=== PATIENT | female | born 1950 | race Caucasian/White ===

== ENCOUNTER → 2017-09-25 11:31 | Outpatient (CLI) | payer MEDICARE, OTHER, SELFPAY ==
[2017-09-25 12:49] LABS: Absolute Neutrophil Count 2.4 X10^3/uL (2.0-7.7); Basophil# 0.03 X10^3/uL; Basophil% 0.7 % (0-1); Eosinophil# 0.13 X10^3/uL; Eosinophils% 2.9 % (0-5); Hematocrit 37.6 % (37-47); Hemoglobin 12.2 g/dl (12.0-15.0); Lymphocyte % 35.4 % (19-41); Mean Corp Hgb Conc 32.4 g/gl (32-36); Mean Corpuscular Hgb 28.7 pg (27.0-32.0); Mean Corpuscular Volume 88.5 fL (81-99); Mean Platelet Vol. 9.6 fl (6.2-12.0); Monocyte# 0.39 X10^3/uL; Monocyte% 8.6 % (0-10); Neutrophil # 2.36 X10^3/uL (2.7-7.7); Neutrophil % 52.2 % (47-70); Platelet Count 244 K/mm3 (150-450); RBC Distribution Width CV 13.5 % (11.6-14.6); RBC Distribution Width SD 43.1 fl (35.1-43.9); Red Blood Count 4.25 M/mm3 (4.2-5.4); White Blood Count 4.5 K/mm3 (4.4-11.0)
[2017-09-25 13:00] LABS: POSITIVE COUNT NO; POSITIVE DIFFERENTIAL NO; POSITIVE MORPHOLOGY NO
[2017-09-25 13:04] LABS: AST(SGOT) 19 U/L (15-37); Alanine Aminotransfer ALT/SGPT 22 U/L (13-56); Albumin, Serum 3.4 g/dL (3.2-5.0); Alkaline Phosphatase 112 U/L (45-117); Anion Gap 8 (5-15); BUN 13 mg/dL (7-18); BUN/Creat Ratio 17.6 RATIO (10-20); Calcium,Total 8.2 mg/dL (8.5-10.1); Chloride 108 mmol/L (98-107); Creatinine, Serum 0.74 mg/dL (0.55-1.02); EST Glomerular Filtration Rate 83 mL/min (>60); Est Glom Filt Rate - Afr Amer 101 mL/min (>60); Globulin 3.5 g/dL (2.2-4.2); Glucose 158 mg/dL (74-106); Potassium 4.2 mmol/L (3.5-5.1); Protein, Total 6.9 g/dL (6.4-8.2); Sodium Level 141 mmol/L (136-145)
[2017-09-25 13:09] LABS: Vitamin D,25 Hydroxy 32.4 ng/mL (29.95-100.01)
== END ==
PROVIDERS: Family Provider Family Medicine Geriatric Medicine; PCP Family Medicine Geriatric Medicine; Visit Provider Family Medicine Geriatric Medicine
DX: E11.9 Type 2 diabetes mellitus without complications (principal); E55.9 Vitamin D deficiency, unspecified; E78.4 Other hyperlipidemia
CPT/HCPCS: 36415; 80053; 82306; 84443; 85025

== ENCOUNTER → 2017-12-27 14:43 | Outpatient (CLI) | payer MEDICARE, OTHER, SELFPAY ==
--- NOTE | 2017-12-27 14:43 | DT_ITS ---
This patient was seen during an EMR downtime December 23, 2017 - December 30, 2017. This patient may have a combination of paper and electronic documentation or all paper documentation. All documentation is viewable within the e-chart portion of [facility] for each patient visit.
== END ==
PROVIDERS: Family Provider Family Medicine Geriatric Medicine; PCP Family Medicine Geriatric Medicine; Visit Provider Family Medicine Geriatric Medicine
DX: N39.0 Urinary tract infection, site not specified (principal)
CPT/HCPCS: 87086; 87088; 87186

== ENCOUNTER → 2017-12-30 10:13 | Outpatient (CLI) | payer MEDICARE, OTHER, SELFPAY ==
--- NOTE | 2017-12-30 10:13 | DT_ITS ---
This patient was seen during an EMR downtime December 23, 2017 - December 30, 2017. This patient may have a combination of paper and electronic documentation or all paper documentation. All documentation is viewable within the e-chart portion of [facility] for each patient visit.
[2017-12-30 12:41] LABS: Absolute Lymphocyte Count 1.53 X10^3/ul (0.83-4.51); Absolute Neutrophil Count 2.2 X10^3/uL (2.0-7.7); Basophil# 0.04 X10^3/uL; Basophil% 0.9 % (0-1); Eosinophils% 2.3 % (0-5); Hematocrit 37.4 % (37-47); Hemoglobin 11.9 g/dl (12.0-15.0); Lymphocyte # 1.53 X10^3/ul (4.0); Lymphocyte % 34.8 % (19-41); Mean Corp Hgb Conc 31.8 g/gl (32-36); Mean Corpuscular Hgb 29.3 pg (27.0-32.0); Mean Corpuscular Volume 92.1 fL (81-99); Mean Platelet Vol. 9.5 fl (6.2-12.0); Monocyte% 11.4 % (0-10); Neutrophil # 2.21 X10^3/uL (2.7-7.7); Neutrophil % 50.1 % (47-70); Platelet Count 264 K/mm3 (150-450); RBC Distribution Width CV 14.7 % (11.6-14.6); RBC Distribution Width SD 48.2 fl (35.1-43.9); Red Blood Count 4.06 M/mm3 (4.2-5.4); White Blood Count 4.4 K/mm3 (4.4-11.0)
[2017-12-30 12:44] LABS: POSITIVE COUNT NO; POSITIVE DIFFERENTIAL NO; POSITIVE MORPHOLOGY NO
[2017-12-30 13:05] LABS: ALB/GLOB Ratio 1.1 RATIO (0.9-2.4); AST(SGOT) 22 U/L (15-37); Alanine Aminotransfer ALT/SGPT 26 U/L (13-56); Albumin, Serum 3.5 g/dL (3.2-5.0); Alkaline Phosphatase 106 U/L (45-117); Anion Gap 9 (5-15); BUN 16 mg/dL (7-18); BUN/Creat Ratio 19.6 RATIO (10-20); Calcium,Total 8.6 mg/dL (8.5-10.1); Chloride 107 mmol/L (98-107); Creatinine, Serum 0.82 mg/dL (0.55-1.02); EST Glomerular Filtration Rate 74 mL/min (>60); Est Glom Filt Rate - Afr Amer 90 mL/min (>60); Globulin 3.3 g/dL (2.2-4.2); Glucose 217 mg/dL (74-106); Potassium 4.2 mmol/L (3.5-5.1); Protein, Total 6.8 g/dL (6.4-8.2); Sodium Level 140 mmol/L (136-145); Thyroid Stim Hormone (TSH) 2.25 uIU/mL (0.358-3.74)
[2017-12-30 13:13] LABS: Vitamin D,25 Hydroxy 37.6 ng/mL (29.95-100.01)
== END ==
PROVIDERS: Family Provider Family Medicine Geriatric Medicine; PCP Family Medicine Geriatric Medicine; Visit Provider Family Medicine Geriatric Medicine
DX: E11.9 Type 2 diabetes mellitus without complications (principal); E55.9 Vitamin D deficiency, unspecified; I10 Essential (primary) hypertension
CPT/HCPCS: 36415; 80053; 82306; 84443; 85025

== ENCOUNTER → 2018-03-31 11:03 | Outpatient (CLI) | payer MEDICARE, OTHER, SELFPAY ==
[2018-03-31 12:15] LABS: Absolute Lymphocyte Count 2.08 X10^3/ul (0.83-4.51); Absolute Neutrophil Count 2.6 X10^3/uL (2.0-7.7); Basophil# 0.06 X10^3/uL; Basophil% 1.1 % (0-1); Eosinophil# 0.14 X10^3/uL; Eosinophils% 2.6 % (0-5); Hematocrit 38.7 % (37-47); Hemoglobin 12.5 g/dl (12.0-15.0); Lymphocyte # 2.08 X10^3/ul (4.0); Lymphocyte % 38.9 % (19-41); Mean Corp Hgb Conc 32.3 g/gl (32-36); Mean Corpuscular Hgb 29.4 pg (27.0-32.0); Mean Corpuscular Volume 91.1 fL (81-99); Mean Platelet Vol. 9.7 fl (6.2-12.0); Monocyte# 0.45 X10^3/uL; Monocyte% 8.4 % (0-10); Neutrophil # 2.61 X10^3/uL (2.7-7.7); Neutrophil % 48.8 % (47-70); Platelet Count 241 K/mm3 (150-450); RBC Distribution Width CV 13.3 % (11.6-14.6); RBC Distribution Width SD 43.4 fl (35.1-43.9); Red Blood Count 4.25 M/mm3 (4.2-5.4); White Blood Count 5.4 K/mm3 (4.4-11.0)
[2018-03-31 12:21] LABS: POSITIVE COUNT NO; POSITIVE DIFFERENTIAL NO; POSITIVE MORPHOLOGY NO
[2018-03-31 12:36] LABS: Vitamin D,25 Hydroxy 24.9 ng/mL (29.95-100.01)
[2018-03-31 12:46] LABS: AST(SGOT) 26 U/L (15-37); Alanine Aminotransfer ALT/SGPT 36 U/L (13-56); Albumin, Serum 3.6 g/dL (3.2-5.0); Alkaline Phosphatase 105 U/L (45-117); Anion Gap 12 (5-15); BUN 16 mg/dL (7-18); BUN/Creat Ratio 20.9 RATIO (10-20); Calcium,Total 9.1 mg/dL (8.5-10.1); Chloride 107 mmol/L (98-107); Creatinine, Serum 0.76 mg/dL (0.55-1.02); EST Glomerular Filtration Rate 80 mL/min (>60); Est Glom Filt Rate - Afr Amer 97 mL/min (>60); Globulin 3.5 g/dL (2.2-4.2); Glucose 159 mg/dL (74-106); Potassium 4.6 mmol/L (3.5-5.1); Protein, Total 7.1 g/dL (6.4-8.2); Sodium Level 143 mmol/L (136-145); Thyroid Stim Hormone (TSH) 1.63 uIU/mL (0.358-3.74)
== END ==
PROVIDERS: Family Provider Family Medicine Geriatric Medicine; PCP Family Medicine Geriatric Medicine; Visit Provider Family Medicine Geriatric Medicine
DX: E11.9 Type 2 diabetes mellitus without complications (principal); E55.9 Vitamin D deficiency, unspecified; I10 Essential (primary) hypertension
CPT/HCPCS: 36415; 80053; 82306; 84443; 85025

== ENCOUNTER → 2018-07-31 06:45 | Outpatient (CLI) | payer MEDICARE, OTHER, SELFPAY ==
[2018-07-23 13:45] VITALS: BMI 38.0
--- NOTE | 2018-07-31 06:47 | CDU_ITS ---
Reason For Study: Carotid stenosis Rt. Velocities/BP Lt. Velocities/BP Prox CCA 79.2/11.7 cm/sec. Prox CCA 104.0/20.4 cm/sec. Mid CCA 84.4/20.5 cm/sec. Mid CCA 113.0/25.1 cm/sec. Dist CCA 76.2/19.9 cm/sec. Dist CCA 107.0/19.6 cm/sec. Prox ICA 89.6/29.1 cm/sec. Prox ICA 115.0/26.4 cm/sec. Mid ICA 118.0/34.6 cm/sec. Mid ICA 133.0/36.9 cm/sec. Dist ICA 108.0/30.6 cm/sec. Dist ICA 87.2/27.5 cm/sec. Rt. ICA/CCA = 1.4. Lt. ICA/CCA = 1.2. Prox ECA 145.0/15.7 cm/sec. Prox ECA 161.0/23.6 cm/sec. Rt. Vert. 66.3/21.7 cm/sec. Right Extracranial There is intimal thickening but no significant atherosclerotic plaque noted in the right common carotid artery. There is heterogeneous, irregular atherosclerotic plaque noted in the right internal carotid artery. There is heterogeneous, irregular atherosclerotic plaque noted in the right external carotid artery. Antegrade flow is noted in the right vertebral artery. Left Extracranial There is intimal thickening but no significant atherosclerotic plaque noted in the left common carotid artery. There is heterogeneous, irregular atherosclerotic plaque noted in the left internal carotid artery. There is homogeneous, smooth atherosclerotic plaque noted in the left external carotid artery. Retrograde flow LT VERT artery. Procedure Carotid Duplex 39825. Exam performed in department. Interpretation Summary Mild (<50%) stenosis right extracranial internal carotid. Moderate (50-69%) stenosis left extracranial internal carotid. Flow within the right verterbral artery is antegrade. Flow within the left verterbral artery is retrograde, consistent with a subclavian steal phenomenon. Ordering Physician: Greg Quinonez Referring Physician: Jim Calabrese Chi Performed By: Anabelle Vance RVT
--- NOTE | 2018-07-31 13:02 | STRESSREP ---
Stress Test Report Date: 07/31/2018 Procedure: Exercise tolerance test/imaging study Indications: Chest pain Consent: Per the patient Procedure: The patient exercised on a Jet protocol for 5 minutes 30 seconds completing Stage I and 2 minutes 30 seconds of Stage II achieving a peak heart rate of 141 bpm (92 % predicted maximal heart rate) with a peak blood pressure 200/82 mmHg and a peak MET capacity of 7 METs. The baseline ECG demonstrated normal sinus rhythm. The peak exercise ECG demonstrated no obvious ECG changes. There were no cardiac dysrhythmias pretest, during exercise, or recovery. The functional capacity was considered average. There was no complaint of chest discomfort during exercise or recovery. The examination was discontinued secondary to dyspnea and leg discomfort. Impression: 1. Technically adequate (percent predicted maximal heart rate greater than 85%) exercise tolerance test 2. Peak exercise ECG with no obvious ECG changes 3. There were no cardiac dysrhythmias pretest, during exercise, or recovery 4. Nuclear images pending Myocardial perfusion imaging study: Technique: The patient was injected with 14.1 mCi of technetium 99m Cardiolite and subsequently rest SPECT Cardiolite nuclear imaging was obtained in the horizontal long, vertical long, and short axis views. The patient exercised on a Ejt protocol for 5 minutes 30 seconds completing Stage I and 2 minutes 30 seconds of Stage II achieving a peak heart rate of 141 bpm (92 % predicted maximal heart rate) with a peak blood pressure 200/82 mmHg and a peak MET capacity of 7 METs. The patient was injected with 44.4 mCi of technetium 99m Cardiolite and subsequently stress SPECT Cardiolite nuclear imaging was obtained in the horizontal long, vertical long, and short axis views. A gated Cardiolite study at peak stress was obtained. Interpretation: Rest and stress SPECT Cardiolite nuclear imaging status post realignment, normalization, and attenuation correction, demonstrates the appearance of relative uniform tracer uptake and myocardial perfusion appearing within normal limits. There is end systolic thickening and brightening. The gated Cardiolite study demonstrates myocardial thickening and inward wall motion. The reported LVEF is 77 %. Impression: 1. Rest and stress SPECT Cardiolite nuclear imaging demonstrate relative uniform tracer uptake and myocardial perfusion appearing within normal limits. 2. The gated Cardiolite study reports an LVEF of 77 %. This note was generated with [employer] software. It may contain incorrect words, spelling, and punctuation that were not noted in checking the note before signing.
== END ==
PROVIDERS: Family Provider Family Medicine Geriatric Medicine; PCP Family Medicine Geriatric Medicine; Referring Provider Internal Medicine Cardiovascular Disease; Visit Provider Internal Medicine Cardiovascular Disease
DX: I25.10 Atherosclerotic heart disease of native coronary artery without angina pectoris (principal); R55 Syncope and collapse
CPT/HCPCS: 78452; 93017; 93880; A9500; A4216

== ENCOUNTER → 2018-08-18 15:25 | Outpatient (CLI) | payer MEDICARE, OTHER, SELFPAY ==
[2018-07-23 13:45] VITALS: BMI 38.0
[2018-08-18 16:40] LABS: Absolute Lymphocyte Count 1.97 X10^3/ul (0.83-4.51); Absolute Neutrophil Count 4.8 X10^3/uL (2.0-7.7); Basophil# 0.03 X10^3/uL; Basophil% 0.4 % (0-1); Eosinophil# 0.16 X10^3/uL; Eosinophils% 2.1 % (0-5); Hematocrit 39.6 % (37-47); Hemoglobin 12.8 g/dl (12.0-15.0); Lymphocyte # 1.97 X10^3/ul (4.0); Lymphocyte % 25.9 % (19-41); Mean Corp Hgb Conc 32.3 g/gl (32-36); Mean Corpuscular Hgb 29.2 pg (27.0-32.0); Mean Corpuscular Volume 90.2 fL (81-99); Monocyte# 0.68 X10^3/uL; Monocyte% 8.9 % (0-10); Neutrophil # 4.75 X10^3/uL (2.7-7.7); Neutrophil % 62.4 % (47-70); Platelet Count 260 K/mm3 (150-450); RBC Distribution Width CV 13.8 % (11.6-14.6); RBC Distribution Width SD 45.2 fl (35.1-43.9); Red Blood Count 4.39 M/mm3 (4.2-5.4); White Blood Count 7.6 K/mm3 (4.4-11.0)
[2018-08-18 16:50] LABS: POSITIVE COUNT NO; POSITIVE DIFFERENTIAL NO; POSITIVE MORPHOLOGY NO
[2018-08-18 17:04] LABS: Vitamin D,25 Hydroxy 61.5 ng/mL (29.95-100.01)
[2018-08-18 17:11] LABS: ALB/GLOB Ratio 0.9 RATIO (0.9-2.4); AST(SGOT) 18 U/L (15-37); Alanine Aminotransfer ALT/SGPT 27 U/L (13-56); Albumin, Serum 3.6 g/dL (3.2-5.0); Alkaline Phosphatase 116 U/L (45-117); Anion Gap 12 (5-15); BUN 15 mg/dL (7-18); BUN/Creat Ratio 18.2 RATIO (10-20); Calcium,Total 8.7 mg/dL (8.5-10.1); Chloride 108 mmol/L (98-107); Creatinine, Serum 0.82 mg/dL (0.55-1.02); EST Glomerular Filtration Rate 73 mL/min (>60); Est Glom Filt Rate - Afr Amer 89 mL/min (>60); Globulin 3.8 g/dL (2.2-4.2); Glucose 211 mg/dL (74-106); Protein, Total 7.4 g/dL (6.4-8.2); Sodium Level 141 mmol/L (136-145); Thyroid Stim Hormone (TSH) 2.46 uIU/mL (0.358-3.74); Uric Acid 4.2 mg/dL (2.6-6.0)
== END ==
PROVIDERS: Family Provider Family Medicine Geriatric Medicine; PCP Family Medicine Geriatric Medicine; Visit Provider Family Medicine Geriatric Medicine
DX: E11.9 Type 2 diabetes mellitus without complications (principal); E55.9 Vitamin D deficiency, unspecified; I10 Essential (primary) hypertension; M10.9 Gout, unspecified
CPT/HCPCS: 36415; 80053; 82306; 84443; 84550; 85025

== ENCOUNTER → 2018-11-04 06:54 | Outpatient (CLI) | payer MEDICARE, OTHER, SELFPAY ==
[2018-07-23 13:45] VITALS: BMI 38.0
[2018-11-21 11:19] LABS: Fats, Neutral NORMAL; Fats, Total NORMAL
== END ==
PROVIDERS: Family Provider Family Medicine Geriatric Medicine; PCP Family Medicine Geriatric Medicine
DX: K76.0 Fatty (change of) liver, not elsewhere classified (principal)
CPT/HCPCS: 82705; 83993; 87506

== ENCOUNTER → 2018-11-07 | Outpatient (CLI) | payer MEDICARE, OTHER, SELFPAY ==
[2018-07-23 13:45] VITALS: BMI 38.0
--- OUTSIDE RECORDS SUMMARY | 2018-11-07 11:07 | XMS RPT_ITS | CCD ---
:1950 External Reference #:[id number] Author Organization [facility] Care Team Providers Name Role Phone Unavailable Unavailable Unavailable Allergies Reported Allergen Reaction(s) Severity Date of Onset Location NKDA Translations: [ Mild 03-19-2016 - - [facility]] 03-27-2017 - Group ([id number]) NEGATED: Highlighted propensity to adverse 03-27-2017 - - [facility] row has been ruled reactions 03-27-2017 - Group ([id number]) out!Observed No Known Drug Allergies at Medications Medication Name Sig Date Prescriber Location acetaminophen ACETAMINOPHEN 500 MG TABS 03-27-2017 [facility] (Tylenol) Take as directed (45305) ACETAMINOPHEN [id number] Greg Quinonez MD ACETAMINOPHEN 500 MG TABS (Tylenol) Take as 03-27-2017 [facility] (63224) directed ACETAMINOPHEN [id number] Greg Quinonez MD ACETAMINOPHEN 500 MG TABS (Tylenol) Take as 03-27-2017 [facility] (24773) directed ACETAMINOPHEN [id number] Greg Quinonez MD ACETAMINOPHEN 500 MG TABS (Tylenol) Take as 03-27-2017 [facility] (38663) directed ACETAMINOPHEN [id number] Greg Quinonez MD ACETAMINOPHEN 500 MG TABS (Tylenol) Take as 03-27-2017 [facility] (61786) directed ACETAMINOPHEN [id number] Greg Quinonez MD ACETAMINOPHEN 500 MG TABS (Tylenol) Take as 03-27-2017 [facility] (67763) directed ACETAMINOPHEN [id number] Greg Quinonez MD ACETAMINOPHEN 500 MG TABS (Tylenol) Take as 03-27-2017 [facility] (67115) directed ACETAMINOPHEN [id number] Greg Quinonez MD acetaminophen / PERCOCET 5-325 MG TABS 1-2 03-19-2016 - [facility] oxyCODONE tablets every 4 hrs as needed 11-07-2016 Group ([id number]) OXYCODONE-ACETAMINOPHEN [id number] Jean Pierre Bonds ORTHOPEDIC RN-C PERCOCET 5-325 MG TABS 1-2 tablets 03-19-2015 - 11-07-2016 [facility] every 4 hrs as needed (68164) OXYCODONE-ACETAMINOPHEN [id number] Jean Pierre Bonds ORTHOPEDIC RN-C aspirin ASPIRIN EC 81 MG TBEC One tablet by 07-10-2010 [facility] (97518) mouth daily ASPIRIN [id number] Kaylee Larsen PA-C ASPIRIN 325 MG TABS One tablet by mouth 07-10-2011 [facility] (20351) twice daily ASPIRIN [id number] Paola Thompson RN ASPIRIN 81 MG TABS ASPIRIN 07-10-2011 [facility] (57322) [id number] Betty E Frase ASPIRIN 325 MG TABS One tablet by mouth 07-10-2011 [facility] (23316) twice daily ASPIRIN [id number] Paola Thompson RN ASPIRIN EC 81 MG TBEC One tablet by mouth 07-10-2011 [facility] (26750) daily ASPIRIN [id number] Kaylee Larsen PA-C ASPIRIN EC 81 MG TBEC One tablet by mouth 07-10-2011 [facility] (07606) daily ASPIRIN [id number] Kaylee Larsen PA-C ASPIRIN 81 MG TABS ASPIRIN 07-10-2011 [facility] (22008) [id number] Betty E Frase ASPIRIN 325 MG TABS One tablet by mouth 07-10-2011 [facility] (32474) twice daily ASPIRIN 57195760263 Paola Thompson RN ASPIRIN 325 MG TABS One tablet by mouth 07-10-2011 [facility] (09869) twice daily ASPIRIN [id number] Paola Thompson RN ASPIRIN EC 81 MG TBEC One tablet by mouth 07-10-2011 [facility] (61712) daily ASPIRIN [id number] Kaylee Larsen PA-C ASPIRIN 81 MG TABS ASPIRIN 07-10-2011 [facility] (47407) [id number] Betty E Frase ASPIRIN 325 MG TABS One tablet by mouth 07-10-2011 [facility] (73398) twice daily ASPIRIN 50643591154 Paola Thompson RN ASPIRIN 81 MG TABS ASPIRIN 07-10-2011 [facility] (56268) [id number] Betty E Frase ASPIRIN EC 81 MG TBEC One tablet by mouth 07-10-2011 [facility] (45186) daily ASPIRIN [id number] Kaylee Larsen PA-C ASPIRIN 81 MG TABS ASPIRIN 07-10-2011 [facility] (28702) [id number] Betty E Frase ASPIRIN EC 81 MG TBEC One tablet by mouth 07-10-2011 [facility] (82393) daily ASPIRIN [phone] Kaylee Larsen PA-C ASPIRIN 325 MG TABS One tablet by mouth 07-10-2011 [facility] (32270) twice daily ASPIRIN [id number] Paola Thompson RN ASPIRIN 81 MG TABS ASPIRIN 07-10-2011 [facility] (72119) [id number] Betty E Frase ASPIRIN EC 81 MG TBEC One tablet by mouth 07-10-2011 [facility] (81122) daily ASPIRIN [id number] Kaylee Larsen PA-C ASPIRIN 325 MG TABS One tablet by mouth 07-10-2011 [facility] (96281) twice daily ASPIRIN [id number] Paola Thompson RN ASPIRIN 81 MG TABS ASPIRIN 07-10-2011 [facility] (21145) [id number] Betty E Frase ASPIRIN EC 81 MG TBEC One tablet by mouth 07-10-2011 [facility] (01977) daily ASPIRIN 12441620156 Kaylee Larsen PA-C ASPIRIN 81 MG TABS ASPIRIN 07-10-2011 [facility] (56694) [id number] Betty E Frase ASPIRIN 325 MG TABS One tablet by mouth 07-10-2011 [facility] (16819) twice daily ASPIRIN [id number] Paola Thompson RN ASPIRIN EC 81 MG TBEC One tablet by mouth 07-10-2011 [facility] (96513) daily ASPIRIN [id number] Kaylee Larsen PA-C ASPIRIN 81 MG TABS ASPIRIN 07-10-2011 [facility] (61809) [id number] Betty E Frase ASPIRIN 81 MG TABS ASPIRIN 07-10-2011 [facility] (26608) [id number] Betty E Frase ASPIRIN 325 MG TABS One tablet by mouth 07-10-2011 [facility] (55012) twice daily ASPIRIN [id number] Paola Thompson RN ASPIRIN EC 81 MG TBEC One tablet by mouth 07-10-2011 [facility] (66139) daily ASPIRIN [id number] Kaylee Larsen PA-C ASPIRIN EC 81 MG TBEC One tablet by mouth 07-10-2011 [facility] (64840) daily ASPIRIN [id number] Kaylee Larsen PA-C ASPIRIN 81 MG TABS ASPIRIN 07-10-2011 [facility] (42947) [id number] Betty E Frase ASPIRIN 325 MG TABS One tablet by mouth 07-10-2011 [facility] (94042) twice daily ASPIRIN [phone] Paola Thompson RN ASPIRIN 325 MG TABS One tablet by mouth 07-10-2011 [facility] (96263) twice daily ASPIRIN [id number] Paola Thompson RN ASPIRIN 81 MG TABS ASPIRIN 07-10-2011 [facility] (54851) [id number] Betty E Frase ASPIRIN 325 MG TABS One tablet by mouth 07-10-2011 [facility] (48366) twice daily ASPIRIN [id number] Paola Thompson RN ASPIRIN EC 81 MG TBEC One tablet by mouth 07-10-2011 [facility] (24252) daily ASPIRIN 08120267442 Kaylee Larsen PA-C ASPIRIN 325 MG TABS One tablet by mouth 07-10-2011 [facility] (11674) twice daily ASPIRIN 53507116108 Paola Thompson RN ASPIRIN 81 MG TABS ASPIRIN 07-10-2011 [facility] (63266) [id number] Betty E Frase ASPIRIN EC 81 MG TBEC One tablet by mouth 07-10-2011 [facility] (99496) daily ASPIRIN [id number] Kaylee Larsen PA-C atorvastatin ATORVASTATIN CALCIUM 40 MG TABS 03-19-2016 [facility] (94670) One tablet by mouth daily ATORVASTATIN CALCIUM [id number] Paola Thompson RN ATORVASTATIN CALCIUM 80 MG TABS One tablet 03-19-2016 [facility] (30800) by mouth daily ATORVASTATIN CALCIUM [id number] Greg Quinonez MD ATORVASTATIN CALCIUM 80 MG TABS One tablet 03-19-2016 [facility] (52235) by mouth daily ATORVASTATIN CALCIUM [id number] Greg Quinonez MD ATORVASTATIN CALCIUM 40 MG TABS One tablet 03-19-2016 [facility] (60813) by mouth daily ATORVASTATIN CALCIUM [id number] Paola Thompson RN ATORVASTATIN CALCIUM 40 MG TABS One tablet 03-19-2016 [facility] (12368) by mouth daily ATORVASTATIN CALCIUM 70293979771 Paola Thompson RN ATORVASTATIN CALCIUM 80 MG TABS One tablet 03-19-2016 [facility] (76273) by mouth daily ATORVASTATIN CALCIUM [id number] Greg Quinonez MD ATORVASTATIN CALCIUM 80 MG TABS One tablet 03-19-2016 [facility] (89360) by mouth daily ATORVASTATIN CALCIUM [id number] Greg Quinonez MD ATORVASTATIN CALCIUM 80 MG TABS One tablet 03-19-2016 [facility] (18913) by mouth daily ATORVASTATIN CALCIUM [id number] Greg Quinonez MD ATORVASTATIN CALCIUM 40 MG TABS One tablet 03-19-2016 [facility] (03643) by mouth daily ATORVASTATIN CALCIUM [id number] Paola Thompson RN ATORVASTATIN CALCIUM 40 MG TABS One tablet 03-19-2016 [facility] (13819) by mouth daily ATORVASTATIN CALCIUM 33864369510 Paola Thompson RN ATORVASTATIN CALCIUM 80 MG TABS One tablet 03-19-2016 [facility] (86886) by mouth daily ATORVASTATIN CALCIUM 37270114478 Greg Quinonez MD ATORVASTATIN CALCIUM 40 MG TABS One tablet 03-19-2016 [facility] (31703) by mouth daily ATORVASTATIN CALCIUM 15088179247 Paola Thompson RN ATORVASTATIN CALCIUM 80 MG TABS One tablet 03-19-2016 [facility] (03168) by mouth daily ATORVASTATIN CALCIUM 78058880234 Greg Quinonez MD ATORVASTATIN CALCIUM 40 MG TABS One tablet 03-19-2016 [facility] (20146) by mouth daily ATORVASTATIN CALCIUM 24515505054 Paola Thompson RN ATORVASTATIN CALCIUM 80 MG TABS One tablet 03-19-2016 [facility] (64325) by mouth daily ATORVASTATIN CALCIUM [id number] Greg Quinonez MD ATORVASTATIN CALCIUM 40 MG TABS One tablet 03-19-2016 [facility] (75334) by mouth daily ATORVASTATIN CALCIUM 16064970763 Paola Thompson RN ATORVASTATIN CALCIUM 80 MG TABS One tablet 03-19-2016 [facility] (52402) by mouth daily ATORVASTATIN CALCIUM 82143765205 Greg Quinonez MD ATORVASTATIN CALCIUM 40 MG TABS One tablet 03-19-2016 [facility] (19225) by mouth daily ATORVASTATIN CALCIUM 27518146536 Paola Thompson RN ATORVASTATIN CALCIUM 80 MG TABS One tablet 03-19-2016 [facility] (24429) by mouth daily ATORVASTATIN CALCIUM 17186206964 Greg Quinonez MD ATORVASTATIN CALCIUM 40 MG TABS One tablet 03-19-2016 [facility] (84890) by mouth daily ATORVASTATIN CALCIUM 56330288807 Paola Thompson RN ATORVASTATIN CALCIUM 80 MG TABS One tablet 03-19-2016 [facility] (29671) by mouth daily ATORVASTATIN CALCIUM 65972696142 Greg Quinonez MD ATORVASTATIN CALCIUM 40 MG TABS One tablet 03-19-2016 [facility] (72684) by mouth daily ATORVASTATIN CALCIUM 61875325814 Paola Thompson RN ATORVASTATIN CALCIUM 80 MG TABS One tablet 03-19-2016 [facility] (97358) by mouth daily ATORVASTATIN CALCIUM 92244438015 Greg Quinonez MD ATORVASTATIN CALCIUM 40 MG TABS One tablet 03-19-2016 [facility] (04455) by mouth daily ATORVASTATIN CALCIUM 05115260008 Paola Thompson RN ATORVASTATIN CALCIUM 80 MG TABS One tablet 03-19-2016 [facility] (31808) by mouth daily ATORVASTATIN CALCIUM [id number] Greg Quinonez MD ATORVASTATIN CALCIUM 40 MG TABS One tablet 03-19-2016 [facility] (88651) by mouth daily ATORVASTATIN CALCIUM [id number] Paola Thompson RN cholecalciferol [facility] VITAMIN D3 1000 UNIT CAPS 07-10-2011 [facility] CHOLECALCIFEROL (53824) [id number] Betty Cassidy [facility] VITAMIN D3 1000 UNIT CAPS 07-10-2011 [facility] CHOLECALCIFEROL (37684) [id number] Betty E Frase CVS VITAMIN D3 1000 UNIT CAPS 07-10-2011 [facility] CHOLECALCIFEROL (55797) [id number] Betty E Frase CVS VITAMIN D3 1000 UNIT CAPS 07-10-2011 [facility] CHOLECALCIFEROL (31775) [id number] Betty E Frase CVS VITAMIN D3 1000 UNIT CAPS One 07-10-2011 - --2016 [facility] tablet by mouth daily (63381) CHOLECALCIFEROL Greg Quinonez MD CVS VITAMIN D3 1000 UNIT CAPS One 07-10-2011 [facility] tablet by mouth daily (09947) CHOLECALCIFEROL Paola Thompson RN CVS VITAMIN D3 1000 UNIT CAPS One 07-10-2011 [facility] tablet by mouth daily (94891) CHOLECALCIFEROL Paola Thompson RN CVS VITAMIN D3 1000 UNIT CAPS 07-10-2011 [facility] CHOLECALCIFEROL (42775) [id number] Betty E Frase CVS VITAMIN D3 1000 UNIT CAPS One 07-10-2011 [facility] tablet by mouth daily (97556) CHOLECALCIFEROL Paola Thompson RN CVS VITAMIN D3 1000 UNIT CAPS 07-10-2011 [facility] CHOLECALCIFEROL (94615) [id number] Betty E Frase CVS VITAMIN D3 1000 UNIT CAPS One 07-10-2011 [facility] tablet by mouth daily (66423) CHOLECALCIFEROL Paola Thompson RN CVS VITAMIN D3 1000 UNIT CAPS One 07-10-2011 [facility] tablet by mouth daily (52016) CHOLECALCIFEROL Paola Thompson RN CVS VITAMIN D3 1000 UNIT CAPS One 07-10-2011 [facility] tablet by mouth daily (37591) CHOLECALCIFEROL Paola Thompson RN CV[facility] VITAMIN D3 1000 UNIT CAPS One 07-10-2011 [facility] tablet by mouth daily (04441) CHOLECALCIFEROL Paola Thompson RN CVS VITAMIN D3 1000 UNIT CAPS 07-10-2011 [facility] CHOLECALCIFEROL (58062) [id number] Betty E Robertase CVS VITAMIN D3 1000 UNIT CAPS 07-10-2011 [facility] CHOLECALCIFEROL (87917) [id number] Betty E Frase docusate COLACE 100 MG CAPS 07-10-2011 [facility] (77508) DOCUSATE SODIUM 14072012931 Betty E Frase COLACE 100 MG CAPS DOCUSATE 07-10-2011 [facility] (08318) SODIUM 51771238896 Betty E Frase COLACE 100 MG CAPS One capsule by mouth 07-10-2011 [facility] (50496) daily DOCUSATE SODIUM 60614336272 Paola Thompson RN COLACE 100 MG CAPS DOCUSATE 07-10-2011 [facility] (07716) SODIUM 38750864253 Betty E Frase COLACE 100 MG CAPS DOCUSATE 07-10-2011 [facility] (41207) SODIUM 90297190022 Betty E Frase COLACE 100 MG CAPS One capsule by mouth 07-10-2011 [facility] (20322) daily DOCUSATE SODIUM 26446425596 Paola Thompson RN COLACE 100 MG CAPS DOCUSATE 07-10-2011 [facility] (32924) SODIUM 72420058052 Betty E Frase COLACE 100 MG CAPS One capsule by mouth 07-10-2011 [facility] (41286) daily DOCUSATE SODIUM 41535083851 Paola Thompson RN COLACE 100 MG CAPS One capsule by mouth 07-10-2011 [facility] (33134) daily DOCUSATE SODIUM 88210265548 Paola Thompson RN COLACE 100 MG CAPS DOCUSATE 07-10-2011 [facility] (64014) SODIUM 71900349519 Betty E Frase COLACE 100 MG CAPS One capsule by mouth 07-10-2011 [facility] (21764) daily DOCUSATE SODIUM 12143319867 Paola Thompson RN COLACE 100 MG CAPS DOCUSATE 07-10-2011 [facility] (17478) SODIUM 67989337109 Betty E Frase COLACE 100 MG CAPS One capsule by mouth 07-10-2011 [facility] (96582) daily DOCUSATE SODIUM 69061791749 Paola Thompson RN COLACE 100 MG CAPS One capsule by mouth 07-10-2011 [facility] (67692) daily DOCUSATE SODIUM 18789231550 Paola Thompson RN COLACE 100 MG CAPS One capsule by mouth 07-10-2011 [facility] (45516) daily DOCUSATE SODIUM 87663823284 Paola Thompson RN COLACE 100 MG CAPS DOCUSATE 07-10-2011 [facility] (52433) SODIUM 30195282242 Betty E Frase COLACE 100 MG CAPS One capsule by mouth 07-10-2011 [facility] (81854) daily DOCUSATE SODIUM 77693705227 Paola Thompson RN COLACE 100 MG CAPS DOCUSATE 07-10-2011 [facility] (04673) SODIUM 29380141188 Betty E Frase COLACE 100 MG CAPS DOCUSATE 07-10-2011 [facility] (11156) SODIUM 72955579107 Betty E Frase COLACE 100 MG CAPS One capsule by mouth 07-10-2011 [facility] (24555) daily DOCUSATE SODIUM 51226697381 Paola Thompson RN COLACE 100 MG CAPS DOCUSATE 07-10-2011 [facility] (63485) SODIUM 31629703566 Betty E Frase COLACE 100 MG CAPS DOCUSATE 07-10-2011 [facility] (09116) SODIUM 90515144333 Betty E Frase COLACE 100 MG CAPS One capsule by mouth 07-10-2011 [facility] (45259) daily DOCUSATE SODIUM 17283189675 Paola Thompson RN COLACE 100 MG CAPS One capsule by mouth 07-10-2011 [facility] (46521) daily DOCUSATE SODIUM 25504203496 Paola Thompson RN COLACE 100 MG CAPS One capsule by mouth 07-10-2011 [facility] (21316) daily DOCUSATE SODIUM 13098648597 Paola Thompson RN COLACE 100 MG CAPS DOCUSATE 07-10-2011 [facility] (87771) SODIUM [id number] Betty Vanessa Granados esomeprazole ESOMEPRAZOLE MAGNESIUM 40 MG 09-27-2016 [facility] (84565) CPDR One tablet by mouth daily ESOMEPRAZOLE MAGNESIUM 12546625840 Kaylee Cervantes RN ESOMEPRAZOLE MAGNESIUM 40 MG 09-27-2016 [facility] (56814) CPDR One tablet by mouth daily ESOMEPRAZOLE MAGNESIUM 16051693865 Kaylee Cervantes RN ESOMEPRAZOLE MAGNESIUM 40 MG 09-27-2016 [facility] (57020) CPDR One tablet by mouth daily ESOMEPRAZOLE MAGNESIUM 53685012449 Kaylee Cervantes RN ESOMEPRAZOLE MAGNESIUM 40 MG 09-27-2016 [facility] (80894) CPDR One tablet by mouth daily ESOMEPRAZOLE MAGNESIUM 59910626039 Kaylee Cervantes RN ESOMEPRAZOLE MAGNESIUM 40 MG 09-27-2016 [facility] (44874) CPDR One tablet by mouth daily ESOMEPRAZOLE MAGNESIUM 36323044387 Kaylee Cervantes RN ESOMEPRAZOLE MAGNESIUM 40 MG 09-27-2016 [facility] (70110) CPDR One tablet by mouth daily ESOMEPRAZOLE MAGNESIUM 65463936848 Kaylee Cervantes RN ESOMEPRAZOLE MAGNESIUM 40 MG 09-27-2016 [facility] (04553) CPDR One tablet by mouth daily ESOMEPRAZOLE MAGNESIUM 59917150999 Kaylee Cervantes RN ESOMEPRAZOLE MAGNESIUM 40 MG 09-27-2016 [facility] (88441) CPDR One tablet by mouth daily ESOMEPRAZOLE MAGNESIUM 61403872068 Kaylee Cervantes RN ESOMEPRAZOLE MAGNESIUM 40 MG 09-27-2016 [facility] (13509) CPDR One tablet by mouth daily ESOMEPRAZOLE MAGNESIUM 27519689876 Kaylee Cervantes RN ESOMEPRAZOLE MAGNESIUM 40 MG 09-27-2016 [facility] (30856) CPDR One tablet by mouth daily ESOMEPRAZOLE MAGNESIUM 94657527498 Kaylee Cervantes RN ESOMEPRAZOLE MAGNESIUM 40 MG 09-27-2016 [facility] (58301) CPDR One tablet by mouth daily ESOMEPRAZOLE MAGNESIUM 00408737446 Kaylee Cervantes RN ESOMEPRAZOLE MAGNESIUM 40 MG 09-27-2016 [facility] (58032) CPDR One tablet by mouth daily ESOMEPRAZOLE MAGNESIUM 97459382092 Kaylee Cervantes RN ESOMEPRAZOLE MAGNESIUM 40 MG 09-27-2016 [facility] (10830) CPDR One tablet by mouth daily ESOMEPRAZOLE MAGNESIUM 30541254807 Kaylee Cervantes RN NEXIUM 40 MG PACK 07-10-2011 [facility] (18377) ESOMEPRAZOLE MAGNESIUM [id number] Betty E Frase NEXIUM 40 MG PACK 07-10-2010 - 03-19-2016 [facility] (80016) ESOMEPRAZOLE MAGNESIUM 30768086142 Paola Thompson RN NEXIUM 40 MG PACK 07-10-2011 [facility] (01870) ESOMEPRAZOLE MAGNESIUM 52618734815 Betty E Frase NEXIUM 40 MG PACK 07-10-2010 - 03-19-2015 [facility] (97526) ESOMEPRAZOLE MAGNESIUM 05488340950 Paola Thompson RN NEXIUM 40 MG PACK 07-10-2011 [facility] (48796) ESOMEPRAZOLE MAGNESIUM [id number] Betty E Frase furosemide LASIX 40 MG TABS 07-10-2011 [facility] (33442) FUROSEMIDE [id number] Betty E Frase LASIX 40 MG TABS 07-10-2010 - 03-19-2016 [facility] (46525) FUROSEMIDE [id number] Paola Thompson RN LASIX 40 MG TABS 07-10-2011 [facility] (70663) FUROSEMIDE [id number] Betty E Frase LASIX 40 MG TABS 07-10-2011 [facility] (73222) FUROSEMIDE 29324548540 Betty E Frase LASIX 40 MG TABS 07-10-2011 [facility] (82924) FUROSEMIDE 89544280034 Ebtty E Frase LASIX 40 MG TABS 07-10-2011 [facility] (24194) FUROSEMIDE 85435875487 Betty E Frase LASIX 40 MG TABS 07-10-2011 [facility] (05357) FUROSEMIDE [id number] Betty E Frase hyoscyamine LEVSIN/SL 0.125 MG SUBL 07-10-2011 [facility] (37279) HYOSCYAMINE SULFATE 84160820917 Betty E Frase LEVSIN/SL 0.125 MG SUBL 07-10-2010 - 03-19-2016 [facility] (71138) HYOSCYAMINE SULFATE 11043503050 Paola Thompson RN LEVSIN/SL 0.125 MG SUBL 07-10-2011 [facility] (95177) HYOSCYAMINE SULFATE 38860607957 Betty E Frase LEVSIN/SL 0.125 MG SUBL 07-10-2011 [facility] (90952) HYOSCYAMINE SULFATE 80354855417 Betty E Frase LEVSIN/SL 0.125 MG SUBL 07-10-2011 [facility] (04472) HYOSCYAMINE SULFATE [id number] Betty E Frase LEVSIN/SL 0.125 MG SUBL 07-10-2011 [facility] (52790) HYOSCYAMINE SULFATE 78185394610 Betty Vanessa Cassidy ibuprofen IBUPROFEN 800 MG TABS 1 tablet by 09-27-2016 [facility] (23464) mouth Q6H as needed IBUPROFEN [id number] Kaylee Cervantes RN IBUPROFEN 800 MG TABS 1 tablet by mouth Q6H 09-27-2016 [facility] (26654) as needed IBUPROFEN [id number] Kaylee Cervantes RN IBUPROFEN 800 MG TABS 1 tablet by mouth Q6H 09-27-2016 [facility] (20083) as needed IBUPROFEN [id number] Kaylee Campomitt RN IBUPROFEN 800 MG TABS 1 tablet by mouth Q6H 09-27-2016 [facility] (11890) as needed IBUPROFEN [id number] Kaylee Cervantes RN IBUPROFEN 800 MG TABS 1 tablet by mouth Q6H 09-27-2016 [facility] (51689) as needed IBUPROFEN [id number] Kaylee Cervantes RN IBUPROFEN 800 MG TABS 1 tablet by mouth Q6H 09-27-2016 [facility] (66961) as needed IBUPROFEN [id number] Kaylee Cervantes RN IBUPROFEN 800 MG TABS 1 tablet by mouth Q6H 09-27-2016 [facility] (57527) as needed IBUPROFEN [id number] Kaylee Cervantes RN IBUPROFEN 800 MG TABS 1 tablet by mouth Q6H 09-27-2016 [facility] (17686) as needed IBUPROFEN [id number] Kaylee eCrvantes RN IBUPROFEN 800 MG TABS 1 tablet by mouth Q6H 09-27-2016 [facility] (88795) as needed IBUPROFEN [id number] Kaylee Cervantes RN IBUPROFEN 800 MG TABS 1 tablet by mouth Q6H 09-27-2016 [facility] (36778) as needed IBUPROFEN [id number] Kaylee Cervantes RN IBUPROFEN 800 MG TABS 1 tablet by mouth Q6H 09-27-2016 [facility] (83641) as needed IBUPROFEN [id number] Kaylee Cervantes RN IBUPROFEN 800 MG TABS 1 tablet by mouth Q6H 09-27-2016 [facility] (19698) as needed IBUPROFEN [id number] Kaylee Cervantes RN IBUPROFEN 800 MG TABS 1 tablet by mouth Q6H 09-27-2016 [facility] (97098) as needed IBUPROFEN [id number] Kaylee Cervantes RN losartan LOSARTAN POTASSIUM 100 MG TABS One 03-19-2016 [facility] (84246) tablet by mouth daily LOSARTAN POTASSIUM 24351442251 Paola Thompson RN LOSARTAN POTASSIUM 100 MG TABS One tablet by 03-19-2016 [facility] (91157) mouth daily LOSARTAN POTASSIUM 94412865445 Paola Thompson RN LOSARTAN POTASSIUM 100 MG TABS One tablet by 03-19-2016 [facility] (19267) mouth daily LOSARTAN POTASSIUM 22967855425 Paola Thompson RN LOSARTAN POTASSIUM 100 MG TABS One tablet by 03-19-2016 [facility] (98719) mouth daily LOSARTAN POTASSIUM 86258522973 Paola Thompson RN LOSARTAN POTASSIUM 100 MG TABS One tablet by 03-19-2016 [facility] (28927) mouth daily LOSARTAN POTASSIUM 73071293561 Paola Thompson RN LOSARTAN POTASSIUM 100 MG TABS One tablet by 03-19-2016 [facility] (63466) mouth daily LOSARTAN POTASSIUM 05534507884 Paola Thompson RN LOSARTAN POTASSIUM 100 MG TABS One tablet by 03-19-2016 [facility] (84966) mouth daily LOSARTAN POTASSIUM 88935457484 Paola Thompson RN LOSARTAN POTASSIUM 100 MG TABS One tablet by 03-19-2016 [facility] (30157) mouth daily LOSARTAN POTASSIUM 02658866561 Paola Thompson RN LOSARTAN POTASSIUM 100 MG TABS One tablet by 03-19-2016 [facility] (67773) mouth daily LOSARTAN POTASSIUM 07196178555 Paola Thompson RN LOSARTAN POTASSIUM 100 MG TABS One tablet by 03-19-2016 [facility] (28360) mouth daily LOSARTAN POTASSIUM 94833931792 Paola Thompson RN LOSARTAN POTASSIUM 100 MG TABS One tablet by 03-19-2016 [facility] (70544) mouth daily LOSARTAN POTASSIUM 41545655509 Paola Thompson RN LOSARTAN POTASSIUM 100 MG TABS One tablet by 03-19-2016 [facility] (49007) mouth daily LOSARTAN POTASSIUM 49645386991 Paola Thompson RN LOSARTAN POTASSIUM 100 MG TABS One tablet by 03-19-2016 [facility] (54084) mouth daily LOSARTAN POTASSIUM 10669895786 Paola Thompson RN mesalamine APRISO [id number] 1500 mg twice 03-19-2016 [facility] (61759) daily MESALAMINE [id number] Paola Thompson RN APRISO [id number] 1500 mg twice daily 03-19-2016 [facility] (04680) MESALAMINE [id number] Paola Thompson RN APRISO [id number] 1500 mg twice daily 03-19-2016 [facility] (96781) MESALAMINE [id number] Paola Thompson RN APRISO [id number] 1500 mg twice daily 03-19-2016 [facility] (69079) MESALAMINE [id number] Paola Thompson RN APRISO [id number] 1500 mg twice daily 03-19-2016 [facility] (66842) MESALAMINE [id number] Paola Thompson RN APRISO [id number] 1500 mg twice daily 03-19-2016 [facility] ([id number]) MESALAMINE [id number] Paola Thompson RN APRISO [id number] 1500 mg twice daily 03-19-2016 [facility] (64544) MESALAMINE [id number] Paola Thompson RN APRISO [id number] 1500 mg twice daily 03-19-2016 [facility] (97248) MESALAMINE [id number] Paola Thompson RN APRISO [id number] 1500 mg twice daily 03-19-2016 [facility] (65937) MESALAMINE [id number] Paola Thompson RN APRISO [id number] 1500 mg twice daily 03-19-2016 [facility] (93499) MESALAMINE [id number] Paola Thompson RN APRISO [id number] 1500 mg twice daily 03-19-2016 [facility] (33229) MESALAMINE [id number] Paola Thompson RN APRISO [id number] 1500 mg twice daily 03-19-2016 [facility] (66906) MESALAMINE [id number] Paola Thompson RN APRISO [id number] 1500 mg twice daily 03-19-2016 [facility] (98802) MESALAMINE [id number] Paola Thompson RN metFORMIN METFORMIN HCL 500 MG TABS One 03-19-2016 [facility] (67866) tablet by mouth twice daily METFORMIN HCL [id number] Paola Thompson RN METFORMIN HCL 500 MG TABS One tablet by 03-19-2016 [facility] (97295) mouth twice daily METFORMIN HCL [id number] Paola Thompson RN METFORMIN HCL 500 MG TABS One tablet by 03-19-2016 [facility] (36472) mouth twice daily METFORMIN HCL [id number] Paola Thompson RN METFORMIN HCL 500 MG TABS One tablet by 03-19-2016 [facility] (10911) mouth twice daily METFORMIN HCL 96959565381 Paola Thompson RN METFORMIN HCL 500 MG TABS One tablet by 03-19-2016 [facility] (92827) mouth twice daily METFORMIN HCL [id number] Paola Thompson RN METFORMIN HCL 500 MG TABS One tablet by 03-19-2016 [facility] (51290) mouth twice daily METFORMIN HCL 73337459639 Paola Thompson RN METFORMIN HCL 500 MG TABS One tablet by 03-19-2016 [facility] (12131) mouth twice daily METFORMIN HCL 98339858651 Paola Thompson RN METFORMIN HCL 500 MG TABS One tablet by 03-19-2016 [facility] (06044) mouth twice daily METFORMIN HCL 63410397481 Paola Thompson RN METFORMIN HCL 500 MG TABS One tablet by 03-19-2016 [facility] (48557) mouth twice daily METFORMIN HCL [id number] Paola Thompson RN METFORMIN HCL 500 MG TABS One tablet by 03-19-2016 [facility] (87744) mouth twice daily METFORMIN HCL 23946916019 Paola Thompson RN METFORMIN HCL 500 MG TABS One tablet by 03-19-2016 [facility] (28000) mouth twice daily METFORMIN HCL [id number] Paola Thompson RN METFORMIN HCL 500 MG TABS One tablet by 03-19-2016 [facility] (70215) mouth twice daily METFORMIN HCL 02468247236 Paola Thompson RN METFORMIN HCL 500 MG TABS One tablet by 03-19-2016 [facility] (74413) mouth twice daily METFORMIN HCL 81615486241 Paola Thompson RN pantoprazole PANTOPRAZOLE SODIUM 40 03-19-2016 - [facility] MG TBEC One tablet by 09-27-2016 (59421) mouth twice daily PANTOPRAZOLE SODIUM 60143056660 Kaylee Cervantes RN PROBIOTIC PRODUCT PROBIOTIC DAILY CAPS One 03-19-2016 [facility] capsule by mouth daily (58635) PROBIOTIC PRODUCT 29523963741 Paola Thompson RN PROBIOTIC DAILY CAPS One capsule by mouth 03-19-2016 [facility] (09372) daily PROBIOTIC PRODUCT 23905459272 Paola Thompson RN PROBIOTIC DAILY CAPS One capsule by mouth 03-19-2016 [facility] (42227) daily PROBIOTIC PRODUCT 51338834029 Paola Thompson RN PROBIOTIC DAILY CAPS One capsule by mouth 03-19-2016 [facility] (82895) daily PROBIOTIC PRODUCT 77944428348 Paola Thompson RN PROBIOTIC DAILY CAPS One capsule by mouth 03-19-2016 [facility] (98006) daily PROBIOTIC PRODUCT 67460232119 Paola Thompson RN PROBIOTIC DAILY CAPS One capsule by mouth 03-19-2016 [facility] (81912) daily PROBIOTIC PRODUCT 73186888979 Paola Thompson RN PROBIOTIC DAILY CAPS One capsule by mouth 03-19-2016 [facility] (87702) daily PROBIOTIC PRODUCT 77068843719 Paola Thompson RN PROBIOTIC DAILY CAPS One capsule by mouth 03-19-2016 [facility] (95160) daily PROBIOTIC PRODUCT 43385594528 Paola Thompson RN PROBIOTIC DAILY CAPS One capsule by mouth 03-19-2016 [facility] (07762) daily PROBIOTIC PRODUCT 43290400157 Paola Thompson RN PROBIOTIC PRODUCT PROBIOTIC DAILY CAPS One 03-19-2016 [facility] capsule by mouth daily (43474) PROBIOTIC PRODUCT 49051897459 Paola Thompson RN PROBIOTIC DAILY CAPS One capsule by mouth 03-19-2016 [facility] (84078) daily PROBIOTIC PRODUCT 21362803991 Paola Thompson RN PROBIOTIC DAILY CAPS One capsule by mouth 03-19-2016 [facility] (10979) daily PROBIOTIC PRODUCT 00221593028 Paola Thompson RN PROBIOTIC DAILY CAPS One capsule by mouth 03-19-2016 [facility] (30031) daily PROBIOTIC PRODUCT 61841748239 Paola Thomspon RN promethazine PROMETHAZINE HCL 12.5 MG TABS 03-22-2016 [facility] (41336) One tablet by mouth Q6H as needed PROMETHAZINE HCL [id number] Gerg Quinonez MD PROMETHAZINE HCL 12.5 MG TABS 03-22-2016 [facility] (90316) One tablet by mouth Q6H as needed PROMETHAZINE HCL 92306427273 Greg Quinonez MD PROMETHAZINE HCL 12.5 MG TABS 03-22-2016 [facility] (31711) One tablet by mouth Q6H as needed PROMETHAZINE HCL 61722387943 Greg Quinonez MD PROMETHAZINE HCL 12.5 MG TABS 03-22-2016 [facility] (32488) One tablet by mouth Q6H as needed PROMETHAZINE HCL 08346302542 Greg Quinonze MD PHENERGAN 25 MG/ML SOLN 07-10-2010 - 03-19-2016 [facility] (47875) PROMETHAZINE HCL 16517612937 Paola Thompson RN PHENERGAN 25 MG/ML SOLN 07-10-2010 - 03-19-2016 [facility] (60990) PROMETHAZINE HCL 47243790629 Paola Thompson RN PHENERGAN 25 MG/ML SOLN 07-10-2010 [facility] (71798) PROMETHAZINE HCL [id number] Betty Cassidy PHENERGAN 25 MG/ML SOLN 07-10-2011 [facility] (33334) PROMETHAZINE HCL [id number] Betty Mendez Frase PHENERGAN 25 MG/ML SOLN 07-10-2011 [facility] (86152) PROMETHAZINE HCL 16106773801 Betty E Frase rosuvastatin CRESTOR 10 MG TABS One tablet by 03-19-2016 [facility] (09699) mouth at bedtime. ROSUVASTATIN CALCIUM [id number] Greg Quinonez MD CRESTOR 40 MG TABS 07-10-2010 - 03-19-2016 [facility] (44698) ROSUVASTATIN CALCIUM 77845689875 Paola Thompson RN CRESTOR 40 MG TABS 07-10-2011 [facility] (85491) ROSUVASTATIN CALCIUM 39774939593 Betty E Frase CRESTOR 40 MG TABS 07-10-2011 [facility] (88810) ROSUVASTATIN CALCIUM 85575750806 Betty E Frase temazepam TEMAZEPAM 15 MG CAPS 07-10-2011 [facility] (82531) TEMAZEPAM 04143170912 Betty E Frase TEMAZEPAM 15 MG CAPS 07-10-2010 - 03-19-2016 [facility] (27914) TEMAZEPAM 84739245244 Paola Thompson RN TEMAZEPAM 15 MG CAPS 07-10-2011 [facility] (52961) TEMAZEPAM [id number] Betty E Frase TEMAZEPAM 15 MG CAPS 07-10-2011 [facility] (62705) TEMAZEPAM [id number] Betty E Frase TEMAZEPAM 15 MG CAPS 07-10-2011 [facility] (65519) TEMAZEPAM 39468083320 Betty E Frase TEMAZEPAM 15 MG CAPS 07-10-2011 [facility] (24394) TEMAZEPAM 96173093209 Betty E Frase TEMAZEPAM 15 MG CAPS 07-10-2011 [facility] (37071) TEMAZEPAM 84014521723 Betty E Frase thyroxine SYNTHROID TABS 07-10-2011 [facility] (87383) LEVOTHYROXINE SODIUM TABS 79426347574 Betty E Frase LEVOTHYROXINE SODIUM 50 MCG TABS One tablet 07-10-2011 [facility] (52864) by mouth daily LEVOTHYROXINE SODIUM 25082329762 Paola Thompson RN LEVOTHYROXINE SODIUM 50 MCG TABS One tablet 07-10-2011 [facility] (77940) by mouth daily LEVOTHYROXINE SODIUM 42207189475 Paola Thompson RN SYNTHROID TABS LEVOTHYROXINE 07-10-2011 [facility] (33899) SODIUM TABS 89749598946 Betty E Frase SYNTHROID TABS LEVOTHYROXINE 07-10-2011 [facility] (35140) SODIUM TABS 76429743091 Betty E Frase LEVOTHYROXINE SODIUM 50 MCG TABS One tablet 07-10-2011 [facility] (31734) by mouth daily LEVOTHYROXINE SODIUM 55631754995 Paola Thompson RN LEVOTHYROXINE SODIUM 50 MCG TABS One tablet 07-10-2011 [facility] (35968) by mouth daily LEVOTHYROXINE SODIUM 00461281914 Paola Thompson RN LEVOTHYROXINE SODIUM 50 MCG TABS One tablet 07-10-2011 [facility] (13953) by mouth daily LEVOTHYROXINE SODIUM 88139287676 Paola Thompson RN SYNTHROID TABS LEVOTHYROXINE 07-10-2011 [facility] (58439) SODIUM TABS [id number] Betty E Frase SYNTHROID TABS LEVOTHYROXINE 07-10-2011 [facility] (12496) SODIUM TABS 02740946741 Betty E Frase LEVOTHYROXINE SODIUM 50 MCG TABS One tablet 07-10-2011 [facility] (70788) by mouth daily LEVOTHYROXINE SODIUM 01463324031 Paola Thompson RN SYNTHROID TABS LEVOTHYROXINE 07-10-2011 [facility] (68381) SODIUM TABS 12874562095 Betty E Frase LEVOTHYROXINE SODIUM 50 MCG TABS One tablet 07-10-2011 [facility] (79664) by mouth daily LEVOTHYROXINE SODIUM 91565102016 Paola Thompson RN SYNTHROID TABS LEVOTHYROXINE 07-10-2011 [facility] (82757) SODIUM TABS [id number] Betty E Frase LEVOTHYROXINE SODIUM 50 MCG TABS One tablet 07-10-2011 [facility] (30946) by mouth daily LEVOTHYROXINE SODIUM 45882067652 Paola Thompson RN SYNTHROID TABS LEVOTHYROXINE 07-10-2011 [facility] (96994) SODIUM TABS 49762926919 Betty E Frase LEVOTHYROXINE SODIUM 50 MCG TABS One tablet 07-10-2011 [facility] (64131) by mouth daily LEVOTHYROXINE SODIUM 27680285563 Paola Thompson RN SYNTHROID TABS LEVOTHYROXINE 07-10-2011 [facility] (90630) SODIUM TABS 30991753878 Betty E Frase LEVOTHYROXINE SODIUM 50 MCG TABS One tablet 07-10-2011 [facility] (82607) by mouth daily LEVOTHYROXINE SODIUM 07059261793 Paola Thompson RN SYNTHROID TABS LEVOTHYROXINE 07-10-2011 [facility] (88591) SODIUM TABS 40673336491 Betty E Frase LEVOTHYROXINE SODIUM 50 MCG TABS One tablet 07-10-2011 [facility] (33350) by mouth daily LEVOTHYROXINE SODIUM 39476782281 Paola Thompson RN SYNTHROID TABS LEVOTHYROXINE 07-10-2011 [facility] (60173) SODIUM TABS 97824557439 Betty E Frase LEVOTHYROXINE SODIUM 50 MCG TABS One tablet 07-10-2011 [facility] (39159) by mouth daily LEVOTHYROXINE SODIUM 13316875606 Paola Thompson RN SYNTHROID TABS LEVOTHYROXINE 07-10-2011 [facility] (11938) SODIUM TABS [id number] Betty Vanessa Cassidy LEVOTHYROXINE SODIUM 50 MCG TABS One tablet 07-10-2011 [facility] (87109) by mouth daily LEVOTHYROXINE SODIUM 92647705458 Paola Thompson RN SYNTHROID TABS LEVOTHYROXINE 07-10-2011 [facility] (30263) SODIUM TABS [id number] Betty Granadosse trimethobenzamide TIGAN 300 MG CAPS 07-10-2011 [facility] TRIMETHOBENZAMIDE HCL (68431) 63249477085 Betty E Frase TIGAN 300 MG CAPS 07-10-2010 - 03-19-2016 [facility] TRIMETHOBENZAMIDE HCL (35177) 86519300841 Paola Thompson RN TIGAN 300 MG CAPS 07-10-2011 [facility] TRIMETHOBENZAMIDE HCL [id number] (16703) Betty Mendez Frase TIGAN 300 MG CAPS 07-10-2011 [facility] TRIMETHOBENZAMIDE HCL 07138433524 (57972) Betty E Frase TIGAN 300 MG CAPS 07-10-2011 [facility] TRIMETHOBENZAMIDE HCL [id number] (33791) Betty Vanessa Frase TIGAN 300 MG CAPS 07-10-2011 [facility] TRIMETHOBENZAMIDE HCL [id number] (57670) Betty aCssidy vitamin D VITAMIN D 1000 UNIT TABS One tablet 03-22-2016 [facility] (36739) by mouth daily CHOLECALCIFEROL [id number] Greg Quinonez MD VITAMIN D 1000 UNIT TABS One tablet by mouth 03-22-2016 [facility] (74978) daily CHOLECALCIFEROL 11759794932 Greg Quinonez MD VITAMIN D 1000 UNIT TABS One tablet by mouth 03-22-2016 [facility] (62614) daily CHOLECALCIFEROL 47186700227 Greg Quinonez MD VITAMIN D 1000 UNIT TABS One tablet by mouth 03-22-2016 [facility] (57903) daily CHOLECALCIFEROL 57104219853 Greg Quinonez MD VITAMIN D 1000 UNIT TABS One tablet by mouth 03-22-2016 [facility] (78188) daily CHOLECALCIFEROL 27340201129 Greg Quinonez MD VITAMIN D 1000 UNIT TABS One tablet by mouth 03-22-2016 [facility] (79145) daily CHOLECALCIFEROL [id number] Greg Quinonez MD VITAMIN D 1000 UNIT TABS One tablet by mouth 03-22-2016 [facility] (92342) daily CHOLECALCIFEROL 05138476414 Greg Quinonez MD VITAMIN D 1000 UNIT TABS One tablet by mouth 03-22-2016 [facility] (54731) daily CHOLECALCIFEROL 71618536028 Greg Quinonez MD VITAMIN D 1000 UNIT TABS One tablet by mouth 03-22-2016 [facility] (09125) daily CHOLECALCIFEROL 25238892334 Greg Quinonez MD VITAMIN D 1000 UNIT TABS One tablet by mouth 03-22-2016 [facility] (34791) daily CHOLECALCIFEROL 32813479833 Greg Quinonez MD VITAMIN D 1000 UNIT TABS One tablet by mouth 03-22-2016 [facility] (75274) daily CHOLECALCIFEROL 75016856097 Greg Quinonez MD VITAMIN D 1000 UNIT TABS One tablet by mouth 03-22-2016 [facility] (35262) daily CHOLECALCIFEROL 75415265579 Greg Quinonez MD VITAMIN D 1000 UNIT TABS One tablet by mouth 03-22-2016 [facility] (78842) daily CHOLECALCIFEROL 18855262229 Greg Quinonez MD Problems Active Problems Category Problem Name Status Date Location Cardiac dysrhythmias Ventricular premature Active 03-19-2016 - [facility] (86488) 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-19-2016 - [facility] (25791) Coronary atherosclerosis Atherosclerotic heart Active 03-19-2016 - [facility] other heart disease disease of [place] [facility] (96507) coronary artery without angina pectoris Disorders of lipid Hyperlipidemia Active 03-19-2016 - [facility] (94332) Essential hypertension Hypertensive disorder Active 05-02-2016 - [facility] (24371) Other circulatory Presence of other Active 03-30-2016 - [facility] (33657) grafts Other nervous system Ulnar neuropathy Active [facility] (10144) Other nutritional; Body mass index (BMI) Active 05-02-2016 - [facility]; and metabolic 39.0-39.9, adult Group (68279) disorders Unclassified Z96.641,Z96.642 Active 11-13-2017 - [facility] (62342) Unclassified Unknown / UNK(Unknown) Active 09-12-2017 - [facility] (61362) Unclassified Edema of lower extremity Active 05-02-2016 - [facility] (80567) Unclassified Long-term drug therapy Active 03-19-2016 - [facility] (17535) Past or Other Problems Category Problem Name Status Date Location Other aftercare Other alf Completed 03-19-2016 - [facility] (35992) therapy Other connective tissue Pain in calf Completed 11-07-2016 - [facility] (61554) Syncope Syncope and collapse Completed 03-19-2016 - [facility] (60145) Unclassified Cardiology Follow Up 09-12-2017 - [facility] (63038) Results Result Name Value Range Unit Interpretation Flag Date Location hbsag on 2017-11-14 HBSAG NONREACTIVE NONREACTIVE Normal 11-14-2017 [facility] (40594) Comment: Result Comment: RESULTS WERE OBTAINED WITH THE [employer]. VALUES OBTAINED WITH DIFFERENT MANUFACTURERS' ASSAY METHODS MAY NOT BE USED INTERCHANGEABLY. Performed By: #### L540.70206, L540.40635, L540.29833, L540.43788 #### [facility] [address] [place], [place] [address] [place] [address] replaced document: midmark ecg observations on null EKG QRS axis 5 deg Invalid 03-22-2016 - [facility] Interpretation Code 03-22-2016 [facility] (23316) electrocardiogram Sinus Invalid 03-22-2016 - [facility] interpretation Rhythm Interpretation Code 03-22-2016 [facility] WITHIN (05743) NORMAL LIMITS GE use only - for 405 ms Invalid 03-22-2016 - [facility] [employer] import when Interpretation Code 03-22-2016 [facility] terms are not (17228) otherwise specified Interpretation Sinus Invalid 03-22-2016 - [facility] Rhythm Interpretation Code 03-22-2016 [facility] (20758) NORMAL LIMITS P [place] 30 deg Invalid 03-22-2016 - [facility] Interpretation Code 03-22-2016 [facility] (25528) P wave axis, 30 deg Invalid 03-22-2016 - [facility] electro[facility]ogram Interpretation Code 03-22-2016 [facility] (05499) AL Interval 122 ms Invalid 03-22-2016 - [facility] Interpretation Code 03-22-2016 [facility] (80414) AL interval, 122 ms Invalid 03-22-2016 - [facility] electrocardiogram Interpretation Code 03-22-2016 [facility] (64346) Pulse (Heart Rate) 79 BPM /min Invalid 03-22-2016 - [facility] Interpretation Code 03-22-2016 [facility] (93508) QRS axis, 5 deg Invalid 03-22-2016 - [facility] electrocardiogram Interpretation Code 03-22-2016 [facility] (91879) QRS Duration 92 ms Invalid 03-22-2016 - [facility] Interpretation Code 03-22-2016 [facility] (79764) QRS duration, 92 ms Invalid 03-22-2016 - [facility] Interpretation Code 03-22-2016 [facility] (42230) QT Interval new path ms Invalid 03-22-2016 - [facility] Interpretation Code 03-22-2016 [facility] (68385) QT interval, new path ms Invalid 03-22-2016 - [facility] electro[facility]ogram Interpretation Code 03-22-2016 [facility] (95048) QTc [place] 405 ms Invalid 03-22-2016 - [facility] Interpretation Code 03-22-2016 [facility] (45584) T [place] -1 deg Invalid 03-22-2016 - [facility] Interpretation Code 03-22-2016 [facility] (32855) T wave axis, -1 deg Invalid 03-22-2016 - [facility] electrocardiogram Interpretation Code 03-22-2016 [facility] (80427) hep b ab quant on 2017-11-14 HEP B AB QUANT LESS THAN 3.10 0.00-9.99 Normal 11-14-2017 [facility] (54499) Comment: Result Comment: STATUS OF IMMUNITY Protective Immunity: greater than or equal to 10 mIU/mL (Traceable to WHO International Reference Preparation) No Protective Immuniity: less than 10 mIU/mL Note: The magnitude of the measured result above the cutoff is not indicative of the total amount of antibody present. Performed By: #### L540.55575, L540.99174, L540.24624, L540.32014 #### [facility] [place] [address] renal on 2018-09-23 Albumin mass conc 3.8 3.2-5.0 GM/DL Normal 09-23-2018 [facility] (54925) Comment: Order Comment: [place]: M Performed By: #### L540.39924, L540.94565, L540.50281, L540.03072 #### [facility] [place] [address] Anion gap molar conc 11 5-16 MMOL/L Normal 09-23-2018 [facility] (12227) Comment: Order Comment: [place]: M Performed By: #### L540.69926, L540.53998, L540.26947, L540.08395 #### [facility] [place] [address] Calcium mass conc 8.9 8.5-10.1 MG/DL Normal 09-23-2018 [facility] (48114) Comment: Order Comment: [place]: M Performed By: #### L540.76965, L540.33103, L540.82789, L540.73877 #### [facility] [place] [address] Chloride molar conc 108 98-107 MMOL/L High 09-23-2018 [facility] (25562) Comment: Order Comment: [place]: M Performed By: #### L540.83532, L540.32070, L540.91380, L540.22656 #### [facility] [address] [place] [address] CO2 molar conc 24 21-32 MMOL/L Normal 09-23-2018 [facility] (49100) Comment: Order Comment: [place]: M Performed By: #### L540.65115, L540.82593, L540.15531, L540.58150 #### [facility] [address] [place] [address] Creatinine mass conc 0.752 0.510-0.950 MG/DL Normal 09-23-2018 [facility] (15706) Comment: Order Comment: [place]: M Result Comment: Patients receiving either N-Acetylcysteine (NAC) or Metamizole prior to venipuncture, may have falsely depressed results. Performed By: #### L540.28056, L540.34861, L540.20398, L540.39163 #### [facility] [address] [place] [address] Glucose mass conc 142 70-100 MG/DL High 09-23-2018 [facility] (44320) Comment: Order Comment: [place]: M Result Comment: 70-100- Normal Fasting; 100-125 Impaired Fasting; greater than 126 on more than one result- Diabetes. ADA guidelines. Results may be falsely elevated after the administration of Sulfapyridine. Results may be falsely depressed after the administration of Sulfasalazine. Performed By: #### L540.82547, L540.09128, L540.82391, L540.18989 #### [facility] [address] [place] [address] Phosphate mass conc 3.8 2.5-4.9 MG/DL Normal 09-23-2018 [facility] (41454) Comment: Order Comment: [place]: M Performed By: #### L540.94447, L540.50764, L540.38224, L540.90186 #### [facility] [address] [place] [address] Potassium molar conc 4.5 3.5-5.1 MMOL/L Normal 09-23-2018 [facility] (25561) Comment: Order Comment: [place]: M Performed By: #### L540.46229, L540.29634, L540.95116, L540.10094 #### [facility] [place] [address] Sodium molar conc 142 136-145 MMOL/L Normal 09-23-2018 [facility] (20016) Comment: Order Comment: [place]: M Performed By: #### L540.52383, L540.45202, L540.44061, L540.40566 #### [facility] [address] [place] [address] Urea nitrogen mass conc 20 7-26 MG/DL Normal 09-23-2018 [facility] (26886) Comment: Order Comment: [place]: M Performed By: #### L540.74920, L540.36206, L540.34784, L540.67441 #### [facility] [place] [address] Urea nitrogen/Creatinine mass 27 15-24 mg/mg High 09-23-2018 [facility] (87879) Comment: Order Comment: [place]: M Performed By: #### L540.14143, L540.37761, L540.16300, L540.64755 #### [facility] [place] [address] clinical lists update: preload on null Alanine 36 U/L Invalid 06-28-2016 - [facility] aminotransferase (ALT) Interpretation Code 06-28-2016 [facility] (23581) Albumin 3.5 g/dL Invalid 06-28-2016 - [facility] Interpretation Code 06-28-2016 [facility] (26935) Alkaline phosphatase 113 U/L Invalid 06-28-2016 (ALP) Interpretation Code 06-28-2016 [facility] (08775) Anion gap 10 mmol/L Invalid 06-28-2016 Interpretation Code 06-28-2016 [facility] (85708) Aspartate 24 U/L Invalid 06-28-2016 aminotransferase (AST) Interpretation Code 06-28-2016 [facility] (71540) Bilirubin (total) 0.30 mg/dL Invalid 06-28-2016 Interpretation Code 06-28-2016 [facility] (28612) BUN/Creatinine Ratio 28.1 mg/mg High 06-28-2016 - [facility] 06-28-2016 [facility] (45327) Calcium 8.9 mg/dL Invalid 06-28-2016 Interpretation Code 06-28-2016 [facility] (19715) Chloride 107 mmol/L Invalid 06-28-2016 Interpretation Code 06-28-2016 [facility] (07453) CO2 24.0 mmol/L Invalid 06-28-2016 Interpretation Code 06-28-2016 [facility] (00292) Creatinine 0.78 mg/dL Invalid 06-28-2016 Interpretation Code 06-28-2016 [facility] (21249) Erythrocyte 14.4 % Invalid 06-28-2016 distribution width Interpretation Code 06-28-2016 [facility] Auto Ratio (RBC) (80763) Erythrocytes (RBC) 4.57 10*6/uL Invalid 06-28-2016 Interpretation Code 06-28-2016 [facility] (63805) Globulin 3.1 g/dL Invalid 06-28-2016 Interpretation Code 06-28-2016 [facility] (49269) Glucose 179 mg/dL High 06-28-2016 - [facility] 06-28-2016 [facility] (53677) Glucose mass conc 179 mg/dL High 06-28-2016 - [facility] 06-28-2016 [facility] (23013) Hematocrit (HCT) 42.0 % Invalid 06-28-2016[facility] Interpretation Code 06-28-2016 [facility] (25732) Hemoglobin mass conc 13.2 g/dL Invalid 06-28-2016 - (Bld) Interpretation Code 06-28-2016 [facility] (53990) MCH 28.9 pg Invalid 06-28-2016 - Interpretation Code 06-28-2016 [facility] (95767) MCHC mass conc (RBC) 31.4 g/dL Low 06-28-2016 - [facility] 06-28-2016 [facility] (60434) MCV 91.9 fL Invalid 06-28-2016 Interpretation Code 06-28-2016 [facility] ([id number]) Platelets 48.2 10*3/mm3 High 06-28-2016 - [place] 06-28-2016 [facility] (03561) Potassium molar conc 4.3 mmol/L Invalid 06-28-2016 Interpretation Code 06-28-2016 [facility] (72556) Protein 6.6 g/dL Invalid 06-28-2016 Interpretation Code 06-28-2016 [facility] (32165) Sodium 141 mmol/L Invalid 06-28-2016 Interpretation Code 06-28-2016 [facility] (57183) Thyroid stimulating 1.06 u[iU]/mL Invalid 06-28-2016 hormone (TSH) Interpretation Code 06-28-2016 [facility] (70045) Urea nitrogen 22 mg/dL High 06-28-2016 - [place] 06-28-2016 [facility] (47568) WBC (Leukocytes) 7.2 10*9/L Invalid 06-28-2016 Interpretation Code 06-28-2016 [facility] ([id number]) Cholesterol 191 mg/dL Invalid 06-28-2016 Interpretation Code 06-28-2016 [facility] (00682) HDL Cholesterol 44 mg/dL Invalid 06-28-2016 Interpretation Code 06-28-2016 [facility] (02125) LDL Cholesterol 102 mg/dL Invalid 06-28-2016 Interpretation Code 06-28-2016 [facility] (22866) Triglyceride 223 mg/dL Invalid 06-28-2016 - Interpretation Code 06-28-2016 [facility] (59768) Left ventricular 65 % Invalid 03-19-2016 - Ejection fraction Interpretation Code 03-19-2016 [facility] (64903) Magnesium 1.7 mg/dL Low 03-14-2016 - [place] 03-14-2016 [facility] (81771) office visit: november on null Documentation of Done Invalid Interpretation 11-07-2016 - [place] [facility] current medications Code 11-07-2016 [facility] (84625) (procedure) Fall risk assessment No Invalid Interpretation 11-07-2016 - [place] [facility] Code 11-07-2016 [facility] (05888) office visit on null Dietary management yes Invalid 03-27-2017 - [place] [facility] education, guidance, Interpretation Code 03-27-2017 Group (50986) and counseling (procedure) Documentation of Done Invalid 03-27-2017 - [place] [facility] current medications Interpretation Code 03-27-2017 Group (45207) (procedure) Fall risk assessment No Invalid 03-27-2017 - [place] [facility] Interpretation Code 03-27-2017 Group ([id number]) Tobacco smoking Former Invalid 03-27-2017 - [place] [facility] status AKIS smoker Interpretation Code 03-27-2017 Group (79152) Tobacco use [facility] Former Invalid 03-27-2017 - [place] [facility] smoker Interpretation Code 03-27-2017 Group (51320) Dietary management yes Invalid 03-22-2016 - [place] [facility] education, guidance, Interpretation Code 03-22-2016 Group (45455) and counseling (procedure) Tobacco use [facility] Former Invalid 03-22-2016 - [place] [facility] smoker Interpretation Code 03-22-2016 Group ([id number]) crp on 2017-11-13 CRP mass conc LESS THAN 0.29 0.00-0.32 mg/L Normal 11-13-2017 [facility] ([id number]) Comment: Performed By: #### L550.70357 #### [facility] [address] [place] [address] glucose meter on 2018-09-23 Glucose mass conc 116 85-125 MG/DL Normal 09-23-2018 [facility] ([id number]) progress on 2017-09-12 PROGRESS HNO ID: [id number]: Nabila Normal 09-12-2017 Dominic Garza CoursonService: (none)[facility] Type: PhysicianType: Progress ([id number]) NotesFiled: 09/12/2017 5:05 PMNote Text:SubjectiveHPI Riddhi Koroma is a 67 year young woman with A history of recurrentsyncope. She had a tilt test with a vasovagal response to NTG and an ILRimplanted and followed by Dr. Taj with episodes consistent with a vagalresponse showing sinus slowing and sinus pauses. She has had two syncopalepisodes since I saw her last the most recent was while having a bowelmovement (she is being managed for constipation and painful BMs) her ILRshowed an episode of sinus slowing and sinus pause.ROSObjectivePhysical ExamConstitutional: She is oriented to person, place, and time andwell-developed, well-nourished, and in no distress. No distress.HENT:Head: Normocephalic and atraumatic.Nose: Nose normal.Eyes: Conjunctivae and EOM are normal. Pupils are equal, round, andreactive to light. No scleral icterus.Neck: Normal range of motion. Neck supple. No JVD present. No trachealdeviation present. No thyromegaly present.Cardiovascular: Normal rate, regular rhythm, S1 normal, S2 normal, normalheart sounds and intact distal pulses. Exam reveals no gallop and nofriction rub.No murmur heard.Pulses: Radial pulses are 2+ on the right sidePulmonary/Chest: Effort normal and breath sounds normal. No respiratorydistress. She has no wheezes. She has no rales.Abdominal: Soft. Bowel sounds are normal. She exhibits no distension.There is no tenderness. There is no rebound and no guarding.Musculoskeletal: Normal range of motion. She exhibits no edema ortenderness.Neurological: She is alert and oriented to person, place, and time. Nocranial nerve deficit. Gait normal. Coordination normal.Skin: Skin is warm and dry. No rash noted. She is not diaphoretic. Noerythema. No pallor.Psychiatric: Mood, memory, affect and judgment normal. 1. Vasovagal syncope - ICD9: 780.2, ICD10: R55 (primary diagnosis)2. Sinus bradycardia - ICD9: 427.89, ICD10: R00.13. Sinus pause - ICD9: 426.6, ICD10: I45.5I discussed with Riddhi and her that the pattern of her syncope isvery suggestive of vasovagal syncope (the occurrence with BM suggestssituational reflex syncope) and in most cases we do not pursue a pacemakeras the pacemaker does not mitigate the vasodepressor response and may notprevent recurrent syncope. There is a small group that will respond andoften these patients show spontaneous pauses on their ILR. I discussedwith Riddhi and her , given the recurrent nature of her episodes andthe documented sinus pauses, if she would like to pursue a pacemaker, Ithink that it is reasonable and there is a possibility that it may helpprevent or reduce the frequency of her episodes. I cautioned that Icannot predict how effective the pacemaker will be and that it is possiblethat she will continue to have the episodes with little change as thepacemaker may not prevent the drop in BP. I explained the implantprocedure, potential risks, benefits, limitations, terminal clerk implicationsand follow up of the pacemaker. I answered their questions. I discussedthat I have used Biotronik pacemakers with closed loop stimulation inpatients with neurally mediated syncope, but I have not experienced thebenefits that have been described in the literature and I have had to turnthe CLS off in a couple patients as they felt inappropriate pacing, so itis no longer my primary choice. I typically with use a MDT pacemaker withrate drop but do not turn on the rate drop unless back up pacing isineffective as the results of rate drop have been fairly modest and I havehad patients not like the rapid pacing with rate drop. Riddhi indicatesthat she is not sure she would want to proceed with a pacemaker and herand her are going to consider and discuss.I did not make a specific follow up, but asked Riddhi to call me if shewants to proceed with a pacemaker or if she has questions or just wouldlike reassessed. The care for situational syncope is largely supportive. wsr/mod on 2017-11-19 WSR/MOD 9 0-30 MM/HR Normal 11-19-2017 [facility] ([id number]) Comment: Performed By: #### L200.17028, L200.44318 #### [facility] [place] [address] nm gastric emptying on 2018-04-09 NM GASTRIC NM GASTRIC EMPTYING Normal 04-09-2018 [facility] EMPTYING Ordering Physician: Dao Roman MD Medical 04/09/2018 7:43 AM [place] NUCLEAR MEDICINE SOLID PHASE GASTRIC EMPTYING SCAN [place] Clinical Statement: Nausea and vomiting ([id number]) TECHNIQUE: The patient was given 2 mCi of technetium 99m labeled sulfur colloid in a solid meal. Images were obtained every 60 minutes for a total three hours. Computer-generated curves and images were reviewed. There were no prior studies available for comparison. FINDINGS: A review of the images reveal normal progressive gastric emptying. There is activity throughout the bowel. At 60 minutes the stomach is 40% empty and at two hours the stomach is 70% empty. At three hours the stomach is 99% empty. IMPRESSION: Normal gastric emptying scan. ---- Electronic Signature on File ---- Signed By: Stephany Mccartney MD FACR [email or web address] Dictated: 04/09/2018 12:57 PM Signed: 04/09/2018 12:58 PM Reported By: STEPHANY MCCARTNEY M.D. Signed By: STEPHANY MCCARTNEY M.D. gfr est on 2018-09-23 IF AMER Greater than 60 Normal 09-23-2018 [facility] ([id number]) Comment: Order Comment: [place]: M Performed By: #### L540.58898, L540.56387, L540.02405, L540.31036 #### [facility] [address] [place], [place] [id number] IF non-AFR AMER Greater than 60 Normal 09-23-2018 [facility] ([id number]) Comment: Order Comment: [place]: M Performed By: #### L540.04895, L540.32121, L540.41058, L540.08985 #### [facility] [address] [place] [address] cbc on 2018-09-23 Erythrocyte distribution 14.0 11-14.5 % Normal 09-23-2018 [facility] width Ratio (RBC) [place] (40261) Comment: Order Comment: [place]: M Performed By: #### L540.91653, L540.29217, L540.39851, L540.34752 #### [facility] [place] [address] Hematocrit Volume Fraction 40.3 35.0-47.0 % Normal 09-23-2018 [facility] ([id number]) Comment: Order Comment: [place]: M Performed By: #### L540.91850, L540.37889, L540.17649, L540.13637 #### [facility] [address] [place] [address] Hemoglobin mass conc 13.2 11.5-15.5 G/DL Normal 09-23-2018 [facility] (50706) Comment: Order Comment: [place]: M Performed By: #### L540.85374, L540.16933, L540.22618, L540.20780 #### [facility] [address] [place] [address] MCHC mass conc (RBC) 32.8 32.0-36.0 GM/DL Normal 09-23-2018 [facility] ([id number]) Comment: Order Comment: [place]: M Performed By: #### L540.11892, L540.13663, L540.16326, L540.74718 #### [facility] [place] [address] MCV Entitic volume (RBC) 90.2 80.0-99.0 fl Normal 09-23-2018 [facility] ([id number]) Comment: Order Comment: [place]: M Performed By: #### L540.46118, L540.79256, L540.79421, L540.51622 #### [facility] [place] [address] Nucleated RBC/100 WBC 0.0 Less than 1 % Normal 09-23-2018 [facility] ([id number]) Comment: Order Comment: [place]: M Performed By: #### L540.32848, L540.18090, L540.50689, L540.53029 #### [facility] [place] [address] Platelet mean volume 9.5 9.4-12.4 fL Normal 09-23-2018 [facility] Entitic volume (Bld) [place] (30184) Comment: Order Comment: [place]: M Performed By: #### L540.69955, L540.50508, L540.22549, L540.33421 #### [facility] [place] [address] Platelets #/vol (Bld) 252 150-450 K/CU MM Normal 09-23-2018 [facility] (01034) Comment: Order Comment: [place]: M Performed By: #### L540.16141, L540.17419, L540.98549, L540.29879 #### [facility] [place] [address] RBC #/vol (Bld) 4.47 3.90-5.30 M/CU MM Normal 09-23-2018 [facility] (48959) Comment: Order Comment: [place]: M Performed By: #### L540.92108, L540.32890, L540.45309, L540.90853 #### [facility] [address] [place] [address] WBC #/vol (Bld) 6.1 4.5-11.0 K/CUMM Normal 09-23-2018 [facility] (98181) Comment: Order Comment: [place]: M Performed By: #### L540.41676, L540.91880, L540.85803, L540.22188 #### [facility] [place] [address] hbv superquant on 2017-11-22 HBV SUP INFO () Normal 11-22-2017 [facility] (84120) Comment: Result Comment: The reportable range for this assay is 10 IU/mL to 1 billion IU/mL. Performed By: #### L540.59927, L540.91259, L540.51350, L540.31113 #### [facility] [address] [place] [address] HBV SUPERQUANT HBV DNA not detected () Normal 11-22-2017 [facility] ([id number]) Comment: Performed By: #### L540.47291, L540.89408, L540.66956, L540.55387 #### [facility] [address] [place] [address] hbv ultraqual on 2017-11-22 HBV PCR AMP () Normal 11-22-2017 [facility] (28457) Comment: Result Comment: Performed Performed At: [facility] [address] [id number] Dirk Silva MD [id number] Performed At: [place] [facility] [address] [id number] Lg Doe MD [id number] Performed At: [facility] [address] [place], [place] [id number] Lg Doe MD [id number] Performed By: #### L540.86081, L540.16114 #### [facility] [facility] [address] [place] [address] NGI HBV ULTRAQL () Normal 11-22-2017 [facility] (23522) Comment: Result Comment: Negative: HBV DNA Not Detected Qualitative Only. PCR assay performed using [employer] inTouch's validated, proprietary methodology. Performed By: #### L540.66590, L540.57082 #### [facility] [address] [place] [address] cbc w/diff on 2017-11-18 BASO ABS 0.10 0-0.2 K/CU MM Normal 11-18-2017 [facility] (69901) Comment: Performed By: #### L200.80732, L200.49159 #### [facility] [address] [place] [address] Basophils/100 WBC (Bld) 1.2 0-2 % Normal 11-18-2017 [facility] (18724) Comment: Performed By: #### L200.31742, L200.16107 #### [facility] [address] [place] [address] EOS ABS 0.10 0-0.5 K/CU MM Normal 11-18-2017 [facility] (61699) Comment: Performed By: #### L200.71082, L200.98949 #### [facility] [address] [place] [address] Eosinophils/100 WBC (d) 2.2 0-5 % Normal 11-18-2017 [facility] (45092) Comment: Performed By: #### L200.92631, L200.61047 #### [facility] [address] [place] [address] Erythrocyte distribution 14.5 11-14.5 % Normal 11-18-2017 [facility] width Ratio (RBC) [place] (66751) Comment: Performed By: #### L200.78045, L200.55038 #### [facility] [address] [place] [address] Hematocrit Volume Fraction 39.4 35.0-47.0 % Normal 11-18-2017 [facility] [place] (99607) Comment: Performed By: #### L200.04291, L200.93824 #### [facility] [address] [place] [address] Hemoglobin mass conc 12.7 11.5-15.5 G/DL Normal 11-18-2017 [facility] [place] (74502) Comment: Performed By: #### L200.62454, L200.73730 #### [facility] [address] [place] [address] IMMATR GRAN ABS 0.00 Less than 2 K/CU MM Normal 11-18-2017 [facility] (48621) Comment: Performed By: #### L200.63075, L200.40719 #### [facility] [address] [place] [address] IMMATURE GRAN % 0.3 Less than 2 % Normal 11-18-2017 [facility] (58162) Comment: Performed By: #### L200.86938, L200.77547 #### [facility] [address] [place] [address] Lymphocytes #/vol (Bld) 2.20 0.9-4.4 K/CU MM Normal 11-18-2017 [facility] (16240) Comment: Performed By: #### L200.06192, L200.68443 #### [facility] [address] [place] [address] Lymphocytes/100 WBC (Bld) 37.2 20-40 % Normal 11-18-2017 [facility] (64366) Comment: Performed By: #### L200.66632, L200.36010 #### [facility] [address] [place] [address] MCHC mass conc (RBC) 32.2 32.0-36.0 GM/DL Normal 11-18-2017 [facility] (70915) Comment: Performed By: #### L200.95609, L200.63361 #### [facility] [address] [place] [address] MCV Entitic volume (RBC) 88.7 80.0-99.0 fl Normal 11-18-2017 [facility] (63511) Comment: Performed By: #### L200.10513, L200.07400 #### [facility] [address] [place] [address] MONO ABS 0.60 0.1-1.1 K/CU MM Normal 11-18-2017 [facility] (59538) Comment: Performed By: #### L200.79449, L200.67345 #### [facility] [address] [place] [address] Monocytes/100 WBC (Bld) 10.7 2-10 % High 11-18-2017 [facility] (20128) Comment: Performed By: #### L200.14628, L200.63623 #### [facility] [address] [place] [address] NEUTROPHIL ABS 2.80 2.0-8.3 K/CU MM Normal 11-18-2017 [facility] (44850) Comment: Performed By: #### L200.15285, L200.05572 #### [facility] [address] [place] [address] Neutrophils/100 WBC (Bld) 48.4 45-75 % Normal 11-18-2017 [facility] (76528) Comment: Performed By: #### L200.12312, L200.03322 #### [facility] [address] [place] [address] Nucleated RBC/100 WBC 0.0 Less than 1 % Normal 11-18-2017 [facility] Ratio (Bld) [place] (09143) Comment: Performed By: #### L200.47536, L200.91850 #### [facility] [address] [place] [address] Platelet mean volume 9.7 9.4-12.4 fL Normal 11-18-2017 [facility] Entitic volume (Bld) [place] ([id number]) Comment: Performed By: #### L200.96111, L200.97365 #### [facility] [address] [place] [address] Platelets #/vol (Bld) 224 150-450 K/CU MM Normal 11-18-2017 [facility] (86460) Comment: Performed By: #### L200.28859, L200.45740 #### [facility] [address] [place] [address] RBC #/vol (Bld) 4.44 3.90-5.30 M/CU MM Normal 11-18-2017 [facility] (61847) Comment: Performed By: #### L200.65960, L200.40982 #### [facility] [address] [place] [address] WBC #/vol (Bld) 5.8 4.5-11.0 K/CU MM Normal 11-18-2017 [facility] (57311) Comment: Performed By: #### L200.00868, L200.58975 #### [facility] [address] [place] [address] total hav abs on 2017-11-15 TOTAL HAV ABS Negative Negative Normal 11-15-2017 [facility] (73687) Comment: Result Comment: Performed At: [facility] [address] [id number] Hugo Baeza PhD [id number] Performed By: #### L540.96965, L540.28354 #### [facility] [address] [address] hep be ag on 2017-11-15 HEP BE AG Negative Negative Normal 11-15-2017 [facility] (39742) Comment: Performed By: #### L540.20726, L540.23481 #### [facility] [address] [place] [address] hepatitis c ab on 2017-11-14 HCV AB NONREACTIVE NONREACTIVE Normal 11-14-2017 [facility] (45442) Comment: Result Comment: SCREENING TEST NEGATIVE NONREACTIVE HCV ANTIBODY SCREEN IS CONSISTENT WITH NO HCV INFECTION, UNLESS RECENT INFECTION IS SUSPECTED OR OTHER EVIDENCE EXISTS TO INDICATE HCV INFECTION Performed By: #### L540.29852, L540.01046, L540.14427, L540.27305 #### [facility] [address] [place] [address] hbcab on 2017-11-14 HBCAB NONREACTIVE NONREACTIVE Normal 11-14-2017 [facility] (27593) Comment: Result Comment: RESULTS WERE OBTAINED WITH THE [employer] XP ANTI-HCB ASSAY. VALUES OBTAINED WITH DIFFERENT MANUFACTURERS' ASSAY METHODS MAY NOT BE USED INTERCHANGEABLY. Performed By: #### L540.72213, L540.54036, L540.57566, L540.98360 #### [facility] [address] [place] [address] cnov on 2017-09-12 CNOV Office Visit Normal 09-12-2017 [facility] RIDDHI KOROMA [facility] ([id number]) 1950 FDate Time Provider Department09/12/17 3:30 PM NABILA MICHELLE [facility] During your visit today, we recorded the following information about you: Pulse Respiration Blood pressure Center Weight 65/minute 18/minute 144/82 91.8 kg Height 1.575 Margy Thayer LPN 09/12/2017 3:14 PM ([id number]) Signed is here to discuss possible pacemaker placement. Patient c/o SOBwith activity.Nabila Michelle DO 09/12/2017 5:05 PM SignedSubjectiveHPI Riddhi Koroma is a 67 year young woman with A history of recurrentsyncope. She had a tilt test with a vasovagal response to NTG and an ILRimplanted and followed by Dr. Vang with episodes consistent with a vagalresponse showing sinus slowing and sinus pauses. She has had two syncopalepisodes since I saw her last the most recent was while having a bowel movement(she is being managed for constipation and painful BMs) her ILR showed anepisode of sinus slowing and sinus pause.ROSObjectivePhysical ExamConstitutional: She is oriented to person, place, and time and well-developed,well-nourished, and in no distress. No distress.HENT:Head: Normocephalic and atraumatic.Nose: Nose normal.Eyes: Conjunctivae and EOM are normal. Pupils are equal, round, and reactive tolight. No scleral icterus.Neck: Normal range of motion. Neck supple. No JVD present. No trachealdeviation present. No thyromegaly present.Cardiovascular: Normal rate, regular rhythm, S1 normal, S2 normal, normal heartsounds and intact distal pulses. Exam reveals no gallop and no friction rub.No murmur heard.Pulses: Radial pulses are 2+ on the right sidePulmonary/Chest: Effort normal and breath sounds normal. No respiratorydistress. She has no wheezes. She has no rales.Abdominal: Soft. Bowel sounds are normal. She exhibits no distension. There isno tenderness. There is no rebound and no guarding.Musculoskeletal: Normal range of motion. She exhibits no edema or tenderness.Neurological: She is alert and oriented to person, place, and time. No cranialnerve deficit. Gait normal. Coordination normal.Skin: Skin is warm and dry. No rash noted. She is not diaphoretic. No erythema.No pallor.Psychiatric: Mood, memory, affect and judgment normal. 1. Vasovagal syncope - ICD9: 780.2, ICD10: R55 (primary diagnosis)2. Sinus bradycardia - ICD9: 427.89, ICD10: R00.13. Sinus pause - ICD9: 426.6, ICD10: I45.5I discussed with Riddhi and her that the pattern of her syncope is verysuggestive of vasovagal syncope (the occurrence with BM suggests situationalreflex syncope) and in most cases we do not pursue a pacemaker as the pacemakerdoes not mitigate the vasodepressor response and may not prevent recurrentsyncope. There is a small group that will respond and often these patientsshow spontaneous pauses on their ILR. I discussed with Riddhi and her ,given the recurrent nature of her episodes and the documented sinus pauses, ifemi would like to pursue a pacemaker, I think that it is reasonable and thereis a possibility that it may help prevent or reduce the frequency of herepisodes. I cautioned that I cannot predict how effective the pacemaker willbe and that it is possible that she will continue to have the episodes withlittle change as the pacemaker may not prevent the drop in BP. I explained theimplant procedure, potential risks, benefits, limitations, long termimplications and follow up of the pacemaker. I answered their questions. Idiscussed that I have used Biotronik pacemakers with closed loop stimulation inpatients with neurally mediated syncope, but I have not experienced thebenefits that have been described in the literature and I have had to turn theCLS off in a couple patients as they felt inappropriate pacing, so it is nolonger my primary choice. I typically with use a MDT pacemaker with rate dropbut do not turn on the rate drop unless back up pacing is ineffective as theresults of rate drop have been fairly modest and I have had patients not likethe rapid pacing with rate drop. Riddhi indicates that she is not sure shewould want to proceed with a pacemaker and her and her are going toconsider and discuss.I did not make a specific follow up, but asked Riddhi to call me if she wants toproceed with a pacemaker or if she has questions or just would like reassessed. The care for situational syncope is largely supportive.Referring Provider: NABILA MICHELLE [[id number]]Allergies As of Date: 09/12/2017(No Known Allergies)Date Reviewed: 09/12/2017Reviewed by: Andreia Thayer - Fully AssessedReason for Visit: Cardiology Follow Up [1732]Primary Visit Diagnosis:Vasovagal syncope [R55] Other Visit Diagnoses:Sinus bradycardia [R00.1] Sinus pause [I45.5]Prescriptions as of 09/12/2017 Sig: PAROXETINE 10 MG TABLET FUROSEMIDE 20 MG TABLET Take 20 mg by mouth as needed. ROSUVASTATIN 10 MG TABLET APRISO 0.375 GRAM CAPSULE,EXT* Take 375 mg by mouth twice da* IBUPROFEN 800 MG TABLET Take 800 mg by mouth every 6 * PROMETHAZINE 12.5 MG TABLET Take 12.5 mg by mouth every 6* PROBIOTIC ORAL Take 1 capsule by mouth once * METFORMIN 500 MG TABLET Take 500 mg by mouth twice da* LOSARTAN 100 MG TABLET Take 100 mg by mouth once carolina* DOCUSATE SODIUM 100 MG CAPSULE Take 100 mg by mouth once carolina* ESOMEPRAZOLE MAGNESIUM 40 MG * Take 1 capsule by mouth once * LEVOTHYROXINE 50 MCG TABLET Take 1 tablet by mouth once d* ASPIRIN 81 MG TABLET,DELAYED * Take 1 tablet by mouth once d* CHOLECALCIFEROL (VITAMIN D3) * Take 1 capsule by mouth once * DICYCLOMINE 10 MG CAPSULE OXYCODONE 5 MG TABLET PREDNISONE 10 MG TABLET TAMSULOSIN 0.4 MG CAPSULE BACLOFEN 10 MG TABLET OXYCODONE-ACETAMINOPHEN 5 MG-* Take 1 tablet by mouth every * ATORVASTATIN 80 MG TABLET Take 80 mg by mouth once jarrod*Medication notes this encounter DICYCLOMINE 10 MG CAPSULE >> Andreia Thayer LPN 09/12/2017 3:12 PM >> ANDREIA THAYER [facility] Sep 12, 2017 3:12 PM Patient states no longer taking OXYCODONE 5 MG TABLET >> Andreia Thayer LPN 09/12/2017 3:12 PM >> ANDREIA THAYER [facility] Sep 12, 2017 3:12 PM Patient states no longer taking PREDNISONE 10 MG TABLET >> Andreia Thayer LPN 09/12/2017 3:13 PM >> ANDREIA THAYER [facility] Sep 12, 2017 3:13 PM Patient states no longer taking TAMSULOSIN 0.4 MG CAPSULE >> Andreia Thayer LPN 09/12/2017 3:13 PM >> ANDREIA THAYER [facility] Sep 12, 2017 3:13 PM Patient states no longer takingProblem List As Of Date 09/12/2017 Noted Resolved Subclavian arterial stenosis [I77.1] INVALID FOR* PVC's (premature ventricular contractions) [I49*Visit Notes:>> Andreia Thayer [facility] Sep 12, 2017 3:13 PM Status: SignedMsLori is here to discuss possible pacemaker placement. Patient c/oSOB with activity.Level of Service: EST PATIENT VISIT LEVEL 3 [[id number]]Disposition: Return if symptoms worsen or fail to improve, for follow up .Follow-up and Disposition History RecordedLetter TextEncounter Number: [id number] Status:Closed by JUDMARTHA PIÑAERY on 09/12/17 progress on 2017-04-08 PROGRESS HNO ID: [id number]: Nabila Normal 04-08-2017 Dominic Garza JudonService: (none)[facility] Type: PhysicianType: Progress ([id number]) NotesFiled: 04/08/2017 5:32 PMNote Text:HPI Riddhi Koroma is a 66 year young woman that had a 5 second pauseduring induction of anesthesia for hip surgery. Dr. Vang had placed anILR then she had recurrent pauses without associated symptoms, I saw herin September, and the appearance of the pause suggested a vagal response aswas preceded by sinal slowing. Due to the lack of associated symptoms andpresence of terminal clerk monitoring, I advised to hold off on a pacemaker andcontinue to follow. I was contacted that she had additional pause and shecame in today to evaluate. She had a pause on 03/18 about 630 pm lasting 5seconds then a second one the same night at 728 pm. She does not recallany symptoms and believes that she was watching TV at the time, she didstate that very possible she may have dozed off at that time. She deniesany syncope or near syncope, but described she sometimes has a vertigolike sensation when she gets up from laying down. Describes the roommoving, this is suggestive of positional vertigo and did not seem likelyrelated. Of note she has had syncope in the past, attributed to VVS, thelast about 3 and 1/2 years ago, and seemed associated with GI triggers.She has a history of a heart cath in 2004 with mild CAD and stress test [id number] with no infarct or ischemia. She has had a stent for subclaviansteal syndrome and has carotid disease.ROSPhysical ExamConstitutional: She is oriented to person, place, and time andwell-developed, well-nourished, and in no distress. No distress.HENT:Head: Normocephalic and atraumatic.Nose: Nose normal.Eyes: Conjunctivae and EOM are normal. Pupils are equal, round, andreactive to light. No scleral icterus.Neck: Normal range of motion. Neck supple. No JVD present. No trachealdeviation present. No thyromegaly present.Cardiovascular: Normal rate, regular rhythm, S1 normal, S2 normal, normalheart sounds and intact distal pulses. Exam reveals no gallop and nofriction rub.No murmur heard.Pulses: Radial pulses are 2+ on the right sidePulmonary/Chest: Effort normal and breath sounds normal. No respiratorydistress. She has no wheezes. She has no rales.Abdominal: Soft. Bowel sounds are normal. She exhibits no distension.There is no tenderness. There is no rebound and no guarding.Musculoskeletal: Normal range of motion. She exhibits no edema ortenderness.Neurological: She is alert and oriented to person, place, and time. Nocranial nerve deficit. Gait normal. Coordination normal.Skin: Skin is warm and dry. No rash noted. She is not diaphoretic. Noerythema. No pallor.Psychiatric: Mood, memory, affect and judgment normal.1. Sinus pause - ICD9: 426.6, ICD10: I45.5 (primary diagnosis)2. Vasovagal syncope - ICD9: 780.2, ICD10: R553. Subclavian arterial stenosis (HCC) - ICD9: 447.1, ICD10: I77.1I discussed with Riddhi and her that I cannot say that the recentpause is vagally mediated as there did not appear to be sinal slowing. Ican not exclude sinus node dysfunction as a cause, but she does not appearto have significant other findings of SND. The absence of associatedsymptoms argues against proceeding straight to a pacemaker, but Idiscussed that it would not be unreasonable to proceed with a pacemaker asshe has had recurrent episodes and the recent episode lasted 5 seconds.Asymptomatic pauses up to 3 seconds would usually not indicate a need forpacing. We discussed wether she could have dosed off and if this could berelated to sleep apnea, which is a potentially reversible cause. Sheindicated that she is not interested in wearing a cpap mask, but Idiscussed the risks of JAGDEEP and also that a pacemaker would not correct thecardiac damage caused by otherwise untreated sleep apnea. I encouragedher to undergo a sleep study and if she has severe sleep apnea considertreatment. She is agreeable, and will contact Dr. Calabrese to see if he canarrange for her to have the study in [place]. I also stressed that sinuspauses associated with JAGDEEP only occur during times of sleep relatedhypoxia, and if she were to have a significant pause while she is awake,this could not be ascribed to sleep apnea. I discussed our primarydecision is wether to do a pacemaker now or not and we are both agreeablethat we will hold off, check a sleep study and continue to monitor. Ifemi does develop syncope she should call 911 and be taken to the ED, ifher ILR confirms a tay event then I would absolutely advise to proceedwith a pacemaker. If she has less severe symptoms such as dizziness ornear syncope she is to call me, if these correllate with sinus pauses thenI advise a pacemaker. If her sleep study does not show significant sleepapnea as a cause and she continues to have pauses, especially if > 3seconds, then I would advise a pacemaker even in the absence of a clearsymptom correllation. I did address her an her husbands questions. Istressed absolutely no driving if she develops any symptoms even milddizziness and discussed risks potentially associated. She is to call withany symptoms. I called Dr. Quinonez after our visit and discussed thistreatment plan. cnov on 2017-04-08 CNOV Office Visit Normal 04-08-2017 Dominic (MARC) RIDDHI KOROMA ([id number]) 1950 FDate Time Provider Department04/08/17 3:00 PM [facility]LE [facility] During your visit today, we recorded the following information about you: Pulse Respiration Blood pressure Center Weight 73/minute 16/minute 138/72 95.7 kg Height 1.575 Mario Jarquin CMA 04/08/2017 3:07 PM SignedMrs. ([id number]) [place] stated that some times when she gets up to quick she becomeslightheaded. She has to stand there a moment till the feeling passes thenshe's okay.Zita Jarquin MARCIEJefferlandon Michelle, DO 04/08/2017 5:32 PM SignedHPAnne Riddhi Koroma is a 66 year young woman that had a 5 second pause duringinduction of anesthesia for hip surgery. Dr. Vang had placed an ILR then shehad recurrent pauses without associated symptoms, I saw her in September, and theappearance of the pause suggested a vagal response as was preceded by sinalslowing. Due to the lack of associated symptoms and presence of long termmonitoring, I advised to hold off on a pacemaker and continue to follow. I wascontacted that she had additional pause and she came in today to evaluate. Shehad a pause on 03/18 about 630 pm lasting 5 seconds then a second one the samenight at 728 pm. She does not recall any symptoms and believes that she waswatching TV at the time, she did state that very possible she may have dozedoff at that time. She denies any syncope or near syncope, but described shesometimes has a vertigo like sensation when she gets up from laying down.Describes the room moving, this is suggestive of positional vertigo and did notseem likely related. Of note she has had syncope in the past, attributed toVVS, the last about 3 and 1/2 years ago, and seemed associated with GItriggers. She has a history of a heart cath in 2005 with mild CAD and stresstest in 2014 with no infarct or ischemia. She has had a stent for subclaviansteal syndrome and has carotid disease.ROSPhysical ExamConstitutional: She is oriented to person, place, and time and well-developed,well-nourished, and in no distress. No distress.HENT:Head: Normocephalic and atraumatic.Nose: Nose normal.Eyes: Conjunctivae and EOM are normal. Pupils are equal, round, and reactive tolight. No scleral icterus.Neck: Normal range of motion. Neck supple. No JVD present. No trachealdeviation present. No thyromegaly present.Cardiovascular: Normal rate, regular rhythm, S1 normal, S2 normal, normal heartsounds and intact distal pulses. Exam reveals no gallop and no friction rub.No murmur heard.Pulses: Radial pulses are 2+ on the right sidePulmonary/Chest: Effort normal and breath sounds normal. No respiratorydistress. She has no wheezes. She has no rales.Abdominal: Soft. Bowel sounds are normal. She exhibits no distension. There isno tenderness. There is no rebound and no guarding.Musculoskeletal: Normal range of motion. She exhibits no edema or tenderness.Neurological: She is alert and oriented to person, place, and time. No cranialnerve deficit. Gait normal. Coordination normal.Skin: Skin is warm and dry. No rash noted. She is not diaphoretic. No erythema.No pallor.Psychiatric: Mood, memory, affect and judgment normal.1. Sinus pause - ICD9: 426.6, ICD10: I45.5 (primary diagnosis)2. Vasovagal syncope - ICD9: 780.2, ICD10: R553. Subclavian arterial stenosis (HCC) - ICD9: 447.1, ICD10: I77.1I discussed with Riddhi and her that I cannot say that the recent pauseis vagally mediated as there did not appear to be sinal slowing. I can notexclude sinus node dysfunction as a cause, but she does not appear to havesignificant other findings of SND. The absence of associated symptoms arguesagainst proceeding straight to a pacemaker, but I discussed that it would notbe unreasonable to proceed with a pacemaker as she has had recurrent episodesand the recent episode lasted 5 seconds. Asymptomatic pauses up to 3 secondswould usually not indicate a need for pacing. We discussed wether she couldhave dosed off and if this could be related to sleep apnea, which is apotentially reversible cause. She indicated that she is not interested inwearing a cpap mask, but I discussed the risks of JAGDEEP and also that a pacemakerwould not correct the cardiac damage caused by otherwise untreated sleep apnea. I encouraged her to undergo a sleep study and if she has severe sleep apneaconsider treatment. She is agreeable, and will contact Dr. Calabrese to see if isabella arrange for her to have the study in [place]. I also stressed that sinuspauses associated with JAGDEEP only occur during times of sleep related hypoxia,and if she were to have a significant pause while she is awake, this could notbe ascribed to sleep apnea. I discussed our primary decision is wether to do apacemaker now or not and we are both agreeable that we will hold off, check asleep study and continue to monitor. If she does develop syncope she shouldcall 911 and be taken to the ED, if her ILR confirms a tay event then I wouldabsolutely advise to proceed with a pacemaker. If she has less severe symptomssuch as dizziness or near syncope she is to call me, if these correllate withsinus pauses then I advise a pacemaker. If her sleep study does not showsignificant sleep apnea as a cause and she continues to have pauses, especiallyif ANDgt; 3 seconds, then I would advise a pacemaker even in the absence of aclear symptom correllation. I did address her an her husbands questions. Istressed absolutely no driving if she develops any symptoms even mild dizzinessand discussed risks potentially associated. She is to call with any symptoms.I called Dr. Quinonez after our visit and discussed this treatment plan.Referring Provider: NABILA MICHELLE [[id number]]Allergies As of Date: 04/08/2017(No Known Allergies)Date Reviewed: 04/08/2017Reviewed by: Zita ([facility]) Britton - Fully AssessedReason for Visit: Cardiology Follow Up [1732] Cmt: Patient here to discuss pause on device.Primary Visit Diagnosis:Sinus pause [I45.5] Other Visit Diagnoses:Vasovagal syncope [R55] Subclavian arterial stenosis (HCC) [I77.1]Prescriptions as of 04/08/2017 Sig: FUROSEMIDE 20 MG TABLET Take 20 mg by mouth as needed. ROSUVASTATIN 10 MG TABLET APRISO 0.375 GRAM CAPSULE,EXT* Take 375 mg by mouth twice da* IBUPROFEN 800 MG TABLET Take 800 mg by mouth every 6 * PROMETHAZINE 12.5 MG TABLET Take 12.5 mg by mouth every 6* PROBIOTIC ORAL Take 1 capsule by mouth once * METFORMIN 500 MG TABLET Take 500 mg by mouth twice da* LOSARTAN 100 MG TABLET Take 100 mg by mouth once carolina* DOCUSATE SODIUM 100 MG CAPSULE Take 100 mg by mouth once carolina* ESOMEPRAZOLE MAGNESIUM 40 MG * Take 1 capsule by mouth once * LEVOTHYROXINE 50 MCG TABLET Take 1 tablet by mouth once d* ASPIRIN 81 MG TABLET,DELAYED * Take 1 tablet by mouth once d* CHOLECALCIFEROL (VITAMIN D3) * Take 1 capsule by mouth once * BACLOFEN 10 MG TABLET OXYCODONE-ACETAMINOPHEN 5 MG-* Take 1 tablet by mouth every * ATORVASTATIN 80 MG TABLET Take 80 mg by mouth once jarrod*Medication notes this encounter BACLOFEN 10 MG TABLET >> Zita Jarquin CMA 04/08/2017 3:04 PM >> ZITA JARQUIN CMA [facility] Apr 08, 2017 3:04 PM Not taking. OXYCODONE- ACETAMINOPHEN 5 MG-325 MG TABLET >> Zita Jarquin CMA 04/08/2017 3:05 PM >> ZITA JARQUIN CMA [facility] Apr 08, 2017 3:05 PM Not taking. ATORVASTATIN 80 MG TABLET >> Zita Jarquin CMA 04/08/2017 3:04 PM >> ZITA JARQUIN CMA [facility] Apr 08, 2017 3:04 PM No longer taking.Problem List As Of Date 04/08/2017 Noted Resolved Subclavian arterial stenosis [I77.1] INVALID FOR* PVC's (premature ventricular contractions) [I49*Visit Notes:>> Zita Jarquin [facility] Apr 08, 2017 3:06 PM Status: SignedMrsSil Koroma stated that some times when she gets up to quick she becomeslightheaded. She has to stand there a moment till the feeling passes thenshe's okay.Zita Jarquin CMALevel of Service: EST PATIENT VISIT LEVEL 4 [[id number]]Disposition: Return if symptoms worsen or fail to improve, for as needed.Follow-up and Disposition History RecordedLetter TextEncounter Number: [id number] Status:Closed by NABILA MICHELLE MD on 04/08/17 Vital Signs Vital Sign Description Value / Unit Date Location The following section is limited to 5 entries per type and includes entries from the following time range: 20161107 - 20170327. BMI (Body Mass Index) 38.22 kg/m2 03-27-2017 - 03-27-2017 [facility] ([id number]) BMI (Body Mass Index) 39.5 kg/m2 11-07-2016 - 11-07-2016 [facility] ([id number]) BSA (Body Surface Area) 1.94 m2 05-02-2016 - 05-02-2016 [facility] ([id number]) Height 157.48 cm 03-27-2017 - 03-27-2017 [facility] ([id number]) Height 157.48 cm 11-07-2016 - 11-07-2016 [facility] ([id number]) Pulse (Heart Rate) 64 /min 03-27-2017 - 03-27-2017 [facility] ([id number]) Pulse (Heart Rate) 66 /min 11-07-2016 - 11-07-2016 [facility] ([id number]) Respiratory Rate 16 /min 03-27-2017 - 03-27-2017 [facility] ([id number]) Respiratory Rate 20 /min 11-07-2016 - 11-07-2016 [facility] ([id number]) Weight 94.8 kg 03-27-2017 - 03-27-2017 [facility] ([id number]) Weight 97.98 kg 11-07-2016 - 11-07-2016 [facility] ([id number]) Encounters Date Type Reason Provider Location 09-12-2017 - Ambulatory [facility] 09-12-2017 [facility] ([id number]) [facility] 04-08-2017 - Ambulatory [facility] 04-08-2017 [facility] ([id number]) 09-23-2018 Evaluation and Je Cardoso Facility:[facility] management of [facility] inpatient 04-09-2018 Patient encounter Dao Roman Facility:[facility] procedure [facility] 11-18-2017 Patient encounter Chuy Freed Facility:[facility] 11-13-2017 Patient encounter Dao Vera Facility:[facility] Procedures Procedure Name Date Provider Location Interrogation evaluation 06-19-2017 - [facility] in person ilr system 06-20-2017 ([id number]) Interrogation evaluation 06-11-2017 - [facility]r system 06-18-2017 ([id number]) Follow Up Appt 6 months 03-27-2017 - [facility] 03-27-2017 ([id number]) MMM 03-27-2017 - Greg Quinonez MD [facility] 03-27-2017 ([id number]) Follow Up Appt 6 months 03-27-2017 - Greg Quinonez MD [facility] 03-27-2017 ([id number]) MMM 03-27-2017 - Greg Quinonez MD [facility] 03-27-2017 ([id number]) Interrogation evaluation 03-19-2017 - Greg Quinonez MD [facility] in person ilr system 03-19-2017 ([id number]) Ilr device interrogate 03-19-2017 - Greg Quinonez MD [facility] 03-19-2017 ([id number]) Interrogation evaluation 12-20-2016 - Kaylee Larsen [facility] in person ilr system 12-30-2016 PA-C ([id number]) Ilr device interrogate 12-20-2016 - Kaylee Larsen [facility] 12-30-2016 PA-C ([id number]) [facility] 11-07-2016 - Jean Pierre A Bonds ORTHOPEDIC RN-C [facility] 11-12-2016 ([id number]) PF 11-07-2016 - Jean Pierre A Bonds ORTHOPEDIC RN-C [facility] 11-12-2016 ([id number]) Follow Up Appt 3 months 10-17-2016 - Kaylee Larsen [facility] 10-29-2016 PA-C ([id number]) Interrogation evaluation 10-17-2016 - Kaylee Larsen [facility] in person ilr system 10-17-2016 PA[facility]C ([id number]) [facility] 10[facility]17[facility]2016 - Kaylee Larsen [facility] 10-29-2016 PA-C ([id number]) Follow Up Appt 3 months 10-17-2016 - Kaylee Larsen [facility] 10-29-2016 PA-C ([id number]) Ilr device interrogate 10-17-2016 - Kaylee Larsen [facility] 10-17-2016 PA-C ([id number]) [facility] 10-17-2016 - Kaylee Larsen [facility] 10-29-2016 PA-C ([id number]) Follow Up Appt 3 months 09-26-2016 - Kaylee Larsen [facility] 10-29-2016 PA-C ([id number]) Interrogation evaluation 09-26-2016 - Kaylee Larsen [facility] in person ilr system 09-26-2016 PA-C ([id number]) [facility] 09-26-2016 - Kaylee Larsen [facility] 10-29-2016 PA-C ([id number]) Follow Up Appt 3 months 09-26-2016 - Kaylee Larsen [facility] 10-29-2016 PA-C ([id number]) Ilr device interrogate 09-26-2016 - Kaylee Larsen [facility] 09-26-2016 PA-C ([id number]) [facility] 09-26-2016 - Kaylee Larsen [facility] 10-29-2016 PA-C ([id number]) Follow Up Appt 3 months 08-20-2016 - Greg Quinonez MD [facility] 10-29-2016 ([id number]) Interrogation evaluation 08-20-2016 - Greg Quinonez MD [facility] in person ilr system 08-20-2016 ([id number]) [facility] 08-20-2016 - Greg Quinonez MD [facility] 10-29-2016 ([id number]) Follow Up Appt 3 months 08-20-2016 - Greg Quinonez MD [facility] 10-29-2016 ([id number]) Ilr device interrogate 08-20-2016 - Greg Quinonez MD [facility] 08-20-2016 ([id number]) [facility] 08-20-2016 - Greg Quinonez MD [facility] 10-29-2016 ([id number]) Follow Up Appt 3 months 06-26-2016 - Kaylee Larsen [facility] 10-29-2016 PA-C ([id number]) Interrogation evaluation 06-26-2016 - Kaylee Larsen [facility] in person ilr system 06-26-2016 PA-C ([id number]) [facility] 06-26-2016 - Kaylee Larsen [facility] 10-29-2016 PA-C ([id number]) Follow Up Appt 3 months 06-26-2016 - Kaylee Larsen [facility] 10-29-2016 PA-C ([id number]) Ilr device interrogate 06-26-2016 - Kaylee Larsen [facility] 06-26-2016 PA-C ([id number]) [facility] 06-26-2016 - Kaylee Larsen [facility] 10-29-2016 PA-C ([id number]) Follow Up Appt 1 year 05-02-2016 - Kaylee Larsen [facility] 05-02-2016 PA-C ([id number]) Follow Up Appt 6 months 05-02-2016 - Kaylee Larsen [facility] 05-02-2016 PA-C ([id number]) [facility] 05-02-2016 - Kaylee Larsen [facility] 05-02-2016 PA-C ([id number]) PF 05-02-2016 - Kaylee Larsen [facility] 05-02-2016 PA-C ([id number]) Follow Up Appt 1 year 05-02-2016 - Kaylee Larsen [facility] 05-02-2016 PA-C ([id number]) Follow Up Appt 6 months 05-02-2016 - Kaylee Larsen [facility] 05-02-2016 PA-C ([id number]) [facility] 05-02-2016 - Kaylee Larsen [facility] 05-02-2016 PA-C ([id number]) [facility] 05-02-2016 - Kaylee Larsen [facility] 05-02-2016 PA-C ([id number]) Ecg routine ecg w/least 12 03-22-2016 - Greg Quinonez MD [facility] lds w/i&r 03-22-2016 ([id number]) Follow Up Appt 6 weeks 03-22-2016 - Greg Quinonez MD [facility] 03-22-2016 ([id number]) Implantable Loop Recorder 03-22-2016 - Greg Quinonez MD [facility] 03-30-2016 ([id number]) MMM 03-22-2016 - Greg Quinonez MD [facility] 03-22-2016 ([id number]) Electrocardiogram, 03-22-2016 - Greg Quinonez MD [facility] complete 03-22-2016 ([id number]) Follow Up Appt 6 weeks 03-22-2016 - Greg Quinonez MD [facility] 03-22-2016 ([id number]) Implantable Loop Recorder 03-22-2016 - Greg Quinonez MD [facility] 03-30-2016 ([id number]) MMM 03-22-2016 - Greg Quinonez MD [facility] 03-22-2016 ([id number]) Plan of Treatment Plan Description Date Location Appointment Appointment 09-26-2017 - [facility] 09-26-2017 ([id number]) Appointment Appointment 09-24-2017 - [facility] 09-24-2017 ([id number]) Follow Up Appt 3 months Follow Up Appt 3 months 06-19-2017 - [facility] 06-20-2017 ([id number]) Pacer Clinic Pacer Clinic 06-19-2017 - [facility] 06-20-2017 ([id number]) Appointment Appointment 06-19-2017 - [facility] 06-19-2017 ([id number]) Follow Up Appt 3 months Follow Up Appt 3 months 06-11-2017 - [facility] 06-18-2017 ([id number]) Pacer Clinic Pacer Clinic 06-11-2017 - [facility] 06-18-2017 ([id number]) Complete sleep workup Complete sleep workup 05-23-2017 - [facility] (PSG,CPAP as indicated) (PSG,CPAP as indicated) 05-23-2017 ([id number]) & Follow up & Follow up Appointment Appointment 04-29-2017 - [facility] 04-29-2017 ([id number]) Appointment Appointment 03-28-2017 - [facility] 03-28-2017 ([id number]) Appointment Appointment 03-27-2017 - [facility] 03-27-2017 ([id number]) Follow Up Appt 6 months Follow Up Appt 6 months 03-27-2017 - [facility] 03-27-2017 ([id number]) MMM MMM 03-27-2017 - [facility] 03-27-2017 ([id number]) Follow Up Appt 6 months Follow Up Appt 6 months 03-27-2017 - [facility] 03-27-2017 ([id number]) MMM MMM 03-27-2017 - [facility] 03-27-2017 ([id number]) Cardiac Referral Yeny Cardiac Referral [place] 03-26-2017 - [facility] Courson, DO, [address], DO, [address] 03-26-2017 ([id number]) [address], [place], [address] [place], [address] Cardiac Referral Yeny Cardiac Referral [place] 03-26-2017 - [facility] Courson, DO, [address], DO, [address] 03-26-2017 ([id number]) [address], [place], [address] [place], [address] Follow Up Appt 3 months Follow Up Appt 3 months 03-19-2017 - [facility] 03-19-2017 ([id number]) Pacer Clinic Pacer Clinic 03-19-2017 - [facility] 03-19-2017 ([id number]) Appointment Appointment 03-19-2017 - [facility] 03-19-2017 ([id number]) Follow Up Appt 3 months Follow Up Appt 3 months 03-19-2017 - [facility] 03-19-2017 ([id number]) Pacer Clinic Pacer Clinic 03-19-2017 - [facility] 03-19-2017 ([id number]) Follow Up Appt 3 months Follow Up Appt 3 months 12-20-2016 - [facility] 12-30-2016 ([id number]) Pacer Clinic Pacer Clinic 12-20-2016 - [facility] 12-30-2016 ([id number]) Follow Up Appt 3 months Follow Up Appt 3 months 12-20-2016 - [facility] 12-30-2016 ([id number]) Pacer Clinic Pacer Clinic 12-20-2016 - [facility] 12-30-2016 ([id number]) Follow Up Appt Other Follow Up Appt Other 11-07-2016 - [facility] 11-07-2016 ([id number]) PFM PFM 11-07-2016 - [facility] 11-12-2016 ([id number]) Venous doppler Venous doppler 11-07-2016 - [facility] 11-07-2016 ([id number]) Follow Up Appt Other Follow Up Appt Other 11-07-2016 - [facility] 11-07-2016 ([id number]) PFM PFM 11-07-2016 - [facility] 11-12-2016 ([id number]) Venous doppler Venous doppler 11-07-2016 - [facility] 11-07-2016 ([id number]) Follow Up Appt 3 months Follow Up Appt 3 months 10-17-2016 - [facility] 10-29-2016 ([id number]) Pacer Clinic Pacer Clinic 10-17-2016 - [facility] 10-29-2016 ([id number]) Follow Up Appt 3 months Follow Up Appt 3 months 10-17-2016 - [facility] 10-29-2016 ([id number]) Pacer Clinic Pacer Clinic 10-17-2016 - [facility] 10-29-2016 ([id number]) Follow Up Appt 3 months Follow Up Appt 3 months 09-26-2016 - [facility] 10-29-2016 ([id number]) Pacer Clinic Pacer Clinic 09-26-2016 - [facility] 10-29-2016 ([id number]) Follow Up Appt 3 months Follow Up Appt 3 months 09-26-2016 - [facility] 10-29-2016 ([id number]) Pacer Clinic Pacer Clinic 09-26-2016 - [facility] 10-29-2016 ([id number]) Cardiac Referral [place] Cardiac Referral [place] 08-21-2016 - [facility], [address] [facility], [address] 08-21-2016 ([id number]) [address], [place], [address], [place], [address] [place], [address] Cardiac Referral [place] Cardiac Referral [place] 08-21-2016 - [facility], [address], [address] 08-21-2016 ([id number]) [address], [place], [address], [place], [address] [place], [address] Follow Up Appt 3 months Follow Up Appt 3 months 08-20-2016 - [facility] 10-29-2016 ([id number]) Pacer Clinic Pacer Clinic 08-20-2016 - [facility] 10-29-2016 ([id number]) Follow Up Appt 3 months Follow Up Appt 3 months 08-20-2016 - [facility] 10-29-2016 ([id number]) Pacer Clinic Pacer Clinic 08-20-2016 - [facility] 10-29-2016 ([id number]) Follow Up Appt 3 months Follow Up Appt 3 months 06-26-2016 - [facility] 10-29-2016 ([id number]) Pacer Clinic Pacer Clinic 06-26-2016 - [facility] 10-29-2016 ([id number]) Follow Up Appt 3 months Follow Up Appt 3 months 06-26-2016 - [facility] 10-29-2016 ([id number]) Pacer Clinic Pacer Clinic 06-26-2016 - [facility] 10-29-2016 ([id number]) Follow Up Appt 1 year Follow Up Appt 1 year 05-02-2016 - [facility] 05-02-2016 ([id number]) Follow Up Appt 6 months Follow Up Appt 6 months 05-02-2016 - [facility] 05-02-2016 ([id number]) MMM MMM 05-02-2016 - [facility] 05-02-2016 ([id number]) PFM PFM 05-02-2016 - [facility] 05-02-2016 ([id number]) Follow Up Appt 1 year Follow Up Appt 1 year 05-02-2016 - [facility] 05-02-2016 ([id number]) Follow Up Appt 6 months Follow Up Appt 6 months 05-02-2016 - [facility] 05-02-2016 ([id number]) MMM MMM 05-02-2016 - [facility] 05-02-2016 ([id number]) PFM PFM 05-02-2016 - [facility] 05-02-2016 ([id number]) EKG (In office) EKG (In office) 03-22-2016 - [facility] 03-22-2016 ([id number]) Follow Up Appt 6 weeks Follow Up Appt 6 weeks 03-22-2016 - [facility] 03-22-2016 ([id number]) Implantable Loop Implantable Loop 03-22-2016 - [facility] Recorder Recorder 03-22-2016 ([id number]) MMM MMM 03-22-2016 - [facility] 03-22-2016 ([id number]) EKG (In office) EKG (In office) 03-22-2016 - [facility] 03-22-2016 ([id number]) Follow Up Appt 6 weeks Follow Up Appt 6 weeks 03-22-2016 - [facility] 03-22-2016 ([id number]) Implantable Loop Implantable Loop 03-22-2016 - [facility] Recorder Recorder 03-22-2016 ([id number]) MMM MMM 03-22-2016 - [facility] 03-22-2016 ([id number]) The following information is from the original human readable content Type Date Detail Appointment 09:00 AM [address], [address], [place], [address], Appointment 10:30 AM Kaylee Larsen PA-C, [address], [address], [place], [address], Referral Cardiac Referral Yeny Michelle DO, [address], [place], [address] Referral Cardiac Referral [place] Canseco, [address], [place], [address] Referral excluded from report: Pending order Pacer Clinic Pending order Follow Up Appt 3 months Pending order Complete sleep workup (PSG,CPAP as indicated) & Follow up Pending order MMM Pending order Follow Up Appt 6 months Pending order Pacer Clinic Pending order Follow Up Appt 3 months Pending order Pacer Clinic Pending order Follow Up Appt 3 months Pending order PFM Pending order Follow Up Appt Other Pending order Venous doppler Pending order Pacer Clinic Pending order Follow Up Appt 3 months Pending order Pacer Clinic Pending order Follow Up Appt 3 months Pending order Pacer Clinic Pending order Follow Up Appt 3 months Pending order Pacer Clinic Pending order Follow Up Appt 3 months Pending order MMM Pending order Follow Up Appt 6 months Pending order PFM Pending order Follow Up Appt 1 year Pending order MMM Pending order Follow Up Appt 6 weeks Pending order EKG (In office) Pending order Implantable Loop Recorder Type Date Detail Appointment 09:00 AM [address], [address], [place], [address], Appointment 10:30 AM Kaylee Larsen PA-C, [address], [address], [place], [address], Referral Cardiac Referral Yeny Michelle DO, [address], [place], [address] Referral Cardiac Referral [place] Canseco, [address], [place], [address] Referral excluded from report: Pending order MMM Pending order Follow Up Appt 6 months Pending order Pacer Clinic Pending order Follow Up Appt 3 months Pending order Pacer Clinic Pending order Follow Up Appt 3 months Pending order PFM Pending order Follow Up Appt Other Pending order Venous doppler Pending order Pacer Clinic Pending order Follow Up Appt 3 months Pending order Pacer Clinic Pending order Follow Up Appt 3 months Pending order Pacer Clinic Pending order Follow Up Appt 3 months Pending order Pacer Clinic Pending order Follow Up Appt 3 months Pending order MMM Pending order Follow Up Appt 6 months Pending order PFM Pending order Follow Up Appt 1 year Pending order MMM Pending order Follow Up Appt 6 weeks Pending order EKG (In office) Pending order Implantable Loop Recorder Type Date Detail Appointment 10:30 AM [address], [address], [place], [address], Appointment 11:15 AM Greg Quinonez MD, [address], [address], [place], [address], Referral Cardiac Referral [place] Canseco, [address], [place], [address] Pending order Pacer Clinic Pending order Follow Up Appt 3 months Pending order PFM Pending order Follow Up Appt Other Pending order Venous doppler Pending order Pacer Clinic Pending order Follow Up Appt 3 months Pending order Pacer Clinic Pending order Follow Up Appt 3 months Pending order Pacer Clinic Pending order Follow Up Appt 3 months Pending order Pacer Clinic Pending order Follow Up Appt 3 months Pending order MMM Pending order Follow Up Appt 6 months Pending order PFM Pending order Follow Up Appt 1 year Pending order MMM Pending order Follow Up Appt 6 weeks Pending order EKG (In office) Pending order Implantable Loop Recorder Type Date Detail Appointment 08:[address], [address], [place], [address], Appointment 10:30 AM Kaylee Larsen PA-C, [address], [address], [place], [address], Referral Cardiac Referral Yeny Michelle DO, [address], [place], [address] Referral Cardiac Referral [place] Canseco, [address], [place], [address] Referral excluded from report: Pending order Pacer Clinic Pending order Follow Up Appt 3 months Pending order Pacer Clinic Pending order Follow Up Appt 3 months Pending order Complete sleep workup (PSG,CPAP as indicated) & Follow up Pending order MMM Pending order Follow Up Appt 6 months Pending order Pacer Clinic Pending order Follow Up Appt 3 months Pending order Pacer Clinic Pending order Follow Up Appt 3 months Pending order PFM Pending order Follow Up Appt Other Pending order Venous doppler Pending order Pacer Clinic Pending order Follow Up Appt 3 months Pending order Pacer Clinic Pending order Follow Up Appt 3 months Pending order Pacer Clinic Pending order Follow Up Appt 3 months Pending order Pacer Clinic Pending order Follow Up Appt 3 months Pending order MMM Pending order Follow Up Appt 6 months Pending order PFM Pending order Follow Up Appt 1 year Pending order MMM Pending order Follow Up Appt 6 weeks Pending order EKG (In office) Pending order Implantable Loop Recorder Type Date Detail Appointment 10:30 AM [address], [address], [place], [address], Appointment 02:15 PM Greg Quinonez MD, [address], [address], [place], [address], Appointment 09:00 AM [address], [address], [place], [address], Referral Cardiac Referral [place] Canseco, [address], [place], [address] Pending order Pacer Clinic Pending order Follow Up Appt 3 months Pending order Pacer Clinic Pending order Follow Up Appt 3 months Pending order PFM Pending order Follow Up Appt Other Pending order Venous doppler Pending order Pacer Clinic Pending order Follow Up Appt 3 months Pending order Pacer Clinic Pending order Follow Up Appt 3 months Pending order Pacer Clinic Pending order Follow Up Appt 3 months Pending order Pacer Clinic Pending order Follow Up Appt 3 months Pending order MMM Pending order Follow Up Appt 6 months Pending order PFM Pending order Follow Up Appt 1 year Pending order MMM Pending order Follow Up Appt 6 weeks Pending order EKG (In office) Pending order Implantable Loop Recorder Type Date Detail Appointment 10:30 AM [address], [address], [place], [address], Appointment 11:15 AM Greg Quinonez MD, [address], [address], [place], [address], Referral Cardiac Referral [place] Canseco, [address], [place], [address] Pending order Pacer Clinic Pending order Follow Up Appt 3 months Pending order Pacer Clinic Pending order Follow Up Appt 3 months Pending order PFM Pending order Follow Up Appt Other Pending order Venous doppler Pending order Pacer Clinic Pending order Follow Up Appt 3 months Pending order Pacer Clinic Pending order Follow Up Appt 3 months Pending order Pacer Clinic Pending order Follow Up Appt 3 months Pending order Pacer Clinic Pending order Follow Up Appt 3 months Pending order MMM Pending order Follow Up Appt 6 months Pending order PFM Pending order Follow Up Appt 1 year Pending order MMM Pending order Follow Up Appt 6 weeks Pending order EKG (In office) Pending order Implantable Loop Recorder Type Date Detail Appointment 02:15 PM Greg Quinonez MD, [address], [address], [place], [address], Appointment 09:00 AM [address], [address], [place], [address], Referral Cardiac Referral [place] Canseco, [address], [place], [address] Pending order Pacer Clinic Pending order Follow Up Appt 3 months Pending order Pacer Clinic Pending order Follow Up Appt 3 months Pending order PFM Pending order Follow Up Appt Other Pending order Venous doppler Pending order Pacer Clinic Pending order Follow Up Appt 3 months Pending order Pacer Clinic Pending order Follow Up Appt 3 months Pending order Pacer Clinic Pending order Follow Up Appt 3 months Pending order Pacer Clinic Pending order Follow Up Appt 3 months Pending order MMM Pending order Follow Up Appt 6 months Pending order PFM Pending order Follow Up Appt 1 year Pending order MMM Pending order Follow Up Appt 6 weeks Pending order EKG (In office) Pending order Implantable Loop Recorder Payers Payer Name Policy Number [facility] [id number] [facility] (69751) MEDICARE [id number] [facility] (36063) MEDICARE A AND B [id number] [facility] (15007) [id number] [facility] (67688) [id number] [facility] (92370) [id number] [facility] (87209) [id number] [facility] (62213) [id number] [facility] (69910) The following information is from the original human readable content ENCOUNTER GUARANTOR PAYER SUBSCRIBER SOURCE 09/12/2017 RIDDHI [place] Primary [facility]IDDHI [place] [facility] A [facility] [employer] [facility] BPolicy Number: [id number] Repository [facility] [id number] [place], [place] Date: [address]Fhs: () 09/12/2017 Secondary Insurance:[facility]I [place] [facility] Number: [id number] Repository [id number] Date: ENCOUNTER GUARANTOR PAYER SUBSCRIBER SOURCE 09/23/2018 RIDDHI [place] Primary RIDDHI [facility] [id number] N Insurance:MEDICAREPolic [facility] [place] y Number: Repository [place], [place] [id number]: (330) Date:2015-07-22[phone] () [id number] CODE [id number], [place] [address]YL: 09/23/2018 Secondary RIDDHI [facility] Insurance:[facility] Repository [facility] Number: [id number] Date:3517-08-16[address] [address]AR: 04/09/2018 RIDDHI [place] Primary RIDDHI [facility] [id number] N Insurance:MEDICAREPolic [facility] [place] y Number: Repository susanne ESTRADA [id number]: (330) Date:2015-07-22[address] () [id number] CODE [id number], [place] [address]DG: 04/09/2018 Secondary RIDDHI K [facility] Insurance:[facility] Number: Repository [id number] Date:5113-50-40[address], [place] [address]RK: 11/18/2017 RIDDHI K Primary RIDDHI K [facility] [id number] N Insurance:MEDICAREPolic [facility] [place] y Number: Repository susanne ESTRADA [id number]: (330) Date:2015-07-22[address] () 858641ZRRC CODE [id number], [place] [address]VQ: 11/18/2017 Secondary RIDDHI K [facility] Insurance:[facility] Number: Repository [id number] Date:9612-10-25[address]OT[place], [place] [address]RY: 11/13/2017 RIDDHI K Primary RIDDHI K [facility] [id number] N Insurance:MEDICAREPolic [facility] [place] y Number: Repository susanne ESTRADA [id number]: (330) Date:2015-07-22[phone] (HP) [id number] CODE [id number], [place] [address]TJ: 11/13/2017 Secondary RIDDHI K [facility] Number: Repository [id number] Date:6034-16-81[address] [address]XSJWOMFMY, [place] [address]NY: Summary Purpose DATE CREATED AUTHOR AUTHOR'S ORGANIZATION 01/10/2018 [facility] DATE CREATED AUTHOR AUTHOR'S ORGANIZATION 01/10/2018 [facility] DATE CREATED AUTHOR AUTHOR'S ORGANIZATION 10/20/2018 [facility] Family History No Family History Records Found Advance Directives No Advanced Directives Records Found Additional Source Comments FOR RECORDS PERTAINING TO PATIENTS WHO ARE OR HAVE BEEN ENROLLED IN A CHEMICAL DEPENDENCY/SUBSTANCE ABUSE PROGRAM, SOME INFORMATION MAY BE OMITTED. This clinical summary was aggregated from multiple sources. Caution should be exercised in using it in the provision of clinical care. This summary normalizes information from multiple sources, and as a consequence, information in this document may materially changethe coding, format and clinical context of patient data. In addition, data may be omittedin some cases. CLINICAL DECISIONS SHOULD BE BASED ON THE PRIMARY CLINICAL RECORDS. [facility] provides no warranty or guarantee of the accuracy or completeness of information in this document. UNRECOGNIZED CONTENT PROVIDED BELOW FOR UNRECOGNIZED SECTION INFORMATION SOURCE DATE CREATED AUTHOR AUTHOR'S ORGANIZATION 10/20/2018 [facility] DATE CREATED AUTHOR AUTHOR'S ORGANIZATION 01/10/2018 [facility] CREATED AUTHOR AUTHOR'S ORGANIZATION 01/10/2018 [facility]
[2018-11-07 12:01] LABS: AST(SGOT) 24 U/L (15-37); Alanine Aminotransfer ALT/SGPT 20 U/L (13-56); Albumin, Serum 3.6 g/dL (3.2-5.0); Alkaline Phosphatase 100 U/L (45-117); Bilirubin, Direct 0.05 mg/dL (0.00-0.30); Globulin 3.6 g/dL (2.2-4.2); Lipase 101 U/L (73-393); Protein, Total 7.2 g/dL (6.4-8.2); T4 Total, Thyroxin 9.3 ug/dL (4.8-13.9); Thyroid Stim Hormone (TSH) 1.95 uIU/mL (0.358-3.74)
[2018-11-10 11:19] LABS: Immunoglobulin A 202 mg/dL (87-352); t-Transglutaminase IgA <2 U/mL (0-3)
== END | disposition home or self-care (01) ==
PROVIDERS: Family Provider Family Medicine Geriatric Medicine; PCP Family Medicine Geriatric Medicine
DX: K76.0 Fatty (change of) liver, not elsewhere classified (principal)
CPT/HCPCS: 36415; 80076; 82784; 83516; 83690; 84436; 84443

== ENCOUNTER → 2018-11-17 | Outpatient (CLI) | payer MEDICARE, OTHER, SELFPAY ==
[2018-07-23 13:45] VITALS: BMI 38.0
--- NOTE | 2018-11-17 08:27 | RAD_ITS ---
STUDY: X-RAY - ESOPHAGUS (BARIUM SWALLOW) WITH FLUOROSCOPY REASON FOR EXAM: Female, 68 years old. Dysphagia for solids. TECHNIQUE: 20 view(s) of the esophagus were obtained following swallowing of barium. FLUOROSCOPY TIME (if supplied): (0:27) minutes/seconds COMPARISON: None. FINDINGS: There is no demonstrated esophageal foreign body. There is no demonstrated stricture or mucosal abnormality. Normal gastroesophageal junction, without a demonstrated hiatal hernia. The patient ingested a 12 mm tablet of barium without any difficulty. A vascular stent is seen in the region of the left subclavian artery/vein. Normal visualized pulmonary parenchyma. Normal visualized osseous structures of the thorax. RAD/Esophagus Only IMPRESSION: No acute abnormality is seen. Electronically Signed: Rodrick Diaz, at 10:01 EDT , Service support ,
== END | disposition home or self-care (01) ==
LOC: RAD 08:25
PROVIDERS: Family Provider Family Medicine Geriatric Medicine; PCP Family Medicine Geriatric Medicine
DX: R13.10 Dysphagia, unspecified (principal)
CPT/HCPCS: 74220

== ENCOUNTER 2018-11-18 12:31 | Inpatient (IN) | payer MEDICARE, OTHER, SELFPAY ==
[2018-07-23 13:45] VITALS: BMI 38.0
[2018-11-18 12:32] VITALS: BP 162/94; PULSE 74; RESP 18; TEMP 36.6; O2SAT 98; BMI 39.6
--- NOTE | 2018-11-18 13:16 | CT_ITS ---
STUDY: CT ABDOMEN AND PELVIS WITHOUT CONTRAST REASON FOR EXAM: Female, 68 years old. Right flank pain. Hematuria and UTI. History of Crohn's disease. RADIATION DOSAGE (If Supplied By Facility): CTDIvol = ( 38.94 ) mGy, DLP = ( 1863.07 ) mGycm TECHNIQUE: Transaxial images were obtained from the dome of the diaphragm to the symphysis pubis without oral contrast, and without intravenous contrast. Sagittal and coronal images were reconstructed. Individualized dose optimization techniques were used for this CT. COMPARISON: Comparison is made with prior study dated December 08, 2012. FINDINGS: Mild degree of increased linear markings at the lung bases suggestive of scarring. Coronary artery calcification. Normal liver. Normal gallbladder and extrahepatic biliary system. Normal spleen. Normal pancreas. Normal bilateral adrenal glands. Normal right kidney. Normal left kidney. There is a small hiatal hernia. Normal small intestine. Dense barium is seen within the colon causing beam hardening artifacts. Sigmoid diverticulosis. There are surgical clips in the region of the appendix consistent with a prior appendectomy. There is diffuse atherosclerotic calcification of the abdominal aorta and major visceral branches with narrowing of the origin of the superior mesenteric artery., without a demonstrated aneurysm. Normal inferior vena cava. There is borderline retroperitoneal lymphadenopathy with enlarged nodes no greater than 10mm in the short axis diameter. Normal urinary bladder. There is absence of the uterus consistent with a prior hysterectomy. Normal abdominal wall. Disc space narrowing and degeneration at the L5-S1 level. Bilateral hip replacements causing beam hardening artifact and decreased evaluation of the pelvic structures. CT/Abdomen/Pelvis without Cont IMPRESSION: Scattered sigmoid diverticula. No acute abnormality is seen. Electronically Signed: Rodrick Diaz, at 14:39 EDT , Service support ,
[2018-11-18] MEDS: 0.9% Normal Saline 1,000 ML 1000 ML IV (13:43)
[2018-11-18] MEDS: Morphine 4 MG/ML Syringe IV (13:43)
[2018-11-18] MEDS: Ondansetron 4 MG/2 ML Vial IV (13:43)
[2018-11-18 13:50] LABS: Absolute Neutrophil Count 6.2 X10^3/uL (2.0-7.7); Basophil# 0.03 X10^3/uL; Basophil% 0.3 % (0-1); Eosinophils% 1.1 % (0-5); Hematocrit 40.3 % (37-47); Hemoglobin 13.1 g/dl (12.0-15.0); Mean Corp Hgb Conc 32.5 g/gl (32-36); Mean Corpuscular Hgb 29.4 pg (27.0-32.0); Mean Corpuscular Volume 90.4 fL (81-99); Mean Platelet Vol. 9.4 fl (6.2-12.0); Monocyte# 0.84 X10^3/uL; Monocyte% 9.4 % (0-10); Neutrophil % 69.1 % (47-70); Platelet Count 216 K/mm3 (150-450); RBC Distribution Width CV 14.4 % (11.6-14.6); RBC Distribution Width SD 47.6 fl (35.1-43.9); Red Blood Count 4.46 M/mm3 (4.2-5.4)
[2018-11-18 13:53] LABS: POSITIVE COUNT NO; POSITIVE DIFFERENTIAL NO; POSITIVE MORPHOLOGY NO
[2018-11-18 14:02] LABS: Mucous, Urine 0 SEEN /hpf (<or=2+); Red Blood Cells-Urine 0 SEEN /hpf (0-5); Squamous Epithelial Cells - UA 0 SEEN /hpf (5-10)
[2018-11-18 14:05] LABS: Anion Gap 3 (5-15); BUN 21 mg/dL (7-18); BUN/Creat Ratio 23.3 RATIO (10-20); Calcium,Total 9.4 mg/dL (8.5-10.1); Chloride 109 mmol/L (98-107); EST Glomerular Filtration Rate 66 mL/min (>60); Est Glom Filt Rate - Afr Amer 80 mL/min (>60); Estimated Creatinine Clearance 45.14 ml/min; Glucose 97 mg/dL (74-106); Potassium 4.4 mmol/L (3.5-5.1); Sodium Level 139 mmol/L (136-145)
[2018-11-18 14:06] LABS: Color, Urine Yellow (Yellow); Glucose, Dipstick Normal (Normal); Ketone-Dipstick Negative (Negative); Leukocyte Esterase-Dipstick 500 /ul (Negative); Nitrite-Dipstick Negative (Negative); Occult Blood-Urine 250 /ul (Negative); Protein-Dipstick 30 mg/dl (Negative); Urine Bilirubin Dipstick Negative (Negative); Urine Clarity Sl. Cloudy (Clear); Urine Urobilinogen Normal (Normal)
[2018-11-18 14:12] LABS: Bacteria 1+ /hpf (None Seen); White Blood Cells 50-100 SEEN /hpf (0-5)
[2018-11-18] MEDS: HYDROmorphone 1 MG/ML Syringe IV (15:09)
[2018-11-18] MEDS: Ceftriaxone 1 GM/50 ML BAG IV ×2 (15:10→16:10)
--- NOTE | 2018-11-18 15:15 | ED.VIS.GEN ---
History of Present Illness Chief Complaint: Complaint Informant: Patient Onset: Yesterday Narrative: Patient presents with dysuria suprapubic discomfort since yesterday. Today noting right mid abdominal pain rating to the groin. Nausea without vomiting. No fevers. No history of kidney stones. Last UTI 2 years ago. However reports pain is 7 out of 10. Reports history of Crohn's disease that was treated for 5 years however was taken off medicines a year ago. Reports partner of her GI told her she did not have Crohn's and stopped the medicines a year ago. 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 No medications taken for symptoms. Prior similar symptoms: No Past Medical History - Allergies and Home Meds Allergies/Adverse Reactions: Allergies No Known Allergies Allergy (Verified 11/18/18 12:34) Primary Care Physician: Jim Calabrese Chi, MD [Primary Care Provider] - Surgical History: total hip arthroplasty, - - Left subclavian steal-percutaneous intervention. Smoking Status: Former smoker - Family History Paternal Family History: Family History (Last Reviewed 07/23/18 @ 13:49 by Kaylee Cervantes) Father CAD (coronary artery disease) Myocardial infarction Mother Hypertension Grandfather Heart disease Myocardial infarction Family History: Reports: Heart Disease - CAD; [place] Sibling Family History: Family History (Last Reviewed 07/23/18 @ 13:49 by Kaylee Cervantes) Father CAD (coronary artery disease) Myocardial infarction Mother Hypertension Grandfather Heart disease Myocardial infarction Family History: Reports: Heart Disease - CAD; CABG Review of Systems General: Denies: Chills, Fever, Sweats Eyes: Denies: Visual changes - bilaterally, Diplopia ENT: Denies: Rhinorrhea, Sore throat Cardiovascular: Denies: Chest pain, Palpitations Respiratory: Denies: Dyspnea, Cough, Dyspnea on exertion Gastrointestinal: Reports: Abdominal pain, Nausea Genitourinary: Reports: Dysuria, Hematuria Musculoskeletal: Denies: Back pain, Extremity Pain Skin: Denies: Rash, Wounds Neurological: Denies: Headache, Weakness, Numbness Physical Exam Vital Signs/Narrative: Vital Signs Temp Pulse Resp BP Pulse Ox 11/18/18 12:32 98 F 74 18 162/94 H 98 Inital Vital Signs reviewed: Yes General: Well nourished, Well developed, - - uncomfortable Head: Normocephalic, Atraumatic Eyes: Perrl, EOMI ENT: Moist mucous membranes, No rhinorrhea Neck: Supple, Nontender Cardiovascular: Regular rate, Regular rhythm, No murmurs Respiratory: No distress, CTA bilaterally, Chest nontender Abdomen: Soft, Nontender, Nondistended, Normal bowel sounds Back: Nontender, Normal Inspection Extremities: Nontender, No edema Skin: Normal color, No rash Neurological: Alert, Oriented x3, Cranial nerves II-XII grossly intact, Normal Strength, Normal Sensation Psychological: Normal affect, Normal Mood Diagnostic/Tx/Re-eval Abnormal Lab Results 11/18/18 11/18/18 11/18/18 13:45 13:45 13:55 WBC 9.0 RBC 4.46 Hgb 13.1 Hct 40.3 MCV 90.4 MCH 29.4 MCHC 32.5 RDW 14.4 RDW Differential 47.6 H Plt Count 216 MPV 9.4 Immature Gran % (Auto) 0.100 Neut % (Auto) 69.1 Lymph % (Auto) 20.0 [place] % (Auto) 9.4 Eos % (Auto) 1.1 Baso % (Auto) 0.3 Absolute Neuts (auto) 6.2 Absolute Lymphs (auto) 1.80 Total Counted Not Reportable Sodium 139 Potassium 4.4 Chloride 109 H Carbon Dioxide 27.0 Anion Gap 3 L BUN 21 H Creatinine 0.90 Estim Creat Clear Calc 45.14 Est GFR (MDRD) Af Amer 80 Est GFR (MDRD) Non-Af 66 BUN/Creatinine Ratio 23.3 H Glucose 97 Calcium 9.4 Urine Color Yellow Urine Clarity Sl. Cloudy Urine pH 6.0 Ur Specific [place] 1.010 Urine Protein 30 H Urine Glucose (UA) Normal Urine Ketones Negative Urine Occult Blood 250 H Urine Nitrite Negative Urine Bilirubin Negative Urine Urobilinogen Normal Ur Leukocyte Esterase 500 H Urine RBC 0 SEEN Urine WBC 50-100 SEEN Ur Squamous Epith Cells 0 SEEN Urine Bacteria 1+ Urine Mucus [address] scan abdomen and pelvis: 3 mm mid ureteral stone with mild hydro-. Discussion with radiology. - Medical Decision Making Patient worked up for renal colic symptoms with UTI. Work-up with urine did no leukocytes and white blood cell counts of 5200. Urine culture sent. She started on Rocephin. She did have a white count of 9 creatinine normal. Initially treated with morphine and Zofran. Pain has persisted. NSAIDs avoided due to her unclear history and her Crohn's disease treated for [address] scan is discussed in radiology notes 3 mm mid ureter stone with mild hydro-. She required additional Dilaudid for pain control. With her UTI findings with obstructive uropathy, I do feel she will benefit for inpatient management. Spoke with hospitalist, Dr. Restrepo for admission. He requested an additional gram of Rocephin for total 2 g for treatment. ED Disposition - Plan for ED Patient: Disposition: Acute Care Hospital [facility] Diagnosis: right urolithiasis, UTI (urinary tract infection) Referrals: Jim Calabrese Chi, MD [Primary Care Provider] -
--- NOTE | 2018-11-18 15:18 | NURSING ---
DR BARBARA SETHI
[2018-11-18 15:20] VITALS: BMI 39.7
--- NOTE | 2018-11-18 15:37 | NURSING ---
318 ACUTE CYSTITIS, RT URETERAL STONE ASHELFAH
--- NOTE | 2018-11-18 15:40 | PCM.HP.STD ---
<Jenny Noland - Last Filed: 11/18/18 16:05> Problem List (1) UTI (urinary tract infection) Status: Acute (2) Nonrheumatic tricuspid valve regurgitation Status: Chronic (3) Controlled type 2 diabetes mellitus Status: Chronic (4) Essential hypertension Status: Chronic (5) Atherosclerotic heart disease of [place] coronary artery without angina pectoris Status: Chronic Qualifiers: [place] vs. 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 Status: Chronic (7) Syncope and collapse Status: Resolved (8) Status post placement of implantable loop recorder Status: Chronic Comment: Implant 03/27/16 (9) Pulmonary hypertension Status: Chronic (10) Carotid stenosis, non-symptomatic Status: Chronic Qualifiers: Laterality: bilateral Qualified Code(s): I65.23 - Occlusion and stenosis of bilateral carotid arteries (11) HLD (hyperlipidemia) Status: Chronic Qualifiers: Hyperlipidemia type: unspecified Qualified Code(s): E78.5 - Hyperlipidemia, unspecified (12) Hypothyroidism Status: Chronic Qualifiers: Hypothyroidism type: unspecified Qualified Code(s): E03.9 - Hypothyroidism, unspecified (13) Cardiac conduction disorder Status: Chronic (14) PVC (premature ventricular contraction) Status: Chronic (15) Mckeon esophagus Status: Chronic Qualifiers: Mckeon's esophagus type: with dysplasia of unspecified degree Qualified Code(s): K22.719 - Mckeon's esophagus with dysplasia, unspecified; K22.71 - Mckeon's esophagus with dysplasia (16) Subclavian steal syndrome Status: Chronic (17) Bilateral carotid bruits Status: Chronic History of Present Illness Date of Admission: 11/18/18 Chief Complaint: Right flank pain, dysuria. The patient is a 68 year old F who presents emergency room due to dysuria, right groin pain and right flank pain. She denies fever, chills. Also complains of urinary frequency. She complains of nausea although she reports this is ongoing prior to her urinary symptoms. Denies emesis. She reports a history of UTIs although she reports they have not been frequent. She has a remote history of right hydronephrosis which she reports was secondary to adhesions following hysterectomy. Her prior urine cultures were positive for Pseudomonas and E. coli. She reports she underwent barium swallow yesterday due to ongoing dysphagia and nausea. She has a past medical history of hypertension, hyperlipidemia, type 2 diabetes mellitus, CAD, hypothyroidism, Mckeon's esophagus, Crohn's disease, subclavian steal syndrome, obesity. Past Medical History Past Medical History (Chronic Problems): Chronic Problems (Last Reviewed 07/23/18 @ 13:49 by Kaylee Cervantes) Nonrheumatic tricuspid valve regurgitation (Chronic) Controlled type 2 diabetes mellitus (Chronic) Essential hypertension (Chronic) Atherosclerotic heart disease of [place] coronary artery without angina pectoris (Chronic) assisted use of drug (Chronic) Status post placement of implantable loop recorder (Chronic) Implant 03/27/16 Pulmonary hypertension (Chronic) Carotid stenosis, non-symptomatic (Chronic) HLD (hyperlipidemia) (Chronic) Hypothyroidism (Chronic) Cardiac conduction disorder (Chronic) PVC (premature ventricular contraction) (Chronic) Mckeon esophagus (Chronic) Subclavian steal syndrome (Chronic) Bilateral carotid bruits (Chronic) Medical History: Medical History (Last Reviewed 07/23/18 @ 13:49 by Kaylee Cervantes) Nonrheumatic tricuspid valve regurgitation (Chronic) I36.1 Controlled type 2 diabetes mellitus (Chronic) E11.9 Essential hypertension (Chronic) I10 Atherosclerotic heart disease of [place] coronary artery without angina pectoris (Chronic) I25.10 Pulmonary hypertension (Chronic) I27.20 Carotid stenosis, non-symptomatic (Chronic) I65.29 HLD (hyperlipidemia) (Chronic) E78.5 Hypothyroidism (Chronic) E03.9 Cardiac conduction disorder (Chronic) I45.9 PVC (premature ventricular contraction) (Chronic) I49.3 Mckeon esophagus (Chronic) K22.70 Subclavian steal syndrome (Chronic) G45.8 Bilateral carotid bruits (Chronic) R09.89 IBS (irritable bowel syndrome) K58.9 Raynauds syndrome I73.00 Syncope and collapse R55 Hypertension (Inactive) I10 Allergies No Known Allergies Allergy (Verified 11/18/18 12:34) Home Medications: Ambulatory Orders Medication Instructions Recorded Cholecalciferol (VIT D3) [Vitamin 1,000 unit PO BID 03/08/16 D3] Levothyroxine [Synthroid] 50 mcg PO DAILY 03/08/16 Losartan Potassium [Cozaar] 100 mg PO DAILY 03/08/16 Metformin HCl [Glucophage] 500 mg PO BIDCM 03/08/16 Promethazine HCl 12.5 mg PO Q4H PRN PRN 03/08/16 Esomeprazole Mag Trihydrate 40 mg PO QHS 05/22/17 [Nexium] Rosuvastatin Calcium [Crestor] 10 mg PO QHS 05/22/17 Acetaminophen [Tylenol] 1,500 mg PO PRN PRN 06/12/17 L.acidoph,Paracasei, B.lactis 1 ea PO DAILY 06/12/17 [Probiotic] docusate sodium 100 mg capsule 100 mg PO QHS 09/25/17 aspirin 81 mg tablet,delayed 81 mg PO DAILY 07/23/18 release furosemide 20 mg tablet 20 mg PO DAILY PRN PRN 07/23/18 melatonin 10 mg tablet 10 mg PO HS PRN 07/23/18 Clopidogrel Bisulfate [Clopidogrel] 75 mg PO DAILY 11/18/18 Pioglitazone HCl 30 mg PO DAILY 11/18/18 Surgical History: Surgical History (Last Reviewed 07/23/18 @ 13:49 by Kaylee Cervantes) Status post placement of implantable loop recorder (Chronic) Z95.818 Implant 03/27/16 S/P peripheral artery angioplasty with stent placement Onset Date: ~08/15/98 Z95.820 L. Subclavian Artery 08/15/98 History of right hip replacement Z96.641 History of total left hip arthroplasty Z96.642 Surgical History: total hip arthroplasty - Bilateral., - - Left subclavian steal-percutaneous intervention, tonsillectomy, hysterectomy. Psychiatric History: No pertinent psych hx COFFIN MAKER History: No pertinent COFFIN MAKER history Lives: Spouse/ Significant Other Smoking Status: Former smoker Tobacco Use: Non-smoker Alcohol: None Drugs: None - *Family History Paternal Family History: Family History (Last Reviewed 11/18/18 @ 15:54 by EDIL Blackwell) Father CAD (coronary artery disease) Myocardial infarction Mother Hypertension Grandfather Heart disease Myocardial infarction History Items: Heart Disease - CAD; [place] Sibling Family History: Family History (Last Reviewed 11/18/18 @ 15:54 by EDIL Blackwell) Father CAD (coronary artery disease) Myocardial infarction Mother Hypertension Grandfather Heart disease Myocardial infarction History Items: Heart Disease - CAD; CABG Review of Systems Constitutional: Denies: Chills, Fever, Weight Change HEENT: Denies: Head Aches, Sinus Congestion, Sinus Drainage Cardiovascular: Denies: Chest Pain, Edema, Palpitations, Syncope Respiratory: Denies: Cough, Shortness of breath at rest, Sputum production Gastrointestinal: Reports: Abdominal Pain - Right lower abdomen, Nausea. Denies: Vomiting Genitourinary: Reports: Dysuria, Frequency, Urgency, - - Right flank pain. Denies: Hematuria Musculoskeletal: Denies: Joint Pain, Joint Tenderness Skin: Denies: Rash, Wounds Neurological: Denies: Numbness, Tingling, Focal weakness Psychiatric: Denies: Anxiety, Depression, Homicidal Ideations, Suicidal Ideations Hematologic/ Lymphatic: Denies: Easy Bruising, Easy Bleeding VTE Information - Inpt Only VTE Present on Admission: No VTE Mechan Device Prophylaxis: None VTE Pharm Prophylaxis ordered?: Yes Patient Problems: Active and Suspected Problems (Last Reviewed 07/23/18 @ 13:49 by Kaylee Cervantes) UTI (urinary tract infection) (Acute) - Physical Exam General: Alert, Oriented x3, Cooperative HEENT: Atraumatic, PERRLA, EOMI, Normocephalic Neck: Supple, No JVD, Negative Carotid Bruits Lungs: Clear to auscultation, Normal air movement Cardiovascular: Regular rate, Regular Rhythm, Normal S1, Normal S2, No murmurs Abdomen: Bowel Sounds Present, Soft, Non-Distended, - - Right suprapubic tenderness Extremities: No clubbing, No cyanosis, No edema, Capillary Refill Less than 3 Seconds Skin: No rashes, No breakdown Musculoskeletal: No Tenderness to Palpation of Joints or Extremities Neurological: Cranial nerves II-XII grossly intact, Neuro grossly intact Psych/Mental Status: Normal Affect, Appropriate Vital Signs Temp Pulse Resp BP Pulse Ox 98 F 74 18 162/94 H 98 11/18/18 12:32 11/18/18 12:32 11/18/18 12:32 11/18/18 12:32 11/18/18 12:32 Oxygen Delivery Method Room Air Weight: 210 lb Body Mass Index (BMI) 39.6 Finger Stick Blood Glucose 173 Laboratory Tests Past 24 Hrs 11/18/18 11/18/18 11/18/18 13:45 13:45 13:55 WBC 9.0 RBC 4.46 Hgb 13.1 Hct 40.3 MCV 90.4 MCH 29.4 MCHC 32.5 RDW 14.4 RDW Differential 47.6 H Plt Count 216 MPV 9.4 Immature Gran % (Auto) 0.100 Neut % (Auto) 69.1 Lymph % (Auto) 20.0 [place] % (Auto) 9.4 Eos % (Auto) 1.1 Baso % (Auto) 0.3 Absolute Neuts (auto) 6.2 Absolute Lymphs (auto) 1.80 Total Counted Not Reportable Sodium 139 Potassium 4.4 Chloride 109 H Carbon Dioxide 27.0 Anion Gap 3 L BUN 21 H Creatinine 0.90 Estim Creat Clear Calc 45.14 Est GFR (MDRD) Af Amer 80 Est GFR (MDRD) Non-Af 66 BUN/Creatinine Ratio 23.3 H Glucose 97 Calcium 9.4 Urine Color Yellow Urine Clarity Sl. Cloudy Urine pH 6.0 Ur Specific [place] 1.010 Urine Protein 30 H Urine Glucose (UA) Normal Urine Ketones Negative Urine Occult Blood 250 H Urine Nitrite Negative Urine Bilirubin Negative Urine Urobilinogen Normal Ur Leukocyte Esterase 500 H Urine RBC 0 SEEN Urine WBC 50-100 SEEN Ur Squamous Epith Cells 0 SEEN Urine Bacteria 1+ Urine Mucus 0 SEEN Assessment/Plan All Active Problems (Last Reviewed 07/23/18 @ 13:49 by Kaylee Cervantes) UTI (urinary tract infection) (Acute) 1. Acute UTI, without sepsis-UA positive. Urine culture pending. Prior cultures positive for Pseudomonas and presumptive E. coli. IV Zosyn. IV fluids. 2. Right urolithiasis with mild right hydronephrosis- Per CT abdomen. Urology consult. PRN pain regimen. 3. Hypertension-stable, continue losartan regimen. 4. Hyperlipidemia-continue statin. 5. Type 2 diabetes mellitus-hold oral regimen. Accu-Chek before meals at bedtime with sliding scale insulin. 6. CAD-no prior cardiac stent. Follows with Dr. Vang. Continue aspirin, statin, plavix. 7. Hypothyroidism-continue Synthroid regimen. 8. Mckeon's esophagus/ongoing dysphagia/nausea-continue PPI. Barium x-ray as outpatient yesterday with no acute abnormality. Speech therapy consult. 9. Crohn's disease-patient has been off of steroids/suppressants for approximately 1 year. 10. Subclavian steal syndrome- s/p stent. Continue aspirin, statin, Plavix. 11. Obesity-encourage diet lifestyle modifications. 12. History of C. difficile-monitor given IV antibiotics as noted above. DVT prophylaxis- Lovenox sc This patient was seen by EDIL Blackwell under the supervision of Dr. Restrepo. <Brendan Restrepo E - Last Filed: 11/18/18 16:20> Problem List (1) UTI (urinary tract infection) Status: Acute (2) Controlled type 2 diabetes mellitus Status: Chronic (3) Essential hypertension Status: Chronic (4) Atherosclerotic heart disease of [place] coronary artery without angina pectoris Status: Chronic Qualifiers: [place] vs. transplanted heart: [place] heart Qualified Code(s): I25.10 - Atherosclerotic heart disease of [place] coronary artery without angina pectoris (5) Pulmonary hypertension Status: Chronic (6) HLD (hyperlipidemia) Status: Chronic Qualifiers: Hyperlipidemia type: unspecified Qualified Code(s): E78.5 - Hyperlipidemia, unspecified (7) Hypothyroidism Status: Chronic Qualifiers: Hypothyroidism type: unspecified Qualified Code(s): E03.9 - Hypothyroidism, unspecified History of Present Illness The patient is a 68 year old F [] Past Medical History Medical History: Medical History (Last Reviewed 07/23/18 @ 13:49 by Kaylee Cervantes) Nonrheumatic tricuspid valve regurgitation (Chronic) I36.1 Controlled type 2 diabetes mellitus (Chronic) E11.9 Essential hypertension (Chronic) I10 Atherosclerotic heart disease of [place] coronary artery without angina pectoris (Chronic) I25.10 Pulmonary hypertension (Chronic) I27.20 Carotid stenosis, non-symptomatic (Chronic) I65.29 HLD (hyperlipidemia) (Chronic) E78.5 Hypothyroidism (Chronic) E03.9 Cardiac conduction disorder (Chronic) I45.9 PVC (premature ventricular contraction) (Chronic) I49.3 [place]keon esophagus (Chronic) K22.70 Subclavian steal syndrome (Chronic) G45.8 Bilateral carotid bruits (Chronic) R09.89 IBS (irritable bowel syndrome) K58.9 Raynauds syndrome I73.00 Syncope and collapse R55 Hypertension (Inactive) I10 Allergies No Known Allergies Allergy (Verified 11/18/18 12:34) Surgical History: Surgical History (Last Reviewed 07/23/18 @ 13:49 by Kaylee Cervantes) Status post placement of implantable loop recorder (Chronic) Z95.818 Implant 03/27/16 S/P peripheral artery angioplasty with stent placement Onset Date: ~08/15/98 Z95.820 L. Subclavian Artery 08/15/98 History of right hip replacement Z96.641 History of total left hip arthroplasty Z96.642 - *Family History Paternal Family History: Family History (Last Reviewed 11/18/18 @ 15:54 by EDIL Blackwell) Father CAD (coronary artery disease) Myocardial infarction Mother Hypertension Grandfather Heart disease Myocardial infarction Sibling Family History: Family History (Last Reviewed 11/18/18 @ 15:54 by SE BlackwellC) Father CAD (coronary artery disease) Myocardial infarction Mother Hypertension Grandfather Heart disease Myocardial infarction - Physical Exam Vital Signs Temp Pulse Resp BP Pulse Ox 98.6 F 67 16 154/68 H 98 11/18/18 15:59 11/18/18 15:59 11/18/18 15:59 11/18/18 15:59 11/18/18 15:59 Oxygen Delivery Method Room Air Weight: 211 lb 13.828 oz Body Mass Index (BMI) 40.0 Finger Stick Blood Glucose 173 Laboratory Tests Past 24 Hrs 11/18/18 11/18/18 11/18/18 13:45 13:45 13:55 WBC 9.0 RBC 4.46 Hgb 13.1 Hct 40.3 MCV 90.4 MCH 29.4 MCHC 32.5 RDW 14.4 RDW Differential 47.6 H Plt Count 216 MPV 9.4 Immature Gran % (Auto) 0.100 Neut % (Auto) 69.1 Lymph % (Auto) 20.0 [place] % (Auto) 9.4 Eos % (Auto) 1.1 Baso % (Auto) 0.3 Absolute Neuts (auto) 6.2 Absolute Lymphs (auto) 1.80 Total Counted Not Reportable Sodium 139 Potassium 4.4 Chloride 109 H Carbon Dioxide 27.0 Anion Gap 3 L BUN 21 H Creatinine 0.90 Estim Creat Clear Calc 45.14 Est GFR (MDRD) Af Amer 80 Est GFR (MDRD) Non-Af 66 BUN/Creatinine Ratio 23.3 H Glucose 97 Calcium 9.4 Urine Color Yellow Urine Clarity Sl. Cloudy Urine pH 6.0 Ur Specific [place] 1.010 Urine Protein 30 H Urine Glucose (UA) Normal Urine Ketones Negative Urine Occult Blood 250 H Urine Nitrite Negative Urine Bilirubin Negative Urine Urobilinogen Normal Ur Leukocyte Esterase 500 H Urine RBC 0 SEEN Urine WBC 50-100 SEEN Ur Squamous Epith Cells 0 SEEN Urine Bacteria 1+ Urine Mucus 0 SEEN Assessment/Plan Hospitalist note: I am seeing this patient in conjunction with Jenny Noland. I independently seen and examined the patient. History and physical, laboratory data and imaging studies reviewed and I concur with the above admission and treatment plan. Patient seen and examined. She presented with right flank pain that started the morning, dull aching pain, goes around her back on the right side, 6-7 out of 10 in severity, associated with dysuria and frequency as well as nausea and without aggravating or relieving factors. She denies fever or chills. She denies any chest pain or shortness of breath. Her vital signs were stable in the emergency department. - Physical Exam General: Alert, Oriented x3, Cooperative, No apparent distress. HEENT: Atraumatic, PERRLA, EOMI. Neck: Supple, No JVD, Negative Carotid Bruits, Trachea Midline, Thyroid Normal. Lungs: Clear to auscultation, Normal air movement, No rhonchi, No wheeze, No rales. Cardiovascular: Regular rate, Regular Rhythm, Normal S1, Normal S2, PMI Normal. Abdomen: Bowel Sounds Present, Soft, minimal right CVA tenderness, Non-Distended, No Hepato-splenomegaly. Extremities: No clubbing, No cyanosis, No edema Skin: No rashes, No breakdown Neurological: Neuro grossly intact Vital Signs stable. Assessment and plan: #1 acute cystitis: Without evidence of sepsis or severe sepsis. Admit to MedSurg floor, IV fluids, start IV Zosyn given her previous urine culture positive for pseudomonas aeruginosa, IV antiemetics, urine culture, repeat CBC and BMP tomorrow morning, urology consult. #2 right ureteral stone: With mild right hydroureter and hydronephrosis. Kidney function is normal. Plan as above, urology consult. #3 other chronic medical problems: Stable, continue current medications as above. This note was generated with [employer] dictation software. It may contain incorrect words, spelling, and punctuation that were not noted in checking the note before signing. Code Visit Inpatient E&M: 67673 Init Hosp L3
--- NOTE | 2018-11-18 15:44 | HP.PCM_ITS ---
<Jenny Noland - Last Filed: 11/18/18 16:05> Problem List (1) UTI (urinary tract infection) Status: Acute (2) Nonrheumatic tricuspid valve regurgitation Status: Chronic (3) Controlled type 2 diabetes mellitus Status: Chronic (4) Essential hypertension Status: Chronic (5) Atherosclerotic heart disease of [place] coronary artery without angina pectoris Status: Chronic Qualifiers: [place] vs. 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 (7) Syncope and collapse Status: Resolved (8) Status post placement of implantable loop recorder Status: Chronic Comment: Implant 03/27/16 (9) Pulmonary hypertension Status: Chronic (10) Carotid stenosis, non-symptomatic Status: Chronic Qualifiers: Laterality: bilateral Qualified Code(s): I65.23 - Occlusion and stenosis of bilateral carotid arteries (11) HLD (hyperlipidemia) Status: Chronic Qualifiers: Hyperlipidemia type: unspecified Qualified Code(s): E78.5 - Hyperlipidemia, unspecified (12) Hypothyroidism Status: Chronic Qualifiers: Hypothyroidism type: unspecified Qualified Code(s): E03.9 - Hypothyroidism, unspecified (13) Cardiac conduction disorder Status: Chronic (14) PVC (premature ventricular contraction) Status: Chronic (15) Mckeon esophagus Status: Chronic Qualifiers: Mckeon's esophagus type: with dysplasia of unspecified degree Qualified Code(s): K22.719 - Mckeon's esophagus with dysplasia, unspecified; K22.71 - Mckeon's esophagus with dysplasia (16) Subclavian steal syndrome Status: Chronic (17) Bilateral carotid bruits Status: Chronic History of Present Illness Date of Admission: 11/18/18 Chief Complaint: Right flank pain, dysuria. The patient is a 68 year old F who presents emergency room due to dysuria, right groin pain and right flank pain. She denies fever, chills. Also complains of urinary frequency. She complains of nausea although she reports this is ongoing prior to her urinary symptoms. Denies emesis. She reports a history of UTIs although she reports they have not been frequent. She has a remote history of right hydronephrosis which she reports was secondary to adhesions following hysterectomy. Her prior urine cultures were positive for Pseudomonas and E. coli. She reports she underwent barium swallow yesterday due to ongoing dysphagia and nausea. She has a past medical history of hypertension, hyperli pidemia, type 2 diabetes mellitus, CAD, hypothyroidism, Mckeon's esophagus, Crohn's disease, subclavian steal syndrome, obesity. Past Medical History Past Medical History (Chronic Problems): Chronic Problems (Last Reviewed 07/23/18 @ 13:49 by Kaylee Cervantes) Nonrheumatic tricuspid valve regurgitation (Chronic) Controlled type 2 diabetes mellitus (Chronic) Essential hypertension (Chronic) Atherosclerotic heart disease of [place] coronary artery without angina pectoris (Chronic) FDC use of drug (Chronic) Status post placement of implantable loop recorder (Chronic) Implant 03/27/16 Pulmonary hypertension (Chronic) Carotid stenosis, non-symptomatic (Chronic) HLD (hyperlipidemia) (Chronic) Hypothyroidism (Chronic) Cardiac conduction disorder (Chronic) PVC (premature ventricular contraction) (Chronic) Mckeon esophagus (Chronic) Subclavian steal syndrome (Chronic) Bilateral carotid bruits (Chronic) Medical History: Medical History (Last Reviewed 07/23/18 @ 13:49 by Kaylee Cervantes) Nonrheumatic tricuspid valve regurgitation (Chronic) I36.1 Controlled type 2 diabetes mellitus (Chronic) E11.9 Essential hypertension (Chronic) I10 Atherosclerotic heart disease of [place] coronary artery without angina pectoris (Chronic) I25.10 Pulmonary hypertension (Chronic) I27.20 Carotid stenosis, non-symptomatic (Chronic) I65.29 HLD (hyperlipidemia) (Chronic) E78.5 Hypothyroidism (Chronic) E03.9 Cardiac conduction disorder (Chronic) I45.9 PVC (premature ventricular contraction) (Chronic) I49.3 Mckeon esophagus (Chronic) K22.70 Subclavian steal syndrome (Chronic) G45.8 Bilateral carotid bruits (Chronic) R09.89 IBS (irritable bowel syndrome) K58.9 Raynauds syndrome I73.00 Syncope and collapse R55 Hypertension (Inactive) I10 Allergies No Known Allergies Allergy (Verified 11/18/18 12:34) Home Medications: Ambulatory Orders Medication Instructions Recorded Cholecalciferol (VIT D3) [Vitamin 1,000 unit PO BID 03/08/16 D3] Levothyroxine [Synthroid] 50 mcg PO DAILY 03/08/16 Losartan Potassium [Cozaar] 100 mg PO DAILY 03/08/16 Metformin HCl [Glucophage] 500 mg PO BIDCM 03/08/16 Promethazine HCl 12.5 mg PO Q4H PRN PRN 03/08/16 Esomeprazole Mag Trihydrate 40 mg PO QHS 05/22/17 [Nexium] Rosuvastatin Calcium [Crestor] 10 mg PO QHS 05/22/17 Acetaminophen [Tylenol] 1,500 mg PO PRN PRN 06/12/17 L.acidoph,Paracasei, B.lactis 1 ea PO DAILY 06/12/17 [Probiotic] docusate sodium 100 mg capsule 100 mg PO QHS 09/25/17 aspirin 81 mg tablet,delayed 81 mg PO DAILY 07/23/18 release furosemide 20 mg tablet 20 mg PO DAILY PRN PRN 07/23/18 melatonin 10 mg tablet 10 mg PO HS PRN 07/23/18 Clopidogrel Bisulfate [Clopidogrel] 75 mg PO DAILY 11/18/18 Pioglitazone HCl 30 mg PO DAILY 11/18/18 Surgical History: Surgical History (Last Reviewed 07/23/18 @ 13:49 by Kaylee Cervantes) Status post placement of implantable loop recorder (Chronic) Z95.818 Implant 03/27/16 S/P peripheral artery angioplasty with stent placement Onset Date: ~08/15/98 Z95.820 L. Subclavian Artery 08/15/98 History of right hip replacement Z96.641 History of total left hip arthroplasty Z96.642 Surgical History: total hip arthroplasty - Bilateral., - - Left subclavian steal-percutaneous intervention, tonsillectomy, hysterectomy. 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 History: No pertinent RN NICU history Lives: Spouse/ Significant Other Smoking Status: Former smoker Tobacco Use: Non-smoker Alcohol: None Drugs: None - *Family History Paternal Family History: Family History (Last Reviewed 11/18/18 @ 15:54 by EDIL Blackwell) Father CAD (coronary artery disease) Myocardial infarction Mother Hypertension Grandfather Heart disease Myocardial infarction History Items: Heart Disease - CAD; [place] Sibling Family History: Family History (Last Reviewed 11/18/18 @ 15:54 by EDIL Blackwell) Father CAD (coronary artery disease) Myocardial infarction Mother Hypertension Grandfather Heart disease Myocardial infarction History Items: Heart Disease - CAD; CABG Review of Systems Constitutional: Denies: Chills, Fever, Weight Change HEENT: Denies: Head Aches, Sinus Congestion, Sinus Drainage Cardiovascular: Denies: Chest Pain, Edema, Palpitations, Syncope Respiratory: Denies: Cough, Shortness of breath at rest, Sputum production Gastrointestinal: Reports: Abdominal Pain - Right lower abdomen, Nausea. Denies: Vomiting Genitourinary: Reports: Dysuria, Frequency, Urgency, - - Right flank pain. Denies: Hematuria Musculoskeletal: Denies: Joint Pain, Joint Tenderness Skin: Denies: Rash, Wounds Neurological: Denies: Numbness, Tingling, Focal weakness Psychiatric: Denies: Anxiety, Depression, Homicidal Ideations, Suicidal Ideations Hematologic/ Lymphatic: Denies: Easy Bruising, Easy Bleeding VTE Information - Inpt Only VTE Present on Admission: No VTE Mechan Device Prophylaxis: None VTE Pharm Prophylaxis ordered?: Yes Patient Problems: Active and Suspected Problems (Last Reviewed 07/23/18 @ 13:49 by Kaylee Cervantes) UTI (urinary tract infection) (Acute) - Physical Exam General: Alert, Oriented x3, Cooperative HEENT: Atraumatic, PERRLA, EOMI, Normocephalic Neck: Supple, No JVD, Negative Carotid Bruits Lungs: Clear to auscultation, Normal air movement Cardiovascular: Regular rate, Regular Rhythm, Normal S1, Normal S2, No murmurs Abdomen: Bowel Sounds Present, Soft, Non-Distended, - - Right suprapubic tenderness Extremities: No clubbing, No cyanosis, No edema, Capillary Refill Less than 3 Seconds Skin: No rashes, No breakdown Musculoskeletal: No Tenderness to Palpation of Joints or Extremities Neurological: Cranial nerves II-XII grossly intact, Neuro grossly intact Psych/Mental Status: Normal Affect, Appropriate Vital Signs Temp Pulse Resp BP Pulse Ox 98 F 74 18 162/94 H 98 11/18/18 12:32 11/18/18 12:32 11/18/18 12:32 11/18/18 12:32 11/18/18 12:32 Oxygen Delivery Method Room Air Weight: 210 lb Body Mass Index (BMI) 39.6 Finger Stick Blood Glucose 173 Laboratory Tests Past 24 Hrs 11/18/18 11/18/18 11/18/18 13:45 13:45 13:55 WBC 9.0 RBC 4.46 Hgb 13.1 Hct 40.3 MCV 90.4 MCH 29.4 MCHC 32.5 RDW 14.4 RDW Differential 47.6 H Plt Count 216 MPV 9.4 Immature Gran % (Auto) 0.100 Neut % (Auto) 69.1 Lymph % (Auto) 20.0 [place] % (Auto) 9.4 Eos % (Auto) 1.1 Baso % (Auto) 0.3 Absolute Neuts (auto) 6.2 Absolute Lymphs (auto) 1.80 Total Counted Not Reportable Sodium 139 Potassium 4.4 Chloride 109 H Carbon Dioxide 27.0 Anion Gap 3 L BUN 21 H Creatinine 0.90 Estim Creat Clear Calc 45.14 Est GFR (MDRD) Af Amer 80 Est GFR (MDRD) Non-Af 66 BUN/Creatinine Ratio 23.3 H Glucose 97 Calcium 9.4 Urine Color Yellow Urine Clarity Sl. Cloudy Urine pH 6.0 Ur Specific [place] 1.010 Urine Protein 30 H Urine Glucose (UA) Normal Urine Ketones Negative Urine Occult Blood 250 H Urine Nitrite Negative Urine Bilirubin Negative Urine Urobilinogen Normal Ur Leukocyte Esterase 500 H Urine RBC 0 SEEN Urine WBC 50-100 SEEN Ur Squamous Epith Cells 0 SEEN Urine Bacteria 1+ Urine Mucus 0 SEEN Assessment/Plan All Active Problems (Last Reviewed 07/23/18 @ 13:49 by Kaylee Cervantes) UTI (urinary tract infection) (Acute) 1. Acute UTI, without sepsis-UA positive. Urine culture pending. Prior cultures positive for Pseudomonas and presumptive E. coli. IV Zosyn. IV fluids. 2. Right urolithiasis with mild right hydronephrosis- Per CT abdomen. Urology consult. PRN pain regimen. 3. Hypertension-stable, continue losartan regimen. 4. Hyperlipidemia-continue statin. 5. Type 2 diabetes mellitus-hold oral regimen. Accu-Chek before meals at bedtime with sliding scale insulin. 6. CAD-no prior cardiac stent. Follows with Dr. Vang. Continue aspirin, statin, plavix. 7. Hypothyroidism-continue Synthroid regimen. 8. Mckeon's esophagus/ongoing dysphagia/nausea-continue PPI. Barium x-ray as outpatient yesterday with no acute abnormality. Speech therapy consult. 9. Crohn's disease-patient has been off of steroids/suppressants for approximately 1 year. 10. Subclavian steal syndrome- s/p stent. Continue aspirin, statin, Plavix. 11. Obesity-encourage diet lifestyle modifications. 12. History of C. difficile-monitor given IV antibiotics as noted above. DVT prophylaxis- Lovenox sc This patient was seen by EDIL Blackwell under the supervision of Dr. Restrepo. <Brendan Restrepo E - Last Filed: 11/18/18 16:20> Problem List (1) UTI (urinary tract infection) Status: Acute (2) Controlled type 2 diabetes mellitus Status: Chronic (3) Essential hypertension Status: Chronic (4) Atherosclerotic heart disease of [place] coronary artery without angina pectoris Status: Chronic Qualifiers: [place] vs. transplanted heart: [place] heart Qualified Code(s): I25.10 - Atherosclerotic heart disease of [place] coronary artery without angina pectoris (5) Pulmonary hypertension Status: Chronic (6) HLD (hyperlipidemia) Status: Chronic Qualifiers: Hyperlipidemia type: unspecified Qualified Code(s): E78.5 - Hyperlipidemia, unspecified (7) Hypothyroidism Status: Chronic Qualifiers: Hypothyroidism type: unspecified Qualified Code(s): E03.9 - Hypothyroidism, unspecified History of Present Illness The patient is a 68 year old F [] Past Medical History Medical History: Medical History (Last Reviewed 07/23/18 @ 13:49 by Kaylee Cervantes) Nonrheumatic tricuspid valve regurgitation (Chronic) I36.1 Controlled type 2 diabetes mellitus (Chronic) E11.9 Essential hypertension (Chronic) I10 Atherosclerotic heart disease of [place] coronary artery without angina pectoris (Chronic) I25.10 Pulmonary hypertension (Chronic) I27.20 Carotid stenosis, non-symptomatic (Chronic) I65.29 HLD (hyperlipidemia) (Chronic) E78.5 Hypothyroidism (Chronic) E03.9 Cardiac conduction disorder (Chronic) I45.9 PVC (premature ventricular contraction) (Chronic) I49.3 Mckeon esophagus (Chronic) K22.70 Subclavian steal syndrome (Chronic) G45.8 Bilateral carotid bruits (Chronic) R09.89 IBS (irritable bowel syndrome) K58.9 Raynauds syndrome I73.00 Syncope and collapse R55 Hypertension (Inactive) I10 Allergies No Known Allergies Allergy (Verified 11/18/18 12:34) Surgical History: Surgical History (Last Reviewed 07/23/18 @ 13:49 by Kaylee Cervantes) Status post placement of implantable loop recorder (Chronic) Z95.818 Implant 03/27/16 S/P peripheral artery angioplasty with stent placement Onset Date: ~08/15/98 Z95.820 L. Subclavian Artery 08/15/98 History of right hip replacement Z96.641 History of total left hip arthroplasty Z96.642 - *Family History Paternal Family History: Family History (Last Reviewed 11/18/18 @ 15:54 by EDIL Blackwell) Father CAD (coronary artery disease) Myocardial infarction Mother Hypertension Grandfather Heart disease Myocardial infarction Sibling Family History: Family History (Last Reviewed 11/18/18 @ 15:54 by SE BlackwellC) Father CAD (coronary artery disease) Myocardial infarction Mother Hypertension Grandfather Heart disease Myocardial infarction - Physical Exam Vital Signs Temp Pulse Resp BP Pulse Ox 98.6 F 67 16 154/68 H 98 11/18/18 15:59 11/18/18 15:59 11/18/18 15:59 11/18/18 15:59 11/18/18 15:59 Oxygen Delivery Method Room Air Weight: 211 lb 13.828 oz Body Mass Index (BMI) 40.0 Finger Stick Blood Glucose 173 Laboratory Tests Past 24 Hrs 11/18/18 11/18/18 11/18/18 13:45 13:45 13:55 WBC 9.0 RBC 4.46 Hgb 13.1 Hct 40.3 MCV 90.4 MCH 29.4 MCHC 32.5 RDW 14.4 RDW Differential 47.6 H Plt Count 216 MPV 9.4 Immature Gran % (Auto) 0.100 Neut % (Auto) 69.1 Lymph % (Auto) 20.0 [place] % (Auto) 9.4 Eos % (Auto) 1.1 Baso % (Auto) 0.3 Absolute Neuts (auto) 6.2 Absolute Lymphs (auto) 1.80 Total Counted Not Reportable Sodium 139 Potassium 4.4 Chloride 109 H Carbon Dioxide 27.0 Anion Gap 3 L BUN 21 H Creatinine 0.90 Estim Creat Clear Calc 45.14 Est GFR (MDRD) Af Amer 80 Est GFR (MDRD) Non-Af 66 BUN/Creatinine Ratio 23.3 H Glucose 97 Calcium 9.4 Urine Color Yellow Urine Clarity Sl. Cloudy Urine pH 6.0 Ur Specific [place] 1.010 Urine Protein 30 H Urine Glucose (UA) Normal Urine Ketones Negative Urine Occult Blood 250 H Urine Nitrite Negative Urine Bilirubin Negative Urine Urobilinogen Normal Ur Leukocyte Esterase 500 H Urine RBC 0 SEEN Urine WBC 50-100 SEEN Ur Squamous Epith Cells 0 SEEN Urine Bacteria 1+ Urine Mucus 0 SEEN Assessment/Plan Hospitalist note: I am seeing this patient in conjunction with Jenny Noland. I independently seen and examined the patient. History and physical, laboratory data and imaging studies reviewed and I concur with the above admission and treatment plan. Patient seen and examined. She presented with right flank pain that started the morning, dull aching pain, goes around her back on the right side, 6-7 out of 10 in severity, associated with dysuria and frequency as well as nausea and without aggravating or relieving factors. She denies fever or chills. She denies any chest pain or shortness of breath. Her vital signs were stable in the emergency department. - Physical Exam General: Alert, Oriented x3, Cooperative, No apparent distress. HEENT: Atraumatic, PERRLA, EOMI. Neck: Supple, No JVD, Negative Carotid Bruits, Trachea Midline, Thyroid Normal. Lungs: Clear to auscultation, Normal air movement, No rhonchi, No wheeze, No rales. Cardiovascular: Regular rate, Regular Rhythm, Normal S1, Normal S2, PMI Normal. Abdomen: Bowel Sounds Present, Soft, minimal right CVA tenderness, Non- Distended, No Hepato-splenomegaly. Extremities: No clubbing, No cyanosis, No edema Skin: No rashes, No breakdown Neurological: Neuro grossly intact Vital Signs stable. Assessment and plan: #1 acute cystitis: Without evidence of sepsis or severe sepsis. Admit to MedSurg floor, IV fluids, start IV Zosyn given her previous urine culture positive for pseudomonas aeruginosa, IV antiemetics, urine culture, repeat CBC and BMP tomorrow morning, urology consult. #2 right ureteral stone: With mild right hydroureter and hydronephrosis. Kidney function is normal. Plan as above, urology consult. #3 other chronic medical problems: Stable, continue current medications as above. This note was generated with [employer] software. It may contain incorrect words, spelling, and punctuation that were not noted in checking the note before signing. Code Visit Inpatient E&M: 84082 Init Hosp L3
[2018-11-18 15:56] VITALS: BMI 40.0
[2018-11-18 15:59] VITALS: BP 154/68; PULSE 67; RESP 16; TEMP 37; O2SAT 98
[2018-11-18] MEDS: 0.9% Normal Saline 1,000 ML 100 ML IV (16:10)
[2018-11-18] MEDS: Morphine 2 MG/ML Syringe 1 MG IV (16:22)
[2018-11-18] MEDS: proMETHazine 25 MG Tablet 12.5 MG PO ×2 (16:22→22:11)
[2018-11-18 16:36] LABS: Bedside Glucose 81 mg/dL (70-110)
--- NOTE | 2018-11-18 17:09 | CON.PCM_ITS ---
Reason for Consult Date of Consultation: 11/18/18 Reason for Consultation: Right ureteral calculi right flank pain History of Present Illness: The patient is a 68 year old dilation of the ureter possible stone in the distal right ureter however she has significant artifact from bilateral hip so difficult to tell for sure. She is been having right flank pain radiating to the right back to classic symptoms of a kidney stone I suspect she does have a kidney stone based on her presentation. 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) Status post placement of implantable loop recorder (Chronic) Implant 03/27/16 Pulmonary hypertension (Chronic) Carotid stenosis, non-symptomatic (Chronic) HLD (hyperlipidemia) (Chronic) Hypothyroidism (Chronic) Cardiac conduction disorder (Chronic) PVC (premature ventricular contraction) (Chronic) Mckeon esophagus (Chronic) Subclavian steal syndrome (Chronic) Bilateral carotid bruits (Chronic) Medical History: Medical History (Last Reviewed 11/18/18 @ 17:08 by Messi Ocasio MD) Nonrheumatic tricuspid valve regurgitation (Chronic) I36.1 Controlled type 2 diabetes mellitus (Chronic) E11.9 Essential hypertension (Chronic) I10 Atherosclerotic heart disease of [place] coronary artery without angina pectoris (Chronic) I25.10 Pulmonary hypertension (Chronic) I27.20 Carotid stenosis, non-symptomatic (Chronic) I65.29 HLD (hyperlipidemia) (Chronic) E78.5 Hypothyroidism (Chronic) E03.9 Cardiac conduction disorder (Chronic) I45.9 PVC (premature ventricular contraction) (Chronic) I49.3 Mckeon esophagus (Chronic) K22.70 Subclavian steal syndrome (Chronic) G45.8 Bilateral carotid bruits (Chronic) R09.89 IBS (irritable bowel syndrome) K58.9 Raynauds syndrome I73.00 Syncope and collapse R55 Hypertension (Inactive) I10 Allergies No Known Allergies Allergy (Verified 11/18/18 12:34) Home Medications: Ambulatory Orders Medication Instructions Recorded Cholecalciferol (VIT D3) [Vitamin 1,000 unit PO BID 03/08/16 D3] Levothyroxine [Synthroid] 50 mcg PO DAILY 03/08/16 Losartan Potassium [Cozaar] 100 mg PO DAILY 03/08/16 Metformin HCl [Glucophage] 500 mg PO BIDCM 03/08/16 Promethazine HCl 12.5 mg PO Q4H PRN PRN 03/08/16 Esomeprazole Mag Trihydrate 40 mg PO QHS 05/22/17 [Nexium] Rosuvastatin Calcium [Crestor] 10 mg PO QHS 05/22/17 Acetaminophen [Tylenol] 1,500 mg PO PRN PRN 06/12/17 L.acidoph,Paracasei, B.lactis 1 ea PO DAILY 06/12/17 [Probiotic] docusate sodium 100 mg capsule 100 mg PO QHS 09/25/17 aspirin 81 mg tablet,delayed 81 mg PO DAILY 07/23/18 release furosemide 20 mg tablet 20 mg PO DAILY PRN PRN 07/23/18 melatonin 10 mg tablet 10 mg PO HS PRN 07/23/18 Clopidogrel Bisulfate [Clopidogrel] 75 mg PO DAILY 11/18/18 Pioglitazone HCl 30 mg PO DAILY 11/18/18 Surgical History: Surgical History (Last Reviewed 11/18/18 @ 17:08 by Messi Ocasio MD) Status post placement of implantable loop recorder (Chronic) Z95.818 Implant 03/27/16 S/P peripheral artery angioplasty with stent placement Onset Date: ~08/15/98 Z95.820 L. Subclavian Artery 08/15/98 History of right hip replacement Z96.641 History of total left hip arthroplasty Z96.642 Surgical History: total hip arthroplasty - Bilateral., - - Left subclavian steal-percutaneous intervention, tonsillectomy, hysterectomy. Psychiatric History: No pertinent psych hx [employer] History: No pertinent [employer] history Lives: Spouse/ Significant Other Smoking Status: Former smoker Tobacco Use: Non-smoker Alcohol: None Drugs: None - *Family History Paternal Family History: Family History (Last Reviewed 11/18/18 @ 17:08 by Messi Ocasio MD) Father CAD (coronary artery disease) Myocardial infarction Mother Hypertension Grandfather Heart disease Myocardial infarction History Items: Heart Disease - CAD; [place] Sibling Family History: Family History (Last Reviewed 11/18/18 @ 17:08 by Messi Ocasio MD) Father CAD (coronary artery disease) Myocardial infarction Mother Hypertension Grandfather Heart disease Myocardial infarction History Items: Heart Disease - CAD; CABG Review of Systems Constitutional: Denies: Chills, Fever, Weight Change HEENT: Denies: Head Aches, Sinus Congestion, Sinus Drainage Cardiovascular: Denies: Chest Pain, Palpitations Respiratory: Denies: Cough, Shortness of breath at rest, Sputum production Gastrointestinal: Reports: Abdominal Pain. Denies: Nausea, Vomiting Genitourinary: Denies: Dysuria Musculoskeletal: Denies: Joint Pain, Joint Tenderness Skin: Denies: Rash, Wounds Neurological: Denies: Numbness, Tingling, Focal weakness Psychiatric: Denies: Anxiety, Depression, Homicidal Ideations, Suicidal Ideations Hematologic/ Lymphatic: Denies: Easy Bruising, Easy Bleeding Physical Exam - Physical Exam Vital Signs Temp 98.6 F 11/18/18 15:59 Pulse 67 11/18/18 15:59 Resp 16 11/18/18 15:59 BP 154/68 H 11/18/18 15:59 Pulse Ox 98 11/18/18 15:59 Intake & Output 11/16/18 11/17/18 11/18/18 23:59 23:59 23:59 Weight: 96.1 kg General: Alert, Oriented x3 HEENT: Atraumatic Oral: Moist Mucosa Neck: Supple Lungs: Normal air movement Cardiovascular: Regular rate Abdomen: Soft, Obese Laboratory Tests Past 24 Hrs 11/18/18 11/18/18 11/18/18 13:45 13:45 13:55 WBC 9.0 RBC 4.46 Hgb 13.1 Hct 40.3 MCV 90.4 MCH 29.4 MCHC 32.5 RDW 14.4 RDW Differential 47.6 H Plt Count 216 MPV 9.4 Immature Gran % (Auto) 0.100 Neut % (Auto) 69.1 Lymph % (Auto) 20.0 [place] % (Auto) 9.4 Eos % (Auto) 1.1 Baso % (Auto) 0.3 Absolute Neuts (auto) 6.2 Absolute Lymphs (auto) 1.80 Total Counted Not Reportable Sodium 139 Potassium 4.4 Chloride 109 H Carbon Dioxide 27.0 Anion Gap 3 L BUN 21 H Creatinine 0.90 Estim Creat Clear Calc 45.14 Est GFR (MDRD) Af Amer 80 Est GFR (MDRD) Non-Af 66 BUN/Creatinine Ratio 23.3 H Glucose 97 Calcium 9.4 Urine Color Yellow Urine Clarity Sl. Cloudy Urine pH 6.0 Ur Specific [place] 1.010 Urine Protein 30 H Urine Glucose (UA) Normal Urine Ketones Negative Urine Occult Blood 250 H Urine Nitrite Negative Urine Bilirubin Negative Urine Urobilinogen Normal Ur Leukocyte Esterase 500 H Urine RBC 0 SEEN Urine WBC 50-100 SEEN Ur Squamous Epith Cells 0 SEEN Urine Bacteria 1+ Urine Mucus 0 SEEN Assessment/Plan All Active Problems (Last Reviewed 07/23/18 @ 13:49 by Kaylee Cervantes) UTI (urinary tract infection) (Acute) 68-year-old female presents with a urinary tract infection and possible stone in the distal ureter she is currently on antibiotics. We will make her n.p.o. at midnight plan to take her surgery tomorrow for possible stent possible ureteroscopy retrograde pyelogram and extraction of stone and stent placement.
--- NOTE | 2018-11-18 17:34 | PCA ---
rn in with pt
[2018-11-18] MEDS: Morphine 2 MG/ML Syringe IV ×2 (18:04→20:08)
[2018-11-18] MEDS: 0.9% NaCl Peripheral Flush Adult/Peds IV (18:05)
[2018-11-18 19:25] VITALS: O2SAT 95
[2018-11-18 20:05] VITALS: BP 100/58; PULSE 65; RESP 18; TEMP 37; O2SAT 96
[2018-11-18] MEDS: MELATONIN 10 MG TABLET PO (22:14)
[2018-11-18] MEDS: Docusate Sodium 100 MG Capsule PO (22:14)
[2018-11-18] MEDS: Atorvastatin Calcium 20 MG Tablet PO (22:14)
[2018-11-18 23:00] LABS: Bedside Glucose 107 mg/dL (70-110)
[2018-11-19] VITALS (11 sets, daily range): BP systolic 98–175; BP diastolic 45–79; PULSE 64–85; RESP 16–18; TEMP 36.6–37.2; O2SAT 92–100; BMI 40.0; BMI 39.7
[2018-11-19] MEDS: Morphine 2 MG/ML Syringe IV ×2 (02:04→19:32)
[2018-11-19] MEDS: 0.9% Normal Saline 1,000 ML 100 ML IV ×3 (02:07→18:30)
[2018-11-19] MEDS: proMETHazine 25 MG Tablet 12.5 MG PO ×2 (02:09→11:20)
--- NOTE | 2018-11-19 05:00 | EKG12_ITS ---
Test Reason : CP Blood Pressure : / mmHG Vent. Rate : 073 BPM Atrial Rate : 073 BPM P-R Int : 134 ms QRS Dur : 080 ms QT Int : 410 ms P-R-T Axes : 049 026 060 degrees QTc Int : 451 ms Normal sinus rhythm Normal ECG When compared with ECG of 19-NOV-2018 05:33, MANUAL COMPARISON REQUIRED, DATA IS UNCONFIRMED Confirmed by INDERJIT VIERA, ABDULLAHI ([id number]), associate entertainment editor SHE UP ([id number]) on 11/25/2018 2:04:44 PM Referred By: Brendan Restrepo Confirmed By:ABDULLAHI JANSEN MD
[2018-11-19 06:25] LABS: Absolute Lymphocyte Count 1.53 X10^3/ul (0.83-4.51); Absolute Neutrophil Count 4.8 X10^3/uL (2.0-7.7); Basophil# 0.04 X10^3/uL; Basophil% 0.6 % (0-1); Eosinophil# 0.11 X10^3/uL; Eosinophils% 1.5 % (0-5); Hematocrit 34.3 % (37-47); Lymphocyte # 1.53 X10^3/ul (4.0); Lymphocyte % 21.5 % (19-41); Mean Corp Hgb Conc 32.1 g/gl (32-36); Mean Corpuscular Hgb 29.4 pg (27.0-32.0); Mean Corpuscular Volume 91.7 fL (81-99); Mean Platelet Vol. 9.4 fl (6.2-12.0); Monocyte% 8.5 % (0-10); Neutrophil # 4.81 X10^3/uL (2.7-7.7); Neutrophil % 67.8 % (47-70); Platelet Count 209 K/mm3 (150-450); RBC Distribution Width CV 14.5 % (11.6-14.6); RBC Distribution Width SD 49.2 fl (35.1-43.9); Red Blood Count 3.74 M/mm3 (4.2-5.4); White Blood Count 7.1 K/mm3 (4.4-11.0)
[2018-11-19 06:31] LABS: POSITIVE COUNT NO; POSITIVE DIFFERENTIAL NO; POSITIVE MORPHOLOGY NO
[2018-11-19 06:31] LABS: Bedside Glucose 119 mg/dL (70-110)
[2018-11-19 06:35] LABS: Anion Gap 6 (5-15); BUN 16 mg/dL (7-18); Calcium,Total 8.3 mg/dL (8.5-10.1); Chloride 109 mmol/L (98-107); Creatinine, Serum 0.84 mg/dL (0.55-1.02); EST Glomerular Filtration Rate 71 mL/min (>60); Est Glom Filt Rate - Afr Amer 86 mL/min (>60); Estimated Creatinine Clearance 48.37 ml/min; Glucose 117 mg/dL (74-106); Potassium 4.5 mmol/L (3.5-5.1); Sodium Level 140 mmol/L (136-145)
--- NOTE | 2018-11-19 07:47 | NURSING ---
Kandy from Surgery came to get pt and brought her down to surgery.
--- NOTE | 2018-11-19 07:52 | NURSING ---
Report given to Ewa SINGH in [facility] at this time.
[2018-11-19 08:06] LABS: Hemoglobin A1c 7.3 % (4.2-6.3)
--- NOTE | 2018-11-19 09:05 | PCA ---
pt off floor
--- NOTE | 2018-11-19 09:10 | OP.PCM_ITS ---
Report of Operation Date of Procedure: 11/19/18 Pre-Operative Diagnosis: Acute cystitis and right flank pain suspected ureteral calculi Post-Operative Diagnosis: Same Surgery/Procedure Performed:: Cystoscopy and right stent placement Description of Surgical Findings:: 68-year-old female presented to the hospital with right flank pain and a CAT scan was done to demonstrate a possible stone in the distal ureter. She had an active infection. Therefore can taken to surgery today for possible ureteroscopy and possible stent. 60-year-old feels taken back to the operating room after smooth induction of general anesthesia placed in dorsolithotomy position in the urethra vaginal area prepped and draped in usual sterile fashion went to the bladder with a 21 Estonian rigid cystourethroscope the urethra was normal the bladder was fairly inflamed lots of debris within the bladder left and right ureter orifice were identified, I then cannulated the right ureter orifice with a Glidewire given the amount of debris in the bladder very inflamed bladder from active cystitis I did not think it be safe to perform ureteroscopy so at this point I advanced a wire up into the right kidney really could not tell on fluoroscopy there is a stone or not but over the wire I then advanced a stent 6 Estonian by 24 cm stent, once a stent was a good position I pulled the wire the stent coiled in the kidney bladder good position patient anesthetic is being reversed while to see her in the office and then set up for ureteroscopy at a separate setting once the infection cleared out. Type of Anesthesia:: General Drains: stent right - Admit VTE Documentation VTE Present on Admission: No
[2018-11-19 09:30] LABS: Bedside Glucose 101 mg/dL (70-110)
--- NOTE | 2018-11-19 10:06 | NURSING ---
pt just arrived back to the floor at this time via bed.
[2018-11-19] MEDS: oxyCODONE 5 MG Tablet PO ×2 (11:19→22:22)
[2018-11-19 11:41] LABS: Bedside Glucose 109 mg/dL (70-110)
--- NOTE | 2018-11-19 12:30 | CASEMGMT ---
RN CM RADIO PRESENTER CM to room to meet with patient for initial transition planning/care coordination assessment. RN CHRISTY introduced self and role at [facility]. Pt voices understanding and consents to assessment at this time. Pt resting in bed in no distress at this time. @ bedside. Pt is A/O at this time and answers all questions appropriately. Care providers, pharmacy, and demographics verified at this time. PCP: [facility] Specialists: Cristiano--cardiology, Yo--doweling machine operator in [place] Preferred Pharmacy: [facility] Insurance: [facility], [employer] Prescription Benefit: [employer] Living Will/HPOA: Has both LW and HCPOA who is her Cayden. states he thought they were already on file @ [facility]. He was made aware and he stated he will bring in some time in the future. LNOK: Living Arrangements: Lives with in one-story home with 2 steps to enter. Denies difficulty with stairs. States is independent with all ADL's and home mgmt tasks. Transportation: Pt states drives self and states no transportation concerns at this time. DME: Denies using any DME and denies needs. HHC/SNF: No history of either. Denies needs for HHC. No needs identified. Pt wishes to return home and states has no concerns with going home at time of discharge. CM to follow for any discharge planning/needs. Pt voices no further concerns/needs at this time. Advised pt to ask for CM if any further questions/concerns/needs arise. Voices understanding. PLAN: Home with spousal support and discharge plans in place. Kat HERNÁNDEZ RN, CM
[2018-11-19] MEDS: Phenazopyridine 95 MG Tablet 190 MG PO (12:32)
[2018-11-19] MEDS: Pantoprazole Sodium 40 MG Tablet PO (12:34)
[2018-11-19] MEDS: Enoxaparin 40 MG/0.4 ML Syringe SC (12:35)
[2018-11-19] MEDS: Losartan Potassium 100 MG Tablet PO (12:35)
[2018-11-19] MEDS: Aspirin E.C. 81 MG Tablet PO (12:35)
[2018-11-19] MEDS: Clopidogrel Bisulfate 75 MG Tablet PO (12:36)
--- NOTE | 2018-11-19 12:49 | PCM.PROGNOTE ---
<Jenny Noland - Last Filed: 11/19/18 13:41> Patient Problems: Active and Suspected Problems (Last Reviewed 11/18/18 @ 17:08 by Messi Ocasio MD) UTI (urinary tract infection) (Acute) Subjective: Patient seen and examined. Underwent cystoscopy and right stent placement with Dr. Ocasio earlier today. Complains of lower abdomen pressure and continued right suprapubic pain. Denies fever, chills. Denies nausea. - Physical Exam General: Alert, Oriented x3, Cooperative HEENT: Atraumatic, PERRLA, EOMI, Normocephalic Neck: Supple, No JVD, Negative Carotid Bruits Lungs: Clear to auscultation, Normal air movement Cardiovascular: Regular rate, Regular Rhythm, Normal S1, Normal S2, No murmurs Abdomen: Bowel Sounds Present, Soft, Non Tender, Non-Distended Extremities: No clubbing, No cyanosis, No edema, Capillary Refill Less than 3 Seconds Skin: No rashes, No breakdown Musculoskeletal: No Tenderness to Palpation of Joints or Extremities Neurological: Cranial nerves II-XII grossly intact, Neuro grossly intact Psych/Mental Status: Normal Affect, Appropriate Vital Signs Temp Pulse Resp BP Pulse Ox 97.8 F 67 16 147/63 H 96 11/19/18 10:18 11/19/18 10:18 11/19/18 10:18 11/19/18 10:18 11/19/18 10:18 Oxygen Flow Rate (L/min) 2 Oxygen Delivery Method Nasal Cannula Weight: 211 lb 13.828 oz Body Mass Index (BMI) 40.0 Finger Stick Blood Glucose 101 Intake and Output for Last 24 Hours 11/17/18 11/18/18 11/19/18 23:59 23:59 23:59 Intake Total 401 / 401 2719 / 2719 Output Total 200 / 200 1350 / 1350 Balance 201 / 201 1369 / 1369 Microbiology Past 72 Hours 11/18/18 13:55 Urine Culture - Preliminary Urine, Clean Catch GNR lactose torpedoman's mate Gram negative dirk Laboratory Tests Past 24 Hrs 11/18/18 11/18/18 11/18/18 13:45 13:45 13:55 WBC 9.0 RBC 4.46 Hgb 13.1 Hct 40.3 MCV 90.4 MCH 29.4 MCHC 32.5 RDW 14.4 RDW Differential 47.6 H Plt Count 216 MPV 9.4 Immature Gran % (Auto) 0.100 Neut % (Auto) 69.1 Lymph % (Auto) 20.0 [place] % (Auto) 9.4 Eos % (Auto) 1.1 Baso % (Auto) 0.3 Absolute Neuts (auto) 6.2 Absolute Lymphs (auto) 1.80 Total Counted Not Reportable Sodium 139 Potassium 4.4 Chloride 109 H Carbon Dioxide 27.0 Anion Gap 3 L BUN 21 H Creatinine 0.90 Estim Creat Clear Calc 45.14 Est GFR (MDRD) Af Amer 80 Est GFR (MDRD) Non-Af 66 BUN/Creatinine Ratio 23.3 H Glucose 97 Hemoglobin A1c Calcium 9.4 Urine Color Yellow Urine Clarity Sl. Cloudy Urine pH 6.0 Ur Specific [place] 1.010 Urine Protein 30 H Urine Glucose (UA) Normal Urine Ketones Negative Urine Occult Blood 250 H Urine Nitrite Negative Urine Bilirubin Negative Urine Urobilinogen Normal Ur Leukocyte Esterase 500 H Urine RBC 0 SEEN Urine WBC 50-100 SEEN Ur Squamous Epith Cells 0 SEEN Urine Bacteria 1+ Urine Mucus 0 SEEN 11/19/18 11/19/18 11/19/18 05:42 05:42 05:42 WBC 7.1 RBC 3.74 L Hgb 11.0 L Hct 34.3 L MCV 91.7 MCH 29.4 MCHC 32.1 RDW 14.5 RDW Differential 49.2 H Plt Count 209 MPV 9.4 Immature Gran % (Auto) 0.100 Neut % (Auto) 67.8 Lymph % (Auto) 21.5 [place] % (Auto) 8.5 Eos % (Auto) 1.5 Baso % (Auto) 0.6 Absolute Neuts (auto) 4.8 Absolute Lymphs (auto) 1.53 Total Counted Not Reportable Sodium 140 Potassium 4.5 Chloride 109 H Carbon Dioxide 25.0 Anion Gap 6 BUN 16 Creatinine 0.84 Estim Creat Clear Calc 48.37 Est GFR (MDRD) Af Amer 86 Est GFR (MDRD) Non-Af 71 BUN/Creatinine Ratio 19.0 Glucose 117 H Hemoglobin A1c 7.3 H Calcium 8.3 L Urine Color Urine Clarity Urine pH Ur Specific [place] Urine Protein Urine Glucose (UA) Urine Ketones Urine Occult Blood Urine Nitrite Urine Bilirubin Urine Urobilinogen Ur Leukocyte Esterase Urine RBC Urine WBC Ur Squamous Epith Cells Urine Bacteria Urine Mucus POC Glucose 11/19/18 11/19/18 11/19/18 11:28 09:25 06:27 POC Glucose 109 101 119 H 11/18/18 11/18/18 22:13 16:26 POC Glucose 107 81 Medical Necessity - Tobacco Use Smoking Status: Former smoker Tobacco Use: Non-smoker Assessment/Plan All Active Problems (Last Reviewed 11/18/18 @ 17:08 by Messi Ocasio MD) UTI (urinary tract infection) (Acute) 1. Acute GNR UTI, without sepsis-UA positive. Urine culture preliminary with GNR. Prior cultures positive for Pseudomonas and presumptive E. coli. IV Zosyn. IV fluids. 2. Right urolithiasis with mild right hydronephrosis- Per CT abdomen. Urology consult. S/P cystoscopy with right stent placement 11/19/[address] Ocasio. PRN pain regimen. Outpatient follow up with Dr. Ocasio for ureteroscopy. 3. Hypertension-stable, continue losartan regimen. 4. Hyperlipidemia-continue statin. 5. Type 2 diabetes mellitus-hold oral regimen. Accu-Chek before meals at bedtime with sliding scale insulin. HA1C 7.3%. 6. CAD-no prior cardiac stent. Follows with Dr. Vang. Continue aspirin, statin, plavix. 7. Hypothyroidism-continue Synthroid regimen. 8. Mckeon's esophagus/ongoing dysphagia/nausea-continue PPI. Barium x-ray as outpatient yesterday with no acute abnormality. Speech therapy consult. 9. Crohn's disease-patient has been off of steroids/suppressants for approximately 1 year. 10. Subclavian steal syndrome- s/p stent. Continue aspirin, statin, Plavix. 11. Obesity-encourage diet lifestyle modifications. 12. History of C. difficile-monitor given IV antibiotics as noted above. DVT prophylaxis- Lovenox sc This patient was seen by EDIL Blackwell under the supervision of Dr. Roa. <Titus Roa - Last Filed: 11/19/18 14:19> Subjective: Still with abdominal pain s/p right ureteral stent placement. - Physical Exam General: Alert, Cooperative HEENT: Atraumatic, Normocephalic Neck: No Nodes, Thyroid Normal Size and Texture Lungs: Clear to auscultation, Normal air movement, No rhonchi, No wheeze Cardiovascular: Regular rate, Regular Rhythm, Normal S1, Normal S2, No murmurs Abdomen: Bowel Sounds Present, Soft, Non-Distended, Tender Extremities: No edema, No Calf Tenderness Psych/Mental Status: Normal Affect, Appropriate Vital Signs Temp Pulse Resp BP Pulse Ox 36.6 C 64 16 175/75 H 100 11/19/18 12:18 11/19/18 12:18 11/19/18 12:18 11/19/18 12:18 11/19/18 12:18 Oxygen Flow Rate (L/min) 2 Oxygen Delivery Method Nasal Cannula Weight: 96.1 kg Body Mass Index (BMI) 40.0 Finger Stick Blood Glucose 101 Intake and Output for Last 24 Hours 11/17/18 11/18/18 11/19/18 23:59 23:59 23:59 Intake Total 401 / 401 2719 / 2719 Output Total 200 / 200 1350 / 1350 Balance 201 / 201 1369 / 1369 Microbiology Past 72 Hours 11/18/18 13:55 Urine Culture - Preliminary Urine, Clean Catch GNR lactose torpedoman's mate Gram negative dirk Laboratory Tests Past 24 Hrs 11/18/18 11/19/18 11/19/18 13:45 05:42 05:42 WBC 7.1 RBC 3.74 L Hgb 11.0 L Hct 34.3 L MCV 91.7 MCH 29.4 MCHC 32.1 RDW 14.5 RDW Differential 49.2 H Plt Count 209 MPV 9.4 Immature Gran % (Auto) 0.100 Neut % (Auto) 67.8 Lymph % (Auto) 21.5 [place] % (Auto) 8.5 Eos % (Auto) 1.5 Baso % (Auto) 0.6 Absolute Neuts (auto) 4.8 Absolute Lymphs (auto) 1.53 Total Counted Not Reportable Sodium 139 140 Potassium 4.4 4.5 Chloride 109 H 109 H Carbon Dioxide 27.0 25.0 Anion Gap 3 L 6 BUN 21 H 16 Creatinine 0.90 0.84 Estim Creat Clear Calc 45.14 48.37 Est GFR (MDRD) Af Amer 80 86 Est GFR (MDRD) Non-Af 66 71 BUN/Creatinine Ratio 23.3 H 19.0 Glucose 97 117 H Hemoglobin A1c Calcium 9.4 8.3 L 11/19/18 05:42 WBC RBC Hgb Hct MCV MCH MCHC RDW RDW Differential Plt Count MPV Immature Gran % (Auto) Neut % (Auto) Lymph % (Auto) [place] % (Auto) Eos % (Auto) Baso % (Auto) Absolute Neuts (auto) Absolute Lymphs (auto) Total Counted Sodium Potassium Chloride Carbon Dioxide Anion Gap BUN Creatinine Estim Creat Clear Calc Est GFR (MDRD) Af Amer Est GFR (MDRD) Non-Af BUN/Creatinine Ratio Glucose Hemoglobin A1c 7.3 H Calcium POC Glucose 11/19/18 11/19/18 11/19/18 11:28 09:25 06:27 POC Glucose 109 101 119 H 11/18/18 11/18/18 22:13 16:26 POC Glucose 107 81 Assessment/Plan Patient seen and examined independently. Data reviewed. I agree with the above note by the nurse practitioner. 1. UTI GNR on cx on Zosyn deescalate abx following cultures 2. Righter urolithiasis with right hydronephrosis stent placed will need follow up with urology as outpt when infection clears for repeat endoscopy Code Visit Inpatient E&M: 65136 Subs Hosp L2
--- NOTE | 2018-11-19 15:14 | NURSING ---
Still Nauseated. Phenergan 12.5mg not effective. Pt usually takes 25mg at night at home per pt. Pt also complaining of pressure to lower abd that oxyir and pyridium has not helped. Kpad was given and put on her LUE for c/o pain to it, c/o pain to LUE since arriving back from surgery. Continous spo2 has been maintained and she is on the monitor.
--- NOTE | 2018-11-19 16:21 | NURSING ---
pt not hungry. This nurse offered her food for lunch and now for dinner. Pt has refused both. Dr. Ocasio paged and talked with this nurse. This nurse informed him that pt still complaining of pressure to lower abd/bladder. Detrol ordered but Dr. Ocasio states that pressure is normal. this nurse will continue to monitor.
[2018-11-19 17:16] LABS: Bedside Glucose 108 mg/dL (70-110)
[2018-11-19] MEDS: Tolterodine Tartrate 4 MG CAP.SA PO (18:30)
[2018-11-19] MEDS: proMETHazine 25 MG/ML Syringe 12.5 MG IV (18:41)
[2018-11-19] MEDS: 0.9% NaCl Peripheral Flush Adult/Peds IV ×2 (18:42→19:33)
[2018-11-19] MEDS: Senna Tablet 2 TABLET PO (22:22)
[2018-11-19] MEDS: Acetaminophen 325 MG Tablet 650 MG PO (22:22)
[2018-11-19] MEDS: MELATONIN 10 MG TABLET PO (22:22)
[2018-11-19] MEDS: Atorvastatin Calcium 20 MG Tablet PO (22:26)
[2018-11-19] MEDS: Docusate Sodium 100 MG Capsule PO (22:26)
[2018-11-19 22:35] LABS: Bedside Glucose 126 mg/dL (70-110)
[2018-11-20] VITALS (9 sets, daily range): BP systolic 124–161; BP diastolic 54–71; PULSE 67–86; RESP 16–18; TEMP 36.8–37.1; O2SAT 93–96
--- NOTE | 2018-11-20 00:05 | NURSING ---
PT SPO2 IS SUSTAINING AT 85-86% ON MONITOR. 2L NC APPLIED. WILL CONTINUE TO MONITOR.
[2018-11-20] MEDS: 0.9% Normal Saline 1,000 ML 100 ML IV (04:30)
[2018-11-20 06:01] LABS: Hemoglobin 10.4 g/dl (12.0-15.0); Mean Corp Hgb Conc 30.6 g/gl (32-36); Mean Corpuscular Hgb 28.4 pg (27.0-32.0); Mean Corpuscular Volume 92.9 fL (81-99); Mean Platelet Vol. 9.7 fl (6.2-12.0); Platelet Count 210 K/mm3 (150-450); RBC Distribution Width CV 14.6 % (11.6-14.6); RBC Distribution Width SD 47.7 fl (35.1-43.9); Red Blood Count 3.66 M/mm3 (4.2-5.4); White Blood Count 5.1 K/mm3 (4.4-11.0)
[2018-11-20 06:14] LABS: Scan Indicated on CBC? Y/N NO
[2018-11-20] MEDS: Levothyroxine 50 MCG Tablet PO (06:46)
[2018-11-20 07:01] LABS: Bedside Glucose 100 mg/dL (70-110)
[2018-11-20] MEDS: Aspirin E.C. 81 MG Tablet PO (08:37)
[2018-11-20] MEDS: Pioglitazone Hydrochloride 30 MG Tablet PO (08:37)
[2018-11-20] MEDS: Phenazopyridine 95 MG Tablet 190 MG PO (08:43)
[2018-11-20] MEDS: Pantoprazole Sodium 40 MG Tablet PO (10:38)
[2018-11-20] MEDS: Enoxaparin 40 MG/0.4 ML Syringe SC (10:38)
[2018-11-20] MEDS: Tolterodine Tartrate 4 MG CAP.SA PO (10:38)
[2018-11-20] MEDS: Clopidogrel Bisulfate 75 MG Tablet PO (10:38)
[2018-11-20] MEDS: Losartan Potassium 100 MG Tablet PO (10:38)
[2018-11-20] MEDS: Acetaminophen 325 MG Tablet 650 MG PO ×2 (10:43→22:09)
[2018-11-20 11:31] LABS: Bedside Glucose 202 mg/dL (70-110)
[2018-11-20] MEDS: Insulin Lispro 100 UNIT/ML INSULN.PEN SQ (11:33)
--- NOTE | 2018-11-20 11:56 | PCM.PN.HOSP ---
Patient Problems: Active and Suspected Problems (Last Reviewed 11/18/18 @ 17:08 by Messi Ocasio MD) UTI (urinary tract infection) (Acute) Subjective: Feeling better. Complains of epigastric tenderness, denies any retching. Hematuria improving. Vitals/I&O's: Vital Signs Temp Pulse Resp BP Pulse Ox 37.1 C 72 16 149/68 H 95 11/20/18 08:30 11/20/18 08:35 11/20/18 08:30 11/20/18 08:30 11/20/18 08:30 Oxygen Flow Rate (L/min) 2 Oxygen Delivery Method Room Air Weight: 96.1 kg Body Mass Index (BMI) 40.0 Finger Stick Blood Glucose 101 Intake and Output for Last 24 Hours 11/18/18 11/19/18 11/20/18 23:59 23:59 23:59 Intake Total 401 / 401 3538 / 3538 1659 / 1659 Output Total 200 / 200 1800 / 1800 1650 / 1650 Balance 201 / 201 1738 / 1738 General: Alert, No apparent distress HEENT: Atraumatic, Normocephalic Oral: Moist Mucosa, No Gingival or Mucosal Lesions/ Ulcerations Neck: No Nodes, Thyroid Normal Size and Texture Lungs: Clear to auscultation, Normal air movement, No rhonchi, No wheeze Cardiovascular: Regular rate, Regular Rhythm, Normal S1, Normal S2, No murmurs Abdomen: Bowel Sounds Present, Soft, Non Tender, Non-Distended Extremities: No edema, No Calf Tenderness Microbiology Past 72 Hours 11/18/18 13:55 Urine, Clean Catch Urine Culture - Preliminary Presumptive E. coli Gram negative dirk Laboratory Results 11/19/18 17:07: POC Glucose 108 11/19/18 22:10: POC Glucose 126 H 11/20/18 05:15: WBC 5.1, RBC 3.66 L, Hgb 10.4 L, Hct 34.0 L, MCV 92.9, MCH 28.4, MCHC 30.6 L, RDW 14.6, RDW Differential 47.7 H, Plt Count 210, MPV 9.7 11/20/18 06:44: POC Glucose 100 11/20/18 11:11: POC Glucose 202 H Current Medications Acetaminophen (Tylenol) 650 mg PO Q6H PRN PRN PRN Reason: Mild Pain (1-3)/Temp > 100.7 F Last Admin: 11/20/18 10:43 Dose: 650 mg Aspirin (Ecotrin) 81 mg PO DAILY@0800 [facility] Last Admin: 11/20/18 08:37 Dose: 81 mg Atorvastatin Calcium (Lipitor) 20 mg PO QHS [facility] Last Admin: 11/19/18 22:26 Dose: 20 mg Clopidogrel Bisulfate (Plavix) 75 mg PO DAILY [facility] Last Admin: 11/20/18 10:38 Dose: 75 mg Dextrose (D50w Syringe) 0 gm IV X1 PRN; Protocol PRN Reason: Hypoglycemia Docusate Sodium (Colace) 100 mg PO QHS [facility] Last Admin: 11/19/18 22:26 Dose: 100 mg Enoxaparin Sodium (Lovenox) 40 mg SC DAILY@1000 [facility] Last Admin: 11/20/18 10:38 Dose: 40 mg Glucagon () 1 mg IM .X1 PRN PRN Reason: Hypoglycemia Hydralazine HCl (Apresoline Iv) 10 mg IV Q4H PRN PRN PRN Reason: BLOOD PRESSURE Sodium Chloride () 1,000 mls @ 100 mls/hr IV .Q10H [facility] Last Admin: 11/20/18 04:30 Dose: 100 mls/hr Piperacillin Sod/Tazobactam (Sod 3.375 gm/ Sodium Chloride) 50 mls @ 12.5 mls/hr IV Q8 [facility] Last Admin: 11/20/18 06:46 Dose: 12.5 mls/hr Insulin Human Lispro (Humalog Kwikpen (Bkc)) 0 unit SQ ACHS [facility]; Protocol Last Admin: 11/20/18 11:33 Dose: 1 u Levothyroxine Sodium (Synthroid) 50 mcg PO DAILY@0600 [facility] Last Admin: 11/20/18 06:46 Dose: 50 mcg Losartan Potassium (Cozaar) 100 mg PO DAILY [facility] Last Admin: 11/20/18 10:38 Dose: 100 mg Melatonin (Melatonin) 10 mg PO QHS PRN PRN PRN Reason: SLEEP Last Admin: 11/19/18 22:22 Dose: 10 mg Metformin HCl (Glucophage) 500 mg PO BIDCM [facility] Last Admin: 11/20/18 08:37 Dose: 500 mg Morphine Sulfate () 1 - 2 mg IV Q2H PRN PRN PRN Reason: SEVERE PAIN (6-10/10) Last Admin: 11/19/18 19:32 Dose: 2 mg Ondansetron HCl (Zofran) 4 mg IV Q6H PRN PRN PRN Reason: NAUSEA/VOMITING Oxycodone HCl (Oxyir) 5 mg PO Q4H PRN PRN PRN Reason: SEVERE PAIN (6-10/10) Last Admin: 11/19/18 22:22 Dose: 5 mg Pantoprazole Sodium (Protonix) 40 mg PO DAILY [facility] Last Admin: 11/20/18 10:38 Dose: 40 mg Phenazopyridine HCl (Azo Standard) 190 mg PO Q8H PRN PRN Reason: bladder pain Last Admin: 11/20/18 08:43 Dose: 190 mg Pioglitazone HCl (Actos) 30 mg PO DAILY [facility] Last Admin: 11/20/18 08:37 Dose: 30 mg Promethazine HCl (Phenergan Tablet) 12.5 mg PO Q4H PRN PRN PRN Reason: NAUSEA Last Admin: 11/19/18 11:20 Dose: 12.5 mg Promethazine HCl (Phenergan) 12.5 mg IV Q4H PRN PRN PRN Reason: NAUSEA/VOMITING Last Admin: 11/19/18 18:41 Dose: 12.5 mg Senna (Senokot) 2 tablet PO DAILY PRN PRN PRN Reason: CONSTIPATION Last Admin: 11/19/18 22:22 Dose: 2 tablet Sodium Chloride () 5 - 15 ml IV UD PRN PRN Reason: SALINE FLUSH Last Admin: 11/19/18 19:33 Dose: 10 ml Tolterodine Tartrate (Detrol La) 4 mg PO DAILY [facility] Last Admin: 11/20/18 10:38 Dose: 4 mg Vancomycin HCl () 125 mg PO BID [facility] Last Admin: 11/20/18 10:38 Dose: 125 mg Medical Necessity - Tobacco Use Smoking Status: Former smoker Tobacco Use: Non-smoker Assessment/Plan All Active Problems (Last Reviewed 11/18/18 @ 17:08 by Messi Ocasio MD) UTI (urinary tract infection) (Acute) 1. UTI GNR on cx on Zosyn deescalate abx following cultures Cx growing out presumptive E. coli and GNR 2. Righter urolithiasis with right hydronephrosis stent placed will need follow up with urology as outpt when infection clears for repeat endoscopy 3. Hematuria ongoing, but improving 2/2 UTI, ureteral stone and exacerbated by asa and plavix. 4. VTE proph: DW LMWH given hematuria. start SCDs. Code Visit Inpatient E&M: 85801 Subs Hosp L2
--- NOTE | 2018-11-20 12:00 | PN_ITS ---
Patient Problems: Active and Suspected Problems (Last Reviewed 11/18/18 @ 17:08 by Messi Ocasio MD) UTI (urinary tract infection) (Acute) Subjective: Feeling better. Complains of epigastric tenderness, denies any retching. Hematuria improving. Vitals/I&O's: Vital Signs Temp Pulse Resp BP Pulse Ox 37.1 C 72 16 149/68 H 95 11/20/18 08:30 11/20/18 08:35 11/20/18 08:30 11/20/18 08:30 11/20/18 08:30 Oxygen Flow Rate (L/min) 2 Oxygen Delivery Method Room Air Weight: 96.1 kg Body Mass Index (BMI) 40.0 Finger Stick Blood Glucose 101 Intake and Output for Last 24 Hours 11/18/18 11/19/18 11/20/18 23:59 23:59 23:59 Intake Total 401 / 401 3538 / 3538 1659 / 1659 Output Total 200 / 200 1800 / 1800 1650 / 1650 Balance 201 / 201 1738 / 1738 General: Alert, No apparent distress HEENT: Atraumatic, Normocephalic Oral: Moist Mucosa, No Gingival or Mucosal Lesions/ Ulcerations Neck: No Nodes, Thyroid Normal Size and Texture Lungs: Clear to auscultation, Normal air movement, No rhonchi, No wheeze Cardiovascular: Regular rate, Regular Rhythm, Normal S1, Normal S2, No murmurs Abdomen: Bowel Sounds Present, Soft, Non Tender, Non-Distended Extremities: No edema, No Calf Tenderness Microbiology Past 72 Hours 11/18/18 13:55 Urine, Clean Catch Urine Culture - Preliminary Presumptive E. coli Gram negative dirk Laboratory Results 11/19/18 17:07: POC Glucose 108 11/19/18 22:10: POC Glucose 126 H 11/20/18 05:15: WBC 5.1, RBC 3.66 L, Hgb 10.4 L, Hct 34.0 L, MCV 92.9, MCH 28.4, MCHC 30.6 L, RDW 14.6, RDW Differential 47.7 H, Plt Count 210, MPV 9.7 11/20/18 06:44: POC Glucose 100 11/20/18 11:11: POC Glucose 202 H Current Medications Acetaminophen (Tylenol) 650 mg PO Q6H PRN PRN PRN Reason: Mild Pain (1-3)/Temp > 100.7 F Last Admin: 11/20/18 10:43 Dose: 650 mg Aspirin (Ecotrin) 81 mg PO DAILY@0800 [facility] Last Admin: 11/20/18 08:37 Dose: 81 mg Atorvastatin Calcium (Lipitor) 20 mg PO QHS [facility] Last Admin: 11/19/18 22:26 Dose: 20 mg Clopidogrel Bisulfate (Plavix) 75 mg PO DAILY [facility] Last Admin: 11/20/18 10:38 Dose: 75 mg Dextrose (D50w Syringe) 0 gm IV X1 PRN; Protocol PRN Reason: Hypoglycemia Docusate Sodium (Colace) 100 mg PO QHS [facility] Last Admin: 11/19/18 22:26 Dose: 100 mg Enoxaparin Sodium (Lovenox) 40 mg SC DAILY@1000 [facility] Last Admin: 11/20/18 10:38 Dose: 40 mg Glucagon () 1 mg IM .X1 PRN PRN Reason: Hypoglycemia Hydralazine HCl (Apresoline Iv) 10 mg IV Q4H PRN PRN PRN Reason: BLOOD PRESSURE Sodium Chloride () 1,000 mls @ 100 mls/hr IV .Q10H [facility] Last Admin: 11/20/18 04:30 Dose: 100 mls/hr Piperacillin Sod/Tazobactam (Sod 3.375 gm/ Sodium Chloride) 50 mls @ 12.5 mls/hr IV Q8 [facility] Last Admin: 11/20/18 06:46 Dose: 12.5 mls/hr Insulin Human Lispro (Humalog Kwikpen (Bkc)) 0 unit SQ ACHS [facility]; Protocol Last Admin: 11/20/18 11:33 Dose: 1 u Levothyroxine Sodium (Synthroid) 50 mcg PO DAILY@0600 [facility] Last Admin: 11/20/18 06:46 Dose: 50 mcg Losartan Potassium (Cozaar) 100 mg PO DAILY [facility] Last Admin: 11/20/18 10:38 Dose: 100 mg Melatonin (Melatonin) 10 mg PO QHS PRN PRN PRN Reason: SLEEP Last Admin: 11/19/18 22:22 Dose: 10 mg Metformin HCl (Glucophage) 500 mg PO BIDCM [facility] Last Admin: 11/20/18 08:37 Dose: 500 mg Morphine Sulfate () 1 - 2 mg IV Q2H PRN PRN PRN Reason: SEVERE PAIN (6-10/10) Last Admin: 11/19/18 19:32 Dose: 2 mg Ondansetron HCl (Zofran) 4 mg IV Q6H PRN PRN PRN Reason: NAUSEA/VOMITING Oxycodone HCl (Oxyir) 5 mg PO Q4H PRN PRN PRN Reason: SEVERE PAIN (6-10/10) Last Admin: 11/19/18 22:22 Dose: 5 mg Pantoprazole Sodium (Protonix) 40 mg PO DAILY [facility] Last Admin: 11/20/18 10:38 Dose: 40 mg Phenazopyridine HCl (Azo Standard) 190 mg PO Q8H PRN PRN Reason: bladder pain Last Admin: 11/20/18 08:43 Dose: 190 mg Pioglitazone HCl (Actos) 30 mg PO DAILY [facility] Last Admin: 11/20/18 08:37 Dose: 30 mg Promethazine HCl (Phenergan Tablet) 12.5 mg PO Q4H PRN PRN PRN Reason: NAUSEA Last Admin: 11/19/18 11:20 Dose: 12.5 mg Promethazine HCl (Phenergan) 12.5 mg IV Q4H PRN PRN PRN Reason: NAUSEA/VOMITING Last Admin: 11/19/18 18:41 Dose: 12.5 mg Senna (Senokot) 2 tablet PO DAILY PRN PRN PRN Reason: CONSTIPATION Last Admin: 11/19/18 22:22 Dose: 2 tablet Sodium Chloride () 5 - 15 ml IV UD PRN PRN Reason: SALINE FLUSH Last Admin: 11/19/18 19:33 Dose: 10 ml Tolterodine Tartrate (Detrol La) 4 mg PO DAILY [facility] Last Admin: 11/20/18 10:38 Dose: 4 mg Vancomycin HCl () 125 mg PO BID [facility] Last Admin: 11/20/18 10:38 Dose: 125 mg Medical Necessity - Tobacco Use Smoking Status: Former smoker Tobacco Use: Non-smoker Assessment/Plan All Active Problems (Last Reviewed 11/18/18 @ 17:08 by Messi Ocasio MD) UTI (urinary tract infection) (Acute) 1. UTI * GNR on cx * on Zosyn * deescalate abx following cultures * Cx growing out presumptive E. coli and GNR 2. Righter urolithiasis with right hydronephrosis * stent placed * will need follow up with urology as outpt when infection clears for repeat endoscopy 3. Hematuria * ongoing, but improving * 2/2 UTI, ureteral stone and exacerbated by asa and plavix. 4. VTE proph: DW LMWH given hematuria. start SCDs. Code Visit Inpatient E&M: 12553 Subs Hosp L2
[2018-11-20 16:31] LABS: Bedside Glucose 100 mg/dL (70-110)
[2018-11-20] MEDS: oxyCODONE 5 MG Tablet PO (19:21)
[2018-11-20] MEDS: Senna Tablet 2 TABLET PO (19:21)
--- NOTE | 2018-11-20 21:13 | NURSING ---
2100 When I was rounding asked pt how she was States When I took the pain pill I had chest pain after Asked when this happened StatesAbout 1930 She did not tell anyone just took a walk with her States I feel better but feel full and rub her abdomen,dont have any chest pain but back of my neck hurts. Explained if she gets chest pain again to let staff know. I reported this info to her primary RNs.
--- NOTE | 2018-11-20 21:41 | EKG12_ITS ---
Test Reason : PRE-OP Blood Pressure : / mmHG Vent. Rate : 067 BPM Atrial Rate : 067 BPM P-R Int : 146 ms QRS Dur : 088 ms QT Int : 416 ms P-R-T Axes : 065 018 019 degrees QTc Int : 439 ms Normal sinus rhythm Normal ECG When compared with ECG of 13-JUN-2017 05:14, No significant change was found Confirmed by INDERJIT VIERA, ABDULLAHI ([id number]), index editor SHE UP ([id number]) on 11/25/2018 2:05:19 PM Referred By: Brendan Restrepo Confirmed By:ABDULLAHI JANSEN MD
[2018-11-20] MEDS: Docusate Sodium 100 MG Capsule PO (22:10)
[2018-11-20] MEDS: Atorvastatin Calcium 20 MG Tablet PO (22:13)
[2018-11-20] MEDS: hydrALAZINE 20 MG/ML Vial 10 MG IV (22:20)
[2018-11-20] MEDS: 0.9% NaCl Peripheral Flush Adult/Peds IV (22:23)
[2018-11-20 23:36] LABS: Bedside Glucose 105 mg/dL (70-110)
[2018-11-21 04:16] VITALS: BP 141/66; PULSE 71; RESP 18; TEMP 36.8; O2SAT 96
[2018-11-21] MEDS: Acetaminophen 325 MG Tablet 650 MG PO ×2 (04:25→14:30)
[2018-11-21] MEDS: proMETHazine 25 MG Tablet 12.5 MG PO (06:50)
[2018-11-21 07:40] LABS: Bedside Glucose 112 mg/dL (70-110)
[2018-11-21] MEDS: Levothyroxine 50 MCG Tablet PO (07:47)
[2018-11-21] MEDS: Aspirin E.C. 81 MG Tablet PO (08:54)
[2018-11-21] MEDS: Clopidogrel Bisulfate 75 MG Tablet PO (08:54)
[2018-11-21] MEDS: Losartan Potassium 100 MG Tablet PO (08:54)
[2018-11-21] MEDS: Pioglitazone Hydrochloride 30 MG Tablet PO (08:54)
[2018-11-21] MEDS: Pantoprazole Sodium 40 MG Tablet PO (08:54)
[2018-11-21] MEDS: Tolterodine Tartrate 4 MG CAP.SA PO (08:54)
[2018-11-21 08:59] VITALS: BP 145/66; PULSE 70; RESP 16; TEMP 36.9; O2SAT 98
--- NOTE | 2018-11-21 10:29 | DCINST_ITS ---
- Discharge Diagnoses Current Active Problems: Current Active and Chronic Problems (Last Reviewed 11/18/18 @ 17:08 by Messi Ocasio MD) UTI (urinary tract infection) (Acute) You will use the following diet at home:: Cardiac Your food should be the consistency of: Regular Your liquids should be the consistency of: Regular/Thin Discharge Activity: Return to Normal Activity Weight Bearing Status: Weight bearing as tolerated Call your doctor if you observe: Fever of 101 or Higher, Inability to urinate, - - worsening hematuria and worsening flank pain. Instructions: Understanding Kidney Stones, Treating Kidney Stones: Ureteroscopic Stone Removal, What is Hematuria?, ED UTI Cystitis Female Additional Instructions: call your PCP and Dr Ocasio if hematuria worsens, and left flank pain also worsens Allergies/Adverse Reactions: Allergies No Known Allergies Allergy (Verified 11/18/18 12:34) Medications to take at Discharge Cholecalciferol (VIT D3) [Vitamin D3] 1,000 unit PO BID 03/08/16 Levothyroxine [Synthroid] 50 mcg PO DAILY 03/08/16 Losartan Potassium [Cozaar] 100 mg PO DAILY 03/08/16 Metformin HCl [Glucophage] 500 mg PO BIDCM 03/08/16 Promethazine HCl 12.5 mg PO Q4H PRN PRN 03/08/16 Esomeprazole Mag Trihydrate [Nexium] 40 mg PO QHS 05/22/17 Rosuvastatin Calcium [Crestor] 10 mg PO QHS 05/22/17 Acetaminophen [Tylenol] 1,500 mg PO PRN PRN 06/12/17 L.acidoph,Paracasei, B.lactis [Probiotic] 1 ea PO DAILY 06/12/17 docusate sodium 100 mg capsule 100 mg PO QHS 09/25/17 aspirin 81 mg tablet,delayed release 81 mg PO DAILY 07/23/18 furosemide 20 mg tablet 20 mg PO DAILY PRN PRN 07/23/18 melatonin 10 mg tablet 10 mg PO HS PRN 07/23/18 Clopidogrel Bisulfate [Clopidogrel] 75 mg PO DAILY 11/18/18 Pioglitazone HCl 30 mg PO DAILY 11/18/18 Cefdinir [Omnicef [equiv]] 300 mg PO Q12H #10 capsule 11/21/18 Tamsulosin HCl [Flomax] 0.4 mg PO DAILY #30 capsule 11/21/18 proMETHazine tablet [Phenergan tablet] 12.5 mg PO Q4H PRN PRN tablet 11/21/18 The following prescriptions were given: Cefdinir [Omnicef [equiv]] 300 mg PO Q12H #10 capsule Tamsulosin HCl [Flomax] 0.4 mg PO DAILY #30 capsule Primary Care Physician: Jim Calabrese Chi, MD [Primary Care Provider] - Please follow up with your Primary Care Physician in: one week Test Results: Test results from this visit will be discussed in further detail at your follow- up appointment, if applicable. Please Follow Up With: Messi Ocasio MD When: one week Proposed Discharge Date: 11/21/18
--- NOTE | 2018-11-21 10:29 | PCM.DC.SUM ---
Discharge Date and Diagnosis - Problem List Patient Problems: Active and Suspected Problems (Last Reviewed 11/18/18 @ 17:08 by Messi Ocasio MD) UTI (urinary tract infection) (Acute) Date of Admission: 11/18/18 Date of Discharge: 11/21/18 - Primary Discharge Diagnosis Active and Suspected Problems (Last Reviewed 11/18/18 @ 17:08 by Messi Ocasio MD) UTI (urinary tract infection) (Acute) right ureteral stone - Secondary Discharge Diagnosis Chronic Problems (Last Reviewed 11/18/18 @ 17:08 by Messi Ocasio MD) Nonrheumatic tricuspid valve regurgitation (Chronic) Controlled type 2 diabetes mellitus (Chronic) Essential hypertension (Chronic) 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 No acute abnormality is seen. Electronically Signed: Rodrick Diaz, at 14:39 EDT , Service support , Operations: None, - - cystoscopy and right stent placement Procedures: None Summary of Care Provided: The patient is a 68 year old F with 19 with a complaint of dysuria, right groin and right flank pain. She denied any assisted fever or chills but complained of urinary frequency as well as nausea. She did have a history of UTIs. She also had a remote history of right hydronephrosis which she said was secondary to adhesions from a hysterectomy. Previous urine cultures have been positive for Pseudomonas and E. coli. UA was positive for UTI and CT of the abdomen showed right urolithiasis with mild right hydronephrosis. Urology was consulted and urine cultures were obtained. She was started on IV Zosyn on account of previous urine culture sensitivities. She was also hydrated with IV fluids and given pain medication. Urine culture E. coli did patient complain of hematuria on day of discharge which have been happening after she got the stent placed. She also complained of some right flank discomfort. This was discussed with Dr. Dumont of urology who stated that the hematuria was suspected after placement of the stents. Patient did not have the stone removed during cystoscopy on account of very inflamed bladder. Urology plan was for patient to follow-up on outpatient basis for ureteroscopy after infection is cleared out. She remained stable and was discharged on 11/21/2018 with a prescription for p.o. cefdinir 300 mg twice daily for 5 days. She was counseled that the hematuria was to be expected as per radiology as well as the right flank discomfort as this was thought to be due to the stent placement. She is to follow-up with her primary care doctor and to follow-up with urology within 1 week. Patient seen and examined prior to discharge. She did complain of hematuria stated above and mild right flank pain as stated above also. Review of systems otherwise negative. Labs and vitals reviewed. Home medication reviewed and reconciled. Patient Problems: Active and Suspected Problems (Last Reviewed 11/18/18 @ 17:08 by Messi Ocasio MD) UTI (urinary tract infection) (Acute) - Physical Exam General: Alert, Oriented x3, Cooperative, No apparent distress HEENT: Atraumatic, PERRLA, EOMI, Normocephalic Oral: Moist Mucosa Neck: Supple, No JVD, Negative Carotid Bruits Lungs: Clear to auscultation, Normal air movement, No rhonchi, No wheeze, No rales Cardiovascular: Regular rate, Regular Rhythm, Normal S1, Normal S2, No murmurs Abdomen: Bowel Sounds Present, Soft, Non Tender, Non-Distended, No Hepato-splenomegaly, - - very minimal right flank tenderness with palpation Extremities: No clubbing, No cyanosis, No edema, Capillary Refill Less than 3 Seconds Skin: No rashes, No breakdown Musculoskeletal: No Tenderness to Palpation of Joints or Extremities Lymphatic: No Cervical, Supraclavicular, or Inguinal Adenopathy Neurological: Cranial nerves II-XII grossly intact, Neuro grossly intact, Motor Exam 5/5 strength throughout Psych/Mental Status: Normal Affect, Appropriate, Alert and oriented to time, place, person, mood and affect Vital Signs Temp Pulse Resp BP Pulse Ox 98.4 F 70 16 145/66 H 98 11/21/18 08:59 11/21/18 08:59 11/21/18 08:59 11/21/18 08:59 11/21/18 08:59 Oxygen Flow Rate (L/min) 2 Oxygen Delivery Method Room Air Weight: 211 lb 13.828 oz Body Mass Index (BMI) 40.0 Finger Stick Blood Glucose 101 Intake and Output for Last 24 Hours 11/19/18 11/20/18 11/21/18 23:59 23:59 23:59 Intake Total 3538 / 3538 3933.2 / 3933.2 500 / 500 Output Total 1800 / 1800 4625 / 4625 650 / 650 Balance 1738 / 1738 -691.8 / -691.8 -150 / -150 Microbiology Past 72 Hours 11/18/18 13:55 Urine Culture - Final Urine, Clean Catch Escherichia coli Escherichia coli#2 Laboratory Tests Past 24 Hrs 11/20/18 11/21/18 11/21/18 22:10 03:56 09:50 Troponin I 0.056 H 0.038 Pending POC Glucose 11/21/18 11/20/18 11/20/18 06:55 22:17 16:27 POC Glucose 112 H 105 100 11/20/18 11:11 POC Glucose 202 H Discharge Diet: Low fat/ Low Cholesterol Discharge Activity: Return to Normal Activity Weight Bearing Status: Weight bearing as tolerated Call your doctor if you observe: Fever of 101 or Higher, Inability to urinate, - - worsening hematuria and worsening flank pain. Home Medications: Medications to take at Discharge Cholecalciferol (VIT D3) [Vitamin D3] 1,000 unit PO BID 03/08/16 Levothyroxine [Synthroid] 50 mcg PO DAILY 03/08/16 Losartan Potassium [Cozaar] 100 mg PO DAILY 03/08/16 Metformin HCl [Glucophage] 500 mg PO BIDCM 03/08/16 Promethazine HCl 12.5 mg PO Q4H PRN PRN 03/08/16 Esomeprazole Mag Trihydrate [Nexium] 40 mg PO QHS 05/22/17 Rosuvastatin Calcium [Crestor] 10 mg PO QHS 05/22/17 Acetaminophen [Tylenol] 1,500 mg PO PRN PRN 06/12/17 L.acidoph,Paracasei, B.lactis [Probiotic] 1 ea PO DAILY 06/12/17 docusate sodium 100 mg capsule 100 mg PO QHS 09/25/17 aspirin 81 mg tablet,delayed release 81 mg PO DAILY 07/23/18 furosemide 20 mg tablet 20 mg PO DAILY PRN PRN 07/23/18 melatonin 10 mg tablet 10 mg PO HS PRN 07/23/18 Clopidogrel Bisulfate [Clopidogrel] 75 mg PO DAILY 11/18/18 Pioglitazone HCl 30 mg PO DAILY 11/18/18 Cefdinir [Omnicef [equiv]] 300 mg PO Q12H #10 capsule 11/21/18 Tamsulosin HCl [Flomax] 0.4 mg PO DAILY #30 capsule 11/21/18 proMETHazine tablet [Phenergan tablet] 12.5 mg PO Q4H PRN PRN tablet 11/21/18 Following Prescrptions Were Given to Patient: Cefdinir [Omnicef [equiv]] 300 mg PO Q12H #10 capsule Tamsulosin HCl [Flomax] 0.4 mg PO DAILY #30 capsule Primary Care Physician: Jim Calabrese Chi, MD [Primary Care Provider] - Please follow up with your Primary Care Physician in: one week Please Follow Up With: Messi Ocasio MD When: one week Patient Instructions: What is Hematuria?, Understanding Kidney Stones, Treating Kidney Stones: Ureteroscopic Stone Removal, ED UTI Cystitis Female Disposition: Home Minutes spent on discharge:: 40 Patient Condition:: Stable Medical Necessity - Tobacco Use Smoking Status: Former smoker Tobacco Use: Non-smoker Meaningful Use Info Meaningful Use Diagnoses (Choose all that apply): None applicable Code Visit Inpatient E&M: 24814 Disch Hosp
[2018-11-21 12:11] LABS: Bedside Glucose 111 mg/dL (70-110)
[2018-11-21 14:37] VITALS: BP 151/55; PULSE 82; RESP 18; TEMP 36.6; O2SAT 96
--- NOTE | 2018-11-24 13:07 | CASEMGMT ---
RN CM DC PHONE CALL DC DATE: 11/21/18 DC Disposition: Home LACE/STRATA: 05/24 Intro role of CM to patient via phone. No questions re: instructions, prescriptions, or f/u. Pt did not have any care improvment suggestions at this time. Daniela BARRIOSN RN ACM
== END 2018-11-21 15:06 | disposition home or self-care (01) | DRG 660 ==
LOC: ED 15:27 → MS3 15:39
PROVIDERS: Anesthesiology; Hospitalist; Nurse Practitioner Family; Urology; Admitting Provider Hospitalist; Emergency Provider Emergency Medicine; Family Provider Family Medicine Geriatric Medicine; PCP Family Medicine Geriatric Medicine; Referring Provider Hospitalist; Visit Provider Student in an Organized Health Care Education/Training Program
PROC: 0TJ98ZZ Inspection of Ureter, Via Natural or Artificial Opening Endoscopic (ICD-10-PCS; CPT 52352; principal; 2018-11-19 07:20)
DX: N13.6 Pyonephrosis (principal); N30.00 Acute cystitis without hematuria; Z68.41 Body mass index [BMI] 40.0-44.9, adult; K50.90 Crohn's disease, unspecified, without complications; I36.1 Nonrheumatic tricuspid (valve) insufficiency; I27.20 Pulmonary hypertension, unspecified; E78.5 Hyperlipidemia, unspecified; I10 Essential (primary) hypertension; E11.9 Type 2 diabetes mellitus without complications; I25.10 Atherosclerotic heart disease of native coronary artery without angina pectoris; I65.29 Occlusion and stenosis of unspecified carotid artery; E03.9 Hypothyroidism, unspecified; Z87.440 Personal history of urinary (tract) infections; B96.20 Unspecified Escherichia coli [E. coli] as the cause of diseases classified elsewhere; Z87.891 Personal history of nicotine dependence; E66.9 Obesity, unspecified; Z79.82 Long term (current) use of aspirin; Z79.02 Long term (current) use of antithrombotics/antiplatelets; Z79.84 Long term (current) use of oral hypoglycemic drugs
CPT/HCPCS: 36415; 74176; 74220; 76000; 80048; 81001; 82962; 83036; 84484; 85025; 85027; 87077; 87086; 87088; 87186; 92610; 93005; 99285; J7030; J7040; A4216; C2617; J2405

== ENCOUNTER 2018-12-05 19:44 | Emergency (ER) | payer MEDICARE, OTHER, SELFPAY ==
[2018-11-28 18:09] VITALS: BMI 41.3
[2018-12-05 19:44] VITALS: BP 143/84; PULSE 87; RESP 16; TEMP 36.6; O2SAT 98; BMI 38.7
[2018-12-05 21:20] LABS: Absolute Lymphocyte Count 1.73 X10^3/ul (0.83-4.51); Absolute Neutrophil Count 3.3 X10^3/uL (2.0-7.7); Basophil# 0.05 X10^3/uL; Basophil% 0.8 % (0-1); Eosinophil# 0.26 X10^3/uL; Eosinophils% 4.2 % (0-5); Hematocrit 34.6 % (37-47); Hemoglobin 11.6 g/dl (12.0-15.0); Lymphocyte # 1.73 X10^3/ul (4.0); Lymphocyte % 28.2 % (19-41); Mean Corp Hgb Conc 33.5 g/gl (32-36); Mean Corpuscular Hgb 29.7 pg (27.0-32.0); Mean Corpuscular Volume 88.5 fL (81-99); Mean Platelet Vol. 9.1 fl (6.2-12.0); Monocyte# 0.84 X10^3/uL; Monocyte% 13.7 % (0-10); Neutrophil # 3.25 X10^3/uL (2.7-7.7); Neutrophil % 53.1 % (47-70); Platelet Count 263 K/mm3 (150-450); RBC Distribution Width CV 14.5 % (11.6-14.6); Red Blood Count 3.91 M/mm3 (4.2-5.4); White Blood Count 6.1 K/mm3 (4.4-11.0)
[2018-12-05 21:21] LABS: POSITIVE COUNT NO; POSITIVE DIFFERENTIAL NO; POSITIVE MORPHOLOGY NO
[2018-12-05 21:33] LABS: ALB/GLOB Ratio 0.8 RATIO (0.9-2.4); AST(SGOT) 18 U/L (15-37); Alanine Aminotransfer ALT/SGPT 23 U/L (13-56); Albumin, Serum 3.1 g/dL (3.2-5.0); Alkaline Phosphatase 83 U/L (45-117); Anion Gap 9 (5-15); BUN 20 mg/dL (7-18); Calcium,Total 8.6 mg/dL (8.5-10.1); Chloride 112 mmol/L (98-107); Creatinine, Serum 0.91 mg/dL (0.55-1.02); EST Glomerular Filtration Rate 65 mL/min (>60); Est Glom Filt Rate - Afr Amer 79 mL/min (>60); Estimated Creatinine Clearance 44.65 ml/min; Globulin 3.8 g/dL (2.2-4.2); Glucose 138 mg/dL (74-106); Lipase 150 U/L (73-393); Potassium 3.4 mmol/L (3.5-5.1); Protein, Total 6.9 g/dL (6.4-8.2); Sodium Level 144 mmol/L (136-145)
[2018-12-05] MEDS: 0.9% Normal Saline 1,000 ML 1000 ML IV (21:50)
[2018-12-05] MEDS: Metoclopramide 10 MG/2 ML Vial IV (21:50)
[2018-12-05 21:52] VITALS: PULSE 85; RESP 14; O2SAT 97
--- NOTE | 2018-12-05 22:46 | ED.VISSUMM ---
- ER Visit Summary Date of Service: 12/05/18 Chief Complaint: Nausea diarrhea History of Present Illness: The patient is a 68 F presenting with diarrhea, nausea decreased p.o. and feeling lightheaded. She has about 5-6 episodes of loose stool per day, she recently was on antibiotics for urinary tract infection, she had kidney stones status post surgery 1 week ago. She has no fever chills she has no abdominal pain. She has no headache, no vertiginous symptoms. Physical Examination: Not appear in acute distress. Dry mucous membranes, no obvious facial deformity No C-spine tenderness supple neck. Regular rate and rhythm without any obvious murmurs Clear lungs bilaterally speaking in full sentences without any obvious respiratory distress Abdomen soft and nontender no guarding or rebound Moves all extremities without any difficulty or pain. Skin does not show any obvious rashes or lesions, no trauma. Alert oriented ?3 with no gross focal deficit Emergency Department Course and Treatment: [Patient has a normal work-up in the ED, she appears well she has a normal white count, I doubt this is C. difficile her stools are formed. She has been unable to give us a sample. She is hydrated, she appears well I will discharge her with antiemetics after IV fluids.] Disposition: [Discharge stable condition] Impression: [Nausea] This note was generated with [employer] dictation software. It may contain incorrect words, spelling, and punctuation that were not noted in review of the chart prior to signing ED Disposition - Plan for ED Patient: Disposition: Home or Assisted Living Instructions: Dehydration Prescriptions: Metoclopramide [Reglan] 10 mg PO 4X/DAY #15 tab Referrals: Jim Calabrese Chi, MD [Primary Care Provider] - 3-5 Days
--- NOTE | 2018-12-05 22:50 | ED.DCSUM_ITS ---
- ER Visit Summary Date of Service: 12/05/18 Chief Complaint: Nausea diarrhea History of Present Illness: The patient is a 68 F presenting with diarrhea, nausea decreased p.o. and feeling lightheaded. She has about 5-6 episodes of loose stool per day, she recently was on antibiotics for urinary tract infec tion, she had kidney stones status post surgery 1 week ago. She has no fever chills she has no abdominal pain. She has no headache, no vertiginous symptoms. Physical Examination: Not appear in acute distress. Dry mucous membranes, no obvious facial deformity No C-spine tenderness supple neck. Regular rate and rhythm without any obvious murmurs Clear lungs bilaterally speaking in full sentences without any obvious respiratory distress Abdomen soft and nontender no guarding or rebound Moves all extremities without any difficulty or pain. Skin does not show any obvious rashes or lesions, no trauma. Alert oriented ?3 with no gross focal deficit Emergency Department Course and Treatment: [Patient has a normal work-up in the ED, she appears well she has a normal white count, I doubt this is C. difficile her stools are formed. She has been unable to give us a sample. She is hydrated, she appears well I will discharge her with antiemetics after IV fluids.] Disposition: [Discharge stable condition] Impression: [Nausea] This note was generated with [employer] dictation software. It may contain incorrect words, spelling, and punctuation that were not noted in review of the chart prior to signing ED Disposition - Plan for ED Patient: Disposition: Home or Assisted Living Instructions: Dehydration Prescriptions: Metoclopramide [Reglan] 10 mg PO 4X/DAY #15 tab Referrals: Jim Calabrese Chi, MD [Primary Care Provider] - 3-5 Days
[2018-12-05] MEDS: Ondansetron 4 MG/2 ML Vial IV (22:58)
[2018-12-05 23:21] VITALS: BP 131/68; PULSE 75; RESP 16; O2SAT 98
[2018-12-05 23:23] VITALS: BP 132/68; PULSE 74; RESP 16; O2SAT 98
== END 2018-12-05 23:26 | disposition home or self-care (01) ==
PROVIDERS: Emergency Provider Emergency Medicine; Family Provider Family Medicine Geriatric Medicine; PCP Family Medicine Geriatric Medicine
DX: R11.0 Nausea (principal); E86.0 Dehydration; R19.7 Diarrhea, unspecified; E11.9 Type 2 diabetes mellitus without complications; I10 Essential (primary) hypertension; E78.00 Pure hypercholesterolemia, unspecified; K58.9 Irritable bowel syndrome, unspecified; E03.9 Hypothyroidism, unspecified; I49.3 Ventricular premature depolarization; Z87.442 Personal history of urinary calculi; Z87.440 Personal history of urinary (tract) infections; Z79.82 Long term (current) use of aspirin; Z79.84 Long term (current) use of oral hypoglycemic drugs; Z79.899 Other long term (current) drug therapy
CPT/HCPCS: 80053; 83690; 85025; 96361; 96374; 96375; 99285; J7030; A4216; J2405

== ENCOUNTER → 2018-12-09 | Outpatient (CLI) | payer MEDICARE, OTHER, SELFPAY ==
[2018-12-05 19:44] VITALS: BMI 38.7
== END | disposition home or self-care (01) ==
LOC: POLAB3 13:16
PROVIDERS: Family Provider Family Medicine Geriatric Medicine; PCP Family Medicine Geriatric Medicine; Visit Provider Family Medicine Geriatric Medicine
DX: N39.0 Urinary tract infection, site not specified (principal); R19.7 Diarrhea, unspecified
CPT/HCPCS: 87086; 87088

== ENCOUNTER → 2018-12-11 | Outpatient (CLI) | payer MEDICARE, OTHER, SELFPAY ==
[2018-12-05 19:44] VITALS: BMI 38.7
== END | disposition home or self-care (01) ==
LOC: LABSPEC 12:40
PROVIDERS: Family Provider Family Medicine Geriatric Medicine; PCP Family Medicine Geriatric Medicine; Referring Provider Family Medicine Geriatric Medicine; Visit Provider Family Medicine Geriatric Medicine
DX: N39.0 Urinary tract infection, site not specified (principal); R19.7 Diarrhea, unspecified
CPT/HCPCS: 87493

== ENCOUNTER → 2019-02-25 | Outpatient (CLI) | payer MEDICARE, OTHER, SELFPAY ==
[2019-02-25 12:38] LABS: Absolute Lymphocyte Count 2.01 X10^3/uL (0.83-4.51); Absolute Neutrophil Count 3.3 X10^3/uL (2.0-7.7); Basophil# 0.07 X10^3/uL; Basophil% 1.1 % (0-1); Eosinophil# 0.17 X10^3/uL; Eosinophils% 2.8 % (0-5); Hematocrit 38.5 % (37-47); Hemoglobin 12.3 g/dL (12.0-15.0); Lymphocyte # 2.01 X10^3/ul (4.0); Lymphocyte % 32.6 % (19-41); Mean Corp Hgb Conc 31.9 g/dL (32-36); Mean Corpuscular Hgb 29.3 pg (27.0-32.0); Mean Corpuscular Volume 91.7 fL (81-99); Mean Platelet Vol. 9.8 fl (6.2-12.0); Monocyte# 0.56 X10^3/uL; Monocyte% 9.1 % (0-10); NRBC Flagged by Analyzer 0 % (0-5); Neutrophil # 3.33 X10^3/uL (2.7-7.7); Neutrophil % 54.1 % (47-70); Platelet Count 252 K/mm3 (150-450); RBC Distribution Width CV 14.6 % (11.6-14.6); RBC Distribution Width SD 48.9 fl (35.1-43.9); White Blood Count 6.2 K/mm3 (4.4-11.0)
[2019-02-25 13:15] LABS: Vitamin D,25 Hydroxy 58.3 ng/mL (29.95-100.01)
[2019-02-25 13:19] LABS: ALB/GLOB Ratio 0.9 RATIO (0.9-2.4); AST(SGOT) 20 U/L (15-37); Alanine Aminotransfer ALT/SGPT 19 U/L (13-56); Albumin, Serum 3.5 g/dL (3.2-5.0); Alkaline Phosphatase 98 U/L (45-117); Anion Gap 6 (5-15); BUN 21 mg/dL (7-18); BUN/Creat Ratio 24.2 RATIO (10-20); Calcium,Total 8.7 mg/dL (8.5-10.1); Chloride 111 mmol/L (98-107); Creatinine, Serum 0.87 mg/dL (0.55-1.02); EST Glomerular Filtration Rate 69 mL/min (>60); Est Glom Filt Rate - Afr Amer 83 mL/min (>60); Globulin 3.8 g/dL (2.2-4.2); Glucose 115 mg/dL (74-106); Potassium 4.1 mmol/L (3.5-5.1); Protein, Total 7.3 g/dL (6.4-8.2); Sodium Level 139 mmol/L (136-145); Uric Acid 5.5 mg/dL (2.6-6.0)
== END | disposition home or self-care (01) ==
LOC: POLAB3 11:38
PROVIDERS: Family Provider Family Medicine Geriatric Medicine; PCP Family Medicine Geriatric Medicine; Visit Provider Family Medicine Geriatric Medicine
DX: E11.9 Type 2 diabetes mellitus without complications (principal); E55.9 Vitamin D deficiency, unspecified; I10 Essential (primary) hypertension; M10.9 Gout, unspecified
CPT/HCPCS: 36415; 80053; 82306; 84443; 84550; 85025

== ENCOUNTER → 2019-03-30 07:47 | Outpatient (CLI) | payer MEDICARE, OTHER, SELFPAY ==
[2019-03-09 08:32] VITALS: BMI 40.2
--- NOTE | 2019-03-30 07:48 | ECHOD_ITS ---
Reason For Study: Dyspnea/SOB Procedure This was a 2D Doppler, Color Flow transthoracic echocardiogram. Technically difficult apical images. Unable to obtain IV access (3 attempts by two nurses) to utilize Definity. For future reference do not attempt IV for Definity. Exam performed in department. Left Ventricle Normal LV size. Left ventricular systolic function is normal. The estimated ejection fraction is 60 %. Diastolic function is indeterminate. No regional wall motion abnormalities noted. Right Ventricle Normal RV size. Normal systolic function. Atria The left atrium is moderately enlarged. Normal right atrium. No doppler evidence for ASD. Mitral Valve There is no mitral annular calcification. Normal mitral valve. Trivial mitral valve insufficiency. Tricuspid Valve Normal tricuspid valve. Mild to moderate (1-2+) tricuspid valve insufficiency. Right ventricular systolic pressure estimated to be 36 mmHg. Aortic Valve Trisinus/trileaflet aortic valve. Mild focal aortic valve thickening. Pulmonic Valve The pulmonic valve is not well visualized. Trivial pulmonic valve insufficiency. Great Vessels The aortic root is not well visualized. Pericardium/Pleural No pericardial effusion. MMode/2D Measurements & Calculations LVIDd: 4.6 cm IVSd: 1.00 cm LA dimension: 4.4 cm LVIDs: 2.4 cm LVPWd: 0.86 cm FS: 47.4 % LAV(MOD-bp): 80.6 ml LA A4 area: 23.3 cm2 RA A4 area: 13.1 cm2 LAV(MOD-bp) Indexed: 41.4 ml/m2 LAV(MOD-sp2): 86.7 ml LAV(MOD-sp4): 76.9 ml Time Measurements MV dec time: 0.19 sec Doppler Measurements & Calculations MV E max will: 97.6 cm/sec Lat Peak E' Will: 9.9 cm/sec Med Peak E' Will: 8.9 cm/sec MV A max will: 89.5 cm/sec E/E' lat: 9.9 E/E' med: 11.0 MV E/A: 1.1 MV V2 max: 113.1 cm/sec MV P1/2t max will: 114.6 cm/sec Ao V2 max: 101.9 cm/sec MV max P.1 mmHg MV P1/2t: 107.5 msec Ao max P.2 mmHg MV V2 mean: 56.2 cm/sec MV dec slope: 312.3 cm/sec2 MV mean P.6 mmHg MVA(P1/2t): 2.0 cm2 MV V2 VTI: 33.0 cm LV V1 max: 94.4 cm/sec PA V2 max: 69.5 cm/sec TR max will: 286.6 cm/sec LV V1 max P.6 mmHg TR max P.9 mmHg Interpretation Summary Left ventricular systolic function is normal. The estimated ejection fraction is 60 %. Trivial mitral valve insufficiency. Mild to moderate (1-2+) tricuspid valve insufficiency. Mild focal aortic valve thickening. Trivial pulmonic valve insufficiency. Right ventricular systolic pressure estimated to be 36 mmHg. Diastolic function is indeterminate. Ordering Physician: Kaylee Larsen Referring Physician: Jim Calabrese Chi Performed By: Francesco Iverson RCS
== END ==
PROVIDERS: Family Provider Family Medicine Geriatric Medicine; PCP Family Medicine Geriatric Medicine; Referring Provider Physician Assistant Medical; Visit Provider Physician Assistant Medical
DX: I36.1 Nonrheumatic tricuspid (valve) insufficiency (principal)
CPT/HCPCS: 93306; Q9957; A4216

== ENCOUNTER → 2019-04-17 12:47 | Outpatient (CLI) | payer MEDICARE, OTHER, SELFPAY ==
[2019-03-09 08:32] VITALS: BMI 40.2
--- NOTE | 2019-04-17 12:50 | ART_ITS ---
Reason For Study: Arterial stricture Procedure A bilateral upper extremity continuous wave Doppler with analog waveform analysis and segmental pressures. Left Segmental Pressures Left brachial= 125mmHg. Left ulnar= 67mmHg. Left radial= 124mmHg. The left radial waveforms are biphasic. The left ulnar waveforms are biphasic. Right Segmental Pressures Right brachial= 149mmHg. Right ulnar= 161mmHg. Right radial= 161mmHg. The right radial waveforms are triphasic. The right ulnar waveforms are triphasic. Indices The right wrist brachial index by the ulnar artery is 1.08. The right wrist brachial index by the radial artery is 1.08. The left wrist brachial index by the ulnar artery is 0.45. The left wrist brachial index by the radial artery is 0.83. Interpretation Summary 1. right arm normal with WBI 1.08 and triphasic flow 2. Left amr with mild occlussive disease and WBI 0.83 and biphasic flow. Ordering Physician: Je Cardoso Referring Physician: Jim Calabrese Chi Performed By: Sandra Wells RVT
== END ==
PROVIDERS: Family Provider Family Medicine Geriatric Medicine; PCP Family Medicine Geriatric Medicine; Referring Provider Surgery Vascular Surgery; Visit Provider Surgery Vascular Surgery
DX: I77.1 Stricture of artery (principal); E07.9 Disorder of thyroid, unspecified; K21.9 Gastro-esophageal reflux disease without esophagitis; K59.9 Functional intestinal disorder, unspecified; G45.8 Other transient cerebral ischemic attacks and related syndromes; E78.00 Pure hypercholesterolemia, unspecified; E11.9 Type 2 diabetes mellitus without complications; I11.9 Hypertensive heart disease without heart failure; I65.23 Occlusion and stenosis of bilateral carotid arteries; Z87.891 Personal history of nicotine dependence
CPT/HCPCS: 93922; 93931

== ENCOUNTER → 2019-05-14 15:07 | Outpatient (CLI) | payer MEDICARE, OTHER, SELFPAY ==
[2019-05-14 15:07] VITALS: BMI 40.2
[2019-05-14 15:41] LABS: Hematocrit 39.9 % (37-47); Hemoglobin 12.7 g/dL (12.0-15.0); Mean Corp Hgb Conc 31.8 g/dL (32-36); Mean Corpuscular Hgb 29.1 pg (27.0-32.0); Mean Corpuscular Volume 91.3 fL (81-99); Mean Platelet Vol. 9.6 fl (6.2-12.0); Platelet Count 224 K/mm3 (150-450); RBC Distribution Width CV 14.1 % (11.6-14.6); RBC Distribution Width SD 47.4 fl (35.1-43.9); Red Blood Count 4.37 M/mm3 (4.2-5.4); White Blood Count 7.5 K/mm3 (4.4-11.0)
[2019-05-14 16:02] LABS: Anion Gap 5 (5-15); BUN 20 mg/dL (7-18); BUN/Creat Ratio 25.3 RATIO (10-20); Calcium,Total 9.1 mg/dL (8.5-10.1); Chloride 109 mmol/L (98-107); Creatinine, Serum 0.79 mg/dL (0.55-1.02); EST Glomerular Filtration Rate 77 mL/min (>60); Est Glom Filt Rate - Afr Amer 93 mL/min (>60); Glucose 100 mg/dL (74-106); Sodium Level 141 mmol/L (136-145)
== END ==
PROVIDERS: Family Provider Family Medicine Geriatric Medicine; PCP Family Medicine Geriatric Medicine; Referring Provider Internal Medicine Cardiovascular Disease; Visit Provider Internal Medicine Cardiovascular Disease
DX: R55 Syncope and collapse (principal); I45.9 Conduction disorder, unspecified; Z95.818 Presence of other cardiac implants and grafts
CPT/HCPCS: 36415; 80048; 85027

== ENCOUNTER → 2019-05-18 06:50 | Day surgery (SDC) | payer MEDICARE, OTHER, SELFPAY ==
[2019-03-09 08:32] VITALS: BMI 40.2
--- NOTE | 2019-05-14 03:45 | HP_ITS ---
HPI HPI History of Present Illness Surgical H&P: Yes Details: DESTINY BUTLER, is a 68 F who presents to the office today for a cardiovascular follow-up. She has a history of conduction system disorder (established with Dr. Michelle), syncope, mild carotid artery disease, left subclavian steal syndrome with stent placement (follows with Dr. Cardoso), hyperlipidemia, and PVCs. Her most recent loop recorder evaluation showed that device was at end of life. She will undergo loop recorder removal with Dr. Vang on 05/18/2019. She states having an appointment with Dr. Cardoso in which she may require bypass in regards to subclavian steal syndrome. She continues with chest pain and SOB with activity. The chest pain is not a new symptom. This is most noted during times of strenuous activity. She feels that her SOB with activity is worsening. She also notes shortness of breath at rest. Pt denies arm, jaw, or neck discomfort. His exercise tolerance is stable. Pt denies symptoms of palpitations, lightheadedness, dizziness, near syncopal or syncopal episodes. Pt denies claudication issues. She states bilateral lower extremity edema that improves over night. Pt. denies orthopnea, PND, or myalgia, or unexplainable fatigue. She acknowledges snoring and daytime fatigue. This includes falling asleep frequently during he day. 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 by: None Is patient in pain?: No Allergies No Known Allergies Allergy (Verified 05/14/19 14:24) Medications Cholecalciferol (VIT D3) [Vitamin D3] 1,000 unit PO BID 03/08/16 [History Confirmed 05/14/19] Levothyroxine [Synthroid] 50 mcg PO DAILY 03/08/16 [History Confirmed 05/14/19] Losartan Potassium [Cozaar] 100 mg PO DAILY 03/08/16 [History Confirmed 05/14/19] metFORMIN HCl [Glucophage] 500 mg PO BIDCM 03/08/16 [History Confirmed 05/14/19] Esomeprazole Mag Trihydrate [Nexium] 40 mg PO QHS 05/22/17 [History Confirmed 05/14/19] Rosuvastatin Calcium [Crestor] 10 mg PO QHS 05/22/17 [History Confirmed 05/14/19] L.acidoph,Paracasei, B.lactis [Probiotic] 1 ea PO DAILY 06/12/17 [History Confirmed 05/14/19] docusate sodium 100 mg capsule 100 mg PO QHS 09/25/17 [History Confirmed 05/14/19] aspirin 81 mg tablet,delayed release 81 mg PO DAILY 07/23/18 [History Confirmed 05/14/19] melatonin 10 mg tablet 10 mg PO HS PRN 07/23/18 [History Confirmed 05/14/19] Clopidogrel Bisulfate [Clopidogrel] 75 mg PO DAILY 11/18/18 [History Confirmed 05/14/19] Pioglitazone HCl 30 mg PO DAILY 11/18/18 [History Confirmed 05/14/19] acetaminophen 500 mg tablet 500 mg PO Q6H PRN tab 03/09/19 [History Confirmed 05/14/19] furosemide 20 mg tablet 20 mg PO DAILY PRN 03/09/19 [History Confirmed 05/14/19] promethazine 25 mg tablet 12.5 mg PO 4X/DAY PRN tab 03/09/19 [History Confirmed 05/14/19] [facility] Medical History (Updated 04/30/19 @ 13:18 by Charmaine Turner) Syncope and collapse (Chronic) Nonrheumatic tricuspid valve regurgitation (Chronic) Controlled type 2 diabetes mellitus (Chronic) Essential hypertension (Chronic) Atherosclerotic heart disease of [place] coronary artery without angina pectoris (Chronic) Pulmonary hypertension (Chronic) Carotid stenosis, non-symptomatic (Chronic) HLD (hyperlipidemia) (Chronic) Hypothyroidism (Chronic) Cardiac conduction disorder (Chronic) PVC (premature ventricular contraction) (Chronic) Mckeon esophagus (Chronic) Subclavian steal syndrome (Chronic) Bilateral carotid bruits (Chronic) IBS (irritable bowel syndrome) (Chronic) Raynauds syndrome (Chronic) Syncope and collapse (Chronic) Hypertension (Inactive) Surgical History (Updated 03/09/19 @ 08:41 by Celeste Hope) Status post placement of implantable loop recorder (Chronic) S/P peripheral artery angioplasty with stent placement (Chronic ~08/15/98) History of right hip replacement (Resolved) History of total left hip arthroplasty (Resolved) Family History (Updated 03/09/19 @ 08:42 by Celeste Hope) Father CAD (coronary artery disease) Myocardial infarction Mother Hypertension Cancer lung Grandfather Heart disease Myocardial infarction Social History (Updated 05/14/19 @ 15:45 by Dane Alonso NP-C) Smoking Status: Former smoker how long ago did patient quit smokin years ago alcohol intake: never substance use type: does not use caffeine: Yes Type: carbonated beverages Number of servings: 3 what type of physical activity do you participate in: none seatbelt use: always do you feel safe at home: Yes ROS Const Const: Positive for fatigue and daytime sleepiness; negative for weakness, body ache, fever(s) or chills ENT ENT: Negative for dizziness Cardio Chest Pain: Yes Palpitations: No Edema: None Muscle aches with walking: None Resp Respiratory: Positive for SOB with activity and snoring; negative for SOB at rest, SOB orthopnea\SOB lying down or paroxysmal nocturnal dyspnea GI GI: Negative nausea, vomiting blood/hematemesis, bright, red blood in stools or black,tarry stools : Negative for hematuria or frequent nighttime urination/ nocturia Musc Musc: Negative for muscle aches/ myalgia Skin Skin: Negative non-healing lesions or rash Neuro Neuro: Negative for dizziness, lightheadedness, near syncope, syncope, orthostatic symptoms or weakness Endo Endo: Positive for fatigue Allergy Allergy/Immunology: Negative for rash Cardiology Exam Const Appearance: cooperative, healthy appearing, comfortable and no acute distress Nutritional Appearance: well nourished and obese Orientation: alert, awake and oriented x3 Head Head: normal to inspection Ears: hearing grossly normal bilaterally Nose: external nose normal Face and Sinus: face symmetric Mouth: oral mucosae normal Eyes General: appearance normal, both eyes and all related structures Eyelids: eyelids normal EOM: EOM intact bilaterally Neck Neck: normal visual inspection and no JVD Carotids: normal carotid upstroke Chest Chest inspection: normal inspection of the chest, symmetric chest movement and normal respiratory effort; negative cough Auscultation: Bilateral: Clear to Auscultation Cardio Palpation: normal PMI Rate: regular rate Rhythm: regular rhythm Heart sounds: S1 normal, S2 normal and murmur; negative rub or gallop Murmur: Grade 2/6, soft and LLSB GI GI: normal to inspection and obese Neuro General: alert, awake, oriented x3 and CN's II-XI intact bilaterally Skin Skin: no rashes or lesions noted Extremities Pulses: Normal: Right Posterior Tibial Pulse, Left Posterior Tibial Pulse, Right Radial Pulse, Left Radial Pulse Lower Extremity Edema: None: Bilateral Psych Psychological: normal affect Assessment & Plan 1. Status post placement of implantable loop recorder Z95.818 Implant 03/27/16 Plan Her loop recorder as she achieved end of life. Her lightheaded and dizziness has not been explained from a dysrhythmia standpoint. She will have her loop recorder removed. 2. Atherosclerosis of [place] coronary artery of [place] heart without angina pectoris I25.10 Plan Her heart catheterization from 2004 showed mild disease. Her most recent stress test in December 2018 was negative for ischemia. Her most recent echocardiogram in March 2019 showed a preserved ejection fraction of 60% and no regional wall motion abnormalities. Her chest pain has been ongoing. She does not believe this is worsened. However, given her worsening shortness of breath this may be an anginal equivalent. She does acknowledge a strong family history of cardiac disease. Thus, she was asked to contact our office in approximately 1 week with an update on symptoms if no major improvement with diuretic therapy. At that time, we can consider further testing which may include heart catheterization. This would be confirmed with Dr. Quinonez. 3. Essential (primary) hypertension I10 Plan Patient's blood pressure is well-controlled. We will continue to monitor. We will not make any medication regimen changes. 4. Subclavian steal syndrome G45.8 Plan She will continue to follow with Dr. Cardoso. 5. Hypersomnolence G47.10 Plan Her echocardiogram March 2019 showed moderately enlarged left atrium and RVSP of 36 mmHg. She does acknowledge symptoms concerning for obstructive sleep apnea. She does not wish to undergo testing due to not wanting treatment. This may be contributing to her shortness of breath and intermittent lower extremity edema. Thus, she was strongly urged to consider polysomnogram. She declined at this time. Plan Detail Additional Comments She is expected to undergo loop recorder explant with Dr. Vang. Thank you for allowing us to participate in the patients plan of care, if you have any questions please do not hesitate to call. This note was generated using a voice recognition system and there may be incorrect words, spelling or punctuation that were not noted when reviewing the office note prior to saving. Coding Level of Care Code Off vis,est,level 3 Diagnoses Status post placement of implantable loop recorder Z95.818 Atherosclerosis of [place] coronary artery of [place] heart without angina pectoris I25.10 ??[place] vs. transplanted heart: [place]ig heart Essential (primary) hypertension I10 Subclavian steal syndrome G45.8 Hypersomnolence G47.10 Coding Level of Care Code Off vis,est,level 3 Diagnoses Status post placement of implantable loop recorder Z95.818 Atherosclerosis of [place] coronary artery of [place] heart without angina pectoris I25.10 ??[place] vs. transplanted heart: [place] heart Essential (primary) hypertension I10 Subclavian steal syndrome G45.8 Hypersomnolence G47.10 Supplemental Info Supplemental Information Echocardiogram from 04/09/2019: Interpretation Summary Left ventricular systolic function is normal. The estimated ejection fraction is 60 %. Trivial mitral valve insufficiency. Mild to moderate (1-2+) tricuspid valve insufficiency. Mild focal aortic valve thickening. Trivial pulmonic valve insufficiency. Right ventricular systolic pressure estimated to be 36 mmHg. Diastolic function is indeterminate. Stress Test Report Date: 07/31/2018 Procedure: Exercise tolerance test/imaging study Indications: Chest pain Consent: Per the patient Procedure: The patient exercised on a Jet protocol for 5 minutes 30 seconds completing Stage I and 2 minutes 30 seconds of Stage II achieving a peak heart rate of 141 bpm (92 % predicted maximal heart rate) with a peak blood pressure 200/82 mmHg and a peak MET capacity of 7 METs. The baseline ECG demonstrated normal sinus rhythm. The peak exercise ECG demonstrated no obvious ECG changes. There were no cardiac dysrhythmias pretest, during exercise, or recovery. The functional capacity was considered average. There was no complaint of chest discomfort during exercise or recovery. The examination was discontinued secondary to dyspnea and leg discomfort. Impression: 1. Technically adequate (percent predicted maximal heart rate greater than 85%) exercise tolerance test 2. Peak exercise ECG with no obvious ECG changes 3. There were no cardiac dysrhythmias pretest, during exercise, or recovery 4. Nuclear images pending Myocardial perfusion imaging study: Technique: The patient was injected with 14.1 mCi of technetium 99m Cardiolite and subsequently rest SPECT Cardiolite nuclear imaging was obtained in the horizontal long, vertical long, and short axis views. The patient exercised on a Jet protocol for 5 minutes 30 seconds completing Stage I and 2 minutes 30 seconds of Stage II achieving a peak heart rate of 141 bpm (92 % predicted maximal heart rate) with a peak blood pressure 200/82 mmHg and a peak MET capacity of 7 METs. The patient was injected with 44.4 mCi of technetium 99m Cardiolite and subsequently stress SPECT Cardiolite nuclear imaging was obtained in the horizontal long, vertical long, and short axis views. A gated Cardiolite study at peak stress was obtained. Interpretation: Rest and stress SPECT Cardiolite nuclear imaging status post realignment, normalization, and attenuation correction, demonstrates the appearance of relative uniform tracer uptake and myocardial perfusion appearing within normal limits. There is end systolic thickening and brightening. The gated Cardiolite study demonstrates myocardial thickening and inward wall motion. The reported LVEF is 77 %. Impression: 1. Rest and stress SPECT Cardiolite nuclear imaging demonstrate relative uniform tracer uptake and myocardial perfusion appearing within normal limits. 2. The gated Cardiolite study reports an LVEF of 77 %. Labs LDL Cholesterol 33 mg/dL (0-130) 06/13/17 HDL Cholesterol 27 mg/dL (40-) L 06/13/17 Triglycerides 203 mg/dL (-199) H 06/13/17 VLDL Cholesterol 41 mg/dL (5-40) H 06/13/17 Diagnostics Electrocardiogram 11/20/18 Echocardiogram 03/30/19 Stress Test 07/31/18 Pacemaker Check 04/27/19 Chest X-Ray 06/12/17 05/14/19 9364 <Electronically signed by Dane oLpez> Date _ Dane SAEZC
[2019-05-14 15:07] VITALS: BMI 40.2
[2019-05-15 12:42] VITALS: BMI 39.3
== END ==
PROVIDERS: Family Provider Family Medicine Geriatric Medicine; PCP Family Medicine Geriatric Medicine; Referring Provider Internal Medicine Cardiovascular Disease; Visit Provider Internal Medicine Cardiovascular Disease
DX: R55 Syncope and collapse (principal); Z53.09 Procedure and treatment not carried out because of other contraindication; I25.10 Atherosclerotic heart disease of native coronary artery without angina pectoris; Z95.818 Presence of other cardiac implants and grafts; I10 Essential (primary) hypertension; G45.8 Other transient cerebral ischemic attacks and related syndromes; G47.10 Hypersomnia, unspecified; E78.5 Hyperlipidemia, unspecified; Z79.899 Other long term (current) drug therapy; Z79.02 Long term (current) use of antithrombotics/antiplatelets; Z79.82 Long term (current) use of aspirin; Z79.84 Long term (current) use of oral hypoglycemic drugs; E11.9 Type 2 diabetes mellitus without complications; E03.9 Hypothyroidism, unspecified
CPT/HCPCS: 33286; J7040

== ENCOUNTER → 2019-05-26 11:41 | Outpatient (CLI) | payer MEDICARE, OTHER, SELFPAY ==
[2019-05-26 09:23] VITALS: BMI 39.3
--- NOTE | 2019-05-26 11:46 | RAD_ITS ---
STUDY: X-RAY - CERVICAL SPINE REASON FOR EXAM: Female, 68 years old. OCCIPITAL NEURALGIA TECHNIQUE: 2 view(s) of the cervical spine were obtained. COMPARISON: None FINDINGS: Normal anterior atlantoaxial articulation. Normal odontoid process. Normal cervical lordosis. Normal vertebral bodies and endplates. Normal disc space heights. The soft tissue structures are unremarkable. There is no demonstrated fracture of the cervical spine. RAD/Cerv Spine 2 or 3 Views IMPRESSION: Negative limited 2 view study of the cervical spine. Electronically Signed: Boubacar Reid MD at 16:59 EST , Service support ,
[2019-05-26 13:28] LABS: Absolute Neutrophil Count 3.9 X10^3/uL (2.0-7.7); Basophil# 0.08 X10^3/uL; Basophil% 1.2 % (0-1); Eosinophil# 0.14 X10^3/uL; Eosinophils% 2.1 % (0-5); Hematocrit 41.3 % (37-47); Hemoglobin 13.1 g/dL (12.0-15.0); Lymphocyte % 29.9 % (19-41); Mean Corp Hgb Conc 31.7 g/dL (32-36); Mean Corpuscular Hgb 29.2 pg (27.0-32.0); Mean Corpuscular Volume 92.2 fL (81-99); Mean Platelet Vol. 10.1 fl (6.2-12.0); Monocyte# 0.61 X10^3/uL; Monocyte% 9.1 % (0-10); NRBC Flagged by Analyzer 0 % (0-5); Neutrophil # 3.85 X10^3/uL (2.7-7.7); Neutrophil % 57.4 % (47-70); Platelet Count 245 K/mm3 (150-450); RBC Distribution Width CV 14.1 % (11.6-14.6); RBC Distribution Width SD 48.3 fl (35.1-43.9); Red Blood Count 4.48 M/mm3 (4.2-5.4); White Blood Count 6.7 K/mm3 (4.4-11.0)
[2019-05-26 13:49] LABS: Vitamin D,25 Hydroxy 33.9 ng/mL (29.95-100.01)
[2019-05-26 13:55] LABS: ALB/GLOB Ratio 0.9 RATIO (0.9-2.4); AST(SGOT) 21 U/L (15-37); Alanine Aminotransfer ALT/SGPT 25 U/L (13-56); Albumin, Serum 3.7 g/dL (3.2-5.0); Alkaline Phosphatase 94 U/L (45-117); Anion Gap 7 (5-15); BUN 24 mg/dL (7-18); Calcium,Total 9.3 mg/dL (8.5-10.1); Chloride 108 mmol/L (98-107); Creatinine, Serum 0.86 mg/dL (0.55-1.02); EST Glomerular Filtration Rate 70 mL/min (>60); Est Glom Filt Rate - Afr Amer 85 mL/min (>60); Globulin 3.9 g/dL (2.2-4.2); Glucose 123 mg/dL (74-106); Potassium 4.7 mmol/L (3.5-5.1); Protein, Total 7.6 g/dL (6.4-8.2); Sodium Level 138 mmol/L (136-145); Thyroid Stim Hormone (TSH) 1.95 uIU/mL (0.358-3.74); Uric Acid 4.7 mg/dL (2.6-6.0)
== END ==
PROVIDERS: Family Provider Family Medicine Geriatric Medicine; PCP Family Medicine Geriatric Medicine; Referring Provider Family Medicine Geriatric Medicine; Visit Provider Family Medicine Geriatric Medicine
DX: M53.82 Other specified dorsopathies, cervical region (principal); E11.9 Type 2 diabetes mellitus without complications; E55.9 Vitamin D deficiency, unspecified; I10 Essential (primary) hypertension; M10.9 Gout, unspecified
CPT/HCPCS: 36415; 72040; 80053; 82306; 84443; 84550; 85025

== ENCOUNTER 2019-05-28 06:05 | Day surgery (SDC) | payer MEDICARE, OTHER, SELFPAY ==
--- NOTE | 2019-05-14 03:45 | HP_ITS ---
HPI HPI History of Present Illness Surgical H&P: Yes Details: DESTINY BUTLER, is a 68 F who presents to the office today for a cardiovascular follow-up. She has a history of conduction system disorder (established with Dr. Michelle), syncope, mild carotid artery disease, left subclavian steal syndrome with stent placement (follows with Dr. Cardoso), hyperlipidemia, and PVCs. Her most recent loop recorder evaluation showed that device was at end of life. She will undergo loop recorder removal with Dr. Vang on 05/18/2019. She states having an appointment with Dr. Cardoso in which she may require bypass in regards to subclavian steal syndrome. She continues with chest pain and SOB with activity. The chest pain is not a new symptom. This is most noted during times of strenuous activity. She feels that her SOB with activity is worsening. She also notes shortness of breath at rest. Pt denies arm, jaw, or neck discomfort. His exercise tolerance is stable. Pt denies symptoms of palpitations, lightheadedness, dizziness, near syncopal or syncopal episodes. Pt denies claudication issues. She states bilateral lower extremity edema that improves over night. Pt. denies orthopnea, PND, or myalgia, or unexplainable fatigue. She acknowledges snoring and daytime fatigue. This includes falling asleep frequently during he day. Intake Vital Signs 05/14/19 Height 5 ft 2 in 05/14/19 Weight: 215 lb 05/14/19 Body Mass Index (BMI) 39.3 05/14/19 Blood Pressure 135/78 H 05/14/19 Blood Pressure Location Rt brachial 05/14/19 Blood Pressure Position Sitting 05/14/19 Respiratory Rate 18 05/14/19 Pulse Rate 66 05/14/19 Pulse Source Monitor 05/14/19 Pulse Ox 100 Intake Visit Reasons: Update H & P/ Donya 2:00 Personal Lines Agent Required: No Accompanied by: None Is patient in pain?: No Allergies No Known Allergies Allergy (Verified 05/14/19 14:24) Medications Cholecalciferol (VIT D3) [Vitamin D3] 1,000 unit PO BID 03/08/16 [History Confirmed 05/14/19] Levothyroxine [Synthroid] 50 mcg PO DAILY 03/08/16 [History Confirmed 05/14/19] Losartan Potassium [Cozaar] 100 mg PO DAILY 03/08/16 [History Confirmed 05/14/19] metFORMIN HCl [Glucophage] 500 mg PO BIDCM 03/08/16 [History Confirmed 05/14/19] Esomeprazole Mag Trihydrate [Nexium] 40 mg PO QHS 05/22/17 [History Confirmed 05/14/19] Rosuvastatin Calcium [Crestor] 10 mg PO QHS 05/22/17 [History Confirmed 05/14/19] L.acidoph,Paracasei, B.lactis [Probiotic] 1 ea PO DAILY 06/12/17 [History Confirmed 05/14/19] docusate sodium 100 mg capsule 100 mg PO QHS 09/25/17 [History Confirmed 05/14/19] aspirin 81 mg tablet,delayed release 81 mg PO DAILY 07/23/18 [History Confirmed 05/14/19] melatonin 10 mg tablet 10 mg PO HS PRN 07/23/18 [History Confirmed 05/14/19] Clopidogrel Bisulfate [Clopidogrel] 75 mg PO DAILY 11/18/18 [History Confirmed 05/14/19] Pioglitazone HCl 30 mg PO DAILY 11/18/18 [History Confirmed 05/14/19] acetaminophen 500 mg tablet 500 mg PO Q6H PRN tab 03/09/19 [History Confirmed 05/14/19] furosemide 20 mg tablet 20 mg PO DAILY PRN 03/09/19 [History Confirmed 05/14/19] promethazine 25 mg tablet 12.5 mg PO 4X/DAY PRN tab 03/09/19 [History Confirmed 05/14/19] [facility] Medical History (Updated 04/30/19 @ 13:18 by Charmaine Turner) Syncope and collapse (Chronic) Nonrheumatic tricuspid valve regurgitation (Chronic) Controlled type 2 diabetes mellitus (Chronic) Essential hypertension (Chronic) Atherosclerotic heart disease of [place] coronary artery without angina pectoris (Chronic) Pulmonary hypertension (Chronic) Carotid stenosis, non-symptomatic (Chronic) HLD (hyperlipidemia) (Chronic) Hypothyroidism (Chronic) Cardiac conduction disorder (Chronic) PVC (premature ventricular contraction) (Chronic) [place] esophagus (Chronic) Subclavian steal syndrome (Chronic) Bilateral carotid bruits (Chronic) IBS (irritable bowel syndrome) (Chronic) Raynauds syndrome (Chronic) Syncope and collapse (Chronic) Hypertension (Inactive) Surgical History (Updated 03/09/19 @ 08:41 by Celeste Hope) Status post placement of implantable loop recorder (Chronic) S/P peripheral artery angioplasty with stent placement (Chronic ~08/15/98) History of right hip replacement (Resolved) History of total left hip arthroplasty (Resolved) Family History (Updated 03/09/19 @ 08:42 by Celeste Hope) Father CAD (coronary artery disease) Myocardial infarction Mother Hypertension Cancer lung Grandfather Heart disease Myocardial infarction Social History (Updated 05/14/19 @ 15:45 by Dane Alonso NP-C) Smoking Status: Former smoker how long ago did patient quit smokin years ago alcohol intake: never substance use type: does not use caffeine: Yes Type: carbonated beverages Number of servings: 3 what type of physical activity do you participate in: none seatbelt use: always do you feel safe at home: Yes ROS Const Const: Positive for fatigue and daytime sleepiness; negative for weakness, body ache, fever(s) or chills ENT ENT: Negative for dizziness Cardio Chest Pain: Yes Palpitations: No Edema: None Muscle aches with walking: None Resp Respiratory: Positive for SOB with activity and snoring; negative for SOB at rest, SOB orthopnea\SOB lying down or paroxysmal nocturnal dyspnea GI GI: Negative nausea, vomiting blood/hematemesis, bright, red blood in stools or black,tarry stools : Negative for hematuria or frequent nighttime urination/ nocturia Musc Musc: Negative for muscle aches/ myalgia Skin Skin: Negative non-healing lesions or rash Neuro Neuro: Negative for dizziness, lightheadedness, near syncope, syncope, orthostatic symptoms or weakness Endo Endo: Positive for fatigue Allergy Allergy/Immunology: Negative for rash Cardiology Exam Const Appearance: cooperative, healthy appearing, comfortable and no acute distress Nutritional Appearance: well nourished and obese Orientation: alert, awake and oriented x3 Head Head: normal to inspection Ears: hearing grossly normal bilaterally Nose: external nose normal Face and Sinus: face symmetric Mouth: oral mucosae normal Eyes General: appearance normal, both eyes and all related structures Eyelids: eyelids normal EOM: EOM intact bilaterally Neck Neck: normal visual inspection and no JVD Carotids: normal carotid upstroke Chest Chest inspection: normal inspection of the chest, symmetric chest movement and normal respiratory effort; negative cough Auscultation: Bilateral: Clear to Auscultation Cardio Palpation: normal PMI Rate: regular rate Rhythm: regular rhythm Heart sounds: S1 normal, S2 normal and murmur; negative rub or gallop Murmur: Grade 2/6, soft and LLSB GI GI: normal to inspection and obese Neuro General: alert, awake, oriented x3 and CN's II-XI intact bilaterally Skin Skin: no rashes or lesions noted Extremities Pulses: Normal: Right Posterior Tibial Pulse, Left Posterior Tibial Pulse, Right Radial Pulse, Left Radial Pulse Lower Extremity Edema: None: Bilateral Psych Psychological: normal affect Assessment & Plan 1. Status post placement of implantable loop recorder Z95.818 Implant 03/27/16 Plan Her loop recorder as she achieved end of life. Her lightheaded and dizziness has not been explained from a dysrhythmia standpoint. She will have her loop recorder removed. 2. Atherosclerosis of [place] coronary artery of [place] heart without angina pectoris I25.10 Plan Her heart catheterization from [facility] 2004 showed mild disease. Her most recent stress test in December 2018 was negative for ischemia. Her most recent echocardiogram in March 2019 showed a preserved ejection fraction of 60% and no regional wall motion abnormalities. Her chest pain has been ongoing. She does not believe this is worsened. However, given her worsening shortness of breath this may be an anginal equivalent. She does acknowledge a strong family history of cardiac disease. Thus, she was asked to contact our office in approximately 1 week with an update on symptoms if no major improvement with diuretic therapy. At that time, we can consider further testing which may include heart catheterization. This would be confirmed with Dr. Quinonez. 3. Essential (primary) hypertension I10 Plan Patient's blood pressure is well-controlled. We will continue to monitor. We will not make any medication regimen changes. 4. Subclavian steal syndrome G45.8 Plan She will continue to follow with Dr. Cardoso. 5. Hypersomnolence G47.10 Plan Her echocardiogram March 2019 showed moderately enlarged left atrium and RVSP of 36 mmHg. She does acknowledge symptoms concerning for obstructive sleep apnea. She does not wish to undergo testing due to not wanting treatment. This may be contributing to her shortness of breath and intermittent lower extremity edema. Thus, she was strongly urged to consider polysomnogram. She declined at this time. Plan Detail Additional Comments She is expected to undergo loop recorder explant with Dr. Vang. Thank you for allowing us to participate in the patients plan of care, if you have any questions please do not hesitate to call. This note was generated using a voice recognition system and there may be incorrect words, spelling or punctuation that were not noted when reviewing the office note prior to saving. Coding Level of Care Code Off vis,est,level 3 Diagnoses Status post placement of implantable loop recorder Z95.818 Atherosclerosis of [place] coronary artery of [place] heart without angina pectoris I25.10 ??[place] vs. transplanted heart: [place] heart Essential (primary) hypertension I10 Subclavian steal syndrome G45.8 Hypersomnolence G47.10 Coding Level of Care Code Off vis,est,level 3 Diagnoses Status post placement of implantable loop recorder Z95.818 Atherosclerosis of [place] coronary artery of [place] heart without angina pectoris I25.10 ??[place] vs. transplanted heart: [place] heart Essential (primary) hypertension I10 Subclavian steal syndrome G45.8 Hypersomnolence G47.10 Supplemental Info Supplemental Information Echocardiogram from 04/09/2019: Interpretation Summary Left ventricular systolic function is normal. The estimated ejection fraction is 60 %. Trivial mitral valve insufficiency. Mild to moderate (1-2+) tricuspid valve insufficiency. Mild focal aortic valve thickening. Trivial pulmonic valve insufficiency. Right ventricular systolic pressure estimated to be 36 mmHg. Diastolic function is indeterminate. Stress Test Report Date: 07/31/2018 Procedure: Exercise tolerance test/imaging study Indications: Chest pain Consent: Per the patient Procedure: The patient exercised on a Jet protocol for 5 minutes 30 seconds completing Stage I and 2 minutes 30 seconds of Stage II achieving a peak heart rate of 141 bpm (92 % predicted maximal heart rate) with a peak blood pressure 200/82 mmHg and a peak MET capacity of 7 METs. The baseline ECG demonstrated normal sinus rhythm. The peak exercise ECG demonstrated no obvious ECG changes. There were no cardiac dysrhythmias pretest, during exercise, or recovery. The functional capacity was considered average. There was no complaint of chest discomfort during exercise or recovery. The examination was discontinued secondary to dyspnea and leg discomfort. Impression: 1. Technically adequate (percent predicted maximal heart rate greater than 85%) exercise tolerance test 2. Peak exercise ECG with no obvious ECG changes 3. There were no cardiac dysrhythmias pretest, during exercise, or recovery 4. Nuclear images pending Myocardial perfusion imaging study: Technique: The patient was injected with 14.1 mCi of technetium 99m Cardiolite and subsequently rest SPECT Cardiolite nuclear imaging was obtained in the horizontal long, vertical long, and short axis views. The patient exercised on a Jet protocol for 5 minutes 30 seconds completing Stage I and 2 minutes 30 seconds of Stage II achieving a peak heart rate of 141 bpm (92 % predicted maximal heart rate) with a peak blood pressure 200/82 mmHg and a peak MET capacity of 7 METs. The patient was injected with 44.4 mCi of technetium 99m Cardiolite and subsequently stress SPECT Cardiolite nuclear imaging was obtained in the horizontal long, vertical long, and short axis views. A gated Cardiolite study at peak stress was obtained. Interpretation: Rest and stress SPECT Cardiolite nuclear imaging status post realignment, normalization, and attenuation correction, demonstrates the appearance of relative uniform tracer uptake and myocardial perfusion appearing within normal limits. There is end systolic thickening and brightening. The gated Cardiolite study demonstrates myocardial thickening and inward wall motion. The reported LVEF is 77 %. Impression: 1. Rest and stress SPECT Cardiolite nuclear imaging demonstrate relative uniform tracer uptake and myocardial perfusion appearing within normal limits. 2. The gated Cardiolite study reports an LVEF of 77 %. Labs LDL Cholesterol 33 mg/dL (0-130) 06/13/17 HDL Cholesterol 27 mg/dL (40-) L 06/13/17 Triglycerides 203 mg/dL (-199) H 06/13/17 VLDL Cholesterol 41 mg/dL (5-40) H 06/13/17 Diagnostics Electrocardiogram 11/20/18 Echocardiogram 03/30/19 Stress Test 07/31/18 Pacemaker Check 04/27/19 Chest X-Ray 06/12/17 05/14/19 [id number] <Electronically signed by Dane Lopez> Date _ Dane SAEZC
[2019-05-22 08:57] VITALS: BMI 39.3
[2019-05-26 09:23] VITALS: BMI 39.3
[2019-05-28] VITALS (7 sets, daily range): BP systolic 105–121; BP diastolic 46–55; PULSE 65–73; RESP 16; TEMP 36.2–36.7; O2SAT 95–97; BMI 39.8
[2019-05-28 06:36] LABS: Bedside Glucose 106 mg/dL (70-110)
--- NOTE | 2019-05-28 07:02 | HP.PCM_ITS ---
History and Physical Date of Admission: 05/28/19 [facility] 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 Is patient in pain?: No Allergies No Known Allergies Allergy (Verified 05/22/19 08:56) Medications Cholecalciferol (VIT D3) [Vitamin D3] 1,000 unit PO BID 03/08/16 [History Confirmed 05/22/19] Levothyroxine [Synthroid] 50 mcg PO DAILY 03/08/16 [History Confirmed 05/22/19] Losartan Potassium [Cozaar] 100 mg PO DAILY 03/08/16 [History Confirmed 05/22/19] metFORMIN HCl [Glucophage] 500 mg PO BIDCM 03/08/16 [History Confirmed 05/22/19] Esomeprazole Mag Trihydrate [Nexium] 40 mg PO QHS 05/22/17 [History Confirmed 05/22/19] Rosuvastatin Calcium [Crestor] 10 mg PO QHS 05/22/17 [History Confirmed 05/22/19] L.acidoph,Paracasei, B.lactis [Probiotic] 1 ea PO DAILY 06/12/17 [History Confirmed 05/22/19] docusate sodium 100 mg capsule 100 mg PO QHS 09/25/17 [History Confirmed 05/22/19] aspirin 81 mg tablet,delayed release 81 mg PO DAILY 07/23/18 [History Confirmed 05/22/19] melatonin 10 mg tablet 10 mg PO HS PRN 07/23/18 [History Confirmed 05/22/19] Clopidogrel Bisulfate [Clopidogrel] 75 mg PO DAILY 11/18/18 [History Confirmed 05/22/19] Pioglitazone HCl 30 mg PO DAILY 11/18/18 [History Confirmed 05/22/19] acetaminophen 500 mg tablet 500 mg PO Q6H PRN tab 03/09/19 [History Confirmed 05/22/19] furosemide 20 mg tablet 20 mg PO DAILY 03/09/19 [History Confirmed 05/22/19] promethazine 25 mg tablet 12.5 mg PO 4X/DAY PRN tab 03/09/19 [History Confirmed 05/22/19] Is last menstrual period known: No Post menopausal: Yes Patient : No PFSH Medical History Syncope and collapse (Chronic) Nonrheumatic tricuspid valve regurgitation (Chronic) Controlled type 2 diabetes mellitus (Chronic) Essential hypertension (Chronic) Atherosclerotic heart disease of [place] coronary artery without angina pectoris (Chronic) Pulmonary hypertension (Chronic) Carotid stenosis, non-symptomatic (Chronic) HLD (hyperlipidemia) (Chronic) Hypothyroidism (Chronic) Cardiac conduction disorder (Chronic) PVC (premature ventricular contraction) (Chronic) Mckeon esophagus (Chronic) Subclavian steal syndrome (Chronic) Bilateral carotid bruits (Chronic) IBS (irritable bowel syndrome) (Chronic) Raynauds syndrome (Chronic) Syncope and collapse (Chronic) Hypertension (Inactive) Surgical History Status post placement of implantable loop recorder (Chronic) History of colonoscopy (Acute ~2017) History of left hip replacement (Acute) History of removal of ureteral stent (Acute) History of total hysterectomy (Acute) History of ureter stent (Acute) S/P peripheral artery angioplasty with stent placement (Chronic ~08/15/98) History of right hip replacement (Resolved) Family History Father CAD (coronary artery disease) Myocardial infarction Mother Hypertension Cancer lung Grandfather Heart disease Myocardial infarction Grandmother Heart disease Cancer esophageal varices Social History (Updated 05/22/19 @ 09:11 by Renaldo Vasquez MD) Smoking Status: Former smoker how long ago did patient quit smokin years ago alcohol intake: never substance use type: does not use caffeine: Yes Type: carbonated beverages Number of servings: 3 what type of physical activity do you participate in: none seatbelt use: always do you feel safe at home: Yes HPI HPI HPI: DESTINY BUTLER, is a 68 F who presents to the office today for HPI HPI Surgical H&P: Yes HPI: DESTINY BUTLER, is a 68 F who presents to the office today for For evaluation for removal of a continuous loop recorder. She has a history of conduction system disorder (established with Dr. Michelle), syncope, mild carotid artery disease, left subclavian steal syndrome with stent placement (follows with Dr. Cardoso), hyperlipidemia, and PVCs. Her most recent loop recorder evaluation showed that device was at end of life. She will undergo loop recorder removal with Dr. Vang on 05/18/2019. However Dr. Leong thinks that the loop recorder has shifted and gone inferiorly from once it was placed.He is contacting me with a fluoroscopic picture showing the tip of a hemostat where the incision is in the loop recorder to be inferior to this. He is concerned that he is worried that this recording device has somehow shifted down closer towards the fascia and has requested that I be involved with removal of this device. She states having an appointment with Dr. Cardoso in which she may require bypass in regards to subclavian steal syndrome. She continues with chest pain and SOB with activity. The chest pain is not a new symptom. This is most noted during times of strenuous activity. She feels that her SOB with activity is worsening. She also notes shortness of breath at rest. Pt denies arm, jaw, or neck discomfort. His exercise tolerance is stable. Pt denies symptoms of palpitations, lightheadedness, dizziness, near syncopal or syncopal episodes. Pt denies claudication issues. She states bilateral lower extremity edema that improves over night. Pt. denies orthopnea, PND, or myalgia, or unexplainable fatigue. She acknowledges snoring and daytime fatigue. This includes falling asleep frequently during he day. ROS General General: Yes fatigue; no weight change, appetite, colon cancer, breast cancer or weakness HEENT HEENT: No difficulty swallowing, eye injury, eye surgery, swollen glands or hoarseness Endo Endocrine: Yes thyroid disease and diabetes mellitus; no thyroid cancer, Hair loss, heat intolerance or cold intolerance Breast Breast: No left breast lump, right breast lump, nipple discharge, breast pain, abnormal mammogram, abnormal US or breast enlargement Musc Musculoskeletal: No back problems, arthritis, rheumatoid arthritis, gout or joint pain Cardio Cardiovascular: Yes heart disease and high blood pressure; no murmur, pacemaker, atrial fibrillation, heart attack, heart stent, palpitations, shortness of breat with exertion or chest pain Additional Details: pulmonary HTN, PVC, tricuspid regurg Psych Psychiatric: No depression, anxiety or hearing voices Resp Respiratory: Yes shortness of breath, No sleep apnea, No cough, No COPD, No asthma, No emphysema, No wheezing Gastro Gastrointestinal: Yes abdominal pain, Yes nausea or vomiting, Yes diarrhea, Yes constipation, No blood in stool, Yes acid reflux, Yes hemorrhoids, No ulcers, No gallbladder problem, No black,tarry stools [place] Hematologic: Yes blood thinners, No blood disorders, No bleeding, No anemia, No blood clots Neuro Neurologic: No weakness Exam Const General: no acute distress, well developed, well hydrated Orientation: oriented to person, oriented to place, oriented to time [facility] Head: normocephalic, atraumatic Ears: external ears normal Mouth: moist mucous membranes Eyes Sclera: sclerae normal Pupils: normal by confrontation Neck Neck: no lymphadenopathy noted Neck mass: No Thyroid: thyroid normal, symmetrical Chest Chest palpation & inspection: normal inspection of the chest Breast Palpation: No nipple discharge Other: Small incision is identified in the inferior aspect of her chest. Due to her body habitus I just cannot feel this loop recorder. Resp Effort & Inspection: normal respiratory effort Auscultation: clear to auscultation bilaterally Percussion: percussion normal Cardio Rate: regular rate Rhythm: regular rhythm Heart Sounds: no murmurs GI Inspection: obesity Palpation: soft, no hepatosplenomegaly, no masses, nontender Rectal Exam: other Other: Rectal exam deferred. Extrem General: normal to inspection, no clubbing, cyanosis or edema Assessment & Plan Problems 1. Status post placement of implantable loop recorder Z95.818 Plan My plan is to take the patient to the OR and under fluoroscopic guidance and under local MAC remove this device. Risk benefits to include bleeding and infection have been reviewed with the patient and she agrees to proceed. Coding Level of Care Code Off vis,new,level 3 Diagnoses Status post placement of implantable loop recorder Z95.818 05/22/19 0911 <Electronically signed by Renaldo navarrete MD> Date _ Renaldo Burrell Signature: Date (if applicable) CC: Johann Vang MD; Jim Calabrese MD ~ I have re-examined the patient. There are no clinical changes since date of exam.
[2019-05-28] MEDS: Lactated Ringers 1,000 ML 100 ML IV (07:22)
[2019-05-28] MEDS: Cefazolin 2 GM in 0.9% Normal Saline 100 ML IV (08:04)
--- NOTE | 2019-05-28 08:15 | FORE_PTH ---
PATIENT: DESTINY BUTLER LOC: [facility] [place] U#:[id number] AGE/SX: 68/F ROOM: RE05/28/[address]: Dr. Renaldo Vasquez MD : 1950 BED: DIS: 05/28/2019 SPEC #: [id number] RECD: 05/28/19 08:38 STATUS: SEVERINO REShirin #: [id number] MARIAH: 05/28/19 08:[address]: Renaldo Vasquez DEPT: SURGICAL PATHOLOGY RECD BY: Helder Kc ENTERED: 05/28/19 09:30 SP TYPE: FOREIGN B MIRIAM DR: Dr. Jim Calabrese MD Tissues: FOREIGN BODY Procedures: Surgery Specimen Level IV HEADER OPERATION: Removal of continuous loop recorder PRE-OP DIAGNOSIS: Status post placement of implantable loop recorder TISSUE SUBMITTED: Continuous loop recorder MICROSCOPIC DIAGNOSIS Tissue from continuous loop recorder, biopsy: Fragments of fibrous tissue and mature adipose tissue. No evidence of inflammation. AM:deanne 05/29/19 MICROSCOPIC DESCRIPTION Slides are reviewed. GROSS DESCRIPTION Received is one container labeled with the patient's name and designated continuous loop recorder. The specimen consists of an elongated fragment of part metal, part plastic component measuring 4.5 x 0.6 x 0.3 cm. It bears the following inscription SN [id number]. A small amount of yellow-pink fibrofat is adherent to one edge measuring 1.5 x 1 x 0.2 cm. This tissue is submitted in its entirety in one cassette. / AM:deanne 05/28/19 TC:5 CPT: 19551
[2019-05-28] MEDS: Bupivacaine Mpf 0.5% 30 ML VIAL (08:18)
--- NOTE | 2019-05-28 08:25 | PCM.OPRPT ---
Problem List (1) Status post placement of implantable loop recorder Status: Chronic Comment: Implant 03/27/16 Report of Operation Date of Procedure: 05/28/19 Pre-Operative Diagnosis: Status post placement of a continuous loop recorder Post-Operative Diagnosis: Same Surgery/Procedure Performed:: Removal of continuous cardiac loop recorder Type of Anesthesia:: Local MAC Anesthesiologist: Solis Soto Specimen's removed: Trimix continuous loop recorder Estimated Blood Loss (mL): < 25 cc Fluids Replaced: 300 cc LR Description of Procedure: Patient was brought into the operating room. Placed in the supine position. Under excellent MAC anesthetic upper abdomen was sterilely prepped and draped in usual fashion. Fluoroscopy was used to confirm placement of the continuous loop recorder. I marked the upper abdomen appropriately. I injected 1% lidocaine plain. Incision was carried down to the continuous loop recorder and this was removed without difficulty. The continuous loop recorder was nowhere near the fascia. I obtained a fluoroscopic picture of the upper abdomen showing the device to be completely removed. More local was injected electrocautery was used for good hemostasis. Subcu was brought together with 2-0 Vicryl deep dermals of 3-0 Vicryl then a running 4-0 Monocryl. Dermabond was applied. Sterile dressings were applied. The patient tolerated the procedure well. - Admit VTE Documentation VTE Present on Admission: No VTE Mechan Device Prophylaxis: SCD's VTE Pharm Prophylaxis ordered?: No Reason prophylaxis not ordered:: Treatment Not Indicated
--- NOTE | 2019-05-28 08:29 | DCINST_ITS ---
Discharge Diet: Light diet - advance as tolerated - If you have questions about your diet instructions, please talk to your doctor. Discharge Activity: May Not Drive - for 1 week or while taking narcotic pain medicine. May shower in (days): 1 Lifting Restrictions: 10 pounds Call your doctor if your incision/area has: Continuous Slow Oozing, Sudden Increased Bleeding, Increased Pain/ Swelling, Increased Redness, Foul Smelling Discharge Call your doctor if you observe: Fever of 101 or Higher Suture Line Care: Avoid Pulling/Pushing, Avoid Pinching/Bending Additional Dressing/Incision Instructions:: Change or remove dressing in 4 days. Leave steri-strips in place for 1 week. Allergies/Adverse Reactions: Allergies No Known Allergies Allergy (Verified 05/28/19 06:25) Medications to take at Discharge Cholecalciferol (VIT D3) [Vitamin D3] 1,000 unit PO BID 03/08/16 Levothyroxine [Synthroid] 50 mcg PO DAILY 03/08/16 Losartan Potassium [Cozaar] 100 mg PO DAILY 03/08/16 metFORMIN HCl [Glucophage] 500 mg PO BIDCM 03/08/16 Esomeprazole Mag Trihydrate [Nexium] 40 mg PO QHS 05/22/17 Rosuvastatin Calcium [Crestor] 10 mg PO QHS 05/22/17 L.acidoph,Paracasei, B.lactis [Probiotic] 1 ea PO DAILY 06/12/17 docusate sodium 100 mg capsule 100 mg PO QHS 09/25/17 aspirin 81 mg tablet,delayed release 81 mg PO DAILY 07/23/18 melatonin 10 mg tablet 10 mg PO HS PRN 07/23/18 Clopidogrel Bisulfate [Clopidogrel] 75 mg PO DAILY 11/18/18 Pioglitazone HCl 30 mg PO DAILY 11/18/18 acetaminophen 500 mg tablet 500 mg PO Q6H PRN tab 03/09/19 furosemide 20 mg tablet 20 mg PO PRN PRN 03/09/19 promethazine 25 mg tablet 12.5 mg PO 4X/DAY PRN tab 03/09/19 Baclofen 10 mg PO DAILY 05/28/19 Oxycodone HCl/Acetaminophen [Percocet 5/325] 1 - 2 tab PO Q4H PRN PRN 6 Days #30 tab 05/28/19 The following prescriptions were given: Oxycodone HCl/Acetaminophen [Percocet 5/325] 1 - 2 tab PO Q4H PRN PRN 6 Days #30 tab PRN Reason: Pain Prescription Printed Primary Care Physician: Jim Calabrese Chi, MD [Primary Care Provider] - Test Results: Test results from this visit will be discussed in further detail at your follow- up appointment, if applicable. Please Follow Up With: Renaldo Vasquez MD - [phone] When: Call to make an appointment to be seen in about 10 days.
== END 2019-05-28 09:50 | disposition home or self-care (01) ==
LOC: SDC 06:06 → AC 06:07
PROVIDERS: Family Provider Family Medicine Geriatric Medicine; PCP Family Medicine Geriatric Medicine; Referring Provider Surgery; Visit Provider Surgery
PROC: (CPT 33286; principal; 2019-05-28 08:00)
DX: Z45.09 Encounter for adjustment and management of other cardiac device (principal); I36.1 Nonrheumatic tricuspid (valve) insufficiency; E11.9 Type 2 diabetes mellitus without complications; I10 Essential (primary) hypertension; I25.10 Atherosclerotic heart disease of native coronary artery without angina pectoris; I27.20 Pulmonary hypertension, unspecified; E78.00 Pure hypercholesterolemia, unspecified; E03.9 Hypothyroidism, unspecified; I49.3 Ventricular premature depolarization; K58.9 Irritable bowel syndrome, unspecified; I73.00 Raynaud's syndrome without gangrene; G45.8 Other transient cerebral ischemic attacks and related syndromes; I45.9 Conduction disorder, unspecified; M19.90 Unspecified osteoarthritis, unspecified site; K44.9 Diaphragmatic hernia without obstruction or gangrene; K21.9 Gastro-esophageal reflux disease without esophagitis; Z87.19 Personal history of other diseases of the digestive system; Z87.442 Personal history of urinary calculi; Z78.0 Asymptomatic menopausal state; Z95.828 Presence of other vascular implants and grafts; Z79.84 Long term (current) use of oral hypoglycemic drugs; Z79.82 Long term (current) use of aspirin; Z79.02 Long term (current) use of antithrombotics/antiplatelets; Z79.899 Other long term (current) drug therapy; Z87.891 Personal history of nicotine dependence
CPT/HCPCS: 33286; 76000; 82962; 88300; 88305; J7120; J2405

== ENCOUNTER → 2019-12-01 15:12 | Outpatient (CLI) | payer MEDICARE, OTHER, SELFPAY ==
[2019-05-28 06:28] VITALS: BMI 39.8
[2019-12-01 17:28] LABS: Absolute Lymphocyte Count 1.75 X10^3/uL (0.83-4.51); Absolute Neutrophil Count 6.5 X10^3/uL (2.0-7.7); Basophil# 0.06 X10^3/uL; Basophil% 0.7 % (0-1); Eosinophil# 0.11 X10^3/uL; Eosinophils% 1.2 % (0-5); Hematocrit 38.5 % (37-47); Hemoglobin 12.4 g/dL (12.0-15.0); Lymphocyte # 1.75 X10^3/ul (4.0); Lymphocyte % 19.1 % (19-41); Mean Corp Hgb Conc 32.2 g/dL (32-36); Mean Corpuscular Hgb 29.7 pg (27.0-32.0); Mean Corpuscular Volume 92.3 fL (81-99); Mean Platelet Vol. 10.1 fl (6.2-12.0); Monocyte# 0.73 X10^3/uL; NRBC Flagged by Analyzer 0 % (0-5); Neutrophil # 6.45 X10^3/uL (2.7-7.7); Neutrophil % 70.6 % (47-70); Platelet Count 226 K/mm3 (150-450); RBC Distribution Width CV 14.3 % (11.6-14.6); RBC Distribution Width SD 48.4 fl (35.1-43.9); Red Blood Count 4.17 M/mm3 (4.2-5.4); White Blood Count 9.1 K/mm3 (4.4-11.0)
--- NOTE | 2019-12-01 17:31 | RAD_ITS ---
STUDY: X-RAY - ABDOMEN/PELVIS REASON FOR EXAM: Female, 69 years old. Patient states she has UTI, abdominal pain TECHNIQUE: AP supine and upright views of the abdomen and pelvis. COMPARISON: November 18, 2018 CT scan abdomen and pelvis FINDINGS: Normal visualized lung bases. There is a moderate amount of colonic fecal material. There is no demonstrated free abdominal air. The visualized liver, spleen and kidneys are grossly normal in size and morphology. Normal soft tissue structures. There are bilateral hip arthroplasties. There is degenerative change in the lumbar spine. There is a visualize calcification to the right of the L4 vertebral body. This is been demonstrated on the prior studies and likely represents a phlebolith. Is a calcific density within the right side of the pelvis suggesting phleboliths similar to prior study. RAD/Abd Inc Decub and/or Erect IMPRESSION: Moderate constipation. Bilateral hip arthroplasties. Electronically Signed: Kathleen Frank MD at 5:39 EDT Tel , Service support ,
[2019-12-01 17:33] LABS: Vitamin D,25 Hydroxy 61.2 ng/mL
[2019-12-01 17:45] LABS: AST(SGOT) 16 U/L (15-37); Alanine Aminotransfer ALT/SGPT 22 U/L (13-56); Albumin, Serum 3.6 g/dL (3.2-5.0); Alkaline Phosphatase 88 U/L (45-117); Anion Gap 10 (5-15); BUN 15 mg/dL (7-18); BUN/Creat Ratio 17.3 RATIO (10-20); Calcium,Total 9.1 mg/dL (8.5-10.1); Chloride 105 mmol/L (98-107); Creatinine, Serum 0.86 mg/dL (0.55-1.02); EST Glomerular Filtration Rate 69 mL/min (>60); Est Glom Filt Rate - Afr Amer 84 mL/min (>60); Globulin 3.7 g/dL (2.2-4.2); Glucose 121 mg/dL (74-106); Potassium 4.2 mmol/L (3.5-5.1); Protein, Total 7.3 g/dL (6.4-8.2); Sodium Level 141 mmol/L (136-145); Thyroid Stim Hormone (TSH) 1.91 uIU/mL (0.358-3.74); Uric Acid 4.8 mg/dL (2.6-6.0)
== END ==
PROVIDERS: PCP Family Medicine Geriatric Medicine; Visit Provider Family Medicine Geriatric Medicine
DX: E11.9 Type 2 diabetes mellitus without complications (principal); E55.9 Vitamin D deficiency, unspecified; N39.0 Urinary tract infection, site not specified; I10 Essential (primary) hypertension; M10.9 Gout, unspecified
CPT/HCPCS: 36415; 74019; 80053; 82306; 84443; 84550; 85025; 87086; 87088; 87186

== ENCOUNTER → 2019-12-18 14:35 | Outpatient (CLI) | payer MEDICARE, OTHER, SELFPAY ==
[2019-12-02 12:05] VITALS: BMI 37.5
--- NOTE | 2019-12-18 14:40 | BI_ITS ---
MAMMOGRAPHY - BILATERAL SCREENING REASON FOR EXAM: Female, 69 years old. Routine annual screening examination. PERTINENT HISTORY: Non-contributory. TECHNIQUE: Digital bilateral breast mehran (3D mammographic acquisition) in the CC and MLO projections. 2-D mediolateral oblique (MLO) and craniocaudad (CC) views of both breasts were obtained. CAD: Full Field Digital Mammography with Computer Added Detection was performed. COMPARISON: Comparison is made with prior examination dated July 27, 2016 and August 06, 2013. FINDINGS: Breast Composition: There are scattered areas of fibroglandular density. There are no dominant masses or suspicious calcifications. Stable small benign-appearing bilateral axillary lymph nodes. No other significant abnormalities are identified. There has been no significant change since the prior study. BI/SCREEN MAMM (CAD) W/MEHRAN BILAT IMPRESSION: Stable bilateral screening mammogram. Yearly follow-up mammogram recommended. (A) ASSESSMENT CATEGORY: BIRADS Category 2: Benign. A letter regarding these results will be sent to the patient by the facility within 30 days. Approximately 10% of breast cancers are not detected by mammography. A normal mammogram should not delay biopsy of a clinically suspicious abnormality. [id number] Electronically Signed: Rodrick Diaz, at 9:06 EDT , Service support ,
== END ==
PROVIDERS: PCP Family Medicine Geriatric Medicine; Referring Provider Family Medicine Geriatric Medicine; Visit Provider Family Medicine Geriatric Medicine
DX: Z12.31 Encounter for screening mammogram for malignant neoplasm of breast (principal)
CPT/HCPCS: 77063; 77067

== ENCOUNTER → 2020-03-09 10:57 | Outpatient (CLI) | payer MEDICARE, OTHER, SELFPAY ==
[2019-12-02 12:05] VITALS: BMI 37.5
[2020-03-09 11:59] LABS: Absolute Lymphocyte Count 1.92 X10^3/uL (0.83-4.51); Absolute Neutrophil Count 5.3 X10^3/uL (2.0-7.7); Basophil# 0.05 X10^3/uL; Basophil% 0.6 % (0-1); Eosinophil# 0.17 X10^3/uL; Eosinophils% 2.1 % (0-5); Hematocrit 37.4 % (37-47); Hemoglobin 12.1 g/dL (12.0-15.0); Lymphocyte # 1.92 X10^3/ul (4.0); Lymphocyte % 23.5 % (19-41); Mean Corp Hgb Conc 32.4 g/dL (32-36); Mean Corpuscular Volume 92.8 fL (81-99); Mean Platelet Vol. 10.2 fl (6.2-12.0); Monocyte# 0.73 X10^3/uL; Monocyte% 8.9 % (0-10); NRBC Flagged by Analyzer 0 % (0-5); Neutrophil # 5.26 X10^3/uL (2.7-7.7); Neutrophil % 64.5 % (47-70); Platelet Count 230 K/mm3 (150-450); RBC Distribution Width CV 13.7 % (11.6-14.6); RBC Distribution Width SD 46.5 fl (35.1-43.9); Red Blood Count 4.03 M/mm3 (4.2-5.4); White Blood Count 8.2 K/mm3 (4.4-11.0)
[2020-03-09 12:34] LABS: ALB/GLOB Ratio 1.2 RATIO (0.9-2.4); AST(SGOT) 19 U/L (15-37); Alanine Aminotransfer ALT/SGPT 20 U/L (13-56); Albumin, Serum 3.6 g/dL (3.2-5.0); Alkaline Phosphatase 82 U/L (45-117); Anion Gap 5 (5-15); BUN 22 mg/dL (7-18); BUN/Creat Ratio 25.9 RATIO (10-20); Calcium,Total 8.8 mg/dL (8.5-10.1); Chloride 111 mmol/L (98-107); Creatinine, Serum 0.85 mg/dL (0.55-1.02); EST Glomerular Filtration Rate 71 mL/min (>60); Est Glom Filt Rate - Afr Amer 85 mL/min (>60); Glucose 108 mg/dL (74-106); Potassium 4.9 mmol/L (3.5-5.1); Protein, Total 6.6 g/dL (6.4-8.2); Sodium Level 141 mmol/L (136-145); Thyroid Stim Hormone (TSH) 1.78 uIU/mL (0.358-3.74)
[2020-03-09 12:42] LABS: Vitamin D,25 Hydroxy 71.8 ng/mL
== END ==
PROVIDERS: PCP Family Medicine Geriatric Medicine; Visit Provider Family Medicine Geriatric Medicine
DX: E11.9 Type 2 diabetes mellitus without complications (principal); E55.9 Vitamin D deficiency, unspecified; I10 Essential (primary) hypertension; N39.0 Urinary tract infection, site not specified
CPT/HCPCS: 36415; 80053; 82306; 84443; 85025; 87077; 87086; 87088; 87186

== ENCOUNTER → 2020-05-06 17:24 | Outpatient (CLI) | payer MEDICARE, OTHER, SELFPAY ==
[2020-04-13 09:58] VITALS: BMI 38.6
== END ==
PROVIDERS: PCP Family Medicine Geriatric Medicine; Referring Provider Family Medicine Geriatric Medicine; Visit Provider Family Medicine Geriatric Medicine
DX: R06.89 Other abnormalities of breathing (principal)
CPT/HCPCS: 87635; C9803; U0003

== ENCOUNTER → 2020-05-27 08:43 | Outpatient (CLI) | payer MEDICARE, OTHER, SELFPAY ==
[2020-04-13 09:58] VITALS: BMI 38.6
--- NOTE | 2020-05-27 08:47 | ART_ITS ---
Reason For Study: arterial stricture Procedure A bilateral upper extremity continuous wave Doppler with analog waveform analysis and segmental pressures. Left Segmental Pressures Left brachial= 113mmHg. Left forearm by way of the radial artery = 113mmHg. Left radial= 127mmHg. Left ulnar= 131mmHg. Left digit = 80 mmHg. The left radial waveforms are monophasic. The left ulnar waveforms are monophasic. Right Segmental Pressures Right brachial= 162mmHg. Right forearm pressure by way of the radial artery = 160mmHg. Right radial= 178mmHg. Right ulnar= 189mmHg. Right digit = 127 mmHg. The right radial waveforms are triphasic. The right ulnar waveforms are triphasic. Indices The right wrist-brachial index is 1.17. The right digital-brachial index is 0.78. The left wrist- brachial index is 0.81. The left digital-brachial index is 0.49. Interpretation Summary WBI with 1.17 and 0.81. decreeased flow left arm .DBI 0.78 and 0.49. Ordering Physician: Je Cardoso Referring Physician: Jim Calabrese Chi Performed By: Taylor Saha RVT, RDCS
--- NOTE | 2020-05-27 08:47 | ADUL_ITS ---
Reason For Study: arterial stricture LEFT Left Subclavian velocity = 58.9 cm/sec. Left Axillary velocity = 81.8 cm/sec. Left Brachial velocity = 48.7 cm/sec. Left Radial velocity = 27.7 cm/sec. Left Ulnar velocity = 15.3 cm/sec. Interpretation Summary No stenosis left arm. Ordering Physician: Je Cardoso Referring Physician: Jim Calabrese Chi Performed By: Taylor Saha, RDCS, RVT
--- NOTE | 2020-05-27 10:02 | RAD_ITS ---
STUDY: X-RAY - CERVICAL SPINE REASON FOR EXAM: Female, 69 years old. CHRONIC NECK PAIN WITH RIGHT SHOULDER PAIN AND LEFT HAND NUMBNESS TECHNIQUE: 6 view(s) of the cervical spine were obtained. COMPARISON: 05/26/2019 FINDINGS: Normal anterior atlantoaxial articulation. Normal odontoid process. Normal cervical lordosis. Normal vertebral bodies and endplates. Normal disc space heights. Normal visualized intervertebral neuroforamina. The soft tissue structures are unremarkable. No significant change since prior exam RAD/Cerv Spine 4 or 5 Views IMPRESSION: Normal x-ray examination of the visualized cervical spine. CT or MRI recommended for evaluation Electronically Signed: Jamel Juarez MD at 21:30 EST , Service support ,
--- NOTE | 2020-05-27 10:02 | RAD_ITS ---
STUDY: X-RAY - RIGHT SHOULDER REASON FOR EXAM: Female, 69 years old. CHRONIC NECK AND RIGHT SHOULDER PAIN TECHNIQUE: 4 view(s) of the shoulder. COMPARISON: None. FINDINGS: Narrowed glenohumeral articulation. Normal acromioclavicular joint. Normal acromion. Normal humeral head and visualized proximal humerus. The soft tissue structures are unremarkable. Normal visualized pulmonary apex. RAD/Shoulder min 2 Views IMPRESSION: Degenerative changes. No acute fracture or other significant bony pathology Electronically Signed: Jamel Juarez MD at 16:59 EST , Service support ,
== END ==
PROVIDERS: PCP Family Medicine Geriatric Medicine; Referring Provider Surgery Vascular Surgery; Visit Provider Surgery Vascular Surgery
DX: M54.2 Cervicalgia (principal); M25.511 Pain in right shoulder; Z48.812 Encounter for surgical aftercare following surgery on the circulatory system; G45.8 Other transient cerebral ischemic attacks and related syndromes; I77.1 Stricture of artery
CPT/HCPCS: 72050; 73030; 93922; 93926

== ENCOUNTER → 2020-06-08 10:31 | Outpatient (CLI) | payer MEDICARE, OTHER, SELFPAY ==
[2020-04-13 09:58] VITALS: BMI 38.6
[2020-06-08 12:06] LABS: Absolute Lymphocyte Count 1.72 X10^3/uL (0.83-4.51); Absolute Neutrophil Count 2.6 X10^3/uL (2.0-7.7); Basophil# 0.07 X10^3/uL; Basophil% 1.4 % (0-1); Eosinophil# 0.16 X10^3/uL; Eosinophils% 3.2 % (0-5); Hematocrit 41.2 % (37-47); Hemoglobin 12.3 g/dL (12.0-15.0); Lymphocyte # 1.72 X10^3/ul (4.0); Mean Corp Hgb Conc 29.9 g/dL (32-36); Mean Corpuscular Hgb 30.1 pg (27.0-32.0); Mean Corpuscular Volume 100.7 fL (81-99); Mean Platelet Vol. 10.1 fl (6.2-12.0); Monocyte# 0.51 X10^3/uL; Monocyte% 10.1 % (0-10); NRBC Flagged by Analyzer 0 % (0-5); Neutrophil # 2.58 X10^3/uL (2.7-7.7); Neutrophil % 50.9 % (47-70); Platelet Count 207 K/mm3 (150-450); RBC Distribution Width CV 14.1 % (11.6-14.6); RBC Distribution Width SD 52.3 fl (35.1-43.9); Red Blood Count 4.09 M/mm3 (4.2-5.4); White Blood Count 5.1 K/mm3 (4.4-11.0)
[2020-06-08 12:23] LABS: Vitamin D,25 Hydroxy 53.8 ng/mL
[2020-06-08 12:30] LABS: ALB/GLOB Ratio 1.1 RATIO (0.9-2.4); AST(SGOT) 18 U/L (15-37); Alanine Aminotransfer ALT/SGPT 24 U/L (13-56); Albumin, Serum 3.6 g/dL (3.2-5.0); Alkaline Phosphatase 80 U/L (45-117); Anion Gap 4 (5-15); BUN 16 mg/dL (7-18); BUN/Creat Ratio 20.2 RATIO (10-20); Calcium,Total 8.8 mg/dL (8.5-10.1); Chloride 109 mmol/L (98-107); Creatinine, Serum 0.79 mg/dL (0.55-1.02); EST Glomerular Filtration Rate 76 mL/min (>60); Est Glom Filt Rate - Afr Amer 92 mL/min (>60); Globulin 3.4 g/dL (2.2-4.2); Glucose 118 mg/dL (74-106); Potassium 4.7 mmol/L (3.5-5.1); Sodium Level 138 mmol/L (136-145); Thyroid Stim Hormone (TSH) 2.47 uIU/mL (0.358-3.74)
== END ==
PROVIDERS: PCP Family Medicine Geriatric Medicine; Visit Provider Family Medicine Geriatric Medicine
DX: E11.9 Type 2 diabetes mellitus without complications (principal); E55.9 Vitamin D deficiency, unspecified; I10 Essential (primary) hypertension
CPT/HCPCS: 36415; 80053; 82306; 84443; 85025

== ENCOUNTER → 2020-06-28 16:48 | Outpatient (CLI) | payer MEDICARE, OTHER, SELFPAY ==
[2020-04-13 09:58] VITALS: BMI 38.6
--- NOTE | 2020-06-28 17:30 | MRI_ITS ---
STUDY: MRI CERVICAL SPINE WITHOUT CONTRAST REASON FOR EXAM: Female, 69 years old. NECK AND RIGHT SHOULDER PAIN TECHNIQUE: Standardized fat and water weighted pulse sequences were obtained in the sagittal and axial planes. COMPARISON: None FINDINGS: Normal foramen magnum and brainstem-cervical cord junction. Normal craniovertebral junction. There are degenerative changes of the anterior atlantoaxial articulation. Normal odontoid process. There is straightening of the normal cervical lordosis. Disc desiccation is present at all levels. C2-3: Normal endplates. Normal disc height, signal and morphology. Normal central canal and intervertebral neural foramina. C3-4: Normal endplates. Normal disc height and morphology. Normal central canal and intervertebral neural foramina. C4-5: Mild anterolisthesis of C4 on C5 of 2 mm. Normal endplates. Minimal posterior disc space narrowing and annular bulging. Normal central canal and left neural foramen. Moderate right foraminal stenosis with nerve root compression is present secondary to uncovertebral facet joint. C5-6: Mild anterolisthesis of C5 on C6 of 2 to 3 mm. Normal endplates. Minimal posterior disc space narrowing and annular bulging. Normal central canal and intervertebral neural foramina. Mild hypertrophy of the right facet joint is present. C6-7: Mild anterolisthesis of C6 on C7 of less than 2 mm. Normal endplates. Minimal posterior disc space narrowing and annular bulging. Normal central canal and intervertebral neural foramina. Mild hypertrophy of the right facet joint is present. C7-T1: Normal endplates. Normal disc height, signal and morphology. Normal central canal and intervertebral neural foramina. Normal cervical cord. Normal visualized soft tissue structures. MRI/Spine Cervical (Routine) IMPRESSION: 1. Multilevel degenerative changes, as described above. 2. Moderate right foraminal stenosis with nerve root compression at C4-C5. Electronically Signed: Hema Morales MD at 23:36 EST , Service support ,
== END ==
PROVIDERS: PCP Family Medicine Geriatric Medicine; Referring Provider Nurse Practitioner Family; Visit Provider Nurse Practitioner Family
DX: M54.2 Cervicalgia (principal); M25.511 Pain in right shoulder
CPT/HCPCS: 72141

== ENCOUNTER → 2020-08-02 06:58 | Outpatient (CLI) | payer MEDICARE, OTHER, SELFPAY ==
[2020-04-13 09:58] VITALS: BMI 38.6
--- NOTE | 2020-08-02 07:03 | ECHOCS_ITS ---
Reason For Study: CAD/ASHD Procedure This was a 2D Doppler, Color Flow transthoracic echocardiogram. The study was technically difficult. Contrast injection was performed. Exam performed in department. Left Ventricle Normal LV size. Left ventricular systolic function is normal. The estimated ejection fraction is 65 %. No regional wall motion abnormalities noted. Right Ventricle Normal RV size. Normal systolic function. Atria The left atrium is mildly enlarged. Normal right atrium. No doppler evidence for ASD. Mitral Valve There is no mitral annular calcification. Normal mitral valve. Trivial mitral valve insufficiency. Tricuspid Valve Normal tricuspid valve. Mild tricuspid valve insufficiency. Right ventricular systolic pressure estimated to be 34 mmHg. Aortic Valve Trisinus/trileaflet aortic valve. Mild focal aortic valve thickening. Mild focal aortic valve calcification. Pulmonic Valve The pulmonic valve is not well visualized. Great Vessels Normal sized aortic root. Pericardium/Pleural No pericardial effusion. Medication 22 gauge I.V. with prn adaptor inserted into right arm. Diluted definity 2ml given slow IV push to enhance endocardial definition. MMode/2D Measurements & Calculations LVIDd: 4.4 cm IVSd: 1.1 cm Ao root diam: 2.8 cm LVIDs: 1.9 cm LVPWd: 1.0 cm LA dimension: 3.8 cm FS: 56.2 % LAV(MOD-bp): 56.9 ml LA A4 area: 21.5 cm2 RA A4 area: 13.8 cm2 LAV(MOD-bp) Indexed: 29.2 ml/m2 LAV(MOD-sp2): 40.0 ml LAV(MOD-sp4): 67.0 ml Time Measurements MV dec time: 0.27 sec Doppler Measurements & Calculations MV E max will: 98.1 cm/sec Lat Peak E' Will: 10.8 cm/sec Med Peak E' Will: 6.6 cm/sec MV A max will: 87.9 cm/sec E/E' lat: 9.1 E/E' med: 14.8 MV E/A: 1.1 MV V2 max: 110.0 cm/sec MV P1/2t max will: 110.0 cm/sec Ao V2 max: 121.9 cm/sec MV max P.8 mmHg MV P1/2t: 83.4 msec Ao max P.9 mmHg MV V2 mean: 55.0 cm/sec MV dec slope: 386.5 cm/sec2 MV mean P.5 mmHg MV V2 VTI: 32.3 cm MVA(P1/2t): 2.6 cm2 LV V1 max: 120.8 cm/sec PA V2 max: 78.1 cm/sec TR max will: 277.7 cm/sec LV V1 max P.8 mmHg TR max P.8 mmHg Interpretation Summary The study was technically difficult. Contrast injection was performed. Left ventricular systolic function is normal. The estimated ejection fraction is 65 %. The left atrium is mildly enlarged. Trivial mitral valve insufficiency. Mild tricuspid valve insufficiency. Mild focal aortic valve thickening. Mild focal aortic valve calcification. Right ventricular systolic pressure estimated to be 34 mmHg. Transmitral diastolic flow velocities suggest diastolic dysfunction (pseudonormal pattern). Ordering Physician: Greg Quinonez Referring Physician: Jim Calabrese Chi Performed By: Francesco Iverson, [facility]
--- NOTE | 2020-08-02 10:13 | STRESSREP ---
Stress Test Report Date: 08-02-2020 Procedure: Pharmacologic stress nuclear imaging study Indications: CAD; PAD; preoperative cardiovascular evaluation Consent: Per the patient Procedure: The patient underwent pharmacologic (Regadenoson) evaluation with a peak heart rate of 91 beats per minute (60%predicted maximal heart rate) and a peak blood pressure of 132/74 mmHg. The baseline ECG demonstrated normal sinus rhythm. The peak pharmacologic ECG demonstrated no obvious ECG changes. There were no cardiac dysrhythmias pretest, during pharmacologic infusion, or recovery. There was no complaint of chest discomfort during pharmacologic infusion or recovery. The examination was discontinued secondary to completion of protocol. Impression: 1. Pharmacologic (Regadenoson) evaluation 2. Peak pharmacologic ECG with no obvious ECG changes. 3. There were no cardiac dysrhythmias pretest, during pharmacologic infusion, or recovery. 4. Nuclear images pending Myocardial perfusion imaging study: Technique: The patient was injected with 14.1 millicuries of technetium 99m Cardiolite and subsequently rest SPECT Cardiolite nuclear imaging was obtained in the horizontal long, vertical long, and short axis views. The patient underwent pharmacologic (Regadenoson) evaluation with a peak heart rate of 91 beats per minute (60% percent predicted maximal heart rate) and a peak blood pressure of 132/74 mmHg. The patient was injected with 43.9 millicuries of technetium 99m Cardiolite and subsequently stress SPECT Cardiolite nuclear imaging was obtained in the horizontal long, vertical long, and short axis views. A gated Cardiolite study at peak stress was obtained. Interpretation: Rest and stress SPECT Cardiolite nuclear imaging status post realignment, normalization, and attenuation correction demonstrate relative uniform tracer uptake and myocardial perfusion appearing within normal limits. There is end systolic thickening and brightening. The gated Cardiolite study demonstrates myocardial thickening and inward wall motion. The reported LVEF is 88%. Impression: 1. Rest and stress SPECT Cardiolite nuclear imaging demonstrate relative uniform tracer uptake and myocardial perfusion appearing within normal limits. 2. The gated Cardiolite study reports an LVEF of 88%. This note was generated with [employer] software. It may contain incorrect words, spelling, and punctuation that were not noted in checking the note before signing.
== END ==
PROVIDERS: PCP Family Medicine Geriatric Medicine; Referring Provider Internal Medicine Cardiovascular Disease; Visit Provider Internal Medicine Cardiovascular Disease
DX: I25.10 Atherosclerotic heart disease of native coronary artery without angina pectoris (principal); E78.5 Hyperlipidemia, unspecified; I10 Essential (primary) hypertension; I36.1 Nonrheumatic tricuspid (valve) insufficiency; I49.3 Ventricular premature depolarization; I45.9 Conduction disorder, unspecified
CPT/HCPCS: 78452; 93017; 93306; A9500; Q9957; A4216; C8929; J2785

== ENCOUNTER → 2020-09-07 11:42 | Outpatient (CLI) | payer MEDICARE, OTHER, SELFPAY ==
[2020-08-08 09:40] VITALS: BMI 39.6
[2020-09-07 12:58] LABS: Absolute Lymphocyte Count 1.41 X10^3/uL (0.83-4.51); Absolute Neutrophil Count 2.7 X10^3/uL (2.0-7.7); Basophil# 0.05 X10^3/uL; Eosinophil# 0.19 X10^3/uL; Hematocrit 36.6 % (37-47); Hemoglobin 11.5 g/dL (12.0-15.0); Lymphocyte # 1.41 X10^3/ul (4.0); Lymphocyte % 29.4 % (19-41); Mean Corp Hgb Conc 31.4 g/dL (32-36); Mean Corpuscular Hgb 29.5 pg (27.0-32.0); Mean Corpuscular Volume 93.8 fL (81-99); Monocyte# 0.41 X10^3/uL; Monocyte% 8.6 % (0-10); NRBC Flagged by Analyzer 0 % (0-5); Neutrophil # 2.72 X10^3/uL (2.7-7.7); Neutrophil % 56.8 % (47-70); Platelet Count 241 K/mm3 (150-450); RBC Distribution Width CV 13.8 % (11.6-14.6); RBC Distribution Width SD 46.9 fl (35.1-43.9); White Blood Count 4.8 K/mm3 (4.4-11.0)
[2020-09-07 13:07] LABS: Vitamin D,25 Hydroxy 53.4 ng/mL
[2020-09-07 13:27] LABS: AST(SGOT) 17 U/L (15-37); Alanine Aminotransfer ALT/SGPT 18 U/L (13-56); Albumin, Serum 3.4 g/dL (3.2-5.0); Alkaline Phosphatase 73 U/L (45-117); Anion Gap 8 (5-15); BUN 17 mg/dL (7-18); Calcium,Total 8.5 mg/dL (8.5-10.1); Chloride 111 mmol/L (98-107); Creatinine, Serum 0.68 mg/dL (0.55-1.02); EST Glomerular Filtration Rate 91 mL/min (>60); Est Glom Filt Rate - Afr Amer 110 mL/min (>60); Globulin 3.3 g/dL (2.2-4.2); Glucose 125 mg/dL (74-106); Potassium 4.2 mmol/L (3.5-5.1); Protein, Total 6.7 g/dL (6.4-8.2); Sodium Level 142 mmol/L (136-145); Thyroid Stim Hormone (TSH) 2.38 uIU/mL (0.358-3.74); Uric Acid 4.9 mg/dL (2.6-6.0)
== END ==
PROVIDERS: PCP Family Medicine Geriatric Medicine; Visit Provider Family Medicine Geriatric Medicine
DX: E11.9 Type 2 diabetes mellitus without complications (principal); E55.9 Vitamin D deficiency, unspecified; I10 Essential (primary) hypertension; M10.9 Gout, unspecified
CPT/HCPCS: 36415; 80053; 82306; 84443; 84550; 85025

== ENCOUNTER → 2020-12-01 11:50 | Outpatient (CLI) | payer MEDICARE, OTHER, SELFPAY ==
[2020-08-08 09:40] VITALS: BMI 39.6
[2020-12-01 12:29] LABS: Absolute Lymphocyte Count 1.63 X10^3/uL (0.83-4.51); Absolute Neutrophil Count 3.6 X10^3/uL (2.0-7.7); Basophil# 0.06 X10^3/uL; Eosinophil# 0.15 X10^3/uL; Eosinophils% 2.5 % (0-5); Hematocrit 40.6 % (37-47); Hemoglobin 12.6 g/dL (12.0-15.0); Lymphocyte # 1.63 X10^3/ul (0.83-4.51); Lymphocyte % 27.7 % (19-41); Mean Corpuscular Hgb 29.8 pg (27.0-32.0); Mean Platelet Vol. 10.1 fl (6.2-12.0); Monocyte# 0.45 X10^3/uL; Monocyte% 7.6 % (0-10); NRBC Flagged by Analyzer 0 % (0-5); Neutrophil # 3.57 X10^3/uL (2.7-7.7); Neutrophil % 60.7 % (47-70); Platelet Count 204 K/mm3 (150-450); RBC Distribution Width CV 14.3 % (11.6-14.6); RBC Distribution Width SD 50.6 fl (35.1-43.9); Red Blood Count 4.23 M/mm3 (4.2-5.4); White Blood Count 5.9 K/mm3 (4.4-11.0)
[2020-12-01 12:37] LABS: Vitamin D,25 Hydroxy 65.9 ng/mL
[2020-12-01 12:47] LABS: AST(SGOT) 18 U/L (15-37); Alanine Aminotransfer ALT/SGPT 30 U/L (13-56); Albumin, Serum 3.4 g/dL (3.2-5.0); Alkaline Phosphatase 79 U/L (45-117); Anion Gap 5 (5-15); BUN 20 mg/dL (7-18); BUN/Creat Ratio 22.6 RATIO (10-20); Calcium,Total 8.8 mg/dL (8.5-10.1); Chloride 109 mmol/L (98-107); Creatinine, Serum 0.88 mg/dL (0.55-1.02); EST Glomerular Filtration Rate 67 mL/min (>60); Est Glom Filt Rate - Afr Amer 81 mL/min (>60); Globulin 3.5 g/dL (2.2-4.2); Glucose 176 mg/dL (74-106); Protein, Total 6.9 g/dL (6.4-8.2); Sodium Level 142 mmol/L (136-145)
== END ==
PROVIDERS: PCP Family Medicine Geriatric Medicine; Visit Provider Family Medicine Geriatric Medicine
DX: E11.9 Type 2 diabetes mellitus without complications (principal); E55.9 Vitamin D deficiency, unspecified; I10 Essential (primary) hypertension
CPT/HCPCS: 36415; 80053; 82306; 84443; 85025

== ENCOUNTER → 2020-12-01 13:07 | Outpatient (CLI) | payer MEDICARE, OTHER, SELFPAY ==
[2020-08-08 09:40] VITALS: BMI 39.6
--- NOTE | 2020-12-01 13:09 | VDLE_ITS ---
Reason For Study: localized edema RIGHT LEFT GSV is normal. GSV is normal. CFV is compressible, spontaneous, phasic, CFV is compressible, spontaneous, phasic, competent and demonstrates normal competent, and demonstrates normal augmentation. augmentation. FV is compressible, spontaneous, phasic, FV is compressible, spontaneous, phasic, competent and demonstrates normal competent and demonstrates normal augmentation. augmentation. POP V is compressible, spontaneous, phasic, POP V is compressible, spontaneous, phasic, competent and demonstrates normal competent and demonstrates normal augmentation. augmentation. T/P Trunk is compressible. T/P Trunk is compressible. PTV is compressible. PTV is compressible. RT PerV is compressible. LT PerV is compressible. Procedure This is a venous duplex using B-mode, color flow and spectral Doppler. Exam performed in department. The exam was diagnostic. A preliminary report was called and/or faxed to Dr. Calabrese. VL/Venous Duplex US - Chaim Extrem Interpretation Summary Deep veins of the lower extremities are bilaterally patent and compressible seg mentally. There is no evidence of deep vein thrombosis on either side. Valvular competence appears in tact within the proximal deep venous systems bilaterally. The great saphenous veins appear bila terally patent and compressible segmentally. Ordering Physician: Jim Calabrese Performed By: Munir Zeng RVT
== END ==
PROVIDERS: PCP Family Medicine Geriatric Medicine; Referring Provider Family Medicine Geriatric Medicine; Visit Provider Family Medicine Geriatric Medicine
DX: R60.0 Localized edema (principal); E11.9 Type 2 diabetes mellitus without complications; E55.9 Vitamin D deficiency, unspecified; I10 Essential (primary) hypertension
CPT/HCPCS: 36415; 80053; 82306; 84443; 85025; 93970

== ENCOUNTER → 2020-12-20 11:00 | Outpatient (CLI) | payer MEDICARE, OTHER, SELFPAY ==
[2020-08-08 09:40] VITALS: BMI 39.6
--- NOTE | 2020-12-20 11:02 | BI_ITS ---
MAMMOGRAPHY - BILATERAL SCREENING REASON FOR EXAM: Female, 70 years old. Routine annual screening examination. PERTINENT HISTORY: Non-contributory. TECHNIQUE: Digital bilateral breast mehran (3D mammographic acquisition) in the CC and MLO projections. 2-D mediolateral oblique (MLO) and craniocaudad (CC) views of both breasts were obtained. CAD: Full Field Digital Mammography with Computer Added Detection was performed. COMPARISON: Comparison is made with prior study of 12/18/2019 and 07/27/2016. FINDINGS: Breast Composition: There are scattered areas of fibroglandular density. There are no dominant masses or suspicious calcifications. Stable small benign-appearing bilateral axillary lymph nodes. No other significant abnormalities are identified. There has been no significant change since the prior study. BI/SCRN MAMM (CAD)W/MEHRAN BILAT IMPRESSION: Stable bilateral screening mammogram. Yearly follow-up mammogram recommended. (A) ASSESSMENT CATEGORY: BIRADS Category 2: Benign. A letter regarding these results will be sent to the patient by the facility within 30 days. Approximately 10% of breast cancers are not detected by mammography. A normal mammogram should not delay biopsy of a clinically suspicious abnormality. [id number] Electronically Signed: Rodrick Diaz MD at 12:03 EDT , Service support ,
== END ==
PROVIDERS: PCP Family Medicine Geriatric Medicine; Referring Provider Family Medicine Geriatric Medicine; Visit Provider Family Medicine Geriatric Medicine
DX: Z12.31 Encounter for screening mammogram for malignant neoplasm of breast (principal)
CPT/HCPCS: 77063; 77067

== ENCOUNTER → 2021-01-26 10:51 | Outpatient (CLI) | payer MEDICARE, OTHER, SELFPAY ==
[2021-01-26 10:04] VITALS: BMI 39.6
[2021-01-26 12:28] LABS: BNP,B-Type NATRIURETIC PEPTIDE 125.9 pg/mL (0-100)
== END ==
PROVIDERS: PCP Family Medicine Geriatric Medicine; Visit Provider Nurse Practitioner Family
DX: R06.00 Dyspnea, unspecified (principal)
CPT/HCPCS: 36415; 83880

== ENCOUNTER → 2021-03-13 12:06 | Outpatient (CLI) | payer MEDICARE, OTHER, SELFPAY ==
[2021-03-13 12:48] LABS: Vitamin D,25 Hydroxy 92.2 ng/mL
[2021-03-13 12:53] LABS: Absolute Neutrophil Count 3.6 X10^3/uL (2.0-7.7); Basophil# 0.07 X10^3/uL; Basophil% 1.1 % (0-1); Eosinophil# 0.37 X10^3/uL; Hematocrit 37.7 % (37-47); Hemoglobin 11.7 g/dL (12.0-15.0); Lymphocyte % 25.9 % (19-41); Mean Corpuscular Hgb 29.4 pg (27.0-32.0); Mean Corpuscular Volume 94.7 fL (81-99); Monocyte# 0.55 X10^3/uL; Monocyte% 8.9 % (0-10); NRBC Flagged by Analyzer 0 % (0-5); Neutrophil # 3.56 X10^3/uL (2.7-7.7); Neutrophil % 57.8 % (47-70); Platelet Count 241 K/mm3 (150-450); RBC Distribution Width CV 13.7 % (11.6-14.6); RBC Distribution Width SD 47.8 fl (35.1-43.9); Red Blood Count 3.98 M/mm3 (4.2-5.4); White Blood Count 6.2 K/mm3 (4.4-11.0)
[2021-03-13 12:55] LABS: ALB/GLOB Ratio 1.2 RATIO (0.9-2.4); AST(SGOT) 17 U/L (15-37); Alanine Aminotransfer ALT/SGPT 26 U/L (13-56); Albumin, Serum 3.8 g/dL (3.2-5.0); Alkaline Phosphatase 75 U/L (45-117); Anion Gap 4 (5-15); BUN 25 mg/dL (7-18); BUN/Creat Ratio 30.7 RATIO (10-20); Calcium,Total 8.8 mg/dL (8.5-10.1); Chloride 109 mmol/L (98-107); Creatinine, Serum 0.81 mg/dL (0.55-1.02); EST Glomerular Filtration Rate 74 mL/min (>60); Est Glom Filt Rate - Afr Amer 89 mL/min (>60); Globulin 3.2 g/dL (2.2-4.2); Glucose 132 mg/dL (74-106); Potassium 4.3 mmol/L (3.5-5.1); Sodium Level 141 mmol/L (136-145); Thyroid Stim Hormone (TSH) 1.53 uIU/mL (0.358-3.74)
== END ==
PROVIDERS: PCP Family Medicine Geriatric Medicine; Visit Provider Family Medicine Geriatric Medicine
DX: E11.9 Type 2 diabetes mellitus without complications (principal); E55.9 Vitamin D deficiency, unspecified; N13.30 Unspecified hydronephrosis
CPT/HCPCS: 36415; 80053; 82306; 84443; 85025

== ENCOUNTER → 2021-06-06 11:00 | Outpatient (CLI) | payer MEDICARE, OTHER, SELFPAY ==
[2021-06-06 12:37] LABS: Absolute Lymphocyte Count 1.74 X10^3/uL (0.83-4.51); Absolute Neutrophil Count 2.5 X10^3/uL (2.0-7.7); Basophil# 0.07 X10^3/uL; Basophil% 1.4 % (0-1); Eosinophil# 0.17 X10^3/uL; Eosinophils% 3.4 % (0-5); Hematocrit 38.3 % (37-47); Hemoglobin 12.1 g/dL (12.0-15.0); Lymphocyte # 1.74 X10^3/ul (0.83-4.51); Lymphocyte % 34.4 % (19-41); Mean Corp Hgb Conc 31.6 g/dL (32-36); Mean Corpuscular Volume 94.8 fL (81-99); Mean Platelet Vol. 10.1 fl (6.2-12.0); Monocyte# 0.52 X10^3/uL; Monocyte% 10.3 % (0-10); NRBC Flagged by Analyzer 0 % (0-5); Neutrophil # 2.52 X10^3/uL (2.7-7.7); Neutrophil % 49.7 % (47-70); Platelet Count 218 K/mm3 (150-450); RBC Distribution Width CV 13.2 % (11.6-14.6); Red Blood Count 4.04 M/mm3 (4.2-5.4); White Blood Count 5.1 K/mm3 (4.4-11.0)
[2021-06-06 12:46] LABS: Vitamin D,25 Hydroxy 68.6 ng/mL
[2021-06-06 12:57] LABS: ALB/GLOB Ratio 0.9 RATIO (0.9-2.4); AST(SGOT) 19 U/L (15-37); Alanine Aminotransfer ALT/SGPT 24 U/L (13-56); Albumin, Serum 3.4 g/dL (3.2-5.0); Alkaline Phosphatase 80 U/L (45-117); Anion Gap 7 (5-15); BUN 24 mg/dL (7-18); BUN/Creat Ratio 23.5 RATIO (10-20); Chloride 109 mmol/L (98-107); Creatinine, Serum 1.02 mg/dL (0.55-1.02); EST Glomerular Filtration Rate 57 mL/min (>60); Est Glom Filt Rate - Afr Amer 69 mL/min (>60); Globulin 3.6 g/dL (2.2-4.2); Glucose 137 mg/dL (74-106); Sodium Level 141 mmol/L (136-145); Thyroid Stim Hormone (TSH) 2.64 uIU/mL (0.358-3.74)
== END ==
PROVIDERS: PCP Family Medicine Geriatric Medicine; Visit Provider Family Medicine Geriatric Medicine
DX: E11.9 Type 2 diabetes mellitus without complications (principal); E55.9 Vitamin D deficiency, unspecified; I10 Essential (primary) hypertension
CPT/HCPCS: 36415; 80053; 82306; 84443; 85025

== ENCOUNTER → 2021-06-19 12:11 | Outpatient (CLI) | payer MEDICARE, OTHER, SELFPAY | PROVIDERS: PCP Family Medicine Geriatric Medicine; Referring Provider Family Medicine Geriatric Medicine; Visit Provider Family Medicine Geriatric Medicine | DX: R06.89 Other abnormalities of breathing (principal) | CPT/HCPCS: 87635; 87804; 87807; C9803; U0005; U0003 ==

== ENCOUNTER → 2021-07-18 16:17 | Outpatient (CLI) | payer MEDICARE, OTHER, SELFPAY ==
--- NOTE | 2021-07-18 16:25 | RAD_ITS ---
STUDY: X-RAY CHEST REASON FOR EXAM: Female, 70 years old. SOB TECHNIQUE: PA and lateral views of the chest. COMPARISON: 06/12/2017 FINDINGS: The lungs are clear and expanded. There is no demonstrated pleural abnormality. Normal size heart. Normal mediastinum and constantin. Normal visualized pulmonary arteries. Normal visualized aortic arch and descending thoracic aorta. Normal visualized thoracic spine. Normal visualized ribs, clavicles, and shoulders. There is no demonstrated abnormality of the visualized soft tissue structures of the upper abdomen. RAD/Chest PA and Lateral IMPRESSION: Normal x-ray examination of the chest. Electronically Signed: Franklin Del Cid MD at 8:55 EST Tel , Service support ,
== END ==
PROVIDERS: PCP Family Medicine Geriatric Medicine; Referring Provider Family Medicine Geriatric Medicine; Visit Provider Family Medicine Geriatric Medicine
DX: R06.02 Shortness of breath (principal)
CPT/HCPCS: 71046

== ENCOUNTER → 2021-07-19 09:03 | Outpatient (CLI) | payer MEDICARE, OTHER, SELFPAY | PROVIDERS: PCP Family Medicine Geriatric Medicine; Referring Provider Family Medicine Geriatric Medicine; Visit Provider Family Medicine Geriatric Medicine | DX: R68.83 Chills (without fever) (principal) | CPT/HCPCS: 87635; 87804; 87807; C9803; U0005; U0003 ==

== ENCOUNTER 2021-08-09 06:14 | Day surgery (SDC) | payer MEDICARE, OTHER, SELFPAY ==
[2021-08-09 06:47] VITALS: BP 107/59; PULSE 70; RESP 16; TEMP 36.8; O2SAT 99; BMI 37.3
--- NOTE | 2021-08-09 07:00 | HP.PCM_ITS ---
History and Physical Date of Admission: 08/09/21 70 F who presents to the office today for evaluation of possible IBD. She has been told in the past that she has IBS, possible IBD, nonspecific colitis. She says the symptoms have been going on since she was a teenager. It originally started off with symptoms that she thought was associated with her menstrual period. It progressed to worsening abdominal pain associated with multiple GI complaints. 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 She has been having bowel issues since age 16. Her current symptoms include abdominal pain, nausea, bloating, diarrhea alternating with constipation. There is a lot of mucous in her stool, history of blood but none currently. Historically, pain and explosive diarrhea will cause her to loose consciousness. She has not lost consciousness in the last 4-6 years. She has been told she has IBD, gastritis, Crohn's, epilepsy of the bowel and colitis. Aprazo started and the stopped following colonoscopy. Also attempted bentyl, budesonide, xifaxan. She does not feel these helped much. Taking promethazine nightly for nausea and Miralax supplement. Last colonoscopy performed about 3 years prior. EGD last performed several months ago. CT abd/pel performed 11/18/18 noted small hiatal hernia. Sigmoid diverticulosis. Diffuse atherosclerotic calcification of abdominal aorta and major visceral branches. Borderline retroperitoneal lymphadenopathy. Liver normal size. ROS Const Constitutional: Positive for weakness Cardio Cardiology: Positive for shortness of breath Gastro GI: Positive for abdominal pain, bloating, constipation, heartburn and nausea/dyspepsia Musc Musculoskeletal: Positive for joint pain, back pain, joint swelling, muscle weakness, numbness, stiffness, tingling and Arthritis Skin Skin: Positive for dry skin Neuro Neurology: Positive for weakness, numbness and tingling Exam Const General: cooperative and comfortable Nutritional Appearance: average body habitus and well nourished [facility] Head: normal to inspection Ears: hearing grossly normal bilaterally Nose: external nose normal Face and sinus: normal facial exam Mouth: oral mucosae normal Throat: posterior oropharynx normal Eyes General: appearance normal, both eyes and all related structures Neck Neck: normal visual inspection Chest Chest palpation & inspection: normal inspection of the chest and normal palpation of entire chest wall Resp Effort & Inspection: normal respiratory effort Auscultation: Bilateral: Clear to Auscultation Cardio Palpation: normal PMI Rate: regular rate Rhythm: regular rhythm GI Inspection: normal to inspection Auscultation: normal bowel sounds Percussion: normal to percussion Palpation: no hepatosplenomegaly Skin General: no rashes or lesions noted Neuro General: patient alert Extrem General: normal to inspection Psych Affect: normal affect Quality Reporting Tobacco Screening ([facility] 138) Smoking Status: Former smoker Assessment and Plan Assessment and Plan (1) Non-specific colitis: Plan - Dr. Hamm Friend, DO: The differential diagnosis includes segmental colitis associated with diverticulosis, microscopic colitis, IBD, IBS associated with diarrhea, she will undergo colonoscopy eval weight her lower GI tract. We also likely have to get biochemical analysis to evaluate her for associated diseases. (2) IBS (irritable bowel syndrome): Status: Chronic Plan - Dr. Hamm Friend, DO: We will evaluate her upper GI tract for any structural abnormalities and mucosal abnormalities. She was explained alternatives, risk, benefits including not withstanding bleeding, infection, sepsis, perforation, need for emergent . She'll have an ASA 3. I have re-examined the patient. There are no clinical changes since date of exam.
[2021-08-09 07:01] LABS: Bedside Glucose 134 mg/dL (70-110)
[2021-08-09] MEDS: Lactated Ringers 1,000 ML 15 ML IV (07:02)
--- NOTE | 2021-08-09 07:15 | IMM_PTH ---
PATIENT: DESTINY BUTLER LOC: EN U#:[id number] AGE/SX: 71/F ROOM: RE08/09/[address]: Dr. Hansel Ramsey DO : 1950 BED: DIS: 08/09/2021 SPEC #: [id number] RECD: 08/09/21 13:36 STATUS: SEVERINO REShirin #: [id number] MARIAH: 08/09/21 07:[address]: Hansel Ramsey DEPT: IMMUNOHISTOCHEMISTRY RECD BY: Natali Smart ENTERED: 08/09/21 13:37 SP TYPE: IMMUNO OTHR DR: Dr. Jim Calabrese MD Tissues: C - Stomach, NOS Procedures: H Pylori (initial) PHYSICIAN & INSTITUTION [place] [id number] SPECIMEN INFORMATION: Tissue Source: C ? Gastric antrum biopsy Clinical Info: Nonspecific colitis, irritable bowel syndrome Specimen Number: [id number] CPT code: 33606 METHODOLOGY: Deparaffinized sections of prefer/formalin-fixed tissue or PAP/DQ stained slides are incubated with monoclonal/polyclonal antibodies/oligonucleotide probes. Localization is made via biotin free immunoperoxidase method. Appropriate controls are performed and reacted as expected. Results on target cell population are indicated in the following table: RESULTS: ANTIBODY / CLONE RESULT Block C H Pylori (polyclonal) negative These tests were developed and their performance characteristics determined by [facility]. They may not have been cleared or approved by the U.S. Food and Drug Administration. The FDA has determined that such clearance or approval is not necessary. INTERPRETATION: C. Gastric antrum, biopsy: Negative for Helicobacter pylori organisms. AM:deanne 08/10/2021
--- NOTE | 2021-08-09 07:15 | EGD_PTH ---
PATIENT: DESTINY BUTLER LOC: EN U#:[id number] AGE/SX: 71/F ROOM: RE08/09/[address]: Dr. Hansel Ramsey DO : 1950 BED: DIS: 08/09/2021 SPEC #: [id number] RECD: 08/09/21 12:43 STATUS: SEVERINO MICHAEL #: [id number] MARIAH: 08/09/21 07:[address]: Hansel Ramsey DEPT: SURGICAL PATHOLOGY RECD BY: Maureen Corrales ENTERED: 08/09/21 13:17 SP TYPE: EGD BIOPSY OT DR: Dr. Jim Calabrese MD Tissues: A - Duodenum, NOS B - Gastric mucous membrane C - Gastric mucous membrane D - Esophagus, NOS E - Ileum, NOS F - COLON BIOPSY Procedures: Special Stain Group II Surgery Specimen Level IV Alcian Blue/PAS (control) HEADER OPERATION: Colonoscopy, EGD ([facility]) with biopsy PRE-OP DIAGNOSIS: Nonspecific colitis, irritable bowel syndrome TISSUE SUBMITTED: A ? Duodenum biopsy, B ? Gastric body biopsy, C ? Gastric antrum biopsy, D ? Distal esophagus biopsy, E ? Terminal ileum biopsy, F ? Random colon biopsy MICROSCOPIC DIAGNOSIS A. Duodenum, biopsy: No pathologic change. B. Gastric body, biopsy: Mild chronic gastritis. C. Gastric antrum, biopsy: Mild chronic gastritis. See comment. D. Distal esophagus, biopsy: Gastroesophageal junctional mucosa with mild chronic inflammation. No evidence of goblet cell metaplasia. See comment. E. Terminal ileum, biopsy: No pathologic change. F. Colon, random biopsy: Mild melanosis coli. AM:deanne 08/10/2021 COMMENT C. The results of immunohistochemistry for Helicobacter pylori will be reported separately ([id number]). D. Alcian blue/PAS stain with matched control supports the above diagnosis. MICROSCOPIC DESCRIPTION Slides are reviewed. GROSS DESCRIPTION A - Received in fixative is one container labeled with the patient's name and designated duodenum biopsy. The specimen consists of multiple irregular fragments of light simmons soft tissue that in aggregate measure 1.2 x 0.5 x 0.1 cm. The specimen is totally submitted in one cassette. B - Received in fixative is one container labeled with the patient's name and designated gastric body biopsy. The specimen consists of one irregular fragment of light simmons soft tissue that measures 0.4 x 0.3 x 0.1 cm. The specimen is totally submitted in one cassette. C - Received in fixative is one container labeled with the patient's name and designated gastric antrum biopsy. The specimen consists of two irregular fragments of light simmons soft tissue that in aggregate measure 0.4 x 0.3 x 0.1 cm. The specimen is totally submitted in one cassette. D - Received in fixative is one container labeled with the patient's name and designated distal esophagus biopsy. The specimen consists of multiple irregular fragments of light simmons soft tissue that in aggregate measure 0.4 x 0.3 x 0.1 cm. The specimen is totally submitted in one cassette. E - Received in fixative is one container labeled with the patient's name and designated terminal ileum biopsy. The specimen consists of multiple irregular fragments of light simmons soft tissue that in aggregate measure 1.2 x 0.5 x 0.1 cm. The specimen is totally submitted in one cassette. F - Received in fixative is one container labeled with the patient's name and designated random colon biopsy. The specimen consists of multiple irregular fragments of light simmons soft tissue that in aggregate measure 1.5 x 0.5 x 0.1 cm. The specimen is totally submitted in one cassette. / SJ:rg 08/09/2021 TC:3 CPT: 18946 x6, 13996
--- NOTE | 2021-08-09 07:30 | OP.EGD_ITS ---
Patient Name: Riddhi Koroma Procedure Date: 08/09/2021 7:07 AM Date of : 1950 Age: 71 Procedure: Upper GI endoscopy Indications: Epigastric abdominal pain, Esophageal reflux Providers: Hansel Ramsey DO Medicines: See the Anesthesia note for documentation of the administered medications Patient Profile: This is a 71 year old female. Refer to note in patient chart for documentation of history and physical. Patient has symptoms of chronic abdominal cramping, chronic abdominal distention and chronic global abdominal pain. Complications: No immediate complications. Procedure: Pre-Anesthesia Assessment: - Prior to the procedure, a History and Physical was performed, and patient medications and allergies were reviewed. The risks and benefits of the procedure and the sedation options and risks were discussed with the patient. All questions were answered and informed consent was obtained. Patient identification and proposed procedure were verified by the physician in the pre-procedure area. Mental Status Examination: alert and oriented. Airway Examination: normal oropharyngeal airway and neck mobility. Respiratory Examination: clear to auscultation. CV Examination: normal. Prophylactic Antibiotics: The patient does not require prophylactic antibiotics. Prior Anticoagulants: The patient has taken no previous anticoagulant or antiplatelet agents. ASA Grade Assessment: II - A patient with mild systemic disease. After reviewing the risks and benefits, the patient was deemed in satisfactory condition to undergo the procedure. The anesthesia plan was to use moderate sedation / analgesia (conscious sedation). Immediately prior to administration of medications, the patient was re-assessed for adequacy to receive sedatives. The heart rate, respiratory rate, oxygen saturations, blood pressure, adequacy of pulmonary ventilation, and response to care were monitored throughout the procedure. The physical status of the patient was re-assessed after the procedure. After obtaining informed consent, the endoscope was passed under direct vision. Throughout the procedure, the patient's blood pressure, pulse, and oxygen saturations were monitored continuously. The colonoscope was introduced through the mouth, and advanced to the second part of duodenum. The upper GI endoscopy was accomplished without difficulty. The patient tolerated the procedure well. Moderate Sedation: Moderate (conscious) sedation was administered by the endoscopy nurse and supervised by the endoscopist. The following parameters were monitored: oxygen saturation, heart rate, blood pressure, and response to care. Total physician intraservice time was 15 minutes. Scope In: 7:19:49 AM Scope Out: 7:26:19 AM Total Procedure Duration Time 0 hours 6 minutes 30 seconds Findings: LA Grade A (one or more mucosal breaks less than 5 mm, not extending between tops of 2 mucosal folds) esophagitis with no bleeding was found 34 to 35 cm from the incisors. Biopsies were taken with a cold forceps for histology. A non-obstructing Schatzki ring was found in the lower third of the esophagus. A medium-sized hiatal hernia was present. Multiple localized, 5 mm non-bleeding erosions were found in the gastric body. There were no stigmata of recent bleeding. Biopsies were taken with a cold forceps for histology. Verification of patient identification for the specimen was done. Estimated blood loss was minimal. Localized mild inflammation characterized by congestion (edema) was found in the gastric antrum. Biopsies were taken with a cold forceps for histology. Verification of patient identification for the specimen was done. The second portion of the duodenum was normal. Biopsies were taken with a cold forceps for histology. Verification of patient identification for the specimen was done. Estimated blood loss was minimal. Impression: - LA Grade A reflux esophagitis. Biopsied. - Non-obstructing Schatzki ring. - Medium-sized hiatal hernia. - Non-bleeding erosive gastropathy. Biopsied. - Gastritis. Biopsied. - Normal second portion of the duodenum. Biopsied. Recommendation: - Discharge patient to home. - Resume previous diet. - Continue present medications. - Await pathology results. - Repeat upper endoscopy in 1 year for surveillance. - Return to GI office in 2 weeks. Procedure Code(s): --- Professional --- 26660, Esophagogastroduodenoscopy, flexible, transoral; with biopsy, single or multiple 57629, 59, Moderate sedation services provided by the same physician or other qualified health career services director performing the diagnostic or therapeutic service that the sedation supports, requiring the presence of an independent trained observer to assist in the monitoring of the patient's level of consciousness and physiological status; initial 15 minutes of intraservice time, patient age 5 years or older CPT copyright 2017 [employer]. All rights reserved. The codes documented in this report are preliminary and upon poultry offal icer review may be revised to meet current compliance requirements. Hansel Ramsey DO 08/09/2021 7:30:13 AM This report has been signed electronically. Number of Addenda: 1 Note Initiated On: 08/09/2021 7:07 AM Addendum Number: 1 Addendum Date: 03/29/2022 6:16:47 AM MAC was used instead of moderate sedation for the patient. Hansel Ramsey DO 03/29/2022 6:16:51 AM This report has been signed electronically.
--- NOTE | 2021-08-09 07:31 | OP.CCLET_ITS ---
03/29/2022 Jim Calabrese MD [address] [place] [address] Re : Upper GI endoscopy procedure for Riddhi Koroma Dear Dr. Calabrese This procedure was performed on Monday, August 09, 2021. My impressions and recommendations are as follows: Impressions : - LA Grade A reflux esophagitis. Biopsied. - Non-obstructing Schatzki ring. - Medium-sized hiatal hernia. - Non-bleeding erosive gastropathy. Biopsied. - Gastritis. Biopsied. - Normal second portion of the duodenum. Biopsied. Recommendations : - Discharge patient to home. - Resume previous diet. - Continue present medications. - Await pathology results. - Repeat upper endoscopy in 1 year for surveillance. - Return to GI office in 2 weeks. My findings are described in the full procedure note, which is enclosed. If I can be of further assistance, please feel free to contact me at . Sincerely, Hansel Ramsey, 08/09/2021 7:30:13 AM This report has been signed electronically.
[2021-08-09 07:50] VITALS: BP 107/59; BP 119/52; PULSE 78; RESP 16; TEMP 36.8; O2SAT 98
--- NOTE | 2021-08-09 07:51 | OP.COLON_ITS ---
Patient Name: Riddhi Koroma Procedure Date: 08/09/2021 7:27 AM Date of : 1950 Age: 71 Procedure: Colonoscopy Indications: Chronic diarrhea, Clinically significant diarrhea of unexplained origin Providers: Hansel Ramsey DO Medicines: See the Anesthesia note for documentation of the administered medications Patient Profile: This is a 71 year old female. Refer to note in patient chart for documentation of history and physical. Patient has symptoms of chronic abdominal cramping, chronic abdominal distention and chronic global abdominal pain. Last Colonoscopy: date unknown. Complications: No immediate complications. Procedure: Pre-Anesthesia Assessment: - Prior to the procedure, a History and Physical was performed, and patient medications and allergies were reviewed. The risks and benefits of the procedure and the sedation options and risks were discussed with the patient. All questions were answered and informed consent was obtained. Patient identification and proposed procedure were verified by the physician in the pre-procedure area. Mental Status Examination: alert and oriented. Airway Examination: normal oropharyngeal airway and neck mobility. Respiratory Examination: clear to auscultation. CV Examination: normal. Prophylactic Antibiotics: The patient does not require prophylactic antibiotics. Prior Anticoagulants: The patient has taken no previous anticoagulant or antiplatelet agents. ASA Grade Assessment: II - A patient with mild systemic disease. After reviewing the risks and benefits, the patient was deemed in satisfactory condition to undergo the procedure. The anesthesia plan was to use moderate sedation / analgesia (conscious sedation). Immediately prior to administration of medications, the patient was re-assessed for adequacy to receive sedatives. The heart rate, respiratory rate, oxygen saturations, blood pressure, adequacy of pulmonary ventilation, and response to care were monitored throughout the procedure. The physical status of the patient was re-assessed after the procedure. After I obtained informed consent, the scope was passed under direct vision. Throughout the procedure, the patient's blood pressure, pulse, and oxygen saturations were monitored continuously. The colonoscope was introduced through the anus and advanced to the terminal ileum. The terminal ileum, ileocecal valve, appendiceal orifice, and rectum were photographed. Moderate Sedation: Moderate (conscious) sedation was administered by the endoscopy nurse and supervised by the endoscopist. The patient's oxygen saturation, heart rate, blood pressure and response to care were monitored. Total physician intraservice time was 15 minutes. Scope In: 7:32:05 AM Scope Withdrawal Time 0 hours 10 minutes 40 seconds Scope Out: 7:45:29 AM Total Procedure Duration Time 0 hours 13 minutes 24 seconds Findings: The perianal and digital rectal examinations were normal. An area of mildly congested mucosa was found in the sigmoid colon, in the transverse colon, in the ascending colon and in the cecum. Biopsies were taken with a cold forceps for histology. Verification of patient identification for the specimen was done. Estimated blood loss was minimal. A scattered area of the distal ileum was congested. Biopsies were taken with a cold forceps for histology. A few small-mouthed diverticula were found in the recto-sigmoid colon and sigmoid colon. Hemorrhoids were found on perianal exam. Impression: - Congested mucosa in the sigmoid colon, in the transverse colon, in the ascending colon and in the cecum. Biopsied. - Congested mucosa in the distal ileum. Biopsied. - Mild diverticulosis in the recto-sigmoid colon and in the sigmoid colon. Recommendation: - Await pathology results. - Return to my office in 2 weeks. - Repeat colonoscopy in 5 years for surveillance based on pathology results. - Continue present medications. Procedure Code(s): --- Professional --- 93763, Colonoscopy, flexible; with biopsy, single or multiple 75868, 59, Moderate sedation services provided by the same physician or other qualified health home care companion performing the diagnostic or therapeutic service that the sedation supports, requiring the presence of an independent trained observer to assist in the monitoring of the patient's level of consciousness and physiological status; initial 15 minutes of intraservice time, patient age 5 years or older CPT copyright 2017 [employer]. All rights reserved. The codes documented in this report are preliminary and upon pan greaser review may be revised to meet current compliance requirements. Hansel Ramsey DO 08/09/2021 7:50:55 AM This report has been signed electronically. Number of Addenda: 1 Note Initiated On: 08/09/2021 7:27 AM Addendum Number: 1 Addendum Date: 03/29/2022 6:16:59 AM MAC was used instead of moderate sedation for the patient. Hansel Ramsey DO 03/29/2022 6:17:03 AM This report has been signed electronically.
--- NOTE | 2021-08-09 07:52 | OP.CCLET_ITS ---
03/29/2022 Jim Calaberse MD [address] [place] [address] Re : Colonoscopy procedure for Riddhi Koroma Dear Dr. Calabrese This procedure was performed on Monday, August 09, 2021. My impressions and recommendations are as follows: Impressions : - Congested mucosa in the sigmoid colon, in the transverse colon, in the ascending colon and in the cecum. Biopsied. - Congested mucosa in the distal ileum. Biopsied. - Mild diverticulosis in the recto-sigmoid colon and in the sigmoid colon. Recommendations : - Await pathology results. - Return to my office in 2 weeks. - Repeat colonoscopy in 5 years for surveillance based on pathology results. - Continue present medications. My findings are described in the full procedure note, which is enclosed. If I can be of further assistance, please feel free to contact me at . Sincerely, Hansel Friend, 08/09/2021 7:50:55 AM This report has been signed electronically.
[2021-08-09 07:55] VITALS: BP 107/59; BP 118/55; PULSE 75; RESP 16; O2SAT 97
[2021-08-09 08:00] VITALS: BP 107/59; BP 124/59; PULSE 73; RESP 16; O2SAT 98
[2021-08-09 08:05] VITALS: BP 107/59; BP 126/48; PULSE 70; RESP 16; TEMP 36.6; O2SAT 97
[2021-08-09 08:22] VITALS: BP 107/59
== END 2021-08-09 23:59 | disposition home or self-care (01) ==
LOC: EN 06:16 → AC 06:18
PROVIDERS: PCP Family Medicine Geriatric Medicine; Referring Provider Family Medicine Geriatric Medicine; Visit Provider Internal Medicine Gastroenterology
PROC: 0DJD8ZZ Inspection of Lower Intestinal Tract, Via Natural or Artificial Opening Endoscopic (ICD-10-PCS; CPT 45378; principal; 2021-08-09 07:10)
DX: K21.00 Gastro-esophageal reflux disease with esophagitis, without bleeding (principal); I27.20 Pulmonary hypertension, unspecified; E11.9 Type 2 diabetes mellitus without complications; K22.2 Esophageal obstruction; K29.50 Unspecified chronic gastritis without bleeding; K44.9 Diaphragmatic hernia without obstruction or gangrene; K64.9 Unspecified hemorrhoids; K57.30 Diverticulosis of large intestine without perforation or abscess without bleeding; I65.23 Occlusion and stenosis of bilateral carotid arteries; K58.0 Irritable bowel syndrome with diarrhea; I25.10 Atherosclerotic heart disease of native coronary artery without angina pectoris; I36.1 Nonrheumatic tricuspid (valve) insufficiency; I49.3 Ventricular premature depolarization; I73.00 Raynaud's syndrome without gangrene; E03.9 Hypothyroidism, unspecified; E78.5 Hyperlipidemia, unspecified; M19.90 Unspecified osteoarthritis, unspecified site; Z79.82 Long term (current) use of aspirin; Z79.84 Long term (current) use of oral hypoglycemic drugs; Z79.899 Other long term (current) drug therapy; Z87.891 Personal history of nicotine dependence
CPT/HCPCS: 45380; 43239; 82962; 88305; 88313; 88342; J7120; J2405

== ENCOUNTER 2021-08-22 11:43 | Outpatient (CLI) | payer MEDICARE, OTHER, SELFPAY | END 2021-08-22 23:59 | disposition short-term general hospital (02) | LOC: LABSPEC 11:45 | PROVIDERS: PCP Family Medicine Geriatric Medicine; Visit Provider Family Medicine Geriatric Medicine | DX: N39.0 Urinary tract infection, site not specified (principal) | CPT/HCPCS: 87077; 87086; 87088; 87186 ==

== ENCOUNTER 2021-09-04 11:16 | Outpatient (CLI) | payer MEDICARE, OTHER, SELFPAY ==
[2021-09-04 12:08] LABS: Absolute Lymphocyte Count 1.56 X10^3/uL (0.83-4.51); Absolute Neutrophil Count 5.5 X10^3/uL (2.0-7.7); Basophil# 0.07 X10^3/uL; Basophil% 0.9 % (0-1); Eosinophil# 0.18 X10^3/uL; Eosinophils% 2.3 % (0-5); Hemoglobin 12.5 g/dL (12.0-15.0); Lymphocyte # 1.56 X10^3/ul (0.83-4.51); Lymphocyte % 19.8 % (19-41); Mean Corp Hgb Conc 32.9 g/dL (32-36); Mean Corpuscular Hgb 29.5 pg (27.0-32.0); Mean Corpuscular Volume 89.6 fL (81-99); Monocyte# 0.51 X10^3/uL; Monocyte% 6.5 % (0-10); NRBC Flagged by Analyzer 0 % (0-5); Neutrophil # 5.54 X10^3/uL (2.7-7.7); Neutrophil % 70.2 % (47-70); Platelet Count 251 K/mm3 (150-450); RBC Distribution Width CV 13.8 % (11.6-14.6); RBC Distribution Width SD 45.2 fl (35.1-43.9); Red Blood Count 4.24 M/mm3 (4.2-5.4); White Blood Count 7.9 K/mm3 (4.4-11.0)
[2021-09-04 13:04] LABS: Vitamin D,25 Hydroxy 61.8 ng/mL
[2021-09-04 13:07] LABS: AST(SGOT) 18 U/L (15-37); Alanine Aminotransfer ALT/SGPT 18 U/L (13-56); Albumin, Serum 3.7 g/dL (3.2-5.0); Alkaline Phosphatase 72 U/L (45-117); Anion Gap 4 (5-15); BUN 24 mg/dL (7-18); BUN/Creat Ratio 25.9 RATIO (10-20); Calcium,Total 8.7 mg/dL (8.5-10.1); Chloride 112 mmol/L (98-107); Creatinine, Serum 0.93 mg/dL (0.55-1.02); EST Glomerular Filtration Rate 64 mL/min (>60); Est Glom Filt Rate - Afr Amer 77 mL/min (>60); Globulin 3.7 g/dL (2.2-4.2); Glucose 113 mg/dL (74-106); Potassium 4.4 mmol/L (3.5-5.1); Protein, Total 7.4 g/dL (6.4-8.2); Sodium Level 141 mmol/L (136-145); Thyroid Stim Hormone (TSH) 2.03 uIU/mL (0.358-3.74); Uric Acid 5.1 mg/dL (2.6-6.0)
== END 2021-09-04 23:59 | disposition home or self-care (01) ==
LOC: POLAB3 11:18
PROVIDERS: PCP Family Medicine Geriatric Medicine; Visit Provider Family Medicine Geriatric Medicine
DX: E11.65 Type 2 diabetes mellitus with hyperglycemia (principal); E55.9 Vitamin D deficiency, unspecified; M10.9 Gout, unspecified
CPT/HCPCS: 36415; 80053; 82306; 84443; 84550; 85025

== ENCOUNTER 2021-09-05 10:04 | Outpatient (CLI) | payer MEDICARE, OTHER, SELFPAY ==
--- NOTE | 2021-09-05 10:10 | NM_ITS ---
CLINICAL: 71-year-old female with reported history of abdominal pain and apparent gastroesophageal reflux disease. SEMI-SOLID PHASE 99m Tc SULFUR COLLOID GASTRIC EMPTYING STUDY COMPARISON: None available FINDINGS: The patient was administered 1.1 mCi of 99m Tc sulfur colloid mixed with oatmeal and consumed per os. Image acquisitions in the anterior-posterior projections for a total of 60 minutes. There is prompt visualization of the stomach. There is no gastroesophageal reflux identified. The T ? emptying was calculated to be 22.04 minutes, (Normal: 12-56 minutes). NM/Gastric Emptying Study IMPRESSION: 1. NORMAL 99m Tc sulfur colloid semi-solid phase (oatmeal) gastric emptying imaging examination. A. There is normal and preserved semi-solid phase gastric emptying compared to normal. (Jacqueline et al, J Nucl Med Tech 38: 186, 2010). Electronically Signed: Franklin Kelly DO at 23:24 EST ,
== END 2021-09-05 23:59 | disposition home or self-care (01) ==
LOC: NM 10:06
PROVIDERS: PCP Family Medicine Geriatric Medicine; Referring Provider Internal Medicine Gastroenterology; Visit Provider Internal Medicine Gastroenterology
DX: K21.9 Gastro-esophageal reflux disease without esophagitis (principal)
CPT/HCPCS: 78264; A9541

== ENCOUNTER 2021-09-06 08:18 | Outpatient (CLI) | payer MEDICARE, OTHER, SELFPAY ==
--- NOTE | 2021-09-06 08:23 | ART_ITS ---
Reason For Study: Subclavian steal syndrome Procedure A bilateral upper extremity continuous wave Doppler with analog waveform analysis and segmental pressures. Left Segmental Pressures Left brachial= 140mmHg. Left ulnar= 148mmHg. Left radial= 143mmHg. Left digit = 134 mmHg. The left radial waveforms are biphasic. The left ulnar waveforms are monophasic. Right Segmental Pressures Right brachial= 173mmHg. Right ulnar= 198mmHg. Right radial= 193mmHg. Right digit = 163 mmHg. The right radial waveforms are triphasic. The right ulnar waveforms are triphasic. Indices The right wrist-brachial index by the ulnar artery is 1.14. The right wrist-brachial index by the radial artery is 1.12. The right digital-brachial index is 0.94. The leftst-brachial index by the ulnar artery is 0.86. The left wrist-brachial index by the radial artery is 0.83. The left digital- brachial index is 0.77. VL/Upper Extremity Arterial Study Interpretation Summary Right upper extremity with no sniffing occlusive disease at rest. Triphasic joann w noted in wrist brachial index of 1.14. Left upper extremity with mild occlusive disease at res t with a wrist brachial index of 0.86 and biphasic flow noted. Finger brachial index of 0.94 a nd 0.77. Ordering Physician: Je Cardoso Referring Physician: Jim Calabrese Chi Performed By: Sandra Wells RVT
== END 2021-09-06 23:59 | disposition home or self-care (01) ==
LOC: CVS 08:20
PROVIDERS: PCP Family Medicine Geriatric Medicine; Referring Provider Surgery Vascular Surgery; Visit Provider Surgery Vascular Surgery
DX: G45.8 Other transient cerebral ischemic attacks and related syndromes (principal); I77.1 Stricture of artery
CPT/HCPCS: 93923; 93931

== ENCOUNTER → 2021-11-20 | Outpatient (CLI) | payer MEDICARE, OTHER, SELFPAY | END | disposition home or self-care (01) | LOC: PSN 14:11 | PROVIDERS: PCP Family Medicine Geriatric Medicine; Referring Provider Family Medicine Geriatric Medicine; Visit Provider Family Medicine Geriatric Medicine | DX: R68.83 Chills (without fever) (principal) | CPT/HCPCS: 87635; 87804; 87807; C9803; U0003; U0005 ==

== ENCOUNTER → 2021-12-20 | Outpatient (CLI) | payer MEDICARE, OTHER, SELFPAY ==
[2021-12-20 12:10] LABS: Basophil# 0.06 X10^3/uL; Basophil% 1.2 % (0-1); Eosinophil# 0.17 X10^3/uL; Eosinophils% 3.3 % (0-5); Hemoglobin 11.2 g/dL (12.0-15.0); Mean Corpuscular Hgb 29.3 pg (27.0-32.0); Mean Corpuscular Volume 91.6 fL (81-99); Mean Platelet Vol. 9.6 fl (6.2-12.0); Monocyte# 0.48 X10^3/uL; Monocyte% 9.3 % (0-10); NRBC Flagged by Analyzer 0 % (0-5); Neutrophil # 2.95 X10^3/uL (2.7-7.7); Platelet Count 211 K/mm3 (150-450); RBC Distribution Width CV 14.4 % (11.6-14.6); RBC Distribution Width SD 48.6 fl (35.1-43.9); Red Blood Count 3.82 M/mm3 (4.2-5.4); White Blood Count 5.2 K/mm3 (4.4-11.0)
[2021-12-20 12:47] LABS: Vitamin D,25 Hydroxy 103.2 ng/mL
[2021-12-20 13:16] LABS: ALB/GLOB Ratio 1.1 RATIO (0.9-2.4); AST(SGOT) 22 U/L (15-37); Alanine Aminotransfer ALT/SGPT 21 U/L (13-56); Albumin, Serum 3.5 g/dL (3.2-5.0); Alkaline Phosphatase 72 U/L (45-117); Anion Gap 8 (5-15); BUN 26 mg/dL (7-18); BUN/Creat Ratio 26.1 RATIO (10-20); Calcium,Total 8.9 mg/dL (8.5-10.1); Chloride 111 mmol/L (98-107); EST Glomerular Filtration Rate 58 mL/min (>60); Est Glom Filt Rate - Afr Amer 71 mL/min (>60); Globulin 3.3 g/dL (2.2-4.2); Glucose 106 mg/dL (74-106); Protein, Total 6.8 g/dL (6.4-8.2); Sodium Level 142 mmol/L (136-145); Thyroid Stim Hormone (TSH) 1.67 uIU/mL (0.358-3.74); Uric Acid 5.7 mg/dL (2.6-6.0)
== END | disposition home or self-care (01) ==
LOC: POLAB3 11:42
PROVIDERS: PCP Family Medicine Geriatric Medicine; Visit Provider Family Medicine Geriatric Medicine
DX: E11.9 Type 2 diabetes mellitus without complications (principal); E55.9 Vitamin D deficiency, unspecified; I10 Essential (primary) hypertension; M10.9 Gout, unspecified
CPT/HCPCS: 36415; 80053; 82306; 84443; 84550; 85025

== ENCOUNTER → 2022-01-08 | Outpatient (CLI) | payer MEDICARE, OTHER, SELFPAY ==
[2022-01-08 10:30] LABS: Absolute Lymphocyte Count 1.51 X10^3/uL (0.83-4.51); Absolute Neutrophil Count 4.3 X10^3/uL (2.0-7.7); Basophil# 0.06 X10^3/uL; Basophil% 0.9 % (0-1); Eosinophil# 0.14 X10^3/uL; Eosinophils% 2.1 % (0-5); Hematocrit 39.8 % (37-47); Hemoglobin 13.4 g/dL (12.0-15.0); Lymphocyte # 1.51 X10^3/ul (0.83-4.51); Mean Corp Hgb Conc 33.7 g/dL (32-36); Mean Corpuscular Hgb 29.5 pg (27.0-32.0); Mean Corpuscular Volume 87.5 fL (81-99); Mean Platelet Vol. 9.7 fl (6.2-12.0); Monocyte# 0.55 X10^3/uL; Monocyte% 8.4 % (0-10); NRBC Flagged by Analyzer 0 % (0-5); Neutrophil # 4.28 X10^3/uL (2.7-7.7); Neutrophil % 65.3 % (47-70); Platelet Count 237 K/mm3 (150-450); RBC Distribution Width CV 14.3 % (11.6-14.6); RBC Distribution Width SD 46.2 fl (35.1-43.9); RET-HE 33.4 pg (30-35); Red Blood Count 4.55 M/mm3 (4.2-5.4); Reticulocyte Count 1.32 % (0.5-1.5); White Blood Count 6.6 K/mm3 (4.4-11.0)
[2022-01-08 10:52] LABS: Ferritin 33 ng/mL (8-252); Iron 52 ug/dL (50-170); Iron Binding Capacity,Total 443 ug/dL (250-450); PERCENT IRON SATURATION 11.7 % (15.0-55.0)
[2022-01-09 07:38] LABS: Transferrin 354 mg/dL (192-364)
== END | disposition home or self-care (01) ==
LOC: LAB 09:46
PROVIDERS: PCP Family Medicine Geriatric Medicine; Visit Provider Internal Medicine Gastroenterology
DX: E78.5 Hyperlipidemia, unspecified (principal); E11.9 Type 2 diabetes mellitus without complications; E66.9 Obesity, unspecified
CPT/HCPCS: 36415; 82728; 83540; 83550; 84466; 85025; 85045

== ENCOUNTER 2022-01-10 18:24 | Emergency (ER) | payer MEDICARE, OTHER, SELFPAY ==
[2022-01-10 18:24] VITALS: BP 135/50
[2022-01-10 18:25] VITALS: BP 143/69; PULSE 83; RESP 14; TEMP 36.2; O2SAT 98; BMI 35.2
--- NOTE | 2022-01-10 19:23 | EKG12_ITS ---
Test Reason : DYSRHYTHMIA Blood Pressure : / mmHG Vent. Rate : 069 BPM Atrial Rate : 069 BPM P-R Int : 130 ms QRS Dur : 086 ms QT Int : 402 ms P-R-T Axes : 056 020 027 degrees QTc Int : 430 ms Normal sinus rhythm Normal ECG Confirmed by DIANNA VIERA, MICHA ([id number]), slot editor SHE PU ([id number]) on 01/12/2022 11:38:51 AM Referred By: SUKHWINDER Confirmed By:MICHA BUSTAMANTE MD
--- NOTE | 2022-01-10 19:25 | EDS_ITS ---
HPI History of Present Illness Chief Complaint: Dizziness Informant: patient Onset/Context/Timing Onset: Days (6 days) Context: Gradual Onset Current Severity: Mild Maximum Severity: Moderate Narrative Narrative: Patient presents with generalized weakness and dizziness. She describes the dizziness as a lightheaded sensation. She states she initially started not feeling well last Saturday. She felt nauseated and had vomiting and diarrhea. On Saturday she developed a cough. She has not noted a fever. She took a home COVID test yesterday that was negative. She presents to the ER today because she was trying to cook some rice and felt so weak and lightheaded she had to lay her head down on the counter. She denies feeling as if she was going to pass out. [facility] Medical History (Updated 01/10/22 @ 22:[address] Selam Warner MD) Arthritis Atherosclerotic heart disease of [place] coronary artery without angina pectoris Back pain Mckeon esophagus Bilateral carotid bruits Cardiac conduction disorder Cardiology follow-up encounter Carotid stenosis, non-symptomatic Controlled type 2 diabetes mellitus Dietary restriction Essential hypertension Fatty liver Former smoker Gastric reflux GERD (gastroesophageal reflux disease) High cholesterol History of diverticulitis History of echocardiogram History of edema History of hiatal hernia History of IBS History of irregular heartbeat History of pain when walking History of stress test HLD (hyperlipidemia) Hypothyroidism IBS (irritable bowel syndrome) Leg cramps Nonrheumatic tricuspid valve regurgitation Pulmonary hypertension PVC (premature ventricular contraction) Raynauds syndrome Shortness of breath on exertion Subclavian steal syndrome Syncope Syncope and collapse Thyroid disease Wears glasses Home Medications cholecalciferol (vitamin D3) 25 mcg (1,000 unit) tablet 1,000 unit PO BID Supplement 03/08/16 [History Last Taken 12/05/18] levothyroxine 50 mcg tablet 50 mcg PO DAILY Thyroid 03/08/16 [History Last Taken 08/09/21] losartan 100 mg tablet 100 mg PO DAILY heart 03/08/16 [History Last Taken 08/09/21] metformin 500 mg tablet 500 mg PO BIDCM Diabetes 03/08/16 [History Last Taken 12/05/18] esomeprazole magnesium 40 mg capsule,delayed release 40 mg PO QHS Reflux 05/22/17 [History Last Taken 12/04/18] rosuvastatin 10 mg tablet 10 mg PO QHS Cholesterol 05/22/17 [History Last Taken 12/05/18] L.acidoph, paracasei,B. lactis 10 billion cell capsule 1 ea PO DAILY Supplement 06/12/17 [History Last Taken 12/05/18] docusate sodium 100 mg capsule 100 mg PO QHS constipation 09/25/17 [History Last Taken 12/04/18 100 mg] aspirin 81 mg tablet,delayed release (Adult Low Dose Aspirin) 81 mg PO DAILY heart health 07/23/18 [History Last Taken 08/06/21] melatonin 10 mg tablet 10 mg PO HS 07/23/18 [History Last Taken 12/04/18] pioglitazone 30 mg tablet 30 mg PO DAILY dm 08/08/20 [History Last Taken Unknown] promethazine 25 mg tablet 12.5 mg PO QPM Nausea 01/26/21 [History Last Taken Unknown] furosemide 20 mg tablet 20 mg PO DAILY PRN Edema 06/23/21 [History Last Taken Unknown] acetaminophen 500 mg tablet (Tylenol Extra Strength) 500 mg PO Q6H PRN 11/27/21 [History Last Taken Unknown] clopidogrel 75 mg tablet 75 mg PO DAILY 11/27/21 [History Last Taken Unknown] sulfamethoxazole 800 mg-trimethoprim 160 mg tablet (Bactrim DS) 1 tab PO BID #6 tabs 01/10/22 [Rx Last Taken Unknown] Allergy/AdvReac Type Severity Reaction Status Date / Time No Known Allergies Allergy Verified 01/10/22 18:25 Family History Father CAD (coronary artery disease) Myocardial infarction Mother Hypertension Cancer lung Grandfather Heart disease Myocardial infarction Grandmother Heart disease Cancer esophageal varices Surgical History history excision fragments loop recorder (~05/28/19) History of arthroplasty of left hip History of cardiac catheterization History of colonoscopy (~2016) History of left hip replacement History of removal of ureteral stent History of right hip replacement History of total hysterectomy History of ureter stent Hx of hand surgery Hx of tonsillectomy S/P peripheral artery angioplasty with stent placement (~10/2021) Status post placement of implantable loop recorder Social History Smoking Status: Former smoker how long ago did patient quit smokin years ago alcohol intake: never substance use type: does not use caffeine: Yes Type: carbonated beverages Number of servings: 3 what type of physical activity do you participate in: none seatbelt use: always do you feel safe at home: Yes ROS ROS ED Constitutional Constitutional ED: Denies chills or fever(s) Eyes Eyes: Denies change in vision or discharge from eye(s) ENT ENT ED: Denies discharge from eye(s), rhinorrhea or sore throat Cardiovascular Cardiovascular: Denies chest pain or palpitations Respiratory/Chest Respiratory/Chest: Reports cough; Denies dyspnea Gastrointestinal Gastrointestinal: Reports diarrhea, nausea and vomiting; Denies abdominal pain Genitourinary Genitourinary ED: Denies difficulty urinating or dysuria Musculoskeletal Musculoskeletal: Denies back pain or extremity pain Integumentary Denies Abrasions or rash Neurologic Neurologic: Reports weakness; Denies headache(s) Allergic/Immunologic Allergic/Immunologic ED: Denies lip swelling or urticaria EXAM Physical Exam Const Vital Signs: 01/10/22 18:25 01/10/22 18:24 01/10/22 18:46 Temperature 97.1 F L Temperature Source Temporal Pulse Rate 83 Respiratory Rate 14 Respiratory Effort Normal Non-Labored Respiratory Pattern Normal Blood Pressure 143/69 H 135/50 H Blood Pressure Mean 93 78 Pulse Ox 98 Oxygen Delivery Method Room Air 01/10/22 20:53 Temperature Temperature Source Pulse Rate 75 Respiratory Rate 15 Respiratory Effort Respiratory Pattern Blood Pressure 119/44 L Blood Pressure Mean 69 Pulse Ox 97 Oxygen Delivery Method Room Air Positive well nourished and well developed General Appearance ED: well developed HEENT Reports normocephalic and head/scalp atraumatic Eyes PERRL and EOMs intact bilaterally Neck supple Chest Wall inspection of chest normal and palpation of chest normal Resp normal respiratory effort and clear to auscultation bilaterally Cardio regular rate and regular rhythm GI normal to inspection, nondistended, normoactive bowel sounds and non-tender Palpation: soft Extremity normal to inspection Neuro oriented x3 and no sensory deficits noted Sensorium / Orientation: alert Motor Exam: strength 5/5 throughout Psych mental status grossly normal Skin no rashes or lesions noted MDM MDM MDM Narrative Medical decision making narrative: Patient given IV fluids and Zofran. Lab work and urinalysis obtained. EKG ordered. Lab Data Attestation: I reviewed the patient's lab results. Labs: Laboratory Results - last 24 hr 01/10/22 01/10/22 01/10/22 18:45 18:45 19:45 WBC 9.4 RBC 4.45 Hgb 13.2 Hct 40.8 MCV 91.7 MCH 29.7 MCHC 32.4 RDW Std Deviation 49.5 H RDW Coeff of [place] 14.6 Plt Count 251 MPV 10.4 Immature Gran % (Auto) 0.300 Neut % (Auto) 72.0 H Lymph % (Auto) 17.0 L Schuyler % (Auto) 8.9 Eos % (Auto) 1.2 Baso % (Auto) 0.6 Absolute Neuts (auto) 6.7 Absolute Lymphs (auto) 1.59 Nucleated RBC % 0 Sodium 140 Potassium 4.0 Chloride 108 H Carbon Dioxide 24.0 Anion Gap 8 BUN 30 H Creatinine 1.24 H Estim Creat Clear Calc 32.91 Est GFR (MDRD) Af Amer 55 L Est GFR (MDRD) Non-Af 45 L BUN/Creatinine Ratio 24.2 H Glucose 121 H Calcium 9.9 Total Bilirubin 0.30 Direct Bilirubin 0.09 AST 22 ALT 22 Alkaline Phosphatase 78 Troponin I High Sens 4 Total Protein 7.8 Albumin 3.7 Globulin 4.1 Lipase 153 Urine Color Yellow Urine Clarity Sl. Cloudy Urine pH 6.0 Ur Specific [place] 1.020 Urine Protein Negative Urine Glucose (UA) Normal Urine Ketones 5 H Urine Occult Blood Negative Urine Nitrite Negative Urine Bilirubin Negative Urine Urobilinogen Normal Ur Leukocyte Esterase 500 H Urine RBC 0 SEEN Urine WBC 10-25 SEEN Ur Squamous Epith Cells 0-5 SEEN Urine Bacteria 1+ Urine Mucus 0 SEEN EKG Initial EKG: Attestation: I personally reviewed and interpreted this EKG as follows: Interpretation: Sinus Rhythm (Sinus at 69 with no acute ischemia.) Treatment and Re-Evaluation Narrative: On repeat evaluation patient resting comfortably. Vital signs of been stable. Lab work largely unremarkable. She had a mild increase in her BUN and creatinine to 31.24. She has been given IV fluids here. Urinalysis does show infection with 10-25 white cells and 1+ bacteria. She has been having some frequency. She be treated with a 3-day course of Bactrim. She has nausea meds at home to use. She will be discharged with her family at this time. Return instructions given. Discharge Plan Triage Chief Complaint: Dizziness ED Provider: Selam Warner Dx/Rx/DC Orders Clinical Impression: UTI (urinary tract infection), Dizziness, Dehydration, mild Instructions: ED Dehydration (Adult), ED CYSTITIS Female Adult Prescriptions: New sulfamethoxazole-trimethoprim [Bactrim DS] 800-160 mg tablet 1 tab PO BID Qty: 6 0RF No Action docusate sodium 100 mg capsule 100 mg PO QHS aspirin [Adult Low Dose Aspirin] 81 mg tablet,delayed release (DR/EC) 81 mg PO DAILY melatonin 10 mg tablet 10 mg PO HS furosemide 20 mg tablet 20 mg PO DAILY PRN (Reason: Edema) clopidogrel 75 mg tablet 75 mg PO DAILY acetaminophen [Tylenol Extra Strength] 500 mg tablet 500 mg PO Q6H PRN metformin 500 MG tablet 500 mg PO BIDCM Label Comments: Diabetes levothyroxine 50 MCG tablet 50 mcg PO DAILY Label Comments: Thyroid losartan 100 MG tablet 100 mg PO DAILY Label Comments: Diabetes cholecalciferol (vitamin D3) 1,000 UNIT tablet 1,000 unit PO BID Label Comments: Supplement promethazine 25 mg tablet 12.5 mg PO QPM Label Comments: Nausea esomeprazole magnesium 40 MG capsule 40 mg PO QHS Label Comments: Reflux rosuvastatin 10 MG tablet 10 mg PO QHS Label Comments: Cholesterol L.acidoph, paracasei,B. lactis 1 EACH capsule 1 ea PO DAILY Label Comments: Supplement pioglitazone 30 mg tablet 30 mg PO DAILY Primary Care Provider: Jim Calabrese Chi Referrals: Jim Calabrese Chi, MD [Primary Care Provider] - 1 Week Disposition Disposition: Home, Self Care
[2022-01-10 19:43] LABS: Absolute Lymphocyte Count 1.59 X10^3/uL (0.83-4.51); Absolute Neutrophil Count 6.7 X10^3/uL (2.0-7.7); Basophil# 0.06 X10^3/uL; Basophil% 0.6 % (0-1); Eosinophil# 0.11 X10^3/uL; Eosinophils% 1.2 % (0-5); Hematocrit 40.8 % (37-47); Hemoglobin 13.2 g/dL (12.0-15.0); Lymphocyte # 1.59 X10^3/ul (0.83-4.51); Mean Corp Hgb Conc 32.4 g/dL (32-36); Mean Corpuscular Hgb 29.7 pg (27.0-32.0); Mean Corpuscular Volume 91.7 fL (81-99); Mean Platelet Vol. 10.4 fl (6.2-12.0); Monocyte# 0.83 X10^3/uL; Monocyte% 8.9 % (0-10); NRBC Flagged by Analyzer 0 % (0-5); Neutrophil # 6.73 X10^3/uL (2.7-7.7); Platelet Count 251 K/mm3 (150-450); RBC Distribution Width CV 14.6 % (11.6-14.6); RBC Distribution Width SD 49.5 fl (35.1-43.9); Red Blood Count 4.45 M/mm3 (4.2-5.4); White Blood Count 9.4 K/mm3 (4.4-11.0)
[2022-01-10] MEDS: 0.9% Normal Saline 1,000 ML 150 ML IV (19:44)
[2022-01-10] MEDS: Ondansetron 4 MG/2 ML Vial IV (19:47)
[2022-01-10 19:50] LABS: Mucous, Urine 0 SEEN /hpf (<or=2+); Red Blood Cells-Urine 0 SEEN /hpf (0-5)
[2022-01-10 19:52] LABS: Color, Urine Yellow (Yellow); Glucose, Dipstick Normal (Normal); Ketone-Dipstick 5 mg/dl (Negative); Leukocyte Esterase-Dipstick 500 /ul (Negative); Nitrite-Dipstick Negative (Negative); Occult Blood-Urine Negative /ul (Negative); Protein-Dipstick Negative (Negative); Urine Bilirubin Dipstick Negative (Negative); Urine Clarity Sl. Cloudy (Clear); Urine Urobilinogen Normal (Normal)
[2022-01-10 20:01] LABS: AST(SGOT) 22 U/L (15-37); Alanine Aminotransfer ALT/SGPT 22 U/L (13-56); Albumin, Serum 3.7 g/dL (3.2-5.0); Alkaline Phosphatase 78 U/L (45-117); Anion Gap 8 (5-15); BUN 30 mg/dL (7-18); BUN/Creat Ratio 24.2 RATIO (10-20); Bilirubin, Direct 0.09 mg/dL (0.00-0.30); Calcium,Total 9.9 mg/dL (8.5-10.1); Chloride 108 mmol/L (98-107); Creatinine, Serum 1.24 mg/dL (0.55-1.02); EST Glomerular Filtration Rate 45 mL/min (>60); Est Glom Filt Rate - Afr Amer 55 mL/min (>60); Estimated Creatinine Clearance 32.91 ml/min; Globulin 4.1 g/dL (2.2-4.2); Glucose 121 mg/dL (74-106); Lipase 153 U/L (73-393); Protein, Total 7.8 g/dL (6.4-8.2); Sodium Level 140 mmol/L (136-145); Troponin-I HS 4 pg/mL (3.0-54.0)
[2022-01-10 20:01] LABS: White Blood Cells 10-25 SEEN /hpf (0-5)
[2022-01-10 20:02] LABS: Bacteria 1+ /hpf (None Seen)
[2022-01-10 20:03] LABS: Squamous Epithelial Cells - UA 0-5 SEEN /hpf (5-10)
[2022-01-10 20:53] VITALS: BP 119/44; PULSE 75; RESP 15; O2SAT 97
[2022-01-10] MEDS: Smz/Tmp Ds Tablet 1 TABLET PO (22:19)
[2022-01-10 22:23] VITALS: BP 135/65; PULSE 79; RESP 15; O2SAT 99
== END 2022-01-10 22:24 | disposition home or self-care (01) ==
PROVIDERS: Emergency Provider Emergency Medicine; PCP Family Medicine Geriatric Medicine; Visit Provider Emergency Medicine
DX: N39.0 Urinary tract infection, site not specified (principal); I27.20 Pulmonary hypertension, unspecified; E11.9 Type 2 diabetes mellitus without complications; R42 Dizziness and giddiness; E86.0 Dehydration; M19.90 Unspecified osteoarthritis, unspecified site; I25.10 Atherosclerotic heart disease of native coronary artery without angina pectoris; K76.0 Fatty (change of) liver, not elsewhere classified; K21.9 Gastro-esophageal reflux disease without esophagitis; Z87.19 Personal history of other diseases of the digestive system; E78.5 Hyperlipidemia, unspecified; E03.9 Hypothyroidism, unspecified; Z79.82 Long term (current) use of aspirin; Z79.899 Other long term (current) drug therapy; Z79.02 Long term (current) use of antithrombotics/antiplatelets; Z87.891 Personal history of nicotine dependence
CPT/HCPCS: 80048; 80076; 81001; 83690; 84484; 85025; 93005; 96361; 96374; 99285; J7030; A4216; J2405

== ENCOUNTER → 2022-01-11 | Outpatient (CLI) | payer MEDICARE, OTHER, SELFPAY | END | disposition home or self-care (01) | PROVIDERS: PCP Family Medicine Geriatric Medicine; Visit Provider Family Medicine Geriatric Medicine | DX: N39.0 Urinary tract infection, site not specified (principal) | CPT/HCPCS: 87086 ==

== ENCOUNTER → 2022-01-16 | Outpatient (CLI) | payer MEDICARE, OTHER, SELFPAY ==
--- NOTE | 2022-01-16 09:06 | ART_ITS ---
Reason For Study: Subclavian steal syndrome Procedure A bilateral upper extremity continuous wave Doppler with analog waveform analysis and segmental pressures. Left Segmental Pressures Left brachial= 144mmHg. Left ulnar= 148mmHg. Left radial= 146mmHg. Left digit = 138 mmHg. The left radial waveforms are triphasic. The left ulnar waveforms are triphasic. Right Segmental Pressures Right brachial= 141mmHg. Right ulnar= 160mmHg. Right radial= 160mmHg. Right digit = 138 mmHg. The right radial waveforms are triphasic. The right ulnar waveforms are triphasic. Indices The right wrist-brachial index by the ulnar artery is 1.11. The right wrist-brachial index by the radial artery is 1.11. The right digital-brachial index is 0.96. The left wrist-brachial index by the ulnar artery is 1.03. The left wrist-brachial index by the radial artery is 1.01. The left digital-brachial index is 0.96. VL/Ankle Brachial Index Interpretation Summary Bilateral upper extremities with triphasic flow noted with a wrist brachial ind ex of 1.11 and 1.03. Ordering Physician: Je Cardoso Referring Physician: Jim Calabrese Chi Performed By: Sandra Wells RVT
--- NOTE | 2022-01-16 09:06 | ADUUE_ITS ---
Reason For Study: Subclavian steal syndrome LEFT Left Subclavian velocity = 162.2 cm/sec. Left Axillary velocity = 64.4 cm/sec. Left Brachial velocity = 114.3 cm/sec. Left Radial velocity = 76.9 cm/sec. Left Ulnar velocity = 36.3 cm/sec. VL/US Art Duplex Unilat UP Extrem Interpretation Summary Left upper extremity with no evidence of stenosis throughout. Triphasic flow wa s noted throughout. Ordering Physician: Je Cardoso Referring Physician: Jim Calabrese Chi Performed By: Sandra Wells RVT
== END | disposition home or self-care (01) ==
LOC: CVS 09:04
PROVIDERS: PCP Family Medicine Geriatric Medicine; Referring Provider Surgery Vascular Surgery; Visit Provider Surgery Vascular Surgery
DX: I77.1 Stricture of artery (principal); E11.51 Type 2 diabetes mellitus with diabetic peripheral angiopathy without gangrene; I70.213 Atherosclerosis of native arteries of extremities with intermittent claudication, bilateral legs; G45.8 Other transient cerebral ischemic attacks and related syndromes; E07.9 Disorder of thyroid, unspecified; K21.9 Gastro-esophageal reflux disease without esophagitis; K59.9 Functional intestinal disorder, unspecified; E78.00 Pure hypercholesterolemia, unspecified; Z87.891 Personal history of nicotine dependence; I11.9 Hypertensive heart disease without heart failure
CPT/HCPCS: 93922; 93931

== ENCOUNTER → 2022-04-10 | Outpatient (CLI) | payer MEDICARE, OTHER, SELFPAY ==
[2022-04-10 11:21] LABS: Erythrocyte Sedimentation Rate 12 mm/hr (0-30)
[2022-04-10 12:24] LABS: CRP < 2.90 mg/L (0.0-3.0); LDH 178 U/L (84-246)
[2022-04-11 15:08] LABS: Anti-Centromere B Ab <0.2 AI (0.0-0.9); Anti-Chromatin <0.2 AI (0.0-0.9); Anti-Jo <0.2 AI (0.0-0.9); Anti-Scleroderma-70 AB <0.2 AI (0.0-0.9); Endomysial Antibody IgA Negative (Negative); RNP Ab 0.2 AI (0.0-0.9); SJOGREN'S Anti-SS-A test < 0.2 AI (0.0-0.9); SJOGREN'S Anti-SS-B test < 0.2 AI (0.0-0.9); Smith Ab <0.2 AI (0.0-0.9)
[2022-04-12 08:21] LABS: Anti-dsDNA Ab <1 IU/mL (0-9); Immunoglobulin A 216 mg/dL (64-422); t-Transglutaminase IgA <2 U/mL (0-3)
[2022-04-14 09:07] LABS: Calprotectin, Stool 97 ug/g (0-120)
[2022-04-15 04:06] LABS: Alpha-1-Globulins 0.2 g/dL (0.0-0.4); Alpha-2-Globulins 0.9 g/dL (0.4-1.0); Cytoplasmic Ab (C-ANCA) <1:20 titer (Neg:<1:20); Gamma Globulin 0.8 g/dL (0.4-1.8); Immunoglobulin A 213 mg/dL (64-422); Immunoglobulin E < 2 IU/mL (6-495); Immunoglobulin G 826 mg/dL (586-1602); Immunoglobulin M 31 mg/dL (26-217); PROEL- TOTAL PROTEIN 7.2 g/dL (6.0-8.5)
[2022-04-15 10:53] LABS: Perinuclear Ab (P-ANCA) <1:20 titer (Neg:<1:20)
== END | disposition home or self-care (01) ==
PROVIDERS: PCP Family Medicine Geriatric Medicine; Referring Provider Nurse Practitioner Adult Health; Visit Provider Nurse Practitioner Adult Health
DX: K58.9 Irritable bowel syndrome, unspecified (principal)
CPT/HCPCS: 82784; 82785; 83516; 83615; 83630; 83993; 84165; 85652; 86140; 86225; 86235; 86255; 86256; 86334

== ENCOUNTER → 2022-06-27 | Outpatient (CLI) | payer MEDICARE, OTHER, SELFPAY ==
[2022-06-27 12:35] LABS: Absolute Lymphocyte Count 1.92 X10^3/uL (0.83-4.51); Absolute Neutrophil Count 3.1 X10^3/uL (2.0-7.7); Basophil# 0.05 X10^3/uL; Basophil% 0.9 % (0-1); Eosinophil# 0.15 X10^3/uL; Eosinophils% 2.6 % (0-5); Hematocrit 38.6 % (37-47); Hemoglobin 12.3 g/dL (12.0-15.0); Lymphocyte # 1.92 X10^3/ul (0.83-4.51); Mean Corp Hgb Conc 31.9 g/dL (32-36); Mean Corpuscular Hgb 29.5 pg (27.0-32.0); Mean Corpuscular Volume 92.6 fL (81-99); Mean Platelet Vol. 9.8 fl (6.2-12.0); Monocyte% 10.3 % (0-10); NRBC Flagged by Analyzer 0 % (0-5); Neutrophil # 3.07 X10^3/uL (2.7-7.7); Neutrophil % 52.9 % (47-70); Platelet Count 225 K/mm3 (150-450); RBC Distribution Width CV 14.1 % (11.6-14.6); RBC Distribution Width SD 48.4 fl (35.1-43.9); Red Blood Count 4.17 M/mm3 (4.2-5.4); White Blood Count 5.8 K/mm3 (4.4-11.0)
[2022-06-27 13:25] LABS: AST(SGOT) 16 U/L (15-37); Alanine Aminotransfer ALT/SGPT 22 U/L (13-56); Albumin, Serum 3.5 g/dL (3.2-5.0); Alkaline Phosphatase 73 U/L (45-117); Anion Gap 4 (5-15); BUN 29 mg/dL (7-18); BUN/Creat Ratio 22.3 RATIO (10-20); Calcium,Total 9.1 mg/dL (8.5-10.1); Chloride 108 mmol/L (98-107); EST Glomerular Filtration Rate 43 mL/min (>60); Est Glom Filt Rate - Afr Amer 52 mL/min (>60); Globulin 3.5 g/dL (2.2-4.2); Glucose 112 mg/dL (74-106); Sodium Level 139 mmol/L (136-145)
== END | disposition home or self-care (01) ==
LOC: POLAB3 11:36
PROVIDERS: PCP Family Medicine Geriatric Medicine; Visit Provider Family Medicine Geriatric Medicine
DX: I10 Essential (primary) hypertension (principal); E11.9 Type 2 diabetes mellitus without complications; E55.9 Vitamin D deficiency, unspecified
CPT/HCPCS: 36415; 80053; 82306; 84443; 85025

== ENCOUNTER 2022-07-20 09:51 | Outpatient (CLI) | payer MEDICARE, OTHER, SELFPAY ==
--- NOTE | 2022-07-20 09:54 | ART_ITS ---
Reason For Study: Subclavian Stent Procedure A bilateral upper extremity continuous wave Doppler with analog waveform analysis and segmental pressures. Left Segmental Pressures Left brachial= 150mmHg. Left radial= 164mmHg. Left ulnar= 149mmHg. Left digit = 140 mmHg. Right Segmental Pressures Right brachial= 147mmHg. Right radial= 180mmHg. Right ulnar= 167mmHg. Right digit = 139 mmHg. Indices The right wrist-brachial index is 1.20. The right digital-brachial index is 0.93. The left wrist- brachial index is 1.09. The left digital-brachial index is 0.93. VL/Ankle Brachial Index Interpretation Summary Bilateral WBI normal 1.2 and 1.09 and bialteral FBI 0.93 and 0.93. Ordering Physician: Je Cardoso Referring Physician: Jim Calabrese Chi Performed By: Dana Alonso RDCS/RVT
--- NOTE | 2022-07-20 09:54 | ADUUE_ITS ---
Reason For Study: Arterial Stricture LEFT Left Subclavian velocity = 145 cm/sec. Left Axillary velocity = 96 cm/sec. Left Brachial velocity = 120 cm/sec. Left Radial velocity = 84 cm/sec. Left Ulnar velocity = 48 cm/sec. VL/US Art Duplex Unilat UP Extrem Interpretation Summary Left arm no stenosis and all triphasic flow. Ordering Physician: Je Cardoso Referring Physician: Jim Calabrese Chi Performed By: Dana Alonso, KANU, RVT
== END 2022-07-20 23:59 | disposition home or self-care (01) ==
LOC: CVS 09:52
PROVIDERS: PCP Family Medicine Geriatric Medicine; Referring Provider Surgery Vascular Surgery; Visit Provider Surgery Vascular Surgery
DX: G45.8 Other transient cerebral ischemic attacks and related syndromes (principal); I77.1 Stricture of artery; Z48.812 Encounter for surgical aftercare following surgery on the circulatory system
CPT/HCPCS: 93922; 93931

== ENCOUNTER → 2022-07-30 | Outpatient (CLI) | payer MEDICARE, OTHER, SELFPAY | END | disposition home or self-care (01) | LOC: POLAB3 17:03 | PROVIDERS: PCP Family Medicine Geriatric Medicine; Visit Provider Family Medicine Geriatric Medicine | DX: N39.0 Urinary tract infection, site not specified (principal) | CPT/HCPCS: 87086; 87088; 87186 ==

== ENCOUNTER → 2022-07-31 | Outpatient (CLI) | payer MEDICARE, OTHER, SELFPAY | END | disposition home or self-care (01) | LOC: PSN 10:40 | PROVIDERS: PCP Family Medicine Geriatric Medicine; Referring Provider Family Medicine Geriatric Medicine; Visit Provider Family Medicine Geriatric Medicine | DX: R68.83 Chills (without fever) (principal) | CPT/HCPCS: 87635; 87804; 87807; C9803; U0003; U0005 ==

== ENCOUNTER → 2022-11-12 | Outpatient (CLI) | payer MEDICARE, OTHER, SELFPAY ==
--- NOTE | 2022-11-12 10:18 | MRI_ITS ---
INDICATION: THORACIC BACK PAIN , LUMP ON BACK AREA MARKED WITH BEADS EXAMINATION: MRI - MR Spine Thoracic W/O Contrast TECHNIQUE: Multiplanar and multisequence MR images of the thoracic spine. IV Contrast Dosage and Agent: None. COMPARISON: None. FINDINGS: VERTEBRAE: Mild wedge deformity T6 with mild loss of vertebral body height T7, T8 and to a lesser degree T9. These compression fractures are chronic given absence of marrow edema. VERTEBRAL ALIGNMENT: Normal. Accentuation of thoracic kyphosis due to degenerative disc disease and compression fractures moderate anterior osteophyte formation T5-T12. DISCS: T6-7 mild disc osteophyte. T8-9 mild disc bulging. Moderate disc desiccation throughout the thoracic spine. Normal spinal canal and neuroforamina. CORD: Unremarkable in signal and morphology. Normal conus medularis. SOFT TISSUES: Patient to the skin marker there is a subcutaneous lipoma. This is eccentric towards the right and measures 3 cm transverse by 1.5 cm AP by 4 cm craniocaudal. MRI/Spine Thoracic (Routine) IMPRESSION: Lipoma subjacent to the skin marker detailed above. Mild wedge deformity T6 with mild loss of vertebral body height T7, T8 and T9. Mild disc osteophyte C6-7 and mild disc bulging T8-9. Degenerative changes above. Electronically Signed: Jean Pierre Sam MD, GRADY at 18:55 EDT ,
== END | disposition home or self-care (01) ==
LOC: MRI 10:16
PROVIDERS: PCP Family Medicine Geriatric Medicine; Referring Provider Nurse Practitioner Acute Care; Visit Provider Nurse Practitioner Acute Care
DX: M54.6 Pain in thoracic spine (principal)
CPT/HCPCS: 72146

== ENCOUNTER → 2022-12-27 | Outpatient (CLI) | payer MEDICARE, OTHER, SELFPAY ==
[2022-12-27 13:47] LABS: Absolute Lymphocyte Count 1.88 X10^3/uL (0.83-4.51); Absolute Neutrophil Count 4.3 X10^3/uL (2.0-7.7); Basophil# 0.06 X10^3/uL; Basophil% 0.8 % (0-1); Eosinophil# 0.13 X10^3/uL; Eosinophils% 1.8 % (0-5); Hematocrit 37.8 % (37-47); Hemoglobin 11.9 g/dL (12.0-15.0); Lymphocyte # 1.88 X10^3/ul (0.83-4.51); Mean Corp Hgb Conc 31.5 g/dL (32-36); Mean Corpuscular Hgb 29.9 pg (27.0-32.0); Mean Platelet Vol. 9.5 fl (6.2-12.0); Monocyte# 0.73 X10^3/uL; Monocyte% 10.1 % (0-10); NRBC Flagged by Analyzer 0 % (0-5); Neutrophil # 4.33 X10^3/uL (2.7-7.7); Neutrophil % 59.8 % (47-70); Platelet Count 254 K/mm3 (150-450); RBC Distribution Width SD 49.1 fl (35.1-43.9); Red Blood Count 3.98 M/mm3 (4.2-5.4); White Blood Count 7.2 K/mm3 (4.4-11.0)
[2022-12-27 14:25] LABS: Vitamin D,25 Hydroxy 58.1 ng/mL
[2022-12-27 14:34] LABS: AST(SGOT) 10 U/L (15-37); Alanine Aminotransfer ALT/SGPT 19 U/L (13-56); Albumin, Serum 3.4 g/dL (3.2-5.0); Alkaline Phosphatase 84 U/L (45-117); Anion Gap 5 (5-15); BUN 27 mg/dL (7-18); BUN/Creat Ratio 27.1 RATIO (10-20); Calcium,Total 8.9 mg/dL (8.5-10.1); Chloride 108 mmol/L (98-107); EST Glomerular Filtration Rate 58 mL/min (>60); Est Glom Filt Rate - Afr Amer 70 mL/min (>60); Globulin 3.4 g/dL (2.2-4.2); Glucose 148 mg/dL (74-106); Potassium 4.1 mmol/L (3.5-5.1); Protein, Total 6.8 g/dL (6.4-8.2); Sodium Level 140 mmol/L (136-145)
== END | disposition home or self-care (01) ==
LOC: LAB 13:05
PROVIDERS: PCP Family Medicine Geriatric Medicine; Referring Provider Family Medicine Geriatric Medicine; Visit Provider Family Medicine Geriatric Medicine
DX: E11.51 Type 2 diabetes mellitus with diabetic peripheral angiopathy without gangrene (principal); I10 Essential (primary) hypertension; E55.9 Vitamin D deficiency, unspecified; N39.0 Urinary tract infection, site not specified
CPT/HCPCS: 36415; 80053; 82306; 84443; 85025; 87077; 87086; 87088; 87186

== ENCOUNTER → 2023-01-28 | Outpatient (CLI) | payer MEDICARE, OTHER, SELFPAY ==
--- NOTE | 2023-01-28 10:32 | BI_ITS ---
MAMMOGRAPHY - BILATERAL SCREENING REASON FOR EXAM: Female, 72 years old. Routine annual screening examination. PERTINENT HISTORY: Non-contributory. TECHNIQUE: Digital bilateral breast mehran (3D mammographic acquisition) in the CC and MLO projections. 2-D mediolateral oblique (MLO) and craniocaudad (CC) views of both breasts were obtained. CAD: Full Field Digital Mammography with Computer Added Detection was performed. COMPARISON: Comparison is made with prior study dated December 20, 2020 and December 18, 2019. FINDINGS: Breast Composition: There are scattered areas of fibroglandular density. There are no dominant masses or suspicious calcifications. No other significant abnormalities are identified. There has been no significant change since the prior study. BI/SCRN MAMM (CAD)W/MEHRAN BILAT IMPRESSION: Stable bilateral screening mammogram. Yearly follow-up mammogram recommended. (A) ASSESSMENT CATEGORY: BIRADS Category 1: Negative. A letter regarding these results will be sent to the patient by the facility within 30 days. Approximately 10% of breast cancers are not detected by mammography. A normal mammogram should not delay biopsy of a clinically suspicious abnormality. [id number] Electronically Signed: Rodrick Diaz MD at 14:14 EDT ,
== END | disposition home or self-care (01) ==
LOC: OPBI 10:30
PROVIDERS: PCP Family Medicine Geriatric Medicine; Referring Provider Family Medicine Geriatric Medicine; Visit Provider Family Medicine Geriatric Medicine
DX: Z12.31 Encounter for screening mammogram for malignant neoplasm of breast (principal)
CPT/HCPCS: 77063; 77067

== ENCOUNTER → 2023-03-04 | Outpatient (CLI) | payer MEDICARE, OTHER, SELFPAY ==
--- NOTE | 2023-03-04 10:50 | RAD_ITS ---
STUDY: X-RAY - UNILATERAL RIBS ( LEFT ) WITH CHEST REASON FOR EXAM: Female, 72 years old. RIB PAIN LEFT SIDE TECHNIQUE - RIBS: 4 view(s) of the ribs. TECHNIQUE - CHEST: Single PA view of the chest. COMPARISON: None. FINDINGS - RIBS: Normal visualized ribs without a demonstrated fracture. FINDINGS - CHEST: The lungs are clear and expanded. There is no demonstrated pleural abnormality. Normal size heart. Normal mediastinum and constantin. Normal visualized pulmonary arteries. There is atherosclerotic calcification of the aortic arch with tortuosity. Normal visualized thoracic spine. Normal visualized ribs, clavicles, and shoulders. There is no demonstrated abnormality of the visualized soft tissue structures of the upper abdomen. RAD/Ribs Uni Min 3V w/PA Chest IMPRESSION: RIBS: Normal x-ray examination of the ribs. CHEST: Normal x-ray examination of the chest. Electronically Signed: Rodrick Diaz MD at 11:17 EDT ,
== END | disposition home or self-care (01) ==
LOC: RAD 10:47
PROVIDERS: PCP Family Medicine Geriatric Medicine; Referring Provider Family Medicine Geriatric Medicine; Visit Provider Family Medicine Geriatric Medicine
DX: R07.81 Pleurodynia (principal)
CPT/HCPCS: 71101

== ENCOUNTER → 2023-06-27 | Outpatient (CLI) | payer MEDICARE, OTHER, SELFPAY ==
[2023-06-27 12:48] LABS: Absolute Lymphocyte Count 1.33 X10^3/uL (0.83-4.51); Absolute Neutrophil Count 3.1 X10^3/uL (2.0-7.7); Basophil# 0.07 X10^3/uL; Basophil% 1.4 % (0-1); Eosinophil# 0.14 X10^3/uL; Eosinophils% 2.7 % (0-5); Hematocrit 35.8 % (37-47); Hemoglobin 11.3 g/dL (12.0-15.0); Lymphocyte # 1.33 X10^3/ul (0.83-4.51); Mean Corp Hgb Conc 31.6 g/dL (32-36); Mean Corpuscular Hgb 30.3 pg (27.0-32.0); Mean Platelet Vol. 9.8 fl (6.2-12.0); Monocyte# 0.45 X10^3/uL; Monocyte% 8.8 % (0-10); NRBC Flagged by Analyzer 0 % (0-5); Neutrophil # 3.11 X10^3/uL (2.7-7.7); Neutrophil % 60.9 % (47-70); Platelet Count 225 K/mm3 (150-450); RBC Distribution Width CV 13.3 % (11.6-14.6); RBC Distribution Width SD 47.8 fl (35.1-43.9); Red Blood Count 3.73 M/mm3 (4.2-5.4); White Blood Count 5.1 K/mm3 (4.4-11.0)
[2023-06-27 13:24] LABS: AST(SGOT) 19 U/L (15-37); Alanine Aminotransfer ALT/SGPT 20 U/L (13-56); Albumin, Serum 3.3 g/dL (3.2-5.0); Alkaline Phosphatase 81 U/L (45-117); Anion Gap 7 (5-15); BUN 19 mg/dL (7-18); BUN/Creat Ratio 19.1 RATIO (10-20); Calcium,Total 8.7 mg/dL (8.5-10.1); Chloride 111 mmol/L (98-107); EST Glomerular Filtration Rate 58 mL/min (>60); Est Glom Filt Rate - Afr Amer 70 mL/min (>60); Globulin 3.4 g/dL (2.2-4.2); Glucose 181 mg/dL (74-106); Protein, Total 6.7 g/dL (6.4-8.2); Sodium Level 141 mmol/L (136-145); Thyroid Stim Hormone (TSH) 1.84 uIU/mL (0.358-3.74)
[2023-06-27 15:27] LABS: Vitamin D,25 Hydroxy 46.9 ng/mL
== END | disposition home or self-care (01) ==
LOC: POLAB3 11:40
PROVIDERS: PCP Family Medicine Geriatric Medicine; Visit Provider Family Medicine Geriatric Medicine
DX: E11.65 Type 2 diabetes mellitus with hyperglycemia (principal); I10 Essential (primary) hypertension; E55.9 Vitamin D deficiency, unspecified
CPT/HCPCS: 36415; 80053; 82306; 84443; 85025

== ENCOUNTER → 2023-07-30 | Outpatient (CLI) | payer MEDICARE, OTHER, SELFPAY ==
--- NOTE | 2023-07-30 14:53 | CT_ITS ---
STUDY: CTA CHEST REASON FOR EXAM: Female, 72 years old. + COVID, COUGH RADIATION DOSAGE (If Supplied By Facility): CTDIvol = ( 10.08 ) mGy, DLP = ( 408.58 ) mGycm TECHNIQUE: The examination was performed with the intravenous administration of IV 100mL [id number]-[id number]. Post-processing of the angiographic images was performed, with multiplanar reformation and 3D reconstruction. Individualized dose optimization techniques were used for this CT. COMPARISON: June 12, 2017 FINDINGS: Normal enhancement of the main pulmonary artery and right and left pulmonary arteries. Normal enhancement of the bilateral peripheral pulmonary arteries. There is no demonstrated pulmonary embolism. Mild atherosclerotic change of the aorta without evidence for aneurysm. There is a proximal left subclavian stent There is no demonstrated aortic dissection. Heart is enlarged. There is mild coronary artery calcification. Normal mediastinum. Normal hilar regions. Normal visualized trachea and bronchi. The lungs are well expanded. Minor atelectasis within the dependent portion lungs. There is a small patchy area of groundglass opacity in right middle lobe possibly representing mild Covid pneumonia.. There are 2 tiny calcified granulomata in the right lower and upper lobe. Normal pleura. Normal chest wall structures. Normal osseous structures. Small hiatal hernia is noted Normal visualized upper abdomen. CT/CTA Chest W/WO Contrast IMPRESSION: Mild atelectasis within the dependent portion of both lungs.. Patchy groundglass opacity in the right middle lobe possibly representing mild Covid pneumonia. No evidence for pulmonary embolus Electronically Signed: Jamel Juarez MD at 16:28 EST ,
[2023-07-30] MEDS: 0.9% Saline Lock 10 ML Syringe IV (15:43)
--- OUTSIDE RECORDS SUMMARY | 2023-07-30 16:28 | XMS RPT_ITS | CCD ---
Author Name Unknown Address [email or web address] [place] [address] Organization [facility] Care Team Providers Care Banana Carrier Name Role Phone NABILA MARIE Unavailable Unavailabl e COURSON, NABILA MUSE Unavailable Unavailabl e COURSON, NABILA MUSE Unavailable Unavailabl e COURSON, NABILA MUSE Unavailable Unavailabl e COURSON, YENY Unavailable Unavailable COURSON, YENY Unavailable Unavailable EDIE CALABRESE Unavailable Unavailable MILVIA, DR STEPHANY Mendez Attending Unavaila ble MILVIA, DR STEPHANY Mendez Primary Care Unavaila ble MILVIA, DR STEPHANY Mendez Admitting Unavaila JIM John MD Consulting Unavailable PROVIDER, UNKNOWN Consulting Unavailable PROVIDER, UNKNOWN Consulting Unavailable MILVIA, DR STEPHANY Mendez Attending Unavaila ble MILVIA, DR STEPHANY Mendez Primary Care Unavaila ble MILVIA, DR STEPHANY Mendez Admitting Unavaila ble JIM CALABRESE MD Consulting Unavailable PROVIDER, UNKNOWN Consulting Unavailable PROVIDER, UNKNOWN Consulting Unavailable Jim Calabrese Chi Primary Care Provider Medications Completed/Discontinued Medications Medication Drug Class(es) Dates Sig (Normalized) Sig (Original) acetaminophen 325 mg / oxyCODONE hydrochloride 5 mg oral tablet (1 source) Opioid Agonist take 1 tablet by betzy th every four hours as needed oxyCODONE-acetamino phen (PERCOCET) 5-325 mg tablet Take 1 tablet by mouth every 4 hours as needed (1-2 tablets). 0 Active Problems Active Problems Problem Classification Problem Date Documented Da te Episodic/Chronic Cardiac dysrhythmias (1 source) Ventricular premature beats; Translations: [Ventricular premature depolarization] 09-24-2016 Chronic Conduction disorders (1 source) Other specified heart block; Translations: [Other specified heart block] Onset: 04-08-2017 Chronic Other circulatory disease (1 source) Stricture of artery; Translations: [Stricture of artery] Onset: 04-08-2017 Chronic Other circulatory disease (1 source) Subclavian artery stenosis; Translations: [Stricture of artery] Onset: 04-04-2011 04-04-2011 Chronic Unclassified (2 sources) Unknown / UNK(Unknown) Onset: 09-12-2017 Past or Other Problems Problem Classification Problem Date Documented Da te Episodic/Chronic Syncope (1 source) Syncope and collapse; Translations: [Syncope and collapse] Onset: 04-08-2017 Episodic Unclassified (1 source) Cardiology Follow Up Onset: 09-12-2017 Results Test Name Value Interpretation Reference Range Facil ity Encounters Encounter Date Encounter Type Care Provider Facility Start: 11-07-2021 End: 11-07-2021 Subsequent hospital visit by physician Je Cardoso MD Work Phone: [facility] Procedures Date Procedure Procedure Detail Performing Clinician Start: 11-07-2021 Ecg routine ecg w/le ast 12 lds i&r only Start: 12-10-2012 Colonoscopy Je fung MD Work Phone: Plan of Treatment Date Care Activity Detail Author Start: 03-22-2022 Influenza vaccination INFLUENZA (Sea son Ended) [facility] Start: 07-22-2021 ADVANCE DIRECTIVE DISCUSSION ADVANCE DIRECTIVE DISCUSSION [facility] Start: 2015 BONE DENSITY BONE DENSITY [facility] Start: 2015 PNEUMOVAX AGE 65 AND OVER WITH 5YR LOOKBACK (#1) PNEUMOVAX AGE 65 AND OVER WITH 5YR LOOKBACK (#1) [facility] Start: 02-16-2014 DIABETES SCREEN DIABETES SCREEN [facility] Start: 12-10-2013 Colonoscopy COLONOSCOPY [facility] Start: 12-10-2013 COLORECTAL CANCER SCREENING COLORECTAL CANCER SCREENING [facility] Start: 2000 SHINGRIX VACCINE (1 of 2) SHINGRIX V ACCINE (1 of 2) [facility] Start: 1995 COLOGUARD (FIT-DNA) COLOGUARD (FIT-D NA) [facility] Start: [address] COLONOGRAPHY [facility] Start: 1995 FECAL OCCULT BLOOD FECAL OCCULT BLOO D [facility] Start: 1995 LIPID SCREEN LIPID SCREEN [facility] Start: 1995 SIGMOIDOSCOPY SIGMOIDOSCOPY Oanh barbour [facility] Start: 1990 Mammography MAMMOGRAM [facility] Start: 1969 Urine microalbumin profile DTAP,TDAP ,TD (1 - Tdap) [facility] Start: 1968 HEPATITIS C SCREENING HEPATITIS C SC REENING [facility] Start: 1962 Adult depression scr eening assessment DEPRESSION SCREENING [facility] Start: 1955 COVID-19 VACCINE (1) COVID-19 VACCIN E (1) [facility] Payers Date Payer Category Payer Unknown MMO MMO MEDICARE SUPPLEMENT [id number] 2020-Present [phone] [address] [place] [address] Indemnity [id number] 2015 Medicare MEDICARE MEDICAR E A AND B [id number] 2015-Present [phone] [address] [address] [place] [address] Medicare [id number] 1950 Unknown [id number] Medicare [id number] Medicare [id number] Social History Date Type Detail Facility Start: 01-05-2011 Tobacco smoking stat us NVIS Ex-smoker [facility] End: 09-24-1997 History of tobacco use Current smoker [facility] End: 09-24-1997 History of tobacco use Cigarette Smoker [facility] Start: 01-05-2011 Cigarettes smoked cu rrent (pack per day) - Reported 3 [facility] Start: 01-05-2011 Tobacco use and exposure Smoke less tobacco non-user [facility] Start: 09-12-2017 Alcohol intake 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 of alcohol (finding) [facility] Start: 09-24-2016 Tobacco [facility] Start: 1950 Sex Assigned At Not on file [facility] Summary Purpose Family History No Family History Records FoundNo Family History Records FoundNo Family History Records FoundNo Family History Records FoundNo Family History Records Found Advance Directives No Advanced Directives Records FoundDocuments on File 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 Advance Directive(s) 02/16/2011 8:19 PM Additional Source Comments INFORMATION SOURCE (unrecogn ized section and content) DATE CREATED AUTHOR AUTHOR'S ORGANIZ ATION 01/10/2018 [facility] DATE CREATED AUTHOR AUTHOR'S ORGANIZ ATION 11/10/2020 [facility] DATE CREATED AUTHOR AUTHOR'S ORGANIZ ATION 04/08/2021 [facility] DATE CREATED AUTHOR AUTHOR'S ORGANIZ ATION 12/07/2021 [facility] Ce sybil [place] Source Comments (unrecognize d section and content) In the event this informatio n is protected by the Federal Confidentiality of Alcohol and Drug Abuse Patient Records regulations: The Federal rules restrict any use of the information to criminally investigate or prosecute any alcohol or drug abuse patient.[facility] Care Teams (unrecognized sec tion and content) FOR RECORDS PERTAINING TO PATIENTS WHO ARE OR HAVE BEEN ENROLLED IN A CHEMICAL DEPENDENCY/SUBSTANCEABUSE PROGRAM, SOME INFORMATION MAY BE OMITTED. This clinical summary was aggregated from multiple sources. Caution should be exercised in using it in the provision of clinical care. This summary normalizes information from multiple sources, and as a consequence, information in this document may materially change the coding, format and clinical context of patient data. In addition, data may be omitted in some cases. CLINICAL DECISIONS SHOULD BE BASED ON THE PRIMARY CLINICAL RECORDS. [facility]. provides no warranty or guarantee of the accuracy or completeness of information in this document.
== END | disposition home or self-care (01) ==
LOC: CT 14:51
PROVIDERS: PCP Family Medicine Geriatric Medicine; Referring Provider Family Medicine Geriatric Medicine; Visit Provider Family Medicine Geriatric Medicine
DX: R06.02 Shortness of breath (principal)
CPT/HCPCS: 71275; Q9967

== ENCOUNTER → 2023-07-31 | Outpatient (CLI) | payer MEDICARE, OTHER, SELFPAY ==
--- OUTSIDE RECORDS SUMMARY | 2023-07-31 09:59 | XMS RPT_ITS | CCD ---
Author Name Unknown Address [address] [place] [address] Organization [facility] Care Team Providers Care Ramp Lead Name Role Phone NABILA MARIE Unavailable Unavailabl [...] 03-22-2022 Influenza vaccination INFLUENZA (Sea son Ended) [facility] Start: 07-22-2021 ADVANCE DIRECTIVE DISCUSSION ADVANCE DIRECTIVE DISCUSSION [facility] Start: 2015 BONE DENSITY BONE DENSITY [facility] Start: 2015 PNEUMOVAX AGE 65 AND OVER WITH 5YR LOOKBACK (#1) PNEUMOVAX AGE 65 AND OVER WITH 5YR LOOKBACK (#1) [facility] Start: 02-16-2014 DIABETES SCREEN DIABETES SCREEN [facility] Start: 12-10-2013 Colonoscopy COLONOSCOPY [facility] Start: 12-10-2013 COLORECTAL CANCER SCREENING COLORECTAL CANCER SCREENING [facility] Start: 2000 SHINGRIX VACCINE (1 of 2) SHINGRIX V ACCINE (1 of 2) [facility] Start: 1995 COLOGUARD (FIT-DNA) COLOGUARD (FIT-D NA) [facility] Start: [address] [facility] Start: 1995 FECAL OCCULT BLOOD FECAL OCCULT BLOO D [facility] Start: 1995 LIPID SCREEN LIPID SCREEN [facility] Start: 1995 SIGMOIDOSCOPY SIGMOIDOSCOPY Oanh barbour [facility] Start: 1990 Mammography MAMMOGRAM [facility] Start: 1969 Urine microalbumin profile DTAP,TDAP ,TD (1 - Tdap) [facility] Start: 1968 HEPATITIS C SCREENING HEPATITIS C SC REENING [facility] Start: 1962 Adult depression scr eening assessment DEPRESSION SCREENING [facility] Start: 1955 COVID-19 VACCINE (1) COVID-19 VACCIN E (1) [facility] Payers Date Payer Category Payer Unknown MMO MMO MEDICARE SUPPLEMENT [id number] 2020-Present [phone] [address] [place] [address] Indemnity [id number] 2015 Medicare MEDICARE MEDICAR E A AND B [id number] 2015-Present [phone] [address] [address] [place] [address] Medicare [id number] 1950 Unknown [id number] 1 Medicare [id number] Medicare [id number] Social History Date Type Detail Facility Start: 01-05-2011 Tobacco smoking stat us DEIS Ex-smoker [facility] End: 09-24-1997 History of tobacco use Current smoker [facility] End: 09-24-1997 History of tobacco use Cigarette Smoker [facility] Start: 01-05-2011 Cigarettes smoked cu rrent (pack per day) - Reported 3 [facility] Start: 01-05-2011 Tobacco use and exposure Smoke less tobacco non-user [facility] Start: 09-12-2017 Alcohol intake Current non-dr rayon coner of alcohol (finding) [facility] Start: 09-24-2016 Tobacco [facility]: 1950 Sex Assigned At Not on file [facility] Summary Purpose Family History No Family History Records FoundNo Family History Records FoundNo Family History Records FoundNo Family History Records FoundNo Family History Records Found Advance Directives No Advanced Directives Records FoundDocuments on File 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 Advance Directive(s) 02/16/2011 8:19 PM Additional Source Comments INFORMATION SOURCE (unrecogn ized section and content) DATE CREATED AUTHOR AUTHOR'S ORGANIZ ATION 01/10/2018 [facility] DATE CREATED AUTHOR AUTHOR'S ORGANIZ ATION 11/10/2020 [facility] DATE CREATED AUTHOR AUTHOR'S ORGANIZ ATION 04/08/2021 [facility]) DATE CREATED AUTHOR AUTHOR'S ORGANIZ ATION 12/07/2021 [facility] Ce sybil [place] Source Comments (unrecognize d section and content) In the event this informatio n is protected by the Federal Confidentiality of Alcohol and Drug Abuse Patient Records regulations: The Federal rules restrict any use of the information to criminally investigate or prosecute any alcohol or drug abuse patient.[facility] Care Teams (unrecognized sec tion and content) [...] BE BASED ON THE PRIMARY CLINICAL RECORDS. [facility]. provides no warranty or guarantee of the accuracy or completeness of information in this document.
== END | disposition home or self-care (01) ==
LOC: PSN 09:18
PROVIDERS: PCP Family Medicine Geriatric Medicine; Referring Provider Family Medicine Geriatric Medicine; Visit Provider Family Medicine Geriatric Medicine
DX: U07.1 COVID-19 (principal); R68.83 Chills (without fever)
CPT/HCPCS: 87631

== ENCOUNTER → 2023-08-23 | Outpatient (CLI) | payer MEDICARE, OTHER, SELFPAY ==
--- NOTE | 2023-08-23 09:55 | ART_ITS ---
Reason For Study: Aftercare/Athersclerosis Procedure A bilateral upper extremity continuous wave Doppler with analog waveform analysis and segmental pressures. Left Segmental Pressures Left brachial= 121mmHg. Left radial= 133mmHg. Left ulnar= 134mmHg. Left digit = 130 mmHg. The left brachial waveforms are biphasic. The left radial waveforms are biphasic. The left ulnar waveforms are monophasic. Right Segmental Pressures Right brachial= 166mmHg. Right radial= 177mmHg. Right ulnar= 189mmHg. Right digit = 159 mmHg. The right brachial waveforms are triphasic. The right radial waveforms are triphasic. The right ulnar waveforms are triphasic. Indices The right wrist-brachial index is 1.14. The right digital-brachial index is 0.96. The left wrist- brachial index is 0.81. The left digital-brachial index is 0.78. VL/Ankle Brachial Index Interpretation Summary Right WBI normal with left arm mild occlusive disease. Ordering Physician: Je Cardoso Referring Physician: Jim Calabrese Chi Performed By: Rayo Craig RVT
--- NOTE | 2023-08-23 09:55 | ADUUE_ITS ---
Reason For Study: Aftercare / Atherosclerosis LEFT Left Subclavian velocity = 83.0 cm/sec. Left Axillary velocity = 85.3 cm/sec. The Brachial artery bifurcation is above the elbow. Left Brachial artery waveform is biphasic . Left Brachial velocity = 77.6 cm/sec. Proximal Radial artery waveform is biphasic . Left Radial velocity = 51.7 cm/sec. Proximal Ulnar artery waveform is monophasic . Left Ulnar velocity = 35.5 cm/sec. VL/US Art Duplex Unilat UP Extrem Interpretation Summary No stenosis seen left arm duplex with areas triphasic flow. Ordering Physician: Je Cardoso Referring Physician: Jim Calabrese Chi Performed By: Rayo Craig RVT
== END | disposition home or self-care (01) ==
LOC: CVS 09:53
PROVIDERS: PCP Family Medicine Geriatric Medicine; Referring Provider Surgery Vascular Surgery; Visit Provider Surgery Vascular Surgery
DX: Z48.812 Encounter for surgical aftercare following surgery on the circulatory system (principal); I77.1 Stricture of artery; G45.8 Other transient cerebral ischemic attacks and related syndromes
CPT/HCPCS: 93922; 93931

== ENCOUNTER → 2023-11-04 | Outpatient (CLI) | payer MEDICARE, OTHER, SELFPAY ==
--- NOTE | 2023-11-04 14:54 | RAD_ITS ---
STUDY: X-RAY CHEST REASON FOR EXAM: Female, 73 years old. Wheezing. TECHNIQUE: Frontal and lateral views of the chest. COMPARISON: 03/04/2023 FINDINGS: Stable low volume inspiration with minimal interstitial prominence in both bases, likely representing scarring/atelectasis. There is no demonstrated pleural abnormality. Stable mild cardiomegaly. Normal mediastinum and constantin. Prominent central pulmonary arteries unchanged. Stable aortic tortuosity with calcification. Thoracic osteopenia with diffuse mild spondylosis and increased kyphosis, unchanged. Normal visualized ribs, clavicles, and shoulders. No abnormality of the visualized soft tissue structures of the upper abdomen. RAD/Chest PA and Lateral IMPRESSION: Stable chest with no acute or active cardiopulmonary disease. Electronically Signed: Paulino Dumont MD at 15:58 EDT ,
== END | disposition home or self-care (01) ==
PROVIDERS: PCP Family Medicine Geriatric Medicine; Referring Provider Family Medicine Geriatric Medicine; Visit Provider Family Medicine Geriatric Medicine
DX: R06.2 Wheezing (principal); J98.8 Other specified respiratory disorders; R68.83 Chills (without fever)
CPT/HCPCS: 71046; 87631

== ENCOUNTER → 2024-01-02 | Outpatient (CLI) | payer MEDICARE, OTHER, SELFPAY ==
[2024-01-02 13:22] LABS: Absolute Lymphocyte Count 1.54 X10^3/uL (0.83-4.51); Absolute Neutrophil Count 3.4 X10^3/uL (2.0-7.7); Basophil# 0.07 X10^3/uL; Basophil% 1.2 % (0-1); Eosinophil# 0.13 X10^3/uL; Eosinophils% 2.3 % (0-5); Hematocrit 41.5 % (37-47); Hemoglobin 12.8 g/dL (12.0-15.0); Lymphocyte # 1.54 X10^3/ul (0.83-4.51); Lymphocyte % 27.2 % (19-41); Mean Corp Hgb Conc 30.8 g/dL (32-36); Mean Corpuscular Hgb 29.1 pg (27.0-32.0); Mean Corpuscular Volume 94.3 fL (81-99); Mean Platelet Vol. 9.7 fl (6.2-12.0); Monocyte# 0.52 X10^3/uL; Monocyte% 9.2 % (0-10); NRBC Flagged by Analyzer 0 % (0-5); Neutrophil # 3.39 X10^3/uL (2.7-7.7); Neutrophil % 59.7 % (47-70); Platelet Count 246 K/mm3 (150-450); RBC Distribution Width SD 48.5 fl (35.1-43.9); White Blood Count 5.7 K/mm3 (4.4-11.0)
[2024-01-02 13:50] LABS: Vitamin D,25 Hydroxy 50.5 ng/mL
[2024-01-02 14:18] LABS: AST(SGOT) 21 U/L (15-37); Alanine Aminotransfer ALT/SGPT 22 U/L (13-56); Albumin, Serum 3.8 g/dL (3.2-5.0); Alkaline Phosphatase 83 U/L (45-117); Anion Gap 2 (5-15); BUN 30 mg/dL (7-18); BUN/Creat Ratio 25.6 RATIO (10-20); Calcium,Total 9.3 mg/dL (8.5-10.1); Chloride 110 mmol/L (98-107); Creatinine, Serum 1.17 mg/dL (0.55-1.02); EST Glomerular Filtration Rate 48 mL/min (>60); Est Glom Filt Rate - Afr Amer 58 mL/min (>60); Globulin 3.9 g/dL (2.2-4.2); Glucose 155 mg/dL (74-106); Protein, Total 7.7 g/dL (6.4-8.2); Sodium Level 141 mmol/L (136-145); Thyroid Stim Hormone (TSH) 1.69 uIU/mL (0.358-3.74)
== END | disposition home or self-care (01) ==
LOC: LAB 12:40
PROVIDERS: PCP Family Medicine Geriatric Medicine; Referring Provider Family Medicine Geriatric Medicine; Visit Provider Family Medicine Geriatric Medicine
DX: I10 Essential (primary) hypertension (principal); E55.9 Vitamin D deficiency, unspecified
CPT/HCPCS: 36415; 80053; 82306; 84443; 85025

== ENCOUNTER → 2024-01-09 | Outpatient (CLI) | payer MEDICARE, OTHER, SELFPAY ==
--- NOTE | 2024-01-09 11:14 | RAD_ITS ---
STUDY: X-RAY - PELVIS AND LEFT HIP REASON FOR EXAM: Female, 73 years old. PSOAS TENDONITIS TECHNIQUE: 3 views of the pelvis and left hip. COMPARISON: Crosstable lateral postop x-ray of the hips dated 06/06/2017. FINDINGS: There is a non-specific bowel gas pattern. Normal visualized soft tissue structures. Normal bilateral iliac wings, sacroiliac joints and visualized sacrum. Normal bilateral superior and inferior pubic rami. Normal pubic symphysis. Normal bilateral ischial tuberosities. There are hip arthroplasties bilaterally, with good anatomic alignment bilaterally. There is no periprosthetic fracture. RAD/HIP, UNI W/ Pelvis 2-3 Views IMPRESSION: Hip arthroplasties bilaterally, with no periprosthetic fracture. Electronically Signed: David Lugo MD at 11:30 EDT ,
== END | disposition home or self-care (01) ==
LOC: RAD 11:10
PROVIDERS: PCP Family Medicine Geriatric Medicine; Visit Provider Clinical Nurse Specialist Adult Health
DX: M76.02 Gluteal tendinitis, left hip (principal)
CPT/HCPCS: 73502

== ENCOUNTER → 2024-01-16 | Outpatient (CLI) | payer MEDICARE, OTHER, SELFPAY ==
[2024-01-16 14:40] LABS: Erythrocyte Sedimentation Rate 8 mm/hr (0-30)
[2024-01-16 15:39] LABS: CRP < 2.90 mg/L (0.0-3.0); Free T3 1.6 pg/mL (2.18-3.98); LDH 199 U/L (84-246); T4 Free Direct 0.98 ng/dL (0.76-1.46)
[2024-01-23 12:09] LABS: Pancreatic Elastase, Fecal > 800 (>200)
[2024-01-25 15:08] LABS: ACCA 7 units (0-90); ALCA 18 units (0-60); AMCA 63 units (0-100); Albumin 3.5 g/dL (2.9-4.4); Alpha-1-Globulins 0.2 g/dL (0.0-0.4); Alpha-2-Globulins 0.8 g/dL (0.4-1.0); Gamma Globulin 0.6 g/dL (0.4-1.8); Immunoglobulin A 179 mg/dL (64-422); Immunoglobulin E < 2 IU/mL (6-495); Immunoglobulin G 826 mg/dL (586-1602); Immunoglobulin M 22 mg/dL (26-217); PROEL- TOTAL PROTEIN 6.1 g/dL (6.0-8.5); gASCA 3 units (0-50)
== END | disposition home or self-care (01) ==
LOC: LAB 14:01
PROVIDERS: PCP Family Medicine Geriatric Medicine; Visit Provider Internal Medicine Gastroenterology
DX: R10.9 Unspecified abdominal pain (principal); R19.7 Diarrhea, unspecified; K58.9 Irritable bowel syndrome, unspecified
CPT/HCPCS: 82653; 82784; 82785; 83516; 83615; 83630; 84165; 84439; 84481; 85652; 86036; 86140; 86334; 86671; 87177; 87209; 87329

== ENCOUNTER → 2024-01-30 | Outpatient (CLI) | payer MEDICARE, OTHER, SELFPAY ==
--- NOTE | 2024-01-30 15:09 | BD_ITS ---
STUDY: DUAL ENERGY X-RAY ABSORPTIOMETRY / DXA REASON FOR EXAM: Female, 73 years old. Z78.0 TECHNIQUE: Bone Mineral Density (BMD) measurements of lumbar spine and left forearm were obtained. COMPARISON: Comparison is made with prior study dated December 22, 2009. FINDINGS: Lumbar Spine (L1-L4): g/cm2 (0.923) / T-score (-0.9) / Z-score (1.4) Findings are suggestive of normal bone density with a low fracture risk. Left Forearm: g/cm2 (0.489) / T-score (-1.7) / Z-score (0.6) The T-Scores on the most recent prior examination were: Lumbar Spine (L1-L4): There has been worsening of bone density since the previous examination. BD/Dexa Bone Density Study IMPRESSION: The patient is considered osteopenic as outlined below according to World Jarek Organization (WHO) criteria with a moderate fracture risk. There has been worsening of bone density since the previous examination. Reference Information: The T-score is the number of standard deviations above or below the standard which is normal for young adults at their peak bone mineral density. The World Health Organization (WHO) interprets the T-scores as follows: Above -1 Normal bone density Between -1 and -2.5 Osteopenia Equal to / or below -2.5 Osteoporosis As a practical clinical guideline, osteopenia may be graded as follows: Mild -1 through -1.5 Moderate -1.6 through -2.0 Severe -2.1 through -2.4 The Z-score is the number of standard deviations above or below age-matched controls. A Z-score of less than -1.5 would be considered abnormal. References: 1. NIH Osteoporosis and Related Bone Diseases www osteo.org 2. International Society for Clinical Densitometry www iscd.org 3. National Osteoporosis Foundation www nof.org Electronically Signed: Rodrick Diaz MD at 14:01 EDT ,
--- NOTE | 2024-01-30 15:11 | BI_ITS ---
MAMMOGRAPHY - BILATERAL SCREENING REASON FOR EXAM: Female, 73 years old. Routine annual screening examination. PERTINENT HISTORY: Non-contributory. TECHNIQUE: Digital bilateral breast mehran (3D mammographic acquisition) in the CC and MLO projections. 2-D mediolateral oblique (MLO) and craniocaudad (CC) views of both breasts were obtained. CAD: Full Field Digital Mammography with Computer Added Detection was performed. COMPARISON: Comparison is made with prior study dated January 28, 2023 and December 20, 2020. FINDINGS: Breast Composition: There are scattered areas of fibroglandular density. Focal area of architectural distortion is seen in the slightly medial aspect of the left breast on the craniocaudad view. The patient will be recalled for additional views including 90 degree lateral and compression spot views of the left breast. No other significant abnormalities are identified. BI/SCRN MAMM (CAD)W/MEHRAN BILAT IMPRESSION: Focal area of architectural distortion is seen on the craniocaudad view of the left breast as described. The patient will be recalled for additional views including 90 degree lateral and compression spot views. Recall Side: Left Breast ASSESSMENT CATEGORY: BIRADS Category 0: Incomplete. Need additional imaging evaluation. A letter regarding these results will be sent to the patient by the facility within 30 days. Approximately 10% of breast cancers are not detected by mammography. A normal mammogram should not delay biopsy of a clinically suspicious abnormality. [id number] Electronically Signed: Rodrick Diaz MD at 8:27 EDT ,
== END | disposition home or self-care (01) ==
LOC: OPBD 15:08
PROVIDERS: PCP Family Medicine Geriatric Medicine; Referring Provider Family Medicine Geriatric Medicine; Visit Provider Family Medicine Geriatric Medicine
DX: Z12.31 Encounter for screening mammogram for malignant neoplasm of breast (principal); Z78.0 Asymptomatic menopausal state
CPT/HCPCS: 77063; 77067; 77080

== ENCOUNTER → 2024-02-03 | Outpatient (CLI) | payer MEDICARE, OTHER, SELFPAY ==
--- NOTE | 2024-02-03 09:30 | US_ITS ---
STUDY: ULTRASOUND BREAST - LEFT REASON FOR EXAM: Female, 73 years old. Abnormal screening mammogram. TECHNIQUE: Axial and longitudinal images of the LEFT breast were performed with a high resolution ultrasound transducer. # OF IMAGES: 28 COMPARISON: Comparison is made with prior mammogram done earlier in the day. FINDINGS: LEFT Breast: The medial aspect of the left breast was examined with ultrasound. No sonographic abnormality is seen. US/Breast Limited Unilateral IMPRESSION: No sonographic abnormality is seen. Routine annual mammographic follow-up is recommended. ASSESSMENT CATEGORY: BIRADS Category 1: Negative. A letter regarding these results will be sent to the patient by the facility within 30 days. Electronically Signed: Rodrick Diaz MD at 10:58 EDT ,
--- NOTE | 2024-02-03 09:30 | BI_ITS ---
MAMMOGRAPHY - UNILATERAL DIAGNOSTIC: LEFT BREAST REASON FOR EXAM: Female, 73 years old. Abnormal screening mammogram. PERTINENT HISTORY: Questionable focal area of architectural distortion in the slightly medial aspect of the left breast. TECHNIQUE: Compression spot views and 90 degree lateral view of the left breast were obtained. CAD: Full Field Digital Mammography with Computer Added Detection was performed. COMPARISON: Comparison is made with prior mammogram dated January 30, 2024. FINDINGS: Breast Composition: There are scattered areas of fibroglandular density. There are no dominant masses or suspicious calcifications. No other significant abnormalities are identified. BI/DIAG MAMM W/CAD, UNILAT IMPRESSION: Negative unilateral diagnostic mammogram. Targeted sonographic correlation recommended. ASSESSMENT CATEGORY: BIRADS Category 0: Incomplete. Need additional imaging evaluation. A letter regarding these results will be sent to the patient by the facility within 30 days. Approximately 10% of breast cancers are not detected by mammography. A normal mammogram should not delay biopsy of a clinically suspicious abnormality. Electronically Signed: Rodrick Diaz MD at 10:57 EDT ,
== END | disposition home or self-care (01) ==
LOC: OPBI 09:28
PROVIDERS: PCP Family Medicine Geriatric Medicine; Referring Provider Family Medicine Geriatric Medicine; Visit Provider Family Medicine Geriatric Medicine
DX: R92.8 Other abnormal and inconclusive findings on diagnostic imaging of breast (principal)
CPT/HCPCS: 76642; 77065

== ENCOUNTER → 2024-05-12 | Outpatient (CLI) | payer MEDICARE, OTHER, SELFPAY ==
--- NOTE | 2024-05-12 12:16 | RAD_ITS ---
STUDY: X-RAY - CERVICAL SPINE REASON FOR EXAM: Female, 73 years old. CERVICAL DEGENERATIVE DISC DISEASE TECHNIQUE: 5 view(s) of the cervical spine were obtained. COMPARISON: 05/27/2020 FINDINGS: Normal anterior atlantoaxial articulation. Normal odontoid process. Normal cervical lordosis. Normal vertebral bodies and endplates. Normal disc space heights. There is multi-level osseous foraminal stenosis. The soft tissue structures are unremarkable. RAD/Cerv Spine 4 or 5 Views IMPRESSION: Diffuse degenerative disc disease primarily facet hypertrophy. MRI may be useful. Electronically Signed: Franklin Del Cid MD at 10:05 EDT ,
== END | disposition home or self-care (01) ==
LOC: RAD 12:11
PROVIDERS: PCP Family Medicine Geriatric Medicine; Referring Provider Clinical Nurse Specialist Adult Health; Visit Provider Clinical Nurse Specialist Adult Health
DX: M50.30 Other cervical disc degeneration, unspecified cervical region (principal)
CPT/HCPCS: 72050

== ENCOUNTER → 2024-07-02 | Outpatient (CLI) | payer MEDICARE, OTHER, SELFPAY ==
[2024-07-02 12:35] LABS: Absolute Lymphocyte Count 1.38 X10^3/uL (0.83-4.51); Absolute Neutrophil Count 6.3 X10^3/uL (2.0-7.7); Basophil# 0.07 X10^3/uL; Basophil% 0.8 % (0-1); Eosinophil# 0.08 X10^3/uL; Eosinophils% 0.9 % (0-5); Hematocrit 37.8 % (37-47); Hemoglobin 12.3 g/dL (12.0-15.0); Lymphocyte # 1.38 X10^3/ul (0.83-4.51); Lymphocyte % 16.3 % (19-41); Mean Corp Hgb Conc 32.5 g/dL (32-36); Mean Corpuscular Hgb 29.3 pg (27.0-32.0); Mean Platelet Vol. 10.1 fl (6.2-12.0); Monocyte# 0.63 X10^3/uL; Monocyte% 7.4 % (0-10); NRBC Flagged by Analyzer 0 % (0-5); Neutrophil # 6.28 X10^3/uL (2.7-7.7); Neutrophil % 74.1 % (47-70); Platelet Count 229 K/mm3 (150-450); RBC Distribution Width CV 13.7 % (11.6-14.6); RBC Distribution Width SD 44.6 fl (35.1-43.9); White Blood Count 8.5 K/mm3 (4.4-11.0)
[2024-07-02 12:57] LABS: Vitamin D,25 Hydroxy 60.8 ng/mL
[2024-07-02 15:00] LABS: ALB/GLOB Ratio 1.2 RATIO (0.9-2.4); AST(SGOT) 18 U/L (15-37); Alanine Aminotransfer ALT/SGPT 17 U/L (13-56); Albumin, Serum 3.7 g/dL (3.2-5.0); Alkaline Phosphatase 87 U/L (45-117); Anion Gap 9 (5-15); BUN 21 mg/dL (7-18); BUN/Creat Ratio 22.3 RATIO (10-20); Calcium,Total 9.3 mg/dL (8.5-10.1); Chloride 110 mmol/L (98-107); Creatinine, Serum 0.94 mg/dL (0.55-1.02); EST Glomerular Filtration Rate 62 mL/min (>60); Est Glom Filt Rate - Afr Amer 75 mL/min (>60); Glucose 161 mg/dL (74-106); Potassium 4.5 mmol/L (3.5-5.1); Protein, Total 6.7 g/dL (6.4-8.2); Sodium Level 141 mmol/L (136-145); Thyroid Stim Hormone (TSH) 0.584 uIU/mL (0.358-3.740)
== END | disposition home or self-care (01) ==
LOC: POLAB3 10:58
PROVIDERS: PCP Family Medicine Geriatric Medicine; Visit Provider Family Medicine Geriatric Medicine
DX: E11.65 Type 2 diabetes mellitus with hyperglycemia (principal); I10 Essential (primary) hypertension; E55.9 Vitamin D deficiency, unspecified
CPT/HCPCS: 36415; 80053; 82306; 84443; 85025

== ENCOUNTER 2024-07-11 17:16 | Inpatient (IN) | payer MEDICARE, OTHER, SELFPAY ==
[2024-07-11 17:18] VITALS: BP 180/110; PULSE 82; RESP 25; TEMP 36.4; O2SAT 99; BMI 40.1
--- NOTE | 2024-07-11 17:46 | EDS_ITS ---
HPI <EDIL Lyons - Last Filed: 07/11/24 22:21> History of Present Illness Chief Complaint: Abd Pain Narrative Narrative: Patient is a 73-year-old female with history of hypertension, hyperlipidemia, GERD, IBS, who does see Dr. Ramsey who saw him 5 days ago. Presenting to the emergency department for sudden onset of pain to the midline of her abdomen that started around 4 hours ago. Patient states that she has a long history of abdominal pain however this is different. Patient states this is more severe. She denies any vomiting however does have subjective nausea. Denies any fever or chills. [place] any injury. Patient's surgical history on her abdomen is a ureter surgery as well as a hysterectomy. PFS <EDIL Lyons - Last Filed: 07/11/24 22:21> [facility] Medical History Arthritis Atherosclerotic heart disease of [place] coronary artery without angina pectoris Back pain [place]keon esophagus Bilateral carotid bruits Cardiac conduction disorder Cardiology follow-up encounter Carotid stenosis, non-symptomatic Conduction disorder of the heart (03/19/16) Controlled type 2 diabetes mellitus Dietary restriction Essential hypertension Fatty liver Former smoker Gastric reflux GERD (gastroesophageal reflux disease) High cholesterol History of diverticulitis History of echocardiogram History of edema History of hiatal hernia History of IBS History of irregular heartbeat History of pain when walking History of stress test HLD (hyperlipidemia) Hyperlipidemia (03/19/16) Hypertensive disorder (05/02/16) Hypothyroidism IBS (irritable bowel syndrome) Leg cramps Nonrheumatic tricuspid valve regurgitation Pulmonary hypertension PVC (premature ventricular contraction) Raynauds syndrome Shortness of breath on exertion Subclavian steal syndrome Syncope Syncope and collapse Syncope and collapse (03/19/16) Thyroid disease Ventricular premature beats (03/19/16) Wears glasses Home Medications ?Medication ?Instructions ?Recorded ?Last Taken ?Type cholecalciferol (vitamin D3) 25 1,000 unit PO BID Supplement 03/08/16 12/05/18 History mcg (1,000 unit) tablet levothyroxine 50 mcg tablet 50 mcg PO DAILY Thyroid 03/08/16 08/09/21 History metformin 500 mg tablet 500 mg PO BIDCM Diabetes 03/08/16 12/05/18 History esomeprazole magnesium 40 mg 40 mg PO QHS Reflux 05/22/17 12/04/18 History capsule,delayed release rosuvastatin 10 mg tablet 10 mg PO QHS Cholesterol 05/22/17 12/05/18 History aspirin 81 mg tablet,delayed 81 mg PO DAILY heart health 07/23/18 08/06/21 History release (Adult Low Dose Aspirin) melatonin 10 mg tablet 10 mg PO HS 07/23/18 12/04/18 History pioglitazone 30 mg tablet 30 mg PO DAILY dm 08/08/20 Unknown History promethazine 25 mg tablet 12.5 mg PO QPM Nausea 01/26/21 Unknown History furosemide 20 mg tablet 20 mg PO DAILY PRN Edema 06/23/21 Unknown History acetaminophen 500 mg tablet 500 mg PO Q6H PRN pain 11/27/21 Unknown History (Tylenol Extra Strength) duloxetine 30 mg capsule,delayed 30 mg PO DAILY 11/28/23 Unknown History release (Cymbalta) valsartan 320 mg tablet 320 mg PO QAM 01/16/24 Unknown History Allergy/AdvReac Type Severity Reaction Status Date / Time No Known Allergies Allergy Verified 07/11/24 17:17 Family History Father CAD (coronary artery disease) Myocardial infarction Mother Hypertension Cancer lung Grandfather Heart disease Myocardial infarction Grandmother Heart disease Cancer esophageal varices Surgical History history excision fragments loop recorder (~05/28/19) History of arthroplasty of left hip History of cardiac catheterization History of colonoscopy (~2016) History of left hip replacement History of removal of ureteral stent History of right hip replacement History of total hysterectomy History of ureter stent Hx of hand surgery Hx of tonsillectomy S/P peripheral artery angioplasty with stent placement (~10/2021) Status post placement of implantable loop recorder Social History Smoking Status: Former smoker how long ago did patient quit smokin years ago alcohol intake: never substance use type: does not use caffeine: Yes Type: carbonated beverages Number of servings: 3 what type of physical activity do you participate in: none seatbelt use: always do you feel safe at home: Yes ROS <SE LyonsC - Last Filed: 07/11/24 22:21> ROS ED ROS Narrative Constitutional: Negative for fever, chills, weight loss, weakness Eyes: Negative for vision loss, vision change, double vision ENT: Negative for any sore throat, ear pain, congestion Cardiovascular: Negative for any chest pain, tightness, palpitations Respiratory: Negative for any cough, sputum production, hemoptysis, dyspnea, dyspnea on exertion, orthopnea Gastrointestinal: Negative for any vomiting, diarrhea, constipation, blood in stool, blood in vomit. Positive for abdominal pain : Negative for any urinary frequency, dysuria, retention, blood in urine Muscle skeletal: Negative for any neck pain, back pain Neurological: Negative for any headache, syncope, dizziness Skin: Negative for any rashes, itching, abrasions, lacerations Psychiatric: Negative for any depression, anxiety, stress, suicidal ideation, homicidal ideation Hematologic: Negative for any excessive bruising, easy bleeding EXAM <EDIL Lyons - Last Filed: 07/11/24 22:21> Physical Exam Narrative Exam Narrative: Vital signs reviewed. Patient does appear to be uncomfortable. HEET: Head normocephalic atraumatic, TMs clear bilaterally. Posterior pharynx is clear, moist mucous membranes. Nares clear bilaterally. Neck: Supple with no lymphadenopathy or tenderness. No signs of meningismus. Cardiac: Regular rate and rhythm no murmurs gallops or rubs, equal peripheral pulses bilaterally. Respiratory: Lungs clear to auscultation bilaterally. No chest tenderness. Abdomen: Soft,nondistended. No abdominal bruit or pulsatile masses. No hepatosplenomegaly. Tenderness throughout abdominal examination, there is no significant peritoneal signs. Active bowel sounds. Extremities: No peripheral edema, no signs of gross trauma or deformity. Active full range of motion of all extremities. Neuro: Cranial nerves II through XII intact, no focal neurological deficits. Skin: Clean dry and intact with no rash, purpura, petechiae, vesicles or pustules. Backs/flank: No CVA tenderness, no midline spinal tenderness, no deformity. Psych: Normal mood and affect. No SI, HI or acute psychosis. Const Vital Signs: 07/11/24 17:18 07/11/24 19:16 07/11/24 21:00 Temperature 97.6 F L Temperature Source Temporal Pulse Rate 82 Respiratory Rate 25 H Blood Pressure 180/110 H 116/70 147/63 H Blood Pressure Mean 133 85 91 Pulse Ox 99 99 Oxygen Delivery Method Room Air 07/11/24 22:05 Temperature 98 F Temperature Source Pulse Rate 69 Respiratory Rate 18 Blood Pressure 150/49 H Blood Pressure Mean 82 Pulse Ox 99 Oxygen Delivery Method <Rufus Mendieta MD - Last Filed: 07/11/24 22:26> Physical Exam Const Vital Signs: 07/11/24 17:18 07/11/24 19:16 07/11/24 21:00 Temperature 97.6 F L Temperature Source Temporal Pulse Rate 82 Respiratory Rate 25 H Blood Pressure 180/110 H 116/70 147/63 H Blood Pressure Mean 133 85 91 Pulse Ox 99 99 Oxygen Delivery Method Room Air 07/11/24 22:05 Temperature 98 F Temperature Source Pulse Rate 69 Respiratory Rate 18 Blood Pressure 150/49 H Blood Pressure Mean 82 Pulse Ox 99 Oxygen Delivery Method MDM <EDIL Lyons - Last Filed: 07/11/24 22:21> [facility] Lab Data Labs: Laboratory Results - last 24 hr 07/11/24 07/11/24 19:00 19:11 WBC 7.3 RBC 4.00 L Hgb 11.7 L Hct 37.4 MCV 93.5 MCH 29.3 MCHC 31.3 L RDW Std Deviation 48.7 H RDW Coeff of [place] 14.1 Plt Count 193 MPV 9.6 Immature Gran % (Auto) 0.600 Neut % (Auto) 58.1 Lymph % (Auto) 25.2 [place] % (Auto) 12.8 H Eos % (Auto) 2.6 Baso % (Auto) 0.7 Absolute Neuts (auto) 4.2 Absolute Lymphs (auto) 1.83 Nucleated RBC % 0 Sodium 142 Potassium 4.7 Chloride 113 H Carbon Dioxide 24.0 Anion Gap 5 BUN 30 H Creatinine 1.21 H Estim Creat Clear Calc 45.69 Est GFR (MDRD) Af Amer 56 L Est GFR (MDRD) Non-Af 46 L BUN/Creatinine Ratio 24.8 H Glucose 163 H Lactic Acid 2.2 H* Calcium 8.5 Total Bilirubin 0.20 AST 15 ALT 16 Alkaline Phosphatase 82 Total Protein 6.2 L Albumin 3.1 L Globulin 3.1 Albumin/Globulin Ratio 1.0 Lipase 38 Urine Color Yellow Urine Clarity Sl. Cloudy Urine pH 6.0 Ur Specific [place] 1.015 Urine Protein Negative Urine Glucose (UA) Normal Urine Ketones Negative Urine Occult Blood Negative Urine Nitrite Negative Urine Bilirubin Negative Urine Urobilinogen Normal Ur Leukocyte Esterase 500 H Urine RBC 0 SEEN Urine WBC 50-100 SEEN Ur Squamous Epith Cells 5-10 SEEN Ur Transition Epith Cell 0-5 SEEN Urine Bacteria 2+ Urine Mucus 1+ Radiography Diagnostic Testing: Clinical Impression(s) from Imaging Studies Abdomen/Pelvis CT 07/11/24 20:00 IMPRESSION: Mildly dilated loops of small bowel in the pelvis with pseudofeces pattern which may indicate slow transit time/low grade obstruction. Trace fluid and stranding in the right lower quadrant without visualization of the appendix or diverticulosis. Possible ileitis. Electronically Signed: Ines Mobley MD at 21:45 EST Reading Location ID and State: [id number] / Tel , Service support , Treatment and Re-Evaluation :: Differential diagnosis includes however is not limited to: Obstruction, pneumoperitoneum, diverticulitis, acute cholecystitis, pancreatitis Patient does appear to be in mild distress secondary to abdominal pain. Patient presents to the emergency department with complaints of abdominal pain has been ongoing for the last 4 hours. Patient denies any fever chills, patient she is nauseous however no vomiting. She states she does have history of abdominal pain however nothing like this. Patient will receive a full abdominal workup including CBC CMP lipase lactic acid, as well as CT scan of the abdomen pelvis. All radiologic examinations were read, reviewed by the emergency department attending. From these reads, a plan of care will be put in place. Patient will receive IV fluids, Zofran and morphine as well as IM Bentyl. Patient CBC shows no leukocytosis, patient's hemoglobin 11.7, chemistries show a creatinine of 1.2, this is slightly elevated than normal however patient does have history and has been up to 1.3. Patient's lactic acid slightly elevated at 2.2, patient was given 1 L normal saline. Lipase was negative. Patient's urinalysis showed 2+ bacteria 50-100 white blood cells, 5 leukocytes, this was sent for culture, patient was given IV Rocephin. Currently waiting for the CT scan of the abdomen pelvis. I did provide the patient 1 more dose of IV morphine. On reevaluation of the patient still had pain had a 7 out of 10 with some nausea. Patient CT scan of the abdomen pelvis shows mildly dilated loops of small bowel in the pelvis with pseudo feces pattern which may indicate slow transit time/low-grade obstruction. Trace fluid and stranding in the right l ower quadrant without visualization of the appendix or diverticulosis. Possible ileitis. Secondary to this finding, the patient being continued pain, I will reach out to surgery. I spoke with surgery, they will follow-up for admission. I then spoke with the hospitalist, patient be admitted. I spoke with the patient, she is happy the plan of care. All questions answered, stable for admission. <Rufus Mendieta MD - Last Filed: 07/11/24 22:26> [facility] MDM Narrative Medical decision making narrative: Dr. Mendieta: I have personally performed a face to face assessment of the patient and have reviewed the GIL Note. I performed a substantive portion of the visit including all aspects of the following. My justice findings include: History is abdominal pain diffusely, abdominal bloating today. Exam is afebrile. Vital signs noted. Diffuse tenderness to palpation. Mild distention. Positive bowel sounds. Medical Decision Making: Check labs. Check CT. Discussed with surgery. Admit to medicine for ileitis and slow transit versus partial bowel obstruction. Other additions or changes: [None] History & Record Review Discussion w/independent historian: Patient Lab Data Attestation: I reviewed the patient's lab results. Labs: Laboratory Results - last 24 hr 07/11/24 07/11/24 19:00 19:11 WBC 7.3 RBC 4.00 L Hgb 11.7 L Hct 37.4 MCV 93.5 MCH 29.3 MCHC 31.3 L RDW Std Deviation 48.7 H RDW Coeff of [place] 14.1 Plt Count 193 MPV 9.6 Immature Gran % (Auto) 0.600 Neut % (Auto) 58.1 Lymph % (Auto) 25.2 [place] % (Auto) 12.8 H Eos % (Auto) 2.6 Baso % (Auto) 0.7 Absolute Neuts (auto) 4.2 Absolute Lymphs (auto) 1.83 Nucleated RBC % 0 Sodium 142 Potassium 4.7 Chloride 113 H Carbon Dioxide 24.0 Anion Gap 5 BUN 30 H Creatinine 1.21 H Estim Creat Clear Calc 45.69 Est GFR (MDRD) Af Amer 56 L Est GFR (MDRD) Non-Af 46 L BUN/Creatinine Ratio 24.8 H Glucose 163 H Lactic Acid 2.2 H* Calcium 8.5 Total Bilirubin 0.20 AST 15 ALT 16 Alkaline Phosphatase 82 Total Protein 6.2 L Albumin 3.1 L Globulin 3.1 Albumin/Globulin Ratio 1.0 Lipase 38 Urine Color Yellow Urine Clarity Sl. Cloudy Urine pH 6.0 Ur Specific [place] 1.015 Urine Protein Negative Urine Glucose (UA) Normal Urine Ketones Negative Urine Occult Blood Negative Urine Nitrite Negative Urine Bilirubin Negative Urine Urobilinogen Normal Ur Leukocyte Esterase 500 H Urine RBC 0 SEEN Urine WBC 50-100 SEEN Ur Squamous Epith Cells 5-10 SEEN Ur Transition Epith Cell 0-5 SEEN Urine Bacteria 2+ Urine Mucus 1+ Radiography Diagnostic Testing: Clinical Impression(s) from Imaging Studies Abdomen/Pelvis CT 07/11/24 20:00 IMPRESSION: Mildly dilated loops of small bowel in the pelvis with pseudofeces pattern which may indicate slow transit time/low grade obstruction. Trace fluid and stranding in the right lower quadrant without visualization of the appendix or diverticulosis. Possible ileitis. Electronically Signed: Ines Mobley MD at 21:45 EST Reading Location ID and State: [id number] / Tel , Service support , Management Discussion w/another healthcare provider: Hospitalist and Social Worker Delinquency Prevention (Surgery) Discharge Plan Dx/Rx/DC Orders Clinical Impression: Intractable abdominal pain, Ileitis Disposition Disposition: Acute Care Hospital [facility]
[2024-07-11] MEDS: Dicyclomine 10 MG Capsule 20 MG PO (18:06)
[2024-07-11] MEDS: Ondansetron 4 MG/2 ML Vial IV ×2 (18:06→21:55)
[2024-07-11] MEDS: 0.9% Normal Saline (1000mL) 1,000 ML 999 ML IV (18:06)
[2024-07-11] MEDS: Morphine 4 MG/ML Syringe IV ×2 (18:06→20:32)
[2024-07-11 19:05] LABS: Absolute Lymphocyte Count 1.83 X10^3/uL (0.83-4.51); Absolute Neutrophil Count 4.2 X10^3/uL (2.0-7.7); Basophil# 0.05 X10^3/uL; Basophil% 0.7 % (0-1); Eosinophil# 0.19 X10^3/uL; Eosinophils% 2.6 % (0-5); Hematocrit 37.4 % (37-47); Hemoglobin 11.7 g/dL (12.0-15.0); Lymphocyte # 1.83 X10^3/ul (0.83-4.51); Lymphocyte % 25.2 % (19-41); Mean Corp Hgb Conc 31.3 g/dL (32-36); Mean Corpuscular Hgb 29.3 pg (27.0-32.0); Mean Corpuscular Volume 93.5 fL (81-99); Mean Platelet Vol. 9.6 fl (6.2-12.0); Monocyte# 0.93 X10^3/uL; Monocyte% 12.8 % (0-10); NRBC Flagged by Analyzer 0 % (0-5); Neutrophil # 4.21 X10^3/uL (2.7-7.7); Neutrophil % 58.1 % (47-70); Platelet Count 193 K/mm3 (150-450); RBC Distribution Width CV 14.1 % (11.6-14.6); RBC Distribution Width SD 48.7 fl (35.1-43.9); White Blood Count 7.3 K/mm3 (4.4-11.0)
[2024-07-11 19:16] VITALS: BP 116/70; O2SAT 99
[2024-07-11 19:16] LABS: Color, Urine Yellow (Yellow); Glucose, Dipstick Normal (Normal); Ketone-Dipstick Negative (Negative); Leukocyte Esterase-Dipstick 500 /ul (Negative); Nitrite-Dipstick Negative (Negative); Occult Blood-Urine Negative /ul (Negative); Protein-Dipstick Negative (Negative); Red Blood Cells-Urine 0 SEEN /hpf (0-5); Specific Gravity, Urine 1.015 (1.002-1.030); Urine Bilirubin Dipstick Negative (Negative); Urine Clarity Sl. Cloudy (Clear); Urine Urobilinogen Normal (Normal)
[2024-07-11 19:24] LABS: Bacteria 2+ /hpf (None Seen); Mucous, Urine 1+ /hpf (<or=2+); Squamous Epithelial Cells - UA 5-10 SEEN /hpf (5-10); Transitional Epithelial - Ur 0-5 SEEN /hpf (0-5); White Blood Cells 50-100 SEEN /hpf (0-5)
[2024-07-11 19:34] LABS: AST(SGOT) 15 U/L (15-37); Alanine Aminotransfer ALT/SGPT 16 U/L (13-56); Albumin, Serum 3.1 g/dL (3.2-5.0); Alkaline Phosphatase 82 U/L (45-117); Anion Gap 5 (5-15); BUN 30 mg/dL (7-18); BUN/Creat Ratio 24.8 RATIO (10-20); Calcium,Total 8.5 mg/dL (8.5-10.1); Chloride 113 mmol/L (98-107); Creatinine, Serum 1.21 mg/dL (0.55-1.02); EST Glomerular Filtration Rate 46 mL/min (>60); Est Glom Filt Rate - Afr Amer 56 mL/min (>60); Estimated Creatinine Clearance 45.69 ml/min; Globulin 3.1 g/dL (2.2-4.2); Glucose 163 mg/dL (74-106); Lipase 38 U/L (13-75); Potassium 4.7 mmol/L (3.5-5.1); Protein, Total 6.2 g/dL (6.4-8.2); Sodium Level 142 mmol/L (136-145)
[2024-07-11 19:56] LABS: Lactic Acid 2.2 mmol/L (0.4-1.9)
--- NOTE | 2024-07-11 20:00 | CT_ITS ---
EXAM: CT ABDOMEN AND PELVIS WITH INTRAVENOUS CONTRAST CLINICAL INDICATION: abdominal pain TECHNIQUE: Helically acquired images were obtained of the abdomen and pelvis with intravenous contrast. This CT exam was performed using one or more of the following dose reduction techniques: automated exposure control, adjustment of the mA and/or kV according to patient size, and/or use of iterative reconstruction technique. CONTRAST: IV 100mL [id number] COMPARISON: No relevant prior studies available. FINDINGS: LOWER THORAX: Unremarkable. Lung bases are clear. No cardiomegaly. No significant pericardial effusion. ABDOMEN: LIVER: Unremarkable. Homogeneous. No focal mass. GALLBLADDER AND BILE DUCTS: Unremarkable. No calcified gallstones. No gallbladder distention or wall edema. No intra- or extrahepatic biliary ductal dilation. PANCREAS: Unremarkable. No focal cystic or solid mass. SPLEEN: Unremarkable. Normal size without focal cystic or solid mass. ADRENALS: Unremarkable. No nodules. KIDNEYS AND URETERS: Unremarkable. Normal renal size and position. No hydronephrosis. STOMACH AND BOWEL: Several mildly dilated small bowel loops in the pelvis with pseudofeces pattern suggesting slow transit time. Mild wall thickening of the terminal ileum. Mild left-sided diverticulosis. Moderate stool burden. PELVIS: APPENDIX: The appendix is not visualized. BLADDER: Unremarkable. REPRODUCTIVE: Unremarkable as visualized. No mass. ABDOMEN and PELVIS: INTRAPERITONEAL SPACE: Trace fluid and inflammatory stranding in the right lower quadrant. No free air. BONES/JOINTS: Unremarkable. No suspicious lytic or blastic abnormality. SOFT TISSUES: Unremarkable. No discrete abdominal or pelvic wall hernia. VASCULATURE: Unremarkable. Abdominal aorta is normal in caliber. LYMPH NODES: Unremarkable. No enlarged lymph nodes. CT/Abdomen/Pelvis W IV Cont ONLY IMPRESSION: Mildly dilated loops of small bowel in the pelvis with pseudofeces pattern which may indicate slow transit time/low grade obstruction. Trace fluid and stranding in the right lower quadrant without visualization of the appendix or diverticulosis. Possible ileitis. Electronically Signed: Ines Mobley MD at 21:45 EST Reading Location ID and State: [id number] / Tel , Service support ,
[2024-07-11] MEDS: Ceftriaxone 1 GM/50 ML BAG IV (20:16)
[2024-07-11 21:00] VITALS: BP 147/63
[2024-07-11] MEDS: HYDROmorphone 1 MG/ML Syringe IV (21:54)
[2024-07-11 22:05] VITALS: BP 150/49; PULSE 69; RESP 18; TEMP 36.6; O2SAT 99
[2024-07-11 23:00] LABS: Reflex Lactate? Y
[2024-07-11 23:40] LABS: Lactic Acid 1.5 mmol/L (0.4-1.9)
--- NOTE | 2024-07-11 23:48 | HP.PCM.HOS_ITS ---
HPI - General General Date of Admission: 07/11/24 HPI Narrative DESTINY BUTLER, is a 73 F who presents to the hospital with right lower quadrant abdominal pain as well as nausea. She has been having issues since she was 16 with her GI symptoms. She does see GI here who feels that there is likely a component for IBS but also an inflammatory component that she is had positive studies in the past indicating a need for anti-inflammatories. 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 CT scan demonstrates a inflammation in the right colon consistent with possible ileitis. Urine analysis is also consistent with possible UTI so she was given a dose of Rocephin in the emergency room, no leukocytosis or fever on admission. She is a little bit dry with a creatinine of 1.21 with a baseline of around 1. PFSH Medical History Arthritis Atherosclerotic heart disease of [place] coronary artery without angina pectoris Back pain Mckeon esophagus Bilateral carotid bruits Cardiac conduction disorder Cardiology follow-up encounter Carotid stenosis, non-symptomatic Conduction disorder of the heart (03/19/16) Controlled type 2 diabetes mellitus Dietary restriction Essential hypertension Fatty liver Former smoker Gastric reflux GERD (gastroesophageal reflux disease) High cholesterol History of diverticulitis History of echocardiogram History of edema History of hiatal hernia History of IBS History of irregular heartbeat History of pain when walking History of stress test HLD (hyperlipidemia) Hyperlipidemia (03/19/16) Hypertensive disorder (05/02/16) Hypothyroidism IBS (irritable bowel syndrome) Leg cramps Nonrheumatic tricuspid valve regurgitation Pulmonary hypertension PVC (premature ventricular contraction) Raynauds syndrome Shortness of breath on exertion Subclavian steal syndrome Syncope Syncope and collapse Syncope and collapse (03/19/16) Thyroid disease Ventricular premature beats (03/19/16) Wears glasses Home Medications ?Medication ?Instructions ?Recorded ?Last Taken ?Type cholecalciferol (vitamin D3) 25 1,000 unit PO BID Supplement 03/08/16 12/05/18 History mcg (1,000 unit) tablet levothyroxine 50 mcg tablet 50 mcg PO DAILY Thyroid 03/08/16 08/09/21 History metformin 500 mg tablet 500 mg PO BIDCM Diabetes 03/08/16 12/05/18 History esomeprazole magnesium 40 mg 40 mg PO QHS Reflux 05/22/17 12/04/18 History capsule,delayed release rosuvastatin 10 mg tablet 10 mg PO QHS Cholesterol 05/22/17 12/05/18 History aspirin 81 mg tablet,delayed 81 mg PO DAILY heart health 07/23/18 08/06/21 History release (Adult Low Dose Aspirin) melatonin 10 mg tablet 10 mg PO HS 07/23/18 12/04/18 History pioglitazone 30 mg tablet 30 mg PO DAILY dm 08/08/20 Unknown History promethazine 25 mg tablet 12.5 mg PO QPM Nausea 01/26/21 Unknown History furosemide 20 mg tablet 20 mg PO DAILY PRN Edema 06/23/21 Unknown History acetaminophen 500 mg tablet 500 mg PO Q4H PRN pain 11/27/21 Unknown History (Tylenol Extra Strength) duloxetine 30 mg capsule,delayed 30 mg PO DAILY 11/28/23 Unknown History release (Cymbalta) valsartan 320 mg tablet 320 mg PO QAM 01/16/24 Unknown History Allergy/AdvReac Type Severity Reaction Status Date / Time No Known Allergies Allergy Verified 07/11/24 17:17 Family History Father CAD (coronary artery disease) Myocardial infarction Mother Hypertension Cancer lung Grandfather Heart disease Myocardial infarction Grandmother Heart disease Cancer esophageal varices Surgical History history excision fragments loop recorder (~05/28/19) History of arthroplasty of left hip History of cardiac catheterization History of colonoscopy (~2016) History of left hip replacement History of removal of ureteral stent History of right hip replacement History of total hysterectomy History of ureter stent Hx of hand surgery Hx of tonsillectomy S/P peripheral artery angioplasty with stent placement (~10/2021) Status post placement of implantable loop recorder Social History Smoking Status: Former smoker how long ago did patient quit smokin years ago alcohol intake: never substance use type: does not use caffeine: Yes Type: carbonated beverages Number of servings: 3 what type of physical activity do you participate in: none seatbelt use: always do you feel safe at home: Yes ROS Constitutional Constitutional: Denies chills, fatigue, fever(s) or malaise Eyes Eyes: Denies blurry vision ENT HEENT: Denies headache(s) or nasal discharge Cardiovascular Cardiovascular: Denies chest pain, dyspnea on exertion or syncope Respiratory/Chest Respiratory/Chest: Denies cough, shortness of breath at rest or shortness of breath with exertion Gastrointestinal Gastrointestinal: Reports abdominal pain and nausea; Denies constipation, diarrhea or vomiting Genitourinary Genitourinary: Denies dysuria Neurologic Neurologic: Denies focal weakness, numbness or tremor(s) Psychiatric Psychiatric: Denies anxiety or depression Vital Signs Vital Signs Vital Signs: 07/11/24 17:18 07/11/24 19:16 07/11/24 21:00 Temperature 97.6 F L Temperature Source Temporal Pulse Rate 82 Respiratory Rate 25 H Blood Pressure 180/110 H 116/70 147/63 H Blood Pressure Mean 133 85 91 Pulse Ox 99 99 Oxygen Delivery Method Room Air 07/11/24 22:05 Temperature 98 F Temperature Source Pulse Rate 69 Respiratory Rate 18 Blood Pressure 150/49 H Blood Pressure Mean 82 Pulse Ox 99 Oxygen Delivery Method Weight Weight: 219 lb 9.286 oz Body Mass Index (BMI) 40.1 Physical Exam Narrative General: Alert, Oriented x3, Cooperative, No apparent distress HEENT: Atraumatic, PERRLA, EOMI, Normocephalic Oral: Moist Mucosa Neck: Supple, No JVD Lungs: Diminished, Normal air movement, No rhonchi, No wheeze, No rales Cardiovascular: Regular rate, Regular Rhythm, Normal S1, Normal S2, No murmurs Abdomen: Soft, RLQ tender, Non-Distended, No Hepato-splenomegaly Extremities: No edema, Capillary Refill Less than 3 Seconds Skin: No rashes, No breakdown Musculoskeletal: No Tenderness to Palpation of Joints or Extremities Neurological: No focal neurological deficits, Motor Exam 5/5 strength throughout, Sensory exam intact to light touch and pain Psych/Mental Status: Normal Affect, Appropriate Results Lab / Micro Data 07/11/24 19:00 07/11/24 19:00 Labs: Laboratory Results - last 24 hr 07/11/24 19:00: WBC 7.3, RBC 4.00 L, Hgb 11.7 L, Hct 37.4, MCV 93.5, MCH 29.3, M CHC 31.3 L, RDW Std Deviation 48.7 H, RDW Coeff of Tayler 14.1, Plt Count 193, MPV 9.6, Immature Gran % (Auto) 0.600, Neut % (Auto) 58.1, Lymph % (Auto) 25.2, [place] % (Auto) 12.8 H, Eos % (Auto) 2.6, Baso % (Auto) 0.7, Absolute Neuts (auto) 4.2, Absolute Lymphs (auto) 1.83, Nucleated RBC % 0, Sodium 142, Potassium 4.7, C hloride 113 H, Carbon Dioxide 24.0, Anion Gap 5, BUN 30 H, Creatinine 1.21 H, Estim Creat Clear Calc 45.69, Est GFR (MDRD) Af Amer 56 L, Est GFR (MDRD) Non-Af 46 L, BUN/Creatinine Ratio 24.8 H, Glucose 163 H, Lactic Acid 2.2 H*, Calcium 8.5, Total Bilirubin 0.20, AST 15, ALT 16, Alkaline Phosphatase 82, Total Protein 6.2 L, Albumin 3.1 L, Globulin 3.1, Albumin/Globulin Ratio 1.0, Lipase 38 07/11/24 19:11: Urine Color Yellow, Urine Clarity Sl. Cloudy, Urine pH 6.0, Ur Specific [place] 1.015, Urine Protein Negative, Urine Glucose (UA) Normal, Urine Ketones Negative, Urine Occult Blood Negative, Urine Nitrite Negative, Urine Bilirubin Negative, Urine Urobilinogen Normal, Ur Leukocyte Esterase 500 H, Urine RBC 0 SEEN, Urine WBC 50-100 SEEN, Ur Squamous Epith Cells 5-10 SEEN, Ur Transition Epith Cell 0-5 SEEN, Urine Bacteria 2+, Urine Mucus 1+ 07/11/24 23:10: Lactic Acid 1.5 Imaging Radiology Impression Abdomen/Pelvis CT 07/11/24 20:00 IMPRESSION: Mildly dilated loops of small bowel in the pelvis with pseudofeces pattern which may indicate slow transit time/low grade obstruction. Trace fluid and stranding in the right lower quadrant without visualization of the appendix or diverticulosis. Possible ileitis. Electronically Signed: Ines Mobley MD at 21:45 EST Reading Location ID and State: [id number] / Tel , Service support , Assessment & Plan Assessment/Plan (1) Ileitis: PLAN: Plan 1. Terminal ileitis with UTI ? Continue with Rocephin ? Urine cultures pending ? Continue with p.o. budesonide as she is able to take some p.o. ? Continue with nausea medication ? Continue with gentle IV hydration 2. Essential HTN/HLD ? Will hold her Lasix ? Continue with valsartan as well as Crestor and aspirin ? Will monitor make adjustments as necessary ? Blood pressures are stable 3. DM2 ? Will hold her home medications ? Scale insulin ? Accu-Cheks ACHS ? Will monitor make adjustments as necessary 4. Hypothyroidism ? Stable ? Continue with Synthroid 5. GERD ? Stable ? Continue with PPI 6. Anxiety/depression ? Stable ? Continue with Cymbalta DVT: Lovenox 75 minutes was spent on direct patient care, including documentation as well as chart review and collaboration with colleagues Charges/Coding Visit Charges Inpatient E&M: 26320 Init Hosp L3
[2024-07-12] VITALS (7 sets, daily range): BP systolic 125–153; BP diastolic 42–97; PULSE 62–76; RESP 15–18; TEMP 36.2–37.1; O2SAT 92–97; BMI 40.1
[2024-07-12] MEDS: 0.9% Saline Lock 10 ML Syringe IV ×4 (00:38→21:32)
[2024-07-12] MEDS: 0.9% Normal Saline (1000mL) 1,000 ML 75 ML IV ×2 (00:39→14:46)
[2024-07-12] MEDS: Budesonide 3 MG CAPSULE.EC 9 MG PO (01:14)
[2024-07-12] MEDS: proMETHazine 25 MG Tablet 12.5 MG PO ×2 (02:04→06:12)
[2024-07-12] MEDS: Acetaminophen 325 MG Tablet 650 MG PO (02:04)
[2024-07-12] MEDS: Ondansetron 4 MG/2 ML Vial IV ×2 (04:12→21:32)
[2024-07-12] MEDS: Morphine 2 MG/ML Syringe IV (04:38)
[2024-07-12 04:45] LABS: Absolute Lymphocyte Count 1.63 X10^3/uL (0.83-4.51); Absolute Neutrophil Count 5.2 X10^3/uL (2.0-7.7); Basophil# 0.07 X10^3/uL; Basophil% 0.9 % (0-1); Eosinophil# 0.18 X10^3/uL; Eosinophils% 2.3 % (0-5); Hemoglobin 12.9 g/dL (12.0-15.0); Lymphocyte # 1.63 X10^3/ul (0.83-4.51); Lymphocyte % 20.8 % (19-41); Mean Corp Hgb Conc 31.5 g/dL (32-36); Mean Corpuscular Hgb 29.3 pg (27.0-32.0); Mean Platelet Vol. 9.9 fl (6.2-12.0); Monocyte# 0.68 X10^3/uL; Monocyte% 8.7 % (0-10); NRBC Flagged by Analyzer 0 % (0-5); Neutrophil # 5.24 X10^3/uL (2.7-7.7); Neutrophil % 66.8 % (47-70); Platelet Count 230 K/mm3 (150-450); RBC Distribution Width CV 14.4 % (11.6-14.6); RBC Distribution Width SD 49.1 fl (35.1-43.9); Red Blood Count 4.41 M/mm3 (4.2-5.4); White Blood Count 7.8 K/mm3 (4.4-11.0)
[2024-07-12 05:33] LABS: Anion Gap 3 (5-15); BUN 25 mg/dL (7-18); Calcium,Total 8.9 mg/dL (8.5-10.1); Chloride 110 mmol/L (98-107); Creatinine, Serum 0.93 mg/dL (0.55-1.02); EST Glomerular Filtration Rate 63 mL/min (>60); Est Glom Filt Rate - Afr Amer 76 mL/min (>60); Estimated Creatinine Clearance 59.48 ml/min; Glucose 151 mg/dL (74-106); Potassium 4.5 mmol/L (3.5-5.1); Sodium Level 140 mmol/L (136-145)
[2024-07-12] MEDS: Levothyroxine 50 MCG Tablet PO (06:12)
[2024-07-12 06:41] LABS: Bedside Glucose 133 mg/dL (74-106)
--- NOTE | 2024-07-12 08:11 | PCM.PN.HOSP ---
Reason for Visit Reason for Visit: Abdominal pain/nausea Subjective Subjective Patient reports she had no flatus today. States she feels more distended and having more nausea. Did indicate the scopolamine patch has helped some. No emesis but feels like as if she could. Feels like movement makes her little bit worse. Objective Data Objective Data Vital Signs: Vital Signs Temp Pulse Resp BP Pulse Ox O2 Del Method 98.8 F 62 15 153/42 H 97 Room Air 07/12/24 06:00 07/12/24 06:00 07/12/24 06:00 07/12/24 06:00 07/12/24 06:00 07/12/24 06:00 Oxygen Delivery Method Room Air Weight: 99.7 kg Body Mass Index (BMI) 40.1 Intake & Output: Intake and Output for Last 24 Hours 07/10/24 07/11/24 07/12/24 23:59 23:59 23:59 Intake Total 1050 / 1050 Output Total 750 / 750 Balance 1050 / 1050 -750 / -750 Lab / Micro Data 07/12/24 03:45 07/12/24 03:45 Labs: Laboratory Results - last 24 hr 07/11/24 19:00: WBC 7.3, RBC 4.00 L, Hgb 11.7 L, Hct 37.4, MCV 93.5, MCH 29.3, MCHC 31.3 L, RDW Std Deviation 48.7 H, RDW Coeff of [place]ler 14.1, Plt Count 193, MPV 9.6, Immature Gran % (Auto) 0.600, Neut % (Auto) 58.1, Lymph % (Auto) 25.2, [place] % (Auto) 12.8 H, Eos % (Auto) 2.6, Baso % (Auto) 0.7, Absolute Neuts (auto) 4.2, Absolute Lymphs (auto) 1.83, Nucleated RBC % 0, Sodium 142, Potassium 4.7, Chloride 113 H, Carbon Dioxide 24.0, Anion Gap 5, BUN 30 H, Creatinine 1.21 H, Estim Creat Clear Calc 45.69, Est GFR (MDRD) Af Amer 56 L, Est GFR (MDRD) Non-Af 46 L, BUN/Creatinine Ratio 24.8 H, Glucose 163 H, Lactic Acid 2.2 H*, Calcium 8.5, Total Bilirubin 0.20, AST 15, ALT 16, Alkaline Phosphatase 82, Total Protein 6.2 L, Albumin 3.1 L, Globulin 3.1, Albumin/Globulin Ratio 1.0, Lipase 38 07/11/24 19:11: Urine Color Yellow, Urine Clarity Sl. Cloudy, Urine pH 6.0, Ur Specific [place] 1.015, Urine Protein Negative, Urine Glucose (UA) Normal, Urine Ketones Negative, Urine Occult Blood Negative, Urine Nitrite Negative, Urine Bilirubin Negative, Urine Urobilinogen Normal, Ur Leukocyte Esterase 500 H, Urine RBC 0 SEEN, Urine WBC 50-100 SEEN, Ur Squamous Epith Cells 5-10 SEEN, Ur Transition Epith Cell 0-5 SEEN, Urine Bacteria 2+, Urine Mucus 1+ 07/11/24 23:10: Lactic Acid 1.5 07/12/24 03:45: WBC 7.8, RBC 4.41, Hgb 12.9, Hct 41.0, MCV 93.0, MCH 29.3, MCHC 31.5 L, RDW Std Deviation 49.1 H, RDW Coeff of [place]ler 14.4, Plt Count 230, MPV 9.9, Immature Gran % (Auto) 0.500, Neut % (Auto) 66.8, Lymph % (Auto) 20.8, [place] % (Auto) 8.7, Eos % (Auto) 2.3, Baso % (Auto) 0.9, Absolute Neuts (auto) 5.2, Absolute Lymphs (auto) 1.63, Nucleated RBC % 0, Sodium 140, Potassium 4.5, Chloride 110 H, Carbon Dioxide 27.0, Anion Gap 3 L, BUN 25 H, Creatinine 0.93, Estim Creat Clear Calc 59.48, Est GFR (MDRD) Af Amer 76, Est GFR (MDRD) Non-Af 63, BUN/Creatinine Ratio 27.0 H, Glucose 151 H, Calcium 8.9 07/12/24 06:17: POC Glucose 133 H Radiography Diagnostic Testing: Radiology Impression Abdomen/Pelvis CT 07/11/24 20:00 IMPRESSION: Mildly dilated loops of small bowel in the pelvis with pseudofeces pattern which may indicate slow transit time/low grade obstruction. Trace fluid and stranding in the right lower quadrant without visualization of the appendix or diverticulosis. Possible ileitis. Electronically Signed: Ines Mobley MD at 21:45 EST Reading Location ID and State: [id number] / Tel , Service support , Physical Exam Const alert, oriented x3, no apparent distress and well nourished; Negative for average body habitus Constitutional Narrative: Obese, elderly, white female, lying in bed, affect somewhat flat, appears if she does not feel well but does not look toxic, multiple visitors at the bedside HEENT head/scalp atraumatic and moist oral mucous membranes Head and Scalp: normocephalic Resp normal respiratory effort, no retractions, no use of accessory muscles and clear to auscultation bilaterally Auscultation: Negative for rales, rhonchi or wheezes Cardio regular rate, regular rhythm, S1 normal heart sound, S2 normal heart sound, no murmurs, no rub, no gallops and no clicks GI GI Narrative: Abdomen is distended, bowel sounds are high-pitched and tinkling in nature, mild diffuse tenderness, soft Extremity no clubbing, cyanosis or edema Extremity Narrative: Pedal pulses and radial pulses are 2+ Neuro oriented x3, moves all extremities and no focal motor deficits Speech: speech normal Psych Psych Narrative: Affect is slightly flat but appropriate for the current situation, makes good eye contact and interacts appropriately Assessment & Plan Assessment/Plan (1) Ileitis: (2) Intractable abdominal pain: PLAN: Plan Abdominal pain/nausea secondary to terminal ileitis with concern for developing small bowel obstruction -Patient has been undergoing workup in the outpatient setting with Dr. Ramsey and was recently started on budesonide however not yet filled this prescription so she was started on this here -Will hold for now given current situation -IV Solu-Medrol 40 twice daily -CT was suggestive of possible low-grade bowel obstruction however patient was having flatus initially now not having flatus and feels more distended -I did check a KUB and it was unremarkable however symptomatically patient seems more consistent with a bowel obstruction now -Will drop and NG -N.p.o. -Continue IV fluids -Continue as needed IV antiemetics -Continue scopolamine patch -As needed IV pain medication with narcotics -Scheduled Toradol for 24 hours -Will reassess tomorrow to see how she is symptomatically -If persistent issues may need to repeat CAT scan and have general surgery involvement -Last colonoscopy was in 2021 -Has had workup with EGD and colonoscopy with no evidence of IBD on biopsy and it is suspected that this is IBS Abnormal UA -Urine cultures are pending -Continue ceftriaxone for now until cultures result LUDWIG -Outpatient workup pending -continue follow-up with Dr. Ramsey CAD/HPL/essential hypertension/subclavian steal syndrome -Check blood pressure and right arm -Outpatient follow-up with Dr. Cardoso -Continue home medications of aspirin, rosuvastatin, and valsartan as tolerated while n.p.o. DM-2 -Hold home pioglitazone -hold home metformin -Change SSI to every 6 -Accu-Cheks as ordered Hypothyroidism -Continue home levothyroxine Insomnia -Continue melatonin GERD/Mckeon's esophagus -IV PPI while n.p.o. Depression/Anxiety -Cymbalta Morbid Obesity -BMI 40.2 -Recommend wgt loss -complicates tx, prognosis, and outcomes DVT prophylaxis -cont Enoxaparin 40mg daily Code Status -DNR CCA No ETT Charges/Coding Visit Charges Inpatient E&M: 50737 Subs Hosp L2
[2024-07-12] MEDS: Scopolamine 1mg/72hr Patch 1 PATCH TD (10:49)
[2024-07-12] MEDS: HYDROmorphone 0.5 MG/0.5 ML SYRINGE IV (10:50)
[2024-07-12 11:46] LABS: Bedside Glucose 151 mg/dL (74-106)
--- NOTE | 2024-07-12 14:20 | RAD_ITS ---
STUDY: XR Abdomen 1 View 07/12/2024 2:30 PM REASON FOR EXAM: Female, 73 years old. ABDOMINAL PAIN suspected SBO TECHNIQUE: XR Abdomen 1 View COMPARISON: None FINDINGS: Normal visualized lung bases. There is an unremarkable bowel gas pattern. There is no demonstrated free abdominal air. The visualized liver, spleen and kidneys are grossly normal in size and morphology. Total bilateral hip arthroplasty. Normal soft tissue structures. There are diffuse degenerative changes of the visualized lumbar spine. RAD/Abdomen Single View (Portable) IMPRESSION: There are no acute findings. Electronically Signed: Telly Gerardo MD at 15:01 EST ,
[2024-07-12] MEDS: Ketorolac 15 MG/ML Vial IV ×3 (14:43→21:32)
--- NOTE | 2024-07-12 16:52 | RAD_ITS ---
STUDY: XR Abdomen 1 View 07/12/2024 4:51 PM REASON FOR EXAM: Female, 73 years old. ABDOMINAL PAIN NG placement TECHNIQUE: XR Abdomen 1 View COMPARISON: Study done earlier today. FINDINGS: Normal visualized lung bases. There is a feeding tube/ nasogastric tube noted. The tip is in the region of the GE junction. Proximal port is near the distal esophagus. The NG tube should be passed further into the stomach. There is an unremarkable bowel gas pattern. There is no demonstrated free abdominal air. The visualized liver, spleen and kidneys are grossly normal in size and morphology. Normal soft tissue structures. There are diffuse degenerative changes of the visualized lumbar spine. RAD/Abdomen Single View (Portable) IMPRESSION: There is a feeding tube/ nasogastric tube noted. The tip is in the region of the GE junction. Proximal port is near the distal esophagus. The NG tube should be passed further into the stomach. Electronically Signed: Telly Gerardo MD at 17:41 EST ,
[2024-07-12] MEDS: Pantoprazole Sodium 40 MG in 0.9% Normal Saline (100mL MB+) 100 ML 330 MG IV (17:31)
[2024-07-12 17:54] LABS: Bedside Glucose 210 mg/dL (74-106)
[2024-07-12] MEDS: Phenol/Sodium Phenolate 180ML 3 SPRAY MUCOUS MEM ×2 (18:03→21:29)
--- NOTE | 2024-07-12 18:15 | RAD_ITS ---
STUDY: XR Abdomen 1 View 07/12/2024 6:17 PM REASON FOR EXAM: Female, 73 years old. ABDOMINAL PAIN Advanced NG Tube TECHNIQUE: XR Abdomen 1 View COMPARISON: Study done earlier today. FINDINGS: Normal visualized lung bases. There is a feeding tube/ nasogastric tube noted. The tip is in the region of the stomach. Proximal port is near the GE junction. The NG tube should be passed further into the stomach. There is an unremarkable bowel gas pattern. There is no demonstrated free abdominal air. The visualized liver, spleen and kidneys are grossly normal in size and morphology. Normal soft tissue structures. There are diffuse degenerative changes of the visualized lumbar spine. RAD/Abdomen Single View (Portable) IMPRESSION: There is a feeding tube/ nasogastric tube noted. The tip is in the region of the stomach. Proximal port is near the GE junction. The NG tube should be passed further into the stomach. Electronically Signed: Telly Gerardo MD at 18:50 EST ,
[2024-07-12] MEDS: Ceftriaxone 1 GM/50 ML BAG IV (21:32)
[2024-07-13] VITALS (7 sets, daily range): BP systolic 161–177; BP diastolic 52–86; PULSE 65–81; RESP 16–18; TEMP 36.6–36.9; O2SAT 94–99
[2024-07-13 00:53] LABS: Bedside Glucose 153 mg/dL (74-106)
[2024-07-13] MEDS: Levothyroxine 50 MCG Tablet PO (06:27)
[2024-07-13] MEDS: Ketorolac 15 MG/ML Vial IV ×2 (06:27→13:45)
[2024-07-13 06:46] LABS: Bedside Glucose 129 mg/dL (74-106)
[2024-07-13 07:07] LABS: Hematocrit 34.8 % (37-47); Mean Corp Hgb Conc 31.6 g/dL (32-36); Mean Corpuscular Hgb 29.4 pg (27.0-32.0); Mean Platelet Vol. 10.2 fl (6.2-12.0); Platelet Count 163 K/mm3 (150-450); RBC Distribution Width CV 14.3 % (11.6-14.6); RBC Distribution Width SD 48.6 fl (35.1-43.9); Red Blood Count 3.74 M/mm3 (4.2-5.4); White Blood Count 8.2 K/mm3 (4.4-11.0)
[2024-07-13 07:37] LABS: Anion Gap 7 (5-15); BUN 26 mg/dL (7-18); BUN/Creat Ratio 31.9 RATIO (10-20); Calcium,Total 8.1 mg/dL (8.5-10.1); Chloride 116 mmol/L (98-107); Creatinine, Serum 0.82 mg/dL (0.55-1.02); EST Glomerular Filtration Rate 73 mL/min (>60); Est Glom Filt Rate - Afr Amer 88 mL/min (>60); Estimated Creatinine Clearance 67.46 ml/min; Glucose 143 mg/dL (74-106); Potassium 4.5 mmol/L (3.5-5.1); Sodium Level 143 mmol/L (136-145)
[2024-07-13] MEDS: 0.9% Normal Saline (1000mL) 1,000 ML 75 ML IV (09:03)
[2024-07-13] MEDS: Pantoprazole Sodium 40 MG in 0.9% Normal Saline (100mL MB+) 100 ML 330 MG IV ×2 (09:05→21:25)
[2024-07-13] MEDS: Budesonide 3 MG CAPSULE.EC 9 MG PO (09:09)
[2024-07-13] MEDS: Losartan Potassium 100 MG Tablet PO (11:22)
[2024-07-13] MEDS: DULoxetine Hcl 30 MG Capsule PO (11:22)
--- NOTE | 2024-07-13 12:04 | CASEMGMT ---
SAMANTHA HARRISON Assessment Face to Face with patient for initial transition planning/care coordination assessment. SAMANTHA HARRISON introduced self and role at [facility], pt voices understanding. Pt is A&Ox4 and is resting comfortably in bed and is calm. Care providers, pharmacy, and demographics verified. Admitting dx: Terminal Ileitis LACE Strata: 3 PCP: [place] Specialists: ZIA, Friend (GI), Farhan (Ortho) Preferred Pharmacy: [facility] Insurance: [facility] A/B, MMO Prescription Benefit: Yes LNOK: Cayden (Kayla) Living Arrangements: Pt lives with her in a single story home with a basement with a FFSU and 2 steps to enter ADLs/IADLs: Ind Transportation: Self, DME: Functioning BGM with sufficient supplies. Quad cane. BP Monitor. Pulse ox. HHC/SNF: Denies history or needs Pt?s goal: Return home Plan: Home no needs. 6-Click is 21 and pt denies the need for HH, OP Tx, SNF, or CCN. Pt states that she feels safe returning home with her once she is medically ready and denies further concerns at this time. Shonda Marin RN, CM
[2024-07-13 12:05] LABS: Bedside Glucose 126 mg/dL (74-106)
--- NOTE | 2024-07-13 13:30 | RAD_ITS ---
EXAM: FL SMALL BOWEL FOLLOW THROUGH CLINICAL INDICATION: SBO -- film immediate,1 hr, 3 hr TECHNIQUE: Fluoroscopy of the small bowel including multiple serial delayed images following oral contrast administration. Fluoroscopic guidance was provided by a physician. MODIFIED SBS, 1 AND 3 HOUR PIX PER SURGEON REQUEST NO SPOT IMAGING COMPARISON: Abdominal radiographs, 07/11 and 07/12/2024. FINDINGS: Nonspecific, nonobstructive bowel gas pattern seen prior to the administration contrast. Moderate stool particularly within the right colon. There is a proximal duodenal diverticulum. Contrast is identified extending in to the small bowel and by 60 minutes is identified within the colon. At 3 hours, contrast is seen throughout the colonic distribution and there is mild distention of small bowel. Bilateral hip arthroplasty. Degenerative changes in the spine. An enteric tube tip and side-port are present with multilevel GE junction. RAD/Small Bowel Series Only IMPRESSION: No bowel obstruction. Contrast extends into the colon by one hour post administration. Nonspecific mild distention of small bowel loops. Electronically Signed: Colby Mercer DO at 21:52 EST ,
--- NOTE | 2024-07-13 13:53 | EX.PCM.CON.S ---
Assessment & Plan Assessment/Plan (1) Ileitis: PLAN: Plan The patient is a 73-year-old female with abdominal pain along with CT scan findings concerning for possible ileitis/partial small bowel obstruction. To further evaluate her symptoms, I am recommending a small bowel follow-through to be performed today. Hopefully this will improve her symptoms and/or give us further insight into the cause for her symptoms. Based on the findings, we will determine the next step of treatment. Ultimately she may benefit from being evaluated by GI. Continue NPO for now. We will continue to follow along and advise accordingly HPI Consult Data Date of Consult: 07/13/24 HPI Narrative Reason for Consultation: Abdominal pain/possible small bowel obstruction HPI Narrative: DESTINY BUTLER, is a 73 F who presented to the emergency department couple of days ago with lower abdominal pain as well as some nausea. It sounds as though she has a longstanding history of GI issues ever since she was a young adult. It sounds as though at 1 point she saw GI many years ago and the concern for Crohn's disease was raised. She does see Dr. Ramsey here in [place] for her GI care. She states that she just saw him within the past couple of weeks and was actually doing well at the time of that visit. Since then for the past week she has had issues with bloating. Abdominal pain and nausea persisted and she presented to the emergency room. She was seen and evaluated by the ER staff. CT scan showed some inflammation in the right lower quadrant concerning for possible ileitis along with some mildly dilated small bowel loops. 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) GERD (gastroesophageal reflux disease) Wears glasses Thyroid disease Arthritis Fatty liver High cholesterol Back pain Syncope Dietary restriction History of hiatal hernia History of diverticulitis History of IBS Gastric reflux Former smoker Shortness of breath on exertion Leg cramps History of pain when walking History of edema History of echocardiogram History of stress test Cardiology follow-up encounter History of irregular heartbeat Syncope and collapse Nonrheumatic tricuspid valve regurgitation Controlled type 2 diabetes mellitus IBS (irritable bowel syndrome) Raynauds syndrome Essential hypertension Atherosclerotic heart disease of [place] coronary artery without angina pectoris Pulmonary hypertension Carotid stenosis, non-symptomatic Bilateral carotid bruits Subclavian steal syndrome Mckeon esophagus PVC (premature ventricular contraction) Cardiac conduction disorder Hypothyroidism HLD (hyperlipidemia) Home Medications ?Medication ?Instructions ?Recorded ?Last Taken ?Type cholecalciferol (vitamin D3) 25 1,000 unit PO BID Supplement 03/08/16 12/05/18 History mcg (1,000 unit) tablet levothyroxine 50 mcg tablet 50 mcg PO DAILY Thyroid 03/08/16 08/09/21 History metformin 500 mg tablet 500 mg PO BIDCM Diabetes 03/08/16 12/05/18 History esomeprazole magnesium 40 mg 40 mg PO QHS Reflux 05/22/17 12/04/18 History capsule,delayed release rosuvastatin 10 mg tablet 10 mg PO QHS Cholesterol 05/22/17 12/05/18 History aspirin 81 mg tablet,delayed 81 mg PO DAILY heart health 07/23/18 08/06/21 History release (Adult Low Dose Aspirin) melatonin 10 mg tablet 10 mg PO HS 07/23/18 12/04/18 History pioglitazone 30 mg tablet 30 mg PO DAILY dm 08/08/20 Unknown History promethazine 25 mg tablet 12.5 mg PO QPM Nausea 01/26/21 Unknown History furosemide 20 mg tablet 20 mg PO DAILY PRN Edema 06/23/21 Unknown History acetaminophen 500 mg tablet 500 mg PO Q4H PRN pain 11/27/21 Unknown History (Tylenol Extra Strength) duloxetine 30 mg capsule,delayed 30 mg PO DAILY 11/28/23 Unknown History release (Cymbalta) valsartan 320 mg tablet 320 mg PO QAM 01/16/24 Unknown History budesonide 3 mg 6 mg (2 x 3 mg) PO QDAY #60 ea 07/13/24 Unknown Rx capsule,delayed,extended release Allergy/AdvReac Type Severity Reaction Status Date / Time No Known Allergies Allergy Verified 07/11/24 17:17 Family History Father CAD (coronary artery disease) Myocardial infarction Mother Hypertension Cancer lung Grandfather Heart disease Myocardial infarction Grandmother Heart disease Cancer esophageal varices Surgical History History of cardiac catheterization Hx of hand surgery Hx of tonsillectomy History of arthroplasty of left hip history excision fragments loop recorder (~05/28/19) History of colonoscopy (~2016) History of removal of ureteral stent History of ureter stent History of total hysterectomy History of left hip replacement History of right hip replacement S/P peripheral artery angioplasty with stent placement (~10/2021) Status post placement of implantable loop recorder Social History Smoking Status: Former smoker how long ago did patient quit smokin years ago alcohol intake: never substance use type: does not use caffeine: Yes Type: carbonated beverages Number of servings: 3 what type of physical activity do you participate in: none seatbelt use: always do you feel safe at home: Yes ROS Eyes Eyes: Reports systems reviewed and no addt'l complaints, except as documented ENT HEENT: Reports systems reviewed and no addt'l complaints, except as documented Cardiovascular Cardiovascular: Reports systems reviewed and no addt'l complaints, except as documented Respiratory/Chest Respiratory/Chest: Reports systems reviewed and no addt'l complaints, except as documented Gastrointestinal Gastrointestinal: Reports systems reviewed and no addt'l complaints, except as documented Genitourinary Genitourinary: Reports systems reviewed and no addt'l complaints, except as documented Musculoskeletal Musculoskeletal: Reports systems reviewed and no addt'l complaints, except as documented Lab / Micro Data 07/13/24 06:10 07/13/24 06:10 Labs: Laboratory Results - last 24 hr 07/12/24 17:18: POC Glucose 210 H 07/13/24 00:34: POC Glucose 153 H 07/13/24 06:10: WBC 8.2, RBC 3.74 L, Hgb 11.0 L, Hct 34.8 L, MCV 93.0, MCH 29.4, MCHC 31.6 L, RDW Std Deviation 48.6 H, RDW Coeff of Tayler 14.3, Plt Count 163, MPV 10.2, Sodium 143, Potassium 4.5, Chloride 116 H, Carbon Dioxide 21.0, Anion Gap 7, BUN 26 H, Creatinine 0.82, Estim Creat Clear Calc 67.46, Est GFR (MDRD) Af Amer 88, Est GFR (MDRD) Non-Af 73, BUN/Creatinine Ratio 31.9 H, Glucose 143 H, Calcium 8.1 L 07/13/24 06:26: POC Glucose 129 H 07/13/24 11:26: POC Glucose 126 H Imaging Radiology Impression KUB X-Ray 07/12/24 14:20 IMPRESSION: There are no acute findings. Electronically Signed: Telly Gerardo MD at 15:01 EST , KUB X-Ray 07/12/24 16:52 IMPRESSION: There is a feeding tube/ nasogastric tube noted. The tip is in the region of the GE junction. Proximal port is near the distal esophagus. The NG tube should be passed further into the stomach. Electronically Signed: Telly Gerardo MD at 17:41 EST , KUB X-Ray 07/12/24 18:15 IMPRESSION: There is a feeding tube/ nasogastric tube noted. The tip is in the region of the stomach. Proximal port is near the GE junction. The NG tube should be passed further into the stomach. Electronically Signed: Telly Gerardo MD at 18:50 EST , Charges/Coding Visit Charges Inpatient E&M: 27033 Init Hosp L3
--- NOTE | 2024-07-13 15:14 | PN.HOSP_ITS ---
Reason for Visit Reason for Visit: Abdominal pain/nausea/vomiting Subjective Subjective Patient states she did feel much better since the NG tube was placed. At the time evaluation was currently clamped for meds and she indicated she was having some symptoms at that time but got relief with unclamping of the NG tube. Still no flatus. Objective Data Objective Data Vital Signs: Vital Signs Temp Pulse Resp BP Pulse Ox O2 Del Method O2 Flow Rate 98.3 F 77 16 172/62 H 98 Room Air 2 07/13/24 13:43 07/13/24 13:43 07/13/24 11:00 07/13/24 13:43 07/13/24 13:45 07/13/24 13:45 07/12/24 11:15 Oxygen Flow Rate (L/min) 2 Oxygen Delivery Method Room Air Weight: 99.7 kg Body Mass Index (BMI) 40.1 Intake & Output: Intake and Output for Last 24 Hours 07/11/24 07/12/24 07/13/24 23:59 23:59 23:59 Intake Total 1050 / 1050 1252.5 / 1252.5 1435.0 / 1435.0 Output Total 750 / 750 0 / 0 Balance 1050 / 1050 502.5 / 502.5 1435.0 / 1435.0 Lab / Micro Data 07/13/24 06:10 07/13/24 06:10 Labs: Laboratory Results - last 24 hr 07/12/24 17:18: POC Glucose 210 H 07/13/24 00:34: POC Glucose 153 H 07/13/24 06:10: WBC 8.2, RBC 3.74 L, Hgb 11.0 L, Hct 34.8 L, MCV 93.0, MCH 29.4, MCHC 31.6 L, RDW Std Deviation 48.6 H, RDW Coeff of [place]ler 14.3, Plt Count 163, MPV 10.2, Sodium 143, Potassium 4.5, Chloride 116 H, Carbon Dioxide 21.0, Anion Gap 7, BUN 26 H, Creatinine 0.82, Estim Creat Clear Calc 67.46, Est GFR (MDRD) Af Amer 88, Est GFR (MDRD) Non-Af 73, BUN/Creatinine Ratio 31.9 H, Glucose 143 H, C alcium 8.1 L 07/13/24 06:26: POC Glucose 129 H 07/13/24 11:26: POC Glucose 126 H Micro: Microbiology 07/11/24 19:40 Urine, Clean Catch Urine Culture - Preliminary Streptococcus group G Mixed Gram Positive Organisms Radiography Diagnostic Testing: Radiology Impression KUB X-Ray 07/12/24 16:52 IMPRESSION: There is a feeding tube/ nasogastric tube noted. The tip is in the region of the GE junction. Proximal port is near the distal esophagus. The NG tube should be passed further into the stomach. Electronically Signed: Telly Gerardo MD at 17:41 EST , KUB X-Ray 07/12/24 18:15 IMPRESSION: There is a feeding tube/ nasogastric tube noted. The tip is in the region of the stomach. Proximal port is near the GE junction. The NG tube should be passed further into the stomach. Electronically Signed: Telly Gerardo MD at 18:50 EST , Physical Exam Const alert, oriented x3, no apparent distress and well nourished; Negative for average body habitus or healthy appearing Constitutional Narrative: Obese, elderly, white female, sitting up in a chair napping at the time of my arrival, awakens easily and interacts appropriately, appears as if she is feeling better than yesterday but still not great, does not appear toxic HEENT head/scalp atraumatic and moist oral mucous membranes HEENT Narrative: NG tube in right nares, Mallampati is 3, no thrush Head and Scalp: normocephalic Resp normal respiratory effort, no retractions, no use of accessory muscles and clear to auscultation bilaterally Auscultation: Negative for rales, rhonchi or wheezes Cardio regular rate, regular rhythm, S1 normal heart sound, S2 normal heart sound, no murmurs, no rub, no gallops and no clicks GI GI Narrative: Abdomen with less distention, still diffusely tender, bowel sounds are very hypoactive today, soft Extremity no clubbing, cyanosis or edema Extremity Narrative: Pedal pulses and radial pulses are 2+ Neuro moves all extremities and no focal motor deficits Speech: speech normal Psych Psych Narrative: Affect is slightly flat but appropriate for the current situation, makes good eye contact and interacts appropriately Assessment & Plan Assessment/Plan (1) Ileitis: (2) Intractable abdominal pain: PLAN: Plan Abdominal pain/nausea secondary to terminal ileitis with concern for developing small bowel obstruction -Patient has been undergoing workup in the outpatient setting with Dr. Ramsey and was recently started on budesonide however not yet filled this prescription so she was started on this here -CT was suggestive of possible low-grade bowel obstruction however patient was having flatus initially now not having flatus and feels more distended -Has had workup with EGD and colonoscopy with no evidence of IBD on biopsy and it is suspected that this is IBS -Etiology is currently not clear -Continue NG tube -Continue n.p.o. except for p.o. meds -Continue IV fluids--> will need to reevaluate in a.m. is 2 L ordered which is scheduled to discontinue at 6:39 AM -Continue as needed IV antiemetics -Continue scopolamine patch -As needed IV pain medication with narcotics -Discontinue Toradol -Last colonoscopy was in 2021 -General Surgery following -Consult GI Abnormal UA -Urine culture shows 1-10,000 of group G strep and mixed gram-positive's -Appears to be contaminant so we will discontinue antibiotics LUDWIG -Outpatient workup pending -continue follow-up with Dr. Ramsey CAD/HPL/essential hypertension/subclavian steal syndrome -Check blood pressure and right arm -Outpatient follow-up with Dr. Cardoso -Continue home medications of aspirin, rosuvastatin, and valsartan as tolerated while n.p.o. DM-2 -Hold home pioglitazone -hold home metformin -Continue SSI to every 6 -Accu-Cheks as ordered Hypothyroidism -Continue home levothyroxine Insomnia -Continue melatonin GERD/Mckeon's esophagus -IV PPI while n.p.o. Depression/Anxiety -Cymbalta Morbid Obesity -BMI 40.2 -Recommend wgt loss -complicates tx, prognosis, and outcomes DVT prophylaxis -cont Enoxaparin 40mg daily Code Status -DNR CCA No ETT Charges/Coding Visit Charges Inpatient E&M: 57132 Subs Hosp L2
[2024-07-13] MEDS: 0.9% Saline Lock 10 ML Syringe IV ×3 (15:34→19:56)
--- NOTE | 2024-07-13 15:39 | CHAPLAIN ---
Type of Pastoral Visit _x__ Initial Visit ___ Follow-up Visit ___ On-call Visit ___ General Patient Visit ___ Spiritual Assessment ___ Family Conference ___ Bereavement ___ Rapid Response ___ Code Blue ___ Other (describe below) Pastoral Care Referral From _x__ Patient ___ Family ___ Nurse ___ Physician ___ Pot Puller ___ Art Professor ___ Other (describe below) Sacrament/Intervention _x__ Active listening ___ Anointing ___ Rastafari ___ Bereavement ___ Communion ___ [place] exploration ___ ___ Life review ___ Prayer ___ Reconciliation ___ Sacrament of Sick ___ Supportive presence ___ Wedding ___ Other (describe below) Pastoral Comments patient is welcoming and open to talk; pt acknowledges that this is a great interruption for family Lissette plans and concern for her who has to do much more right now; 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
[2024-07-13 17:02] LABS: Bedside Glucose 141 mg/dL (74-106)
[2024-07-13] MEDS: HYDROmorphone 0.5 MG/0.5 ML SYRINGE IV (19:56)
[2024-07-13 23:38] LABS: Bedside Glucose 122 mg/dL (74-106)
[2024-07-14] VITALS (8 sets, daily range): BP systolic 135–165; BP diastolic 50–80; PULSE 64–90; RESP 14–16; TEMP 36.4–36.6; O2SAT 95–100
[2024-07-14] MEDS: 0.9% Normal Saline (1000mL) 1,000 ML 75 ML IV ×2 (01:31→15:17)
[2024-07-14 06:15] LABS: Hematocrit 36.5 % (37-47); Hemoglobin 11.4 g/dL (12.0-15.0); Mean Corp Hgb Conc 31.2 g/dL (32-36); Mean Corpuscular Hgb 29.2 pg (27.0-32.0); Mean Corpuscular Volume 93.6 fL (81-99); Mean Platelet Vol. 9.6 fl (6.2-12.0); Platelet Count 203 K/mm3 (150-450); RBC Distribution Width CV 14.5 % (11.6-14.6); RBC Distribution Width SD 49.8 fl (35.1-43.9); White Blood Count 8.6 K/mm3 (4.4-11.0)
[2024-07-14 06:37] LABS: Anion Gap 4 (5-15); BUN 24 mg/dL (7-18); BUN/Creat Ratio 25.6 RATIO (10-20); Calcium,Total 8.6 mg/dL (8.5-10.1); Chloride 117 mmol/L (98-107); Creatinine, Serum 0.94 mg/dL (0.55-1.02); EST Glomerular Filtration Rate 62 mL/min (>60); Est Glom Filt Rate - Afr Amer 75 mL/min (>60); Estimated Creatinine Clearance 58.85 ml/min; Glucose 124 mg/dL (74-106); Potassium 3.9 mmol/L (3.5-5.1); Sodium Level 144 mmol/L (136-145)
[2024-07-14] MEDS: Levothyroxine 50 MCG Tablet PO (06:55)
[2024-07-14 07:18] LABS: Bedside Glucose 97 mg/dL (74-106)
--- NOTE | 2024-07-14 08:11 | PCM.PN.HOSP ---
Reason for Visit Reason for Visit: Diagnoses Noninfective gastroenteritis and colitis, unspecified (07/11/24) Unspecified abdominal pain (07/11/24) Subjective Subjective Patient with no acute events overnight per self and per nursing report. She does report that she has had 3 loose diarrheal bowel movements since midnight in addition to mild nausea but no emesis and is currently tolerating clear liquids. She notes primarily she has had abdominal cramping. She continues to have flatus. She notes feeling improved since NG tube was removed earlier in the morning and diet was initiated. Patient denies fevers, chills, nausea, emesis, abdominal pain, chest pain or dyspnea. Objective Data Objective Data Vital Signs: Vital Signs Temp Pulse Resp BP Pulse Ox O2 Del Method O2 Flow Rate 97.7 F L 70 16 165/79 H 99 Room Air 2 07/14/24 04:52 07/14/24 04:52 07/14/24 04:52 07/14/24 04:52 07/14/24 04:52 07/14/24 04:52 07/12/24 11:15 Oxygen Flow Rate (L/min) 2 Oxygen Delivery Method Room Air Weight: 219 lb 12.814 oz Body Mass Index (BMI) 40.1 Intake & Output: Intake and Output for Last 24 Hours 07/12/24 07/13/24 07/14/24 23:59 23:59 23:59 Intake Total 1252.5 / 1252.5 1745.0 / 1775.0 622.5 / 622.5 Output Total 750 / 750 0 / 0 Balance 502.5 / 502.5 1745.0 / 1775.0 622.5 / 622.5 Lab / Micro Data 07/14/24 05:53 07/14/24 05:53 Labs: Laboratory Results - last 24 hr 07/13/24 11:26: POC Glucose 126 H 07/13/24 16:36: POC Glucose 141 H 07/13/24 23:18: POC Glucose 122 H 07/14/24 05:53: WBC 8.6, RBC 3.90 L, Hgb 11.4 L, Hct 36.5 L, MCV 93.6, MCH 29.2, MCHC 31.2 L, RDW Std Deviation 49.8 H, RDW Coeff of [place]ler 14.5, Plt Count 203, MPV 9.6, Sodium 144, Potassium 3.9, Chloride 117 H, Carbon Dioxide 23.0, Anion Gap 4 L, BUN 24 H, Creatinine 0.94, Estim Creat Clear Calc 58.85, Est GFR (MDRD) Af Amer 75, Est GFR (MDRD) Non-Af 62, BUN/Creatinine Ratio 25.6 H, Glucose 124 H, Calcium 8.6 07/14/24 06:52: POC Glucose 97 Micro: Microbiology 07/11/24 19:40 Urine, Clean Catch Urine Culture - Final Streptococcus group G Mixed Gram Positive Organisms Radiography Diagnostic Testing: Radiology Impression Small Bowel X-Ray 07/13/24 13:30 IMPRESSION: No bowel obstruction. Contrast extends into the colon by one hour post administration. Nonspecific mild distention of small bowel loops. Electronically Signed: Colby Mercer DO at 21:52 EST , Physical Exam Narrative Physical Examination: General: Awake, alert, oriented x 3 and cooperative, seated upright in MS bed, notes feeling improved, status post NGT removal, tolerated clears this a.m. Skin: Normal color, normal turgor, no icterus, no cyanosis except occasional stage ecchymoses, abrasion. HEENT: AT/NC, EOMI, PERRLA, MMM, status post NG tube removal. Lungs: Diminished, greater bases, appropriate for, no rales, ronchi or wheezing. Heart: Regular rate and rhythm; no gallop, rub audible. Abdomen: Soft, mild generalized discomfort but no rebound or guarding, nondistended, normalizing bowel sounds, status post NG tube removal earlier in the day. Extremities: No cyanosis, clubbing, or edema. Neurological: Patient awake, alert, oriented as noted, cognitive function intact; pupils equally reactive to light and accommodation, cranial nerves grossly normal, moving all 4 extremities, no focal deficits, strength improving, moderately global decreased Psychiatric: Affect appears fatigued otherwise normal, no acute evidence of depressive or anxiety feelings. Assessment & Plan Assessment/Plan (1) Ileitis: (2) Intractable abdominal pain: PLAN: Plan The patient is a 73 y/o F w/ PMHx: Chronic anemia, CKD stage II based on GFR trending LUDWIG, HTN, HLD, CAD, Subclavian steal syndrome following with Vascular, Hypothyroidism, GERD w/ Mckeon's esophagus, Diabetes mellitus type II, Anxiety and Depression/Chronic insomnia, Morbid obesity who presents to the [facility] ED on 07/11/24 with history of onset right lower quadrant abdominal pain and nausea with history of underlying persistent issues following outpatient with gastroenterology who suspects component of IBS with positive inflammatory studies in the past recently started on budesonide however she had not been able to pick it up prompting ED evaluation. #1. Intractable abdominal pain and nausea secondary to terminal ileitis with concern for developing small bowel obstruction with possible underlying inflammatory bowel disease of unclear etiology: CT suggestive of possible low-grade bowel obstruction however patient reportedly having flatus initially however felt eventually more distended, EGD and colonoscopy with no evidence of IBD on biopsy therefore suspected IBS but still unclear etiology, NG tube placed with NPO status w/ d/c early am 07/14/24 with clears start currently tolerated, continued on judicious IV fluids, IV antiemetics and scopolamine patch, IV pain medication as needed, general surgery and gastroenterology following, continue to trend KUB and labs. If continued improvement may consider full liquids 07/14/24 evening versus 07/15/2020 4 AM with per GI recommendation possible outpatient follow-up video capsule endoscopy. In addition GI notes that there was some lessening of her GI symptoms with decrease of her metformin outpatient concurrently. #2. Initial concern for Acute Complicated UTI w/ Abnormal UA, culture consistent with contaminant, UTI ruled out: Urine culture with minimal mold growth with no 1-10,000 of group G strep and mixed gram-positive's consistent with contaminant, initially been placed on antibiotics secondary to concern for UTI, ruled out. #3. LUDWIG: Following outpatient with Dr. Ramsey, encourage continued outpatient follow-up and evaluation as previously arranged. #4. CAD: Patient continued on aspirin, statin, hypertensive regimen upon admission with plan for ongoing administration if tolerating while NPO. May need to hold and if necessary given history could consider DE aspirin temporarily. #5. Hypertension: Continued on valsartan, currently n.p.o. with plan for continued administration if tolerated while NPO; however, low threshold to hold, PRN hydralazine. #6. Hyperlipidemia: Continued on statin therapy, currently n.p.o. with plan for continued administration if tolerated while NPO, low threshold to hold however given presentation if necessary. #7. History of subclavian steal syndrome: Following with Dr. Cardoso outpatient, encourage continued outpatient follow-up as previously arranged. #8. Diabetes mellitus type II: Hold oral home regimen, currently NPO status as noted, continue every 6 accu checks w/ ISS. #9. Hypothyroidism: Currently continued on levothyroxine regimen, currently NPO with plan for continued administration if tolerate while NPO, low threshold to hold if needed. #10. Anxiety and depression/chronic insomnia: Currently continued on Cymbalta and melatonin regimen, currently NPO with plan for continued ministration of tolerated well NPO, low threshold to hold if needed. #11. Morbid Obesity: Weight loss and lifestyle changes encouraged, complicates presentation. #12. GERD with Mckeon's esophagus: Will maintain on IV PPI. #13. Chronic normocytic anemia: Admission hemoglobin 11.7, MCV 93.5, baseline hemoglobin appears 11-12 range, 07/14/2020 4 repeat hemoglobin 11.4, continue to trend. #14. Chronic Kidney Disease Stage II, based on GFR trending: Admission BUN/Cr 30/1.21, GFR 46, baseline renal function primarily 0.8-1.0, repeat BMP in AM. #15. DVT prophylaxis: Lovenox. #16. CODE status: DNR-CCA, no intubation. Charges/Coding Visit Charges Inpatient E&M: 59911 Subs Hosp L2
[2024-07-14] MEDS: Pantoprazole Sodium 40 MG in 0.9% Normal Saline (100mL MB+) 100 ML 330 MG IV ×2 (09:02→22:08)
[2024-07-14] MEDS: Losartan Potassium 100 MG Tablet PO (09:08)
[2024-07-14] MEDS: Aspirin E.C. 81 MG Tablet PO (09:08)
[2024-07-14] MEDS: Enoxaparin 40 MG/0.4 ML Syringe SC (09:08)
[2024-07-14] MEDS: Budesonide 3 MG CAPSULE.EC 9 MG PO (09:08)
[2024-07-14] MEDS: DULoxetine Hcl 30 MG Capsule PO (09:08)
--- NOTE | 2024-07-14 09:28 | NURSING ---
NG Tube removed, patient tolerated well and denies further needs. Educated about being advanced to clear liquids, patient refusing am clear liquid tray.
[2024-07-14 11:56] LABS: Bedside Glucose 105 mg/dL (74-106)
--- NOTE | 2024-07-14 13:10 | PCM.PN.SRG ---
Subjective Subjective Patient doing well this morning. She continues to pass flatus and bowel movements. Small bowel follow-through showed prompt transit through the small bowel and into the colon. Bowel gas pattern prior to small bowel follow-through at that point was already nonspecific. NG tube was removed earlier this morning and she was advanced on to clear liquid diet. She seems to be tolerating clear liquid diet thus far. Objective Data Objective Data Vital Signs: Vital Signs Temp Pulse Resp BP Pulse Ox O2 Del Method O2 Flow Rate 97.8 F 70 14 146/76 H 99 Room Air 2 07/14/24 11:00 07/14/24 11:00 07/14/24 11:00 07/14/24 11:00 07/14/24 11:00 07/14/24 11:00 07/12/24 11:15 Oxygen Flow Rate (L/min) 2 Oxygen Delivery Method Room Air Weight: 219 lb 12.814 oz Body Mass Index (BMI) 40.1 Intake & Output: Intake and Output for Last 24 Hours 07/12/24 07/13/24 07/14/24 23:59 23:59 23:59 Intake Total 1252.5 / 1252.5 1745.0 / 1775.0 1062.5 / 1062.5 Output Total 750 / 750 0 / 0 Balance 502.5 / 502.5 1745.0 / 1775.0 1062.5 / 1062.5 Lab / Micro Data 07/14/24 05:53 07/14/24 05:53 Labs: Laboratory Results - last 24 hr 07/13/24 16:36: POC Glucose 141 H 07/13/24 23:18: POC Glucose 122 H 07/14/24 05:53: WBC 8.6, RBC 3.90 L, Hgb 11.4 L, Hct 36.5 L, MCV 93.6, MCH 29.2, MCHC 31.2 L, RDW Std Deviation 49.8 H, RDW Coeff of Tayler 14.5, Plt Count 203, MPV 9.6, Sodium 144, Potassium 3.9, Chloride 117 H, Carbon Dioxide 23.0, Anion Gap 4 L, BUN 24 H, Creatinine 0.94, Estim Creat Clear Calc 58.85, Est GFR (MDRD) Af Amer 75, Est GFR (MDRD) Non-Af 62, BUN/Creatinine Ratio 25.6 H, Glucose 124 H, Calcium 8.6 07/14/24 06:52: POC Glucose 97 07/14/24 11:29: POC Glucose 105 Micro: Microbiology 07/11/24 19:40 Urine, Clean Catch Urine Culture - Final Streptococcus group G Mixed Gram Positive Organisms Radiography Diagnostic Testing: Radiology Impression Small Bowel X-Ray 07/13/24 13:30 IMPRESSION: No bowel obstruction. Contrast extends into the colon by one hour post administration. Nonspecific mild distention of small bowel loops. Electronically Signed: Colby Mercer DO at 21:52 EST , Physical Exam Narrative She is alert and oriented x 3. She is in no acute distress. Mild diffuse abdominal tenderness to palpation. No rebound or guarding. Assessment & Plan Assessment/Plan (1) Ileitis: PLAN: Plan The patient is a 73-year-old female presented with abdominal pain nausea vomiting diarrhea. Clinical picture likely consistent with enteritis with associated ileus. Small bowel follow-through was not suggestive of a small bowel obstruction. She was advanced onto clear liquid diet. I would continue clear liquid diet and advance slowly if able. Anticipate discharge once medically improved Charges/Coding Visit Charges Inpatient E&M: 73490 Subs Hosp L3
--- NOTE | 2024-07-14 15:00 | EX.PCM.CON.G ---
HPI Consult Data Date of Consult: 07/14/24 HPI Narrative Reason for Consultation: Ileitis and possible small bowel obstruction HPI Narrative: DESTINY BUTLER, is a 73 F who presents to the hospital with right lower quadrant abdominal pain as well as nausea. She has been having issues since she was 16 with her GI symptoms. She was recently seen in the office due to worsening symptoms of abdominal pain bloating and intermittent loose stools. 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 She had a CT scan demonstrates a inflammation in the right colon consistent with possible ileitis. Urine analysis is also consistent with possible UTI so she was given a dose of Rocephin in the emergency room, no leukocytosis or fever on admission. She is a little bit dry with a creatinine of 1.21 with a baseline of around 1. She was started on budesonide 9 mg p.o. since being in the hospital. She had a small bowel follow-through that displayed: Nonspecific, nonobstructive bowel gas pattern seen prior to the administration contrast. Moderate stool particularly within the right colon. There is a proximal duodenal diverticulum. Contrast is identified extending in to the small bowel and by 60 minutes is identified within the colon. 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) GERD (gastroesophageal reflux disease) Wears glasses Thyroid disease Arthritis Fatty liver High cholesterol Back pain Syncope Dietary restriction History of hiatal hernia History of diverticulitis History of IBS Gastric reflux Former smoker Shortness of breath on exertion Leg cramps History of pain when walking History of edema History of echocardiogram History of stress test Cardiology follow-up encounter History of irregular heartbeat Syncope and collapse Nonrheumatic tricuspid valve regurgitation Controlled type 2 diabetes mellitus IBS (irritable bowel syndrome) Raynauds syndrome Essential hypertension Atherosclerotic heart disease of [place] coronary artery without angina pectoris Pulmonary hypertension Carotid stenosis, non-symptomatic Bilateral carotid bruits Subclavian steal syndrome Mckeon esophagus PVC (premature ventricular contraction) Cardiac conduction disorder Hypothyroidism HLD (hyperlipidemia) Home Medications ?Medication ?Instructions ?Recorded ?Last Taken ?Type cholecalciferol (vitamin D3) 25 1,000 unit PO BID Supplement 03/08/16 12/05/18 History mcg (1,000 unit) tablet levothyroxine 50 mcg tablet 50 mcg PO DAILY Thyroid 03/08/16 08/09/21 History metformin 500 mg tablet 500 mg PO BIDCM Diabetes 03/08/16 12/05/18 History esomeprazole magnesium 40 mg 40 mg PO QHS Reflux 05/22/17 12/04/18 History capsule,delayed release rosuvastatin 10 mg tablet 10 mg PO QHS Cholesterol 05/22/17 12/05/18 History aspirin 81 mg tablet,delayed 81 mg PO DAILY heart health 07/23/18 08/06/21 History release (Adult Low Dose Aspirin) melatonin 10 mg tablet 10 mg PO HS 07/23/18 12/04/18 History pioglitazone 30 mg tablet 30 mg PO DAILY dm 08/08/20 Unknown History promethazine 25 mg tablet 12.5 mg PO QPM Nausea 01/26/21 Unknown History furosemide 20 mg tablet 20 mg PO DAILY PRN Edema 06/23/21 Unknown History acetaminophen 500 mg tablet 500 mg PO Q4H PRN pain 11/27/21 Unknown History (Tylenol Extra Strength) duloxetine 30 mg capsule,delayed 30 mg PO DAILY 11/28/23 Unknown History release (Cymbalta) valsartan 320 mg tablet 320 mg PO QAM 01/16/24 Unknown History budesonide 3 mg 6 mg (2 x 3 mg) PO QDAY #60 ea 07/13/24 Unknown Rx capsule,delayed,extended release Allergy/AdvReac Type Severity Reaction Status Date / Time No Known Allergies Allergy Verified 07/11/24 17:17 Family History Father CAD (coronary artery disease) Myocardial infarction Mother Hypertension Cancer lung Grandfather Heart disease Myocardial infarction Grandmother Heart disease Cancer esophageal varices Surgical History History of cardiac catheterization Hx of hand surgery Hx of tonsillectomy History of arthroplasty of left hip history excision fragments loop recorder (~05/28/19) History of colonoscopy (~2017) History of removal of ureteral stent History of ureter stent History of total hysterectomy History of left hip replacement History of right hip replacement S/P peripheral artery angioplasty with stent placement (~10/2021) Status post placement of implantable loop recorder Social History Smoking Status: Former smoker how long ago did patient quit smokin years ago alcohol intake: never substance use type: does not use caffeine: Yes Type: carbonated beverages Number of servings: 3 what type of physical activity do you participate in: none seatbelt use: always do you feel safe at home: Yes Physical Exam Const alert, oriented x3, no apparent distress and well nourished; Negative for average body habitus or healthy appearing HEENT head/scalp atraumatic and moist oral mucous membranes HEENT Narrative: N Head and Scalp: normocephalic Resp normal respiratory effort, no retractions, no use of accessory muscles and clear to auscultation bilaterally Auscultation: Negative for rales, rhonchi or wheezes Cardio regular rate, regular rhythm, S1 normal heart sound, S2 normal heart sound, no murmurs, no rub, no gallops and no clicks GI GI Narrative: Abdomen with less distention, still diffusely tender, bowel sounds are very hypoactive today, soft Extremity no clubbing, cyanosis or edema Extremity Narrative: Pedal pulses and radial pulses are 2+ Neuro moves all extremities and no focal motor deficits Speech: speech normal Psych Psych Narrative: Affect is slightly flat but appropriate for the current situation, makes good eye contact and interacts appropriately Lab / Micro Data 07/14/24 05:53 07/14/24 05:53 Labs: Laboratory Results - last 24 hr 07/13/24 16:36: POC Glucose 141 H 07/13/24 23:18: POC Glucose 122 H 07/14/24 05:53: WBC 8.6, RBC 3.90 L, Hgb 11.4 L, Hct 36.5 L, MCV 93.6, MCH 29.2, MCHC 31.2 L, RDW Std Deviation 49.8 H, RDW Coeff of Tayler 14.5, Plt Count 203, MPV 9.6, Sodium 144, Potassium 3.9, Chloride 117 H, Carbon Dioxide 23.0, Anion Gap 4 L, BUN 24 H, Creatinine 0.94, Estim Creat Clear Calc 58.85, Est GFR (MDRD) Af Amer 75, Est GFR (MDRD) Non-Af 62, BUN/Creatinine Ratio 25.6 H, Glucose 124 H, Calcium 8.6 07/14/24 06:52: POC Glucose 97 07/14/24 11:29: POC Glucose 105 Micro: Microbiology 07/11/24 19:40 Urine, Clean Catch Urine Culture - Final Streptococcus group G Mixed Gram Positive Organisms Imaging Radiology Impression Small Bowel X-Ray 07/13/24 13:30 IMPRESSION: No bowel obstruction. Contrast extends into the colon by one hour post administration. Nonspecific mild distention of small bowel loops. Electronically Signed: Colby Mercer, at 21:52 EST , Assessment & Plan Assessment/Plan (1) Ileitis: (2) Intractable abdominal pain: PLAN: Plan 73-year-old with history of interbowel syndrome and possibly inflammatory bowel disease. Presents with abdominal pain/nausea secondary to terminal ileitis with concern for developing small bowel obstruction -CT was suggestive of possible low-grade bowel obstruction however patient was having flatus initially now not having flatus and feels more distended - She did have normal upper and lower endoscopy back in 2021 but continues to have symptoms of abdominal pain bloating. Initially this was thought to be secondary to IBS, small bacterial overgrowth, diabetic diarrhea. However this could be inflammatory bowel disease possibly that cannot be reached with the colonoscope. Her small bowel follow-through did not show any signs of obstructive physiology at this time. I agree with advancing her diet and seeing if she can get a video capsule endoscopy as an outpatient. -As an outpatient we had decreased her metformin which significantly helped her GI symptoms. Charges/Coding Visit Charges Inpatient E&M: 24255 Init Hosp L3
--- NOTE | 2024-07-14 16:21 | CT_ITS ---
STUDY: CT ABDOMEN AND PELVIS WITH CONTRAST REASON FOR EXAM: Female, 73 years old. ABD PAIN -- IV CONTRAST ONLY. PRIOR HYSTERECTOMY. MAR USED RADIATION DOSAGE (If Supplied By Facility): CTDIvol = ( 18.21 ) mGy, DLP = ( 1659.88 ) mGycm TECHNIQUE: Transaxial images were obtained from the dome of the diaphragm to the symphysis pubis without oral contrast. 100 ML ISOVUE 370 was administered. Sagittal and coronal images were reconstructed. Individualized dose optimization techniques were used for this CT. COMPARISON: None. FINDINGS: The visualized lung bases demonstrate mild effusions. The visualized portions of the heart are within normal limits. Normal liver. Normal gallbladder and extrahepatic biliary system. Normal spleen. Normal pancreas. Normal bilateral adrenal glands. Normal right kidney. Normal left kidney. Small hiatal hernia. Duodenal diverticulum. Diverticulosis of the colon. The appendix is visualized and appears normal. Calcified abdominal aorta. Normal inferior vena cava. Normal retroperitoneum. Normal urinary bladder. Normal abdominal wall. Bilateral hip prosthesis causing artifact limiting the lower pelvic images. CT/Abdomen/Pelvis WITH Contrast IMPRESSION: Small hiatal hernia. Duodenal diverticulum. Diverticulosis of the colon. Mild effusions in the lung bases. Electronically Signed: Marcos Moreno DO at 17:14 EST Reading Location ID and State: [facility] / [place] Tel [phone], Service support ,
[2024-07-14 17:17] LABS: Bedside Glucose 138 mg/dL (74-106)
[2024-07-14] MEDS: Atorvastatin Calcium 20 MG Tablet PO (22:08)
[2024-07-14] MEDS: MELATONIN 10 MG TABLET PO (22:08)
[2024-07-14 23:45] LABS: Bedside Glucose 139 mg/dL (74-106)
[2024-07-15 02:30] VITALS: BP 147/50; PULSE 64; RESP 16; TEMP 36.5; O2SAT 96
--- NOTE | 2024-07-15 05:10 | RAD_ITS ---
EXAM: XR ABDOMEN, 1 VIEW CLINICAL INDICATION: SBO TECHNIQUE: Frontal supine view of the abdomen/pelvis. COMPARISON: KUB from 07/12/2024 FINDINGS: LOWER THORAX: No acute pathology. GASTROINTESTINAL TRACT: Some distended loops of small bowel. ORGANS: Unremarkable as visualized. No organomegaly. No abnormal calcifications. BONES/JOINTS: Bilateral total hip arthroplasties. SOFT TISSUES: No acute pathology. RAD/Abdomen Single View (Portable) IMPRESSION: Some distended loops of small bowel. Findings may indicate ileus. Electronically Signed: Telly Persaud MD at 7:12 EST ,
[2024-07-15] MEDS: Levothyroxine 50 MCG Tablet PO (05:56)
[2024-07-15] MEDS: 0.9% Normal Saline (1000mL) 1,000 ML 75 ML IV (05:56)
[2024-07-15 06:37] LABS: Absolute Lymphocyte Count 1.51 X10^3/uL (0.83-4.51); Absolute Neutrophil Count 3.8 X10^3/uL (2.0-7.7); Basophil# 0.06 X10^3/uL; Basophil% 0.9 % (0-1); Eosinophil# 0.28 X10^3/uL; Eosinophils% 4.4 % (0-5); Hematocrit 33.7 % (37-47); Hemoglobin 10.8 g/dL (12.0-15.0); Lymphocyte # 1.51 X10^3/ul (0.83-4.51); Lymphocyte % 23.7 % (19-41); Mean Corpuscular Hgb 29.9 pg (27.0-32.0); Mean Corpuscular Volume 93.4 fL (81-99); Mean Platelet Vol. 10.7 fl (6.2-12.0); Monocyte# 0.65 X10^3/uL; Monocyte% 10.2 % (0-10); NRBC Flagged by Analyzer 0 % (0-5); Neutrophil # 3.83 X10^3/uL (2.7-7.7); Neutrophil % 60.3 % (47-70); Platelet Count 149 K/mm3 (150-450); RBC Distribution Width CV 14.1 % (11.6-14.6); RBC Distribution Width SD 47.9 fl (35.1-43.9); Red Blood Count 3.61 M/mm3 (4.2-5.4); White Blood Count 6.4 K/mm3 (4.4-11.0)
[2024-07-15 06:41] LABS: Bedside Glucose 122 mg/dL (74-106)
--- NOTE | 2024-07-15 06:42 | PCM.PN.HOSP ---
Reason for Visit Reason for Visit: Diagnoses Noninfective gastroenteritis and colitis, unspecified (07/11/24) Unspecified abdominal pain (07/11/24) Subjective Subjective The evening prior given concern for ongoing abdominal cramping GI did obtain CT abdomen pelvis to be cautious which demonstrated no acute findings this patient was continued on clear liquids. Patient reports more discomfort to the abdomen more notably so right upper and lower quadrant 5-6 out of 10 in severity however she denies any marked nausea and is tolerating her current clear liquids. Patient still reports some occasional loose stools. Patient denies fevers, chills, nausea, emesis, abdominal pain, chest pain or dyspnea. Objective Data Objective Data Vital Signs: Vital Signs Temp Pulse Resp BP Pulse Ox O2 Del Method O2 Flow Rate 97.7 F L 64 16 147/50 H 96 Room Air 2 07/15/24 02:30 07/15/24 02:30 07/15/24 02:30 07/15/24 02:30 07/15/24 02:30 07/15/24 02:30 07/12/24 11:15 Oxygen Flow Rate (L/min) 2 Oxygen Delivery Method Room Air Weight: 219 lb 12.814 oz Body Mass Index (BMI) 40.1 Intake & Output: Intake and Output for Last 24 Hours 07/13/24 07/14/24 07/15/24 23:59 23:59 23:59 Intake Total 1745.0 / 1775.0 2532.5 / 2532.5 1000 / 1000 Output Total 0 / 0 Balance 1745.0 / 1775.0 2532.5 / 2532.5 1000 / 1000 Lab / Micro Data 07/15/24 05:44 07/15/24 05:44 Labs: Laboratory Results - last 24 hr 07/14/24 06:52: POC Glucose 97 07/14/24 11:29: POC Glucose 105 07/14/24 16:51: POC Glucose 138 H 07/14/24 23:27: POC Glucose 139 H 07/15/24 05:56: POC Glucose 122 H Micro: Microbiology 07/11/24 19:40 Urine, Clean Catch Urine Culture - Final Streptococcus group G Mixed Gram Positive Organisms Radiography Diagnostic Testing: Radiology Impression Abdomen/Pelvis CT 07/14/24 16:21 IMPRESSION: Small hiatal hernia. Duodenal diverticulum. Diverticulosis of the colon. Mild effusions in the lung bases. Electronically Signed: Marcos Moreno DO at 17:14 EST Reading Location ID and State: [facility] / [place] Tel [phone], Service support , Physical Exam Narrative Physical Examination: General: Awake, alert, oriented x 3 and cooperative, initially seated upright in the MS bed, eating, notes worsened abdominal discomfort more so on the right side. Skin: Normal color, normal turgor, no icterus, no cyanosis except occasional stage ecchymoses, abrasion. HEENT: AT/NC, EOMI, PERRLA, MMM. Lungs: Diminished, greater bases, appropriate for, no rales, ronchi or wheezing. Heart: Regular rate and rhythm; no gallop, rub audible. Abdomen: Soft, more pronounced discomfort to palpation of the abdomen primarily right upper and lower quadrants with some voluntary guarding, nondistended, appropriate bowel sounds. Extremities: No cyanosis, clubbing, or edema. Neurological: Patient awake, alert, oriented as noted, cognitive function intact; pupils equally reactive to light and accommodation, cranial nerves grossly normal, moving all 4 extremities, no focal deficits, strength still continues to improve, mildly to moderately globally decreased. Psychiatric: Affect appears fatigued otherwise normal, does report pain as noted, more comfortable with evaluation, no acute evidence of depressive or anxiety feelings. Assessment & Plan Assessment/Plan (1) Ileitis: (2) Intractable abdominal pain: PLAN: Plan The patient is a 73 y/o F w/ PMHx: Chronic anemia, CKD stage II based on GFR trending LUDWIG, HTN, HLD, CAD, Subclavian steal syndrome following with Vascular, Hypothyroidism, GERD w/ Mckeon's esophagus, Diabetes mellitus type II, Anxiety and Depression/Chronic insomnia, Morbid obesity who presents to the [facility] ED on 07/11/24 with history of onset right lower quadrant abdominal pain and nausea with history of underlying persistent issues following outpatient with gastroenterology who suspects component of IBS with positive inflammatory studies in the past recently started on budesonide however she had not been able to pick it up prompting ED evaluation. #1. Intractable abdominal pain and nausea secondary to terminal ileitis with concern for developing small bowel obstruction with possible underlying inflammatory bowel disease of unclear etiology: CT suggestive of possible low-grade bowel obstruction however patient reportedly having flatus initially however felt eventually more distended, EGD and colonoscopy with no evidence of IBD on biopsy therefore suspected IBS but still unclear etiology, NG tube placed with NPO status w/ d/c early am 07/14/24 with clears start currently tolerated, continued on judicious IV fluids, IV antiemetics and scopolamine patch, IV pain medication as needed, general surgery and gastroenterology following, continue to trend KUB and labs. 07/14/24 Surgery recommendation for NGT d/c, consideration diet advancement as improving but later in the day GI evaluation with ongoing abdominal cramping thus repeat CT 07/14/24 obtained with noted small hiatal hernia, duodenal diverticulum, diverticulosis of the colon and mild effusions at the lung bases but no acute findings thus allowed to continue clear liquid diet only. GI also recommended outpatient follow-up video capsule endoscopy. In addition GI notes that there was some lessening of her GI symptoms with decrease of her metformin outpatient concurrently. Continued on oral budesonide which GI had initiate outpatient. 07/15/24 worsened R sided abdominal discomfort per patient report and on examination, still tolerating oral intake but diet maintained at this time and not advanced given the fact that CT the day prior had no marked findings. 07/15/2020 4 AM KUB with some distended loops of small bowel but no overt obstruction. Awaiting repeat assessment by surgery and gastroenterology for further input. #2. Initial concern for Acute Complicated UTI w/ Abnormal UA, culture consistent with contaminant, UTI ruled out: Urine culture with minimal mold growth with no 1-10,000 of group G strep and mixed gram-positive's consistent with contaminant, initially been placed on antibiotics secondary to concern for UTI, ruled out. #3. LUDWIG: Following outpatient with Dr. Ramsey, encourage continued outpatient follow-up and evaluation as previously arranged. #4. CAD: Patient continued on aspirin, statin, losartan regimen. #5. Hypertension: Continued on valsartan, PRN hydralazine. #6. Hyperlipidemia: Continued on statin therapy. #7. History of subclavian steal syndrome: Following with Dr. Cardoso outpatient, encourage continued outpatient follow-up as previously arranged. #8. Diabetes mellitus type II: Hold oral home regimen, currently transition to clears, continue q6 hour accu checks w/ ISS. #9. Hypothyroidism: Currently continued on levothyroxine regimen. #10. Anxiety and depression/chronic insomnia: Currently continued on Cymbalta and melatonin regimen. #11. Morbid Obesity: Weight loss and lifestyle changes encouraged, complicates presentation. #12. GERD with Mckeon's esophagus: Given tolerating oral regimen will transition to oral PPI. #13. Chronic normocytic anemia: Admission hemoglobin 11.7, MCV 93.5, baseline hemoglobin appears 11-12 range, 07/15/24 Hgb 10.8, continue to trend. #14. Chronic Kidney Disease Stage II, based on GFR trending: Admission BUN/Cr 30/1.21, GFR 46, baseline renal function primarily 0.8-1.0, 07/15/24 BUN/Cr 12/0.75, GFR 81, repeat BMP in AM. #15. DVT prophylaxis: Lovenox. #16. CODE status: DNR-CCA, no intubation. Charges/Coding Visit Charges Inpatient E&M: 46597 Subs Hosp L3
[2024-07-15 07:49] LABS: ALB/GLOB Ratio 1.1 RATIO (0.9-2.4); AST(SGOT) 15 U/L (15-37); Alanine Aminotransfer ALT/SGPT 14 U/L (13-56); Albumin, Serum 2.7 g/dL (3.2-5.0); Alkaline Phosphatase 73 U/L (45-117); Anion Gap 5 (5-15); BUN 12 mg/dL (7-18); BUN/Creat Ratio 16.2 RATIO (10-20); Calcium,Total 8.1 mg/dL (8.5-10.1); Chloride 115 mmol/L (98-107); Creatinine, Serum 0.74 mg/dL (0.55-1.02); EST Glomerular Filtration Rate 81 mL/min (>60); Est Glom Filt Rate - Afr Amer 98 mL/min (>60); Estimated Creatinine Clearance 69.15 ml/min; Globulin 2.4 g/dL (2.2-4.2); Glucose 113 mg/dL (74-106); Potassium 3.6 mmol/L (3.5-5.1); Protein, Total 5.1 g/dL (6.4-8.2); Sodium Level 143 mmol/L (136-145)
[2024-07-15 10:58] VITALS: BP 148/65; PULSE 60; RESP 16; TEMP 36.7; O2SAT 96
[2024-07-15 10:59] VITALS: BP 148/65; PULSE 60; RESP 16; TEMP 36.7; O2SAT 98
[2024-07-15] MEDS: Budesonide 3 MG CAPSULE.EC 9 MG PO (11:05)
[2024-07-15] MEDS: Scopolamine 1mg/72hr Patch 1 PATCH TD (11:05)
[2024-07-15] MEDS: DULoxetine Hcl 30 MG Capsule PO (11:05)
[2024-07-15] MEDS: Aspirin E.C. 81 MG Tablet PO (11:06)
[2024-07-15] MEDS: Enoxaparin 40 MG/0.4 ML Syringe SC (11:06)
[2024-07-15] MEDS: Losartan Potassium 100 MG Tablet PO (11:07)
[2024-07-15] MEDS: Pantoprazole Sodium 40 MG Tablet PO (11:12)
[2024-07-15] MEDS: HYDROmorphone 0.5 MG/0.5 ML SYRINGE IV ×2 (11:13→20:57)
[2024-07-15] MEDS: 0.9% Saline Lock 10 ML Syringe IV (11:13)
[2024-07-15] MEDS: Insulin Lispro 100 UNIT/ML INSULN.PEN SC ×2 (12:46→17:32)
--- NOTE | 2024-07-15 14:33 | PCM.PN.SRG ---
Subjective Subjective Patient doing well this afternoon. She states that she is still passing some flatus as well as small amount of liquid stool albeit small. She does admit to some crampy abdominal discomfort at times. A.m. x-ray showed some mildly dilated small bowel. Small bowel follow-through showed no evidence of obstruction. Objective Data Objective Data Vital Signs: Vital Signs Temp Pulse Resp BP Pulse Ox O2 Del Method O2 Flow Rate 98.1 F 60 16 148/65 H 98 Room Air 2 07/15/24 10:59 07/15/24 10:59 07/15/24 10:59 07/15/24 10:59 07/15/24 10:59 07/15/24 10:59 07/12/24 11:15 Oxygen Flow Rate (L/min) 2 Oxygen Delivery Method Room Air Weight: 219 lb 12.814 oz Body Mass Index (BMI) 40.1 Intake & Output: Intake and Output for Last 24 Hours 07/13/24 07/14/24 07/15/24 23:59 23:59 23:59 Intake Total 1745.0 / 1775.0 2532.5 / 2532.5 1000 / 1000 Output Total 0 / 0 Balance 1745.0 / 1775.0 2532.5 / 2532.5 1000 / 1000 Lab / Micro Data 07/15/24 05:44 07/15/24 05:44 Labs: Laboratory Results - last 24 hr 07/14/24 16:51: POC Glucose 138 H 07/14/24 23:27: POC Glucose 139 H 07/15/24 05:44: WBC 6.4, RBC 3.61 L, Hgb 10.8 L, Hct 33.7 L, MCV 93.4, MCH 29.9, MCHC 32.0, RDW Std Deviation 47.9 H, RDW Coeff of Tayler 14.1, Plt Count 149 L, MPV 10.7, Immature Gran % (Auto) 0.500, Neut % (Auto) 60.3, Lymph % (Auto) 23.7, [place] % (Auto) 10.2 H, Eos % (Auto) 4.4, Baso % (Auto) 0.9, Absolute Neuts (auto) 3.8, Absolute Lymphs (auto) 1.51, Nucleated RBC % 0, Sodium 143, Potassium 3.6, Chloride 115 H, Carbon Dioxide 23.0, Anion Gap 5, BUN 12, Creatinine 0.74, Estim Creat Clear Calc 69.15, Est GFR (MDRD) Af Amer 98, Est GFR (MDRD) Non-Af 81, BUN/Creatinine Ratio 16.2, Glucose 113 H, Calcium 8.1 L, Total Bilirubin 0.40, AST 15, ALT 14, Alkaline Phosphatase 73, Total Protein 5.1 L, Albumin 2.7 L, Globulin 2.4, Albumin/Globulin Ratio 1.1 07/15/24 05:56: POC Glucose 122 H Micro: Microbiology 07/11/24 19:40 Urine, Clean Catch Urine Culture - Final Streptococcus group G Mixed Gram Positive Organisms Radiography Diagnostic Testing: Radiology Impression Abdomen/Pelvis CT 07/14/24 16:21 IMPRESSION: Small hiatal hernia. Duodenal diverticulum. Diverticulosis of the colon. Mild effusions in the lung bases. Electronically Signed: Marcos Moreno DO at 17:14 EST , KUB X-Ray 07/15/24 05:10 IMPRESSION: Some distended loops of small bowel. Findings may indicate ileus. Electronically Signed: Telly Persaud MD at 7:12 EST , Physical Exam Narrative She is alert and oriented x 3. She is in no acute distress. Abdomen is soft, obese. Minimal tenderness to palpation Assessment & Plan Assessment/Plan (1) Abdominal pain: QUALIFIERS: Abdominal location: generalized Qualified Code(s): R10.84 - Generalized abdominal pain PLAN: Plan The patient is a 73-year-old female with most likely an ileus. Surgical consult was obtained to rule out obstruction. Small bowel follow-through showed prompt transit to the colon. So far she has tolerated clear liquid diet. Recommending advancing her diet to a full liquid diet. GI also following. No surgical plans at this time Charges/Coding Visit Charges Inpatient E&M: 09567 Subs Hosp L2
[2024-07-15 16:55] VITALS: BP 132/47; PULSE 64; RESP 16; TEMP 36.9; O2SAT 98
[2024-07-15 17:00] VITALS: BP 132/47; PULSE 64; RESP 16; TEMP 36.9; O2SAT 98
[2024-07-15 17:06] LABS: Bedside Glucose 207 mg/dL (74-106)
[2024-07-15 18:10] LABS: Bedside Glucose 159 mg/dL (74-106)
[2024-07-15] MEDS: MELATONIN 10 MG TABLET PO (20:57)
[2024-07-15] MEDS: Atorvastatin Calcium 20 MG Tablet PO (20:58)
[2024-07-15 21:00] VITALS: BP 156/64; PULSE 61; RESP 18; TEMP 36.2; O2SAT 97
[2024-07-15 23:48] LABS: Bedside Glucose 149 mg/dL (74-106)
[2024-07-16 03:15] VITALS: BP 150/83; PULSE 55; RESP 18; TEMP 36.2; O2SAT 97
[2024-07-16] MEDS: Levothyroxine 50 MCG Tablet PO (05:25)
[2024-07-16 05:44] LABS: Bedside Glucose 122 mg/dL (74-106)
[2024-07-16 06:26] LABS: Absolute Lymphocyte Count 1.42 X10^3/uL (0.83-4.51); Absolute Neutrophil Count 3.7 X10^3/uL (2.0-7.7); Basophil# 0.04 X10^3/uL; Basophil% 0.7 % (0-1); Eosinophil# 0.28 X10^3/uL; Eosinophils% 4.6 % (0-5); Hematocrit 33.5 % (37-47); Hemoglobin 10.7 g/dL (12.0-15.0); Lymphocyte # 1.42 X10^3/ul (0.83-4.51); Lymphocyte % 23.4 % (19-41); Mean Corp Hgb Conc 31.9 g/dL (32-36); Mean Corpuscular Hgb 29.3 pg (27.0-32.0); Mean Corpuscular Volume 91.8 fL (81-99); Mean Platelet Vol. 10.4 fl (6.2-12.0); Monocyte# 0.64 X10^3/uL; Monocyte% 10.6 % (0-10); NRBC Flagged by Analyzer 0 % (0-5); Neutrophil # 3.65 X10^3/uL (2.7-7.7); Neutrophil % 60.2 % (47-70); Platelet Count 142 K/mm3 (150-450); RBC Distribution Width CV 13.9 % (11.6-14.6); RBC Distribution Width SD 46.7 fl (35.1-43.9); Red Blood Count 3.65 M/mm3 (4.2-5.4); White Blood Count 6.1 K/mm3 (4.4-11.0)
[2024-07-16 07:11] LABS: ALB/GLOB Ratio 0.9 RATIO (0.9-2.4); AST(SGOT) 13 U/L (15-37); Alanine Aminotransfer ALT/SGPT 16 U/L (13-56); Albumin, Serum 2.5 g/dL (3.2-5.0); Alkaline Phosphatase 66 U/L (45-117); Anion Gap 6 (5-15); BUN 7 mg/dL (7-18); BUN/Creat Ratio 10.1 RATIO (10-20); Calcium,Total 8.6 mg/dL (8.5-10.1); Chloride 113 mmol/L (98-107); Creatinine, Serum 0.69 mg/dL (0.55-1.02); EST Glomerular Filtration Rate 88 mL/min (>60); Est Glom Filt Rate - Afr Amer 107 mL/min (>60); Estimated Creatinine Clearance 69.15 ml/min; Globulin 2.8 g/dL (2.2-4.2); Glucose 133 mg/dL (74-106); Potassium 3.6 mmol/L (3.5-5.1); Protein, Total 5.3 g/dL (6.4-8.2); Sodium Level 141 mmol/L (136-145)
--- NOTE | 2024-07-16 07:42 | PCM.PN.HOSP ---
Reason for Visit Reason for Visit: Diagnoses Noninfective gastroenteritis and colitis, unspecified (07/11/24) Generalized abdominal pain (07/11/24) Unspecified abdominal pain (07/11/24) Subjective Subjective Patient with no acute events overnight per self and per nursing report. She notes she is tolerating more intake and did eat quite a breakfast noting she is pretty full at this point. She denies any severe abdominal cramping or severe pain and notes it feels improved since day prior. She continues to have bowel movements and flatus. Patient is amenable to discharged home if amenable per other services given tolerating diet. Patient denies fevers, chills, nausea, emesis, chest pain or dyspnea. Objective Data Objective Data Vital Signs: Vital Signs Temp Pulse Resp BP Pulse Ox O2 Del Method O2 Flow Rate 97.1 F L 55 L 18 150/83 H 97 Room Air 2 07/16/24 03:15 07/16/24 03:15 07/16/24 03:15 07/16/24 03:15 07/16/24 03:15 07/16/24 04:35 07/12/24 11:15 Oxygen Flow Rate (L/min) 2 Oxygen Delivery Method Room Air Weight: 219 lb 12.814 oz Body Mass Index (BMI) 40.1 Intake & Output: Intake and Output for Last 24 Hours 07/14/24 07/15/24 07/16/24 23:59 23:59 23:59 Intake Total 2532.5 / 2532.5 2000 / 2600 950 / 950 Balance 2532.5 / 2532.5 2000 / 2600 950 / 950 Lab / Micro Data 07/16/24 05:51 07/16/24 05:51 Labs: Laboratory Results - last 24 hr 07/15/24 05:44: Sodium 143, Potassium 3.6, Chloride 115 H, Carbon Dioxide 23.0, Anion Gap 5, BUN 12, Creatinine 0.74, Estim Creat Clear Calc 69.15, Est GFR (MDRD) Af Amer 98, Est GFR (MDRD) Non-Af 81, BUN/Creatinine Ratio 16.2, Glucose 113 H, Calcium 8.1 L, Total Bilirubin 0.40, AST 15, ALT 14, Alkaline Phosphatase 73, Total Protein 5.1 L, Albumin 2.7 L, Globulin 2.4, Albumin/Globulin Ratio 1.1 07/15/24 11:29: POC Glucose 207 H 07/15/24 17:31: POC Glucose 159 H 07/15/24 23:28: POC Glucose 149 H 07/16/24 05:24: POC Glucose 122 H 07/16/24 05:51: WBC 6.1, RBC 3.65 L, Hgb 10.7 L, Hct 33.5 L, MCV 91.8, MCH 29.3, MCHC 31.9 L, RDW Std Deviation 46.7 H, RDW Coeff of [place]ler 13.9, Plt Count 142 L, MPV 10.4, Immature Gran % (Auto) 0.500, Neut % (Auto) 60.2, Lymph % (Auto) 23.4, [place] % (Auto) 10.6 H, Eos % (Auto) 4.6, Baso % (Auto) 0.7, Absolute Neuts (auto) 3.7, Absolute Lymphs (auto) 1.42, Nucleated RBC % 0, Sodium 141, Potassium 3.6, Chloride 113 H, Carbon Dioxide 22.0, Anion Gap 6, BUN 7, Creatinine 0.69, Estim Creat Clear Calc 69.15, Est GFR (MDRD) Af Amer 107, Est GFR (MDRD) Non-Af 88, BUN/Creatinine Ratio 10.1, Glucose 133 H, Calcium 8.6, Total Bilirubin 0.30, AST 13 L, ALT 16, Alkaline Phosphatase 66, Total Protein 5.3 L, Albumin 2.5 L, Globulin 2.8, Albumin/Globulin Ratio 0.9 Micro: Microbiology 07/11/24 19:40 Urine, Clean Catch Urine Culture - Final Streptococcus group G Mixed Gram Positive Organisms Physical Exam Narrative Physical Examination: General: Awake, alert, oriented x 3 and cooperative, seated upright in EMS bed, ate a notable full breakfast and is tolerating well. Skin: Normal color, normal turgor, no icterus, no cyanosis except occasional stage ecchymoses, abrasion. HEENT: AT/NC, EOMI, PERRLA, MMM. Lungs: Diminished, greater bases, appropriate for, no rales, ronchi or wheezing. Heart: Regular rate and rhythm; no gallop, rub audible. Abdomen: Soft, currently improved, nontender to palpation, no marked distention, appropriate bowel sounds. Extremities: No cyanosis, clubbing, or edema. Neurological: Patient awake, alert, oriented as noted, cognitive function intact; pupils equally reactive to light and accommodation, cranial nerves grossly normal, moving all 4 extremities, no focal deficits, strength improved, mild global decreased Psychiatric: Affect appears normal, notes feeling improved, no acute evidence of depressive or anxiety feelings. Assessment & Plan Assessment/Plan (1) Ileitis: (2) Intractable abdominal pain: PLAN: Plan The patient is a 73 y/o F w/ PMHx: Chronic anemia, CKD stage II based on GFR trending LUDWIG, HTN, HLD, CAD, Subclavian steal syndrome following with Vascular, Hypothyroidism, GERD w/ Mckeon's esophagus, Diabetes mellitus type II, Anxiety and Depression/Chronic insomnia, Morbid obesity who presents to the [facility] ED on 07/11/24 with history of onset right lower quadrant abdominal pain and nausea with history of underlying persistent issues following outpatient with gastroenterology who suspects component of IBS with positive inflammatory studies in the past recently started on budesonide however she had not been able to pick it up prompting ED evaluation. #1. Intractable abdominal pain and nausea secondary to terminal ileitis with concern for developing small bowel obstruction with possible underlying inflammatory bowel disease of unclear etiology: CT suggestive of possible low-grade bowel obstruction however patient reportedly having flatus initially however felt eventually more distended, EGD and colonoscopy with no evidence of IBD on biopsy therefore suspected IBS but still unclear etiology, NG tube placed with NPO status w/ d/c early am 07/14/24 with clears start currently tolerated, continued on judicious IV fluids, IV antiemetics and scopolamine patch, IV pain medication as needed, general surgery and gastroenterology following, continue to trend KUB and labs. 07/14/24 Surgery recommendation for NGT d/c, consideration diet advancement as improving but later in the day GI evaluation with ongoing abdominal cramping thus repeat CT 07/14/24 obtained with noted small hiatal hernia, duodenal diverticulum, diverticulosis of the colon and mild effusions at the lung bases but no acute findings thus allowed to continue clear liquid diet only. GI also recommended outpatient follow-up video capsule endoscopy. In addition GI notes that there was some lessening of her GI symptoms with decrease of her metformin outpatient concurrently. Continued on oral budesonide which GI had initiate outpatient. 07/15/24 worsened R sided abdominal discomfort per patient report and on examination, still tolerating oral intake but diet maintained at this time and not advanced given the fact that CT the day prior had no marked findings. 07/15/2020 4 AM KUB with some distended loops of small bowel but no overt obstruction. 07/15/24 advanced to full liquids. 07/16/2024 tolerating full liquids without marked abdominal discomfort, will discuss with general surgery and if amenable with plan discharge to home with follow-up with both surgery and GI. May require continue full liquids for the next 2 to 3 days prior to full diet ADA transition but will clarify with franchise consultant services. #2. Initial concern for Acute Complicated UTI w/ Abnormal UA, culture consistent with contaminant, UTI ruled out: Urine culture with minimal mold growth with no 1-10,000 of group G strep and mixed gram-positive's consistent with contaminant, initially been placed on antibiotics secondary to concern for UTI, ruled out. #3. LUDWIG: Following outpatient with Dr. Ramsey, encourage continued outpatient follow-up and evaluation as previously arranged. #4. CAD: Patient continued on aspirin, statin, losartan regimen. #5. Hypertension: Continued on valsartan, PRN hydralazine. #6. Hyperlipidemia: Continued on statin therapy. #7. History of subclavian steal syndrome: Following with Dr. Cardoso outpatient, encourage continued outpatient follow-up as previously arranged. #8. Diabetes mellitus type II: Hold oral home regimen, currently transition to clears, continue q6 hour accu checks w/ ISS. #9. Hypothyroidism: Currently continued on levothyroxine regimen. #10. Anxiety and depression/chronic insomnia: Currently continued on Cymbalta and melatonin regimen. #11. Morbid Obesity: Weight loss and lifestyle changes encouraged, complicates presentation. #12. GERD with Mckeon's esophagus: 07/15/2024 transition to oral PPI. #13. Chronic normocytic anemia: Admission hemoglobin 11.7, MCV 93.5, baseline hemoglobin appears 11-12 range, 07/16/2024 hemoglobin 10.7, continue to trend. #14. Chronic Kidney Disease Stage II, based on GFR trending: Admission BUN/Cr 30/1.21, GFR 46, baseline renal function primarily 0.8-1.0, 07/16/2024 BUN/creatinine 7/0.69, GFR 88, repeat BMP in AM. #15. DVT prophylaxis: Lovenox. #16. CODE status: DNR-CCA, no intubation. Charges/Coding Visit Charges Inpatient E&M: 98537 Subs Hosp L2
[2024-07-16 08:30] VITALS: BP 158/76; PULSE 57; RESP 16; TEMP 36.8; O2SAT 98
[2024-07-16] MEDS: DULoxetine Hcl 30 MG Capsule PO (08:38)
[2024-07-16] MEDS: Pantoprazole Sodium 40 MG Tablet PO (08:38)
[2024-07-16] MEDS: Enoxaparin 40 MG/0.4 ML Syringe SC (08:39)
[2024-07-16] MEDS: Losartan Potassium 100 MG Tablet PO (08:39)
[2024-07-16] MEDS: Budesonide 3 MG CAPSULE.EC 9 MG PO (08:39)
[2024-07-16] MEDS: Aspirin E.C. 81 MG Tablet PO (08:39)
--- NOTE | 2024-07-16 10:41 | PCM.PN.SRG ---
Subjective Subjective Patient doing well this morning. She is tolerating a full liquid diet. She admits to some crampy sensations. Still passing flatus Objective Data Objective Data Vital Signs: Vital Signs Temp Pulse Resp BP Pulse Ox O2 Del Method O2 Flow Rate 97.1 F L 55 L 18 150/83 H 97 Room Air 2 07/16/24 03:15 07/16/24 03:15 07/16/24 03:15 07/16/24 03:15 07/16/24 03:15 07/16/24 04:35 07/12/24 11:15 Oxygen Flow Rate (L/min) 2 Oxygen Delivery Method Room Air Weight: 219 lb 12.814 oz Body Mass Index (BMI) 40.1 Intake & Output: Intake and Output for Last 24 Hours 07/14/24 07/15/24 07/16/24 23:59 23:59 23:59 Intake Total 2532.5 / 2532.5 2000 / 2600 950 / 950 Balance 2532.5 / 2532.5 2000 / 2600 950 / 950 Lab / Micro Data 07/16/24 05:51 07/16/24 05:51 Labs: Laboratory Results - last 24 hr 07/15/24 11:29: POC Glucose 207 H 07/15/24 17:31: POC Glucose 159 H 07/15/24 23:28: POC Glucose 149 H 07/16/24 05:24: POC Glucose 122 H 07/16/24 05:51: WBC 6.1, RBC 3.65 L, Hgb 10.7 L, Hct 33.5 L, MCV 91.8, MCH 29.3, MCHC 31.9 L, RDW Std Deviation 46.7 H, RDW Coeff of [place] 13.9, Plt Count 142 L, MPV 10.4, Immature Gran % (Auto) 0.500, Neut % (Auto) 60.2, Lymph % (Auto) 23.4, [place] % (Auto) 10.6 H, Eos % (Auto) 4.6, Baso % (Auto) 0.7, Absolute Neuts (auto) 3.7, Absolute Lymphs (auto) 1.42, Nucleated RBC % 0, Sodium 141, Potassium 3.6, Chloride 113 H, Carbon Dioxide 22.0, Anion Gap 6, BUN 7, Creatinine 0.69, Estim Creat Clear Calc 69.15, Est GFR (MDRD) Af Amer 107, Est GFR (MDRD) Non-Af 88, BUN/Creatinine Ratio 10.1, Glucose 133 H, Calcium 8.6, Total Bilirubin 0.30, AST 13 L, ALT 16, Alkaline Phosphatase 66, Total Protein 5.3 L, Albumin 2.5 L, Globulin 2.8, Albumin/Globulin Ratio 0.9 Micro: Microbiology 07/11/24 19:40 Urine, Clean Catch Urine Culture - Final Streptococcus group G Mixed Gram Positive Organisms Physical Exam Narrative Alert and oriented x 3. No acute distress. Abdomen is minimally distended. Minimal tenderness to palpation Assessment & Plan Assessment/Plan (1) Ileitis: PLAN: Patient is a 73-year-old female with presumed ileus which continues to gradually resolved. I would recommend keeping her out of full liquid diet for now. Certainly this can be advanced. Do not anticipate any surgical intervention.
[2024-07-16] MEDS: Insulin Lispro 100 UNIT/ML INSULN.PEN SC (11:16)
[2024-07-16 11:37] LABS: Bedside Glucose 227 mg/dL (74-106)
--- NOTE | 2024-07-16 11:57 | PCM.DC ---
Discharge Instructions Diet Discharge Diet: - (Full liquids for the next 2-3 days, slowly advance to ADA 1800 diet.) DC O2, CPAP, BIPAP needs Home O2 Discharge instructions: No Dressing / Incision Discharge Activity: - (Recommend moderate maximal activity until completely resolved acute illness.) May resume sexual activity in: 10-14 days Weight Bearing Status: Weight bearing as tolerated Dressing / Incision Call your doctor if you observe: Fever of 101 or Higher, Inability to urinate, Inability to have a bowel movement, Shortness of breath, Dizziness, Swelling in the ankles, Chest pain, Increased palpitations (irregular heartbeat), Calf discomfort and Uncontrolled pain Follow Up Care Test Results: Test results from this visit will be discussed in further detail at your follow-up appointment, if applicable. Discharge Plan Admission Admit Date/Time: 07/11/24 23:24 Primary Reason for Your Visit: Terminal ileitis, concern SBO, ongoing evaluation IBD Attending Provider: Jojo Islas Primary Care Provider: Jim Calabrese [facility] Consult[employer] Providers: Malick Borjas; Padilla Naranjo; Darlene Lugo Instructions Patient Instructions: Small Bowel Obstruction, ED Gastroenteritis, Viral (Adult) Additional Instructions / Restrictions: DISCHARGE ADDITIONAL INSTRUCTIONS/CARE PLAN: -- Per general surgery recommendation please continue full liquid diet for the next 2 to 3 days and slowly advance to an ADA 1800 diet. -- Please hold oral diabetic regimen until oral intake is appropriate and there is no concern for potential low blood sugar as well as GI side effects from these medications. May confer with your primary care physician but ideally your diet should be advanced prior to restarting. -- Given that there was no obvious concerning source for the diarrhea that was identified high suspicion for viral gastroenteritis thus if needed you may use [id number] loperamide antidiarrheal medication if necessary. -- Initial concern for urinary tract infection upon ED evaluation ruled out as urine culture was likely contaminated. -- Please have repeat complete blood count and basic metabolic panel at follow-up with your primary care physician. -- Please also follow-up with gastroenterology as noted. -- If you have worsening abdominal pain, lack of flatus or bowel movement, intractable nausea and emesis please immediately notify general surgery/gastroenterology of concerns and/or present to the ED for immediate evaluation. Discharge Orders/Prescriptions Prescriptions: New scopolamine base 1 mg over 3 days Patch 3 Day 1 patch transdermal Q3D 7 Days Qty: 4 0RF ondansetron HCl 4 mg tablet 4 mg PO Q8H PRN (Reason: nausea and vomiting) 4 Days Qty: 20 0RF Continued aspirin [Adult Low Dose Aspirin] 81 mg tablet,delayed release (DR/EC) 81 mg PO DAILY melatonin 10 mg tablet 10 mg PO HS acetaminophen [Tylenol Extra Strength] 500 mg tablet 500 mg PO Q4H PRN (Reason: pain) duloxetine [Cymbalta] 30 mg capsule,delayed release(DR/EC) 30 mg PO DAILY valsartan 320 mg tablet 320 mg PO QAM levothyroxine 50 MCG tablet 50 mcg PO DAILY Patient Comments: Thyroid cholecalciferol (vitamin D3) 1,000 UNIT tablet 1,000 unit PO BID Patient Comments: Supplement promethazine 25 mg tablet 12.5 mg PO QPM Patient Comments: Nausea esomeprazole magnesium 40 MG capsule 40 mg PO QHS Patient Comments: Reflux rosuvastatin 10 MG tablet 10 mg PO QHS Patient Comments: Cholesterol budesonide 3 mg capsule,delayed,extend.release 6 mg PO QDAY Qty: 60 1RF Held furosemide 20 mg tablet 20 mg PO DAILY PRN (Reason: Edema) Hold Instructions: Resume on 07/23/24. Please assure resolution of GI illness, tolerance of appropriate regular oral intake and clearance per primary care to use this medication again even PRN (as needed). metformin 500 MG tablet 500 mg PO BIDCM Hold Instructions: Resume on 07/23/24. Hold for an additional 5-7 days until GI illness completely resolved and bowel function normalizing. May confer with your primary care to assure appropriate restart. Patient Comments: Diabetes pioglitazone 30 mg tablet 30 mg PO DAILY Hold Instructions: Resume on 07/23/24. Please hold until assure appropriate oral intake and advanced to regular texture meals. May confer with primary care to assure restart appropriate. Referrals / Follow Up: Hansel Ramsey DO [Med Staff - Active Staff] - (Follow-up in 1-2 weeks, may see [employer]ST[employer]ER/PA to have re-evaluation post hospital discharge.) Padilla Naranjo MD [Med Staff - Active Staff] - (Follow-up in 2-4 weeks or earlier if concerns arise.) Jim Calabrese Chi, MD [Primary Care Provider] - (Follow-up within 3-5 days for re-evaluation. Have repeat CBC and BMP at follow-up.) Disposition Disposition (needs filled in before D/C Order can be placed): Home, Self Care
--- NOTE | 2024-07-16 12:08 | DS.PCM_ITS ---
Providers Date of Admission: 07/11/24 Date of Discharge: 07/16/24 Primary Care Physician: Dr. Jim Calabrese MD Consultations 07/13/24 09:10 Consult: General Surgery Routine Consulting Provider: Padilla Naranjo Reason for Consult: bowel obstruction EMERGENT Consult: No Notified: Yes Date Notified: 07/13/24 Time Notified: 09:10 Method of Notification: Text 07/13/24 15:14 Consult: Gastroenterology Routine Consulting Provider: Angelica [facility] Reason for Consult: Ileitis with SBO EMERGENT Consult: No Notified: Yes Date Notified: 07/13/24 Time Notified: 15:44 Method of Notification: Text Reason For Visit: TERMINAL ILEITIS Diagnosis Discharge Diagnosis (1) Ileitis: Status: Acute Code(s): K52.9 - Noninfective gastroenteritis and colitis, unspecified Plan DISCHARGE DIAGNOSES: #1. Intractable abdominal pain and nausea secondary to terminal ileitis with concern for developing small bowel obstruction with possible underlying inflammatory bowel disease of unclear etiology #2. Initial concern for Acute Complicated UTI w/ Abnormal UA, culture consistent with contaminant, UTI ruled out #3. LUDWIG #4. CAD #5. Hypertension #6. Hyperlipidemia #7. History of subclavian steal syndrome #8. Diabetes mellitus type II #9. Hypothyroidism #10. Anxiety and depression/chronic insomnia #11. Morbid Obesity #12. GERD with Mckeon's esophagus #13. Chronic normocytic anemia #14. Chronic Kidney Disease Stage II, based on GFR trending #15. CODE status: DNR-CCA, no intubation. Medications at Discharge Home Medications cholecalciferol (vitamin D3) 25 mcg (1,000 unit) tablet 1,000 unit PO BID Supplement 03/08/16 levothyroxine 50 mcg tablet 50 mcg PO DAILY Thyroid 03/08/16 metformin 500 mg tablet 500 mg PO BIDCM Diabetes 03/08/16 esomeprazole magnesium 40 mg capsule,delayed release 40 mg PO QHS Reflux 05/22/17 rosuvastatin 10 mg tablet 10 mg PO QHS Cholesterol 05/22/17 aspirin 81 mg tablet,delayed release (Adult Low Dose Aspirin) 81 mg PO DAILY heart health 07/23/18 melatonin 10 mg tablet 10 mg PO HS sleep 07/23/18 pioglitazone 30 mg tablet 30 mg PO DAILY dm 08/08/20 promethazine 25 mg tablet 12.5 mg PO QPM Nausea 01/26/21 furosemide 20 mg tablet 20 mg PO DAILY PRN Edema 06/23/21 acetaminophen 500 mg tablet (Tylenol Extra Strength) 500 mg PO Q4H PRN pain 11/27/21 duloxetine 30 mg capsule,delayed release (Cymbalta) 30 mg PO DAILY mental health 11/28/23 valsartan 320 mg tablet 320 mg PO QAM blood pressure 01/16/24 budesonide 3 mg capsule,delayed,extended release 6 mg (2 x 3 mg) PO QDAY #60 ea 07/13/24 ondansetron HCl 4 mg tablet 4 mg PO Q8H PRN nausea and vomiting 4 days #20 tabs 07/16/24 scopolamine base 1 mg over 3 days transdermal patch 1 patch transdermal Q3D Nausea/emesis 1 week #4 ea 07/16/24 Hospital Course Operations None Procedures EKG and - (NGT placement, SBFT) Summary of Care Provided Minutes Spent on Discharge: 35 Hospital Course: The patient is a 73 y/o F w/ PMHx: Chronic anemia, CKD stage II based on GFR trending LUDWIG, HTN, HLD, CAD, Subclavian steal syndrome following with Vascular, Hypothyroidism, GERD w/ Mckeon's esophagus, Diabetes mellitus type II, Anxiety and Depression/Chronic insomnia, Morbid obesity who presented to the [facility] ED on 07/11/24 with history of onset right lower quadrant abdominal pain and nausea with history of underlying persistent issues following outpatient with gastroenterology who suspects component of IBS with positive inflammatory studies in the past recently started on budesonide however she had not been able to pick it up prompting ED evaluation. CT suggestive of possible low-grade bowel obstruction however patient reportedly having flatus initially however felt eventually more distended, EGD and colonoscopy with no evidence of IBD on biopsy therefore suspected IBS but still unclear etiology, NG tube placed with NPO status w/ d/c early am 07/14/24 with clears start currently tolerated, continued on judicious IV fluids, IV antiemetics and scopolamine patch, IV pain medication as needed, general surgery and gastroenterology following, continue to trend KUB and labs. 07/14/24 Surgery recommendation for NGT d/c, consideration diet advancement as improving but later in the day GI evaluation with ongoing abdominal cramping thus repeat CT 12/24/24 obtained with noted small hiatal hernia, duodenal diverticulum, diverticulosis of the colon and mild effusions at the lung bases but no acute findings thus allowed to continue clear liquid diet only. GI also recommended outpatient follow-up video capsule endoscopy. In addition GI notes that there was some lessening of her GI symptoms with decrease of her metformin outpatient concurrently. Continued on oral budesonide which GI had initiate outpatient. 07/15/24 worsened R sided abdominal discomfort per patient report and on examination, still tolerating oral intake but diet maintained at this time and not advanced given the fact that CT the day prior had no marked findings. 07/15/2020 4 AM KUB with some distended loops of small bowel but no overt obstruction. 07/15/24 advanced to full liquids. 07/16/24 continued clinical improvement thus amenable per Surgery for discharge to home on continued fulls for an additional 2-3 days then transition to ADA diet with follow-up with PCP, GI and Surgery recommended. Weight / BMI Weight Weight: 219 lb 12.814 oz Body Mass Index (BMI) 40.1 ABG / Lab / Microbiology Data 07/16/24 05:51 07/16/24 05:51 Laboratory: Laboratory Results - last 24 hr 07/15/24 11:29: POC Glucose 207 H 07/15/24 17:31: POC Glucose 159 H 07/15/24 23:28: POC Glucose 149 H 07/16/24 05:24: POC Glucose 122 H 07/16/24 05:51: WBC 6.1, RBC 3.65 L, Hgb 10.7 L, Hct 33.5 L, MCV 91.8, MCH 29.3, MCHC 31.9 L, RDW Std Deviation 46.7 H, RDW Coeff of [place] 13.9, Plt Count 142 L, MPV 10.4, Immature Gran % (Auto) 0.500, Neut % (Auto) 60.2, Lymph % (Auto) 23.4, [place] % (Auto) 10.6 H, Eos % (Auto) 4.6, Baso % (Auto) 0.7, Absolute Neuts (auto) 3.7, Absolute Lymphs (auto) 1.42, Nucleated RBC % 0, Sodium 141, Potassium 3.6, Chloride 113 H, Carbon Dioxide 22.0, Anion Gap 6, BUN 7, Creatinine 0.69, Estim Creat Clear Calc 69.15, Est GFR (MDRD) Af Amer 107, Est GFR (MDRD) Non-Af 88, BUN/Creatinine Ratio 10.1, Glucose 133 H, Calcium 8.6, Total Bilirubin 0.30, AST 13 L, ALT 16, Alkaline Phosphatase 66, Total Protein 5.3 L, Albumin 2.5 L, Globulin 2.8, Albumin/Globulin Ratio 0.9 07/16/24 11:13: POC Glucose 227 H Microbiology: Microbiology 07/11/24 19:40 Urine, Clean Catch Urine Culture - Final Streptococcus group G Mixed Gram Positive Organisms D/C Instructions Discharge Diet: - (Full liquids for the next 2-3 days, slowly advance to ADA 1800 diet.) May resume sexual activity in: 10-14 days Weight Bearing Status: Weight bearing as tolerated Call your doctor if you observe: Fever of 101 or Higher, Inability to urinate, Inability to have a bowel movement, Shortness of breath, Dizziness, Swelling in the ankles, Chest pain, Increased palpitations (irregular heartbeat), Calf discomfort and Uncontrolled pain DC O2, CPAP, BIPAP Needs Home O2 Discharge instructions: No Meaningful Use Info Meaningful Use Meaningful Use Diagnoses (Choose all that apply): None applicable Ischemic Stroke Statin Dosing Therapy Reference: STATIN DOSE THERAPY REFERENCE: * Patients > 75 years receive moderate or high dose statin therapy. * Patients 75 years or YOUNGER should receive HIGH intensity statin dose unless contraindicated. You will be required to document reason for non-treatment if statin daily dose does not meet guidelines. HIGH DOSE STATIN THERAPY DAILY Atorvastatin > than or = to 40 mg Rosuvastatin > than or = to 20 mg Amlodipine + Atorvastatin > than or = to 2.5/40 mg Ezetimibe + Simvastatin 10/80 mg Simvastatin 80mg Discharge Plan Admission Admit Date/Time: 07/11/24 23:24 Primary Reason for Your Visit: Terminal ileitis, concern SBO, ongoing evaluation IBD Attending Provider: Jojo Islas Primary Care Provider: Jim Calabrese Chi Consulting Providers: Malick Borjas; Padilla Naranjo; Darlene Lugo Instructions Patient Instructions: Small Bowel Obstruction, ED Gastroenteritis, Viral (Adult) Additional Instructions / Restrictions: DISCHARGE ADDITIONAL INSTRUCTIONS/CARE PLAN: -- Per general surgery recommendation please continue full liquid diet for the next 2 to 3 days and slowly advance to an ADA 1800 diet. -- Please hold oral diabetic regimen until oral intake is appropriate and there is no concern for potential low blood sugar as well as GI side effects from these medications. May confer with your primary care physician but ideally your diet should be advanced prior to restarting. -- Given that there was no obvious concerning source for the diarrhea that was identified high suspicion for viral gastroenteritis thus if needed you may use [id number] loperamide antidiarrheal medication if necessary. -- Initial concern for urinary tract infection upon ED evaluation ruled out as urine culture was likely contaminated. -- Please have repeat complete blood count and basic metabolic panel at follow- up with your primary care physician. -- Please also follow-up with gastroenterology as noted. -- If you have worsening abdominal pain, lack of flatus or bowel movement, intractable nausea and emesis please immediately notify general surgery/gastroenterology of concerns and/or present to the ED for immediate evaluation. Discharge Orders/Prescriptions Prescriptions: New scopolamine base 1 mg over 3 days Patch 3 Day 1 patch transdermal Q3D 7 Days Qty: 4 0RF ondansetron HCl 4 mg tablet 4 mg PO Q8H PRN (Reason: nausea and vomiting) 4 Days Qty: 20 0RF Continued aspirin [Adult Low Dose Aspirin] 81 mg tablet,delayed release (DR/EC) 81 mg PO DAILY melatonin 10 mg tablet 10 mg PO HS acetaminophen [Tylenol Extra Strength] 500 mg tablet 500 mg PO Q4H PRN (Reason: pain) duloxetine [Cymbalta] 30 mg capsule,delayed release(DR/EC) 30 mg PO DAILY valsartan 320 mg tablet 320 mg PO QAM levothyroxine 50 MCG tablet 50 mcg PO DAILY Patient Comments: Thyroid cholecalciferol (vitamin D3) 1,000 UNIT tablet 1,000 unit PO BID Patient Comments: Supplement promethazine 25 mg tablet 12.5 mg PO QPM Patient Comments: Nausea esomeprazole magnesium 40 MG capsule 40 mg PO QHS Patient Comments: Reflux rosuvastatin 10 MG tablet 10 mg PO QHS Patient Comments: Cholesterol budesonide 3 mg capsule,delayed,extend.release 6 mg PO QDAY Qty: 60 1RF Held furosemide 20 mg tablet 20 mg PO DAILY PRN (Reason: Edema) Hold Instructions: Resume on 07/23/24. Please assure resolution of GI illness, tolerance of appropriate regular oral intake and clearance per primary care to use this medication again even PRN (as needed). metformin 500 MG tablet 500 mg PO BIDCM Hold Instructions: Resume on 07/23/24. Hold for an additional 5-7 days until GI illness completely resolved and bowel function normalizing. May confer with your primary care to assure appropriate restart. Patient Comments: Diabetes pioglitazone 30 mg tablet 30 mg PO DAILY Hold Instructions: Resume on 07/23/24. Please hold until assure appropriate oral intake and advanced to regular texture meals. May confer with primary care to assure restart appropriate. Referrals / Follow Up: Hansel Ramsey DO [Med Staff - Active Staff] - 07/24/24 11:00 am (Follow-up in 1-2 weeks, may see [employer]PA to have re-evaluation post hospital discharge. [employer] called and left a voicemail, if they do not return the call within 2-3 business days please give them a call. ) Padilla Naranjo MD [Med Staff - Active Staff] - 07/29/24 9:30 am (Please arrive 15 minutes before appointment time. ) Jim Calabrese Chi, MD [Primary Care Provider] - (Follow-up within 3-5 days for re-evaluation. Have repeat CBC and BMP at follow- up. Office is closed until July 20, pathology secretary/transcriptionist called and left a voicemail for them to call you. ) Disposition Disposition (needs filled in before D/C Order can be placed): Home, Self Care Charges/Coding Visit Charges Inpatient E&M: 92232 Disch Hosp >30min
--- NOTE | 2024-07-16 13:47 | CASEMGMT ---
SAMANTHA HARRISON NOTE: Discharge order is in. RN CM to room. Introduced self and role. Pt resting in bed. @ bedside. Pt denies any discharge needs. Aware Rx's have been sent to [facility] pharmacy. Pt has been up indep in room. She states she has been tolerating full-liquid diet w/out difficulty and plans to advance in a couple days, as tolerated. She and pt aware of f/u appts needed. Kat HERNÁNDEZ RN, CM
[2024-07-16 13:58] VITALS: BP 149/76; RESP 18; O2SAT 100
== END 2024-07-16 14:04 | disposition home or self-care (01) | DRG 386 ==
LOC: ED 22:21 → PCU 07-12 05:29
PROVIDERS: Internal Medicine; Nurse Practitioner; Admitting Provider Family Medicine; Emergency Provider Emergency Medicine; PCP Family Medicine Geriatric Medicine; Visit Provider Family Medicine
DX: K50.00 Crohn's disease of small intestine without complications (principal); Z68.41 Body mass index [BMI] 40.0-44.9, adult; D64.9 Anemia, unspecified; E11.22 Type 2 diabetes mellitus with diabetic chronic kidney disease; E03.9 Hypothyroidism, unspecified; E66.01 Morbid (severe) obesity due to excess calories; F32.A Depression, unspecified; K75.81 Nonalcoholic steatohepatitis (NASH); I12.9 Hypertensive chronic kidney disease with stage 1 through stage 4 chronic kidney disease, or unspecified chronic kidney disease; Z95.820 Peripheral vascular angioplasty status with implants and grafts; I25.10 Atherosclerotic heart disease of native coronary artery without angina pectoris; E78.00 Pure hypercholesterolemia, unspecified; K21.9 Gastro-esophageal reflux disease without esophagitis; K22.70 Barrett's esophagus without dysplasia; N18.2 Chronic kidney disease, stage 2 (mild); F41.9 Anxiety disorder, unspecified; R11.0 Nausea; Z90.710 Acquired absence of both cervix and uterus; Z79.84 Long term (current) use of oral hypoglycemic drugs; Z87.891 Personal history of nicotine dependence; Z79.82 Long term (current) use of aspirin; Z79.890 Hormone replacement therapy; Z79.899 Other long term (current) drug therapy; Z96.643 Presence of artificial hip joint, bilateral; G47.00 Insomnia, unspecified; R10.84 Generalized abdominal pain
CPT/HCPCS: 36415; 74018; 74177; 74250; 80048; 80053; 81001; 82962; 83605; 83690; 85025; 85027; 87077; 87086; 87088; 92610; 94668; 99283; Q9967; A4216; J2405

== ENCOUNTER → 2024-08-05 | Outpatient (CLI) | payer MEDICARE, OTHER, SELFPAY ==
[2024-08-05 13:27] LABS: Absolute Lymphocyte Count 1.43 X10^3/uL (0.83-4.51); Absolute Neutrophil Count 3.5 X10^3/uL (2.0-7.7); Basophil# 0.07 X10^3/uL; Basophil% 1.2 % (0-1); Eosinophil# 0.24 X10^3/uL; Hematocrit 36.4 % (37-47); Hemoglobin 11.4 g/dL (12.0-15.0); Lymphocyte # 1.43 X10^3/ul (0.83-4.51); Lymphocyte % 24.1 % (19-41); Mean Corp Hgb Conc 31.3 g/dL (32-36); Mean Corpuscular Hgb 28.9 pg (27.0-32.0); Mean Corpuscular Volume 92.4 fL (81-99); Mean Platelet Vol. 9.4 fl (6.2-12.0); Monocyte# 0.64 X10^3/uL; Monocyte% 10.8 % (0-10); NRBC Flagged by Analyzer 0 % (0-5); Neutrophil # 3.53 X10^3/uL (2.7-7.7); Neutrophil % 59.4 % (47-70); Platelet Count 201 K/mm3 (150-450); RBC Distribution Width CV 13.8 % (11.6-14.6); RBC Distribution Width SD 46.9 fl (35.1-43.9); Red Blood Count 3.94 M/mm3 (4.2-5.4); White Blood Count 5.9 K/mm3 (4.4-11.0)
[2024-08-05 14:15] LABS: AST(SGOT) 14 U/L (15-37); Alanine Aminotransfer ALT/SGPT 19 U/L (13-56); Albumin, Serum 3.4 g/dL (3.2-5.0); Alkaline Phosphatase 101 U/L (45-117); Anion Gap 5 (5-15); BUN 16 mg/dL (7-18); BUN/Creat Ratio 16.2 RATIO (10-20); Calcium,Total 9.1 mg/dL (8.5-10.1); Chloride 108 mmol/L (98-107); Creatinine, Serum 0.99 mg/dL (0.55-1.02); EST Glomerular Filtration Rate 58 mL/min (>60); Est Glom Filt Rate - Afr Amer 71 mL/min (>60); Globulin 3.4 g/dL (2.2-4.2); Glucose 171 mg/dL (74-106); Potassium 3.6 mmol/L (3.5-5.1); Protein, Total 6.8 g/dL (6.4-8.2); Sodium Level 138 mmol/L (136-145)
== END | disposition home or self-care (01) ==
LOC: LAB 12:53
PROVIDERS: PCP Family Medicine Geriatric Medicine; Referring Provider Student in an Organized Health Care Education/Training Program; Visit Provider Student in an Organized Health Care Education/Training Program
DX: K52.9 Noninfective gastroenteritis and colitis, unspecified (principal)
CPT/HCPCS: 36415; 80053; 85025

== ENCOUNTER → 2024-08-07 | Outpatient (CLI) | payer MEDICARE, OTHER, SELFPAY ==
--- NOTE | 2024-08-07 14:57 | CT_ITS ---
STUDY: CT BRAIN WITHOUT CONTRAST REASON FOR EXAM: Female, 74 years old. Headaches and memory loss. RADIATION DOSAGE (If Supplied By Facility): CTDIvol = ( 44.99 ) mGy, DLP = ( 779.24 ) mGycm TECHNIQUE: Transaxial CT imaging of the brain was performed without administration of intravenous contrast material. Individualized dose optimization techniques were used for this CT. COMPARISON: No relevant priors. FINDINGS: Normal soft tissue structures. Normal calvarium. There is mild cerebral atrophy with widening of the extra-axial spaces and ventricular dilatation. Normal white matter tracts of the cerebral hemispheres. There are small punctate calcifications of the basal ganglia which are seen in the aging brain as a normal variant. Normal brainstem. Normal cerebellum. There is no intracranial hemorrhage. There are no findings of an acute ischemic infarction. Atherosclerotic calcification of the cavernous portions of the internal carotid arteries as well as the vertebral arteries. Normal visualized paranasal sinuses. CT/Brain/Head without Contrast IMPRESSION: Chronic involutional changes of the brain. Electronically Signed: Rodrick Diaz MD at 15:53 EST ,
== END | disposition home or self-care (01) ==
LOC: CT 14:55
PROVIDERS: PCP Family Medicine Geriatric Medicine; Referring Provider Family Medicine Geriatric Medicine; Visit Provider Family Medicine Geriatric Medicine
DX: R51.9 Headache, unspecified (principal)
CPT/HCPCS: 70450

== ENCOUNTER → 2024-08-17 | Outpatient (CLI) | payer MEDICARE, OTHER, SELFPAY | END | disposition home or self-care (01) | LOC: POLAB3 16:38 | PROVIDERS: PCP Family Medicine Geriatric Medicine; Visit Provider Family Medicine Geriatric Medicine | DX: N39.0 Urinary tract infection, site not specified (principal) | CPT/HCPCS: 87077; 87086; 87088; 87186 ==

== ENCOUNTER → 2025-01-19 | Outpatient (CLI) | payer MEDICARE, OTHER, SELFPAY ==
[2025-01-19 12:54] LABS: Hematocrit 36.4 % (37-47); Hemoglobin 11.7 g/dL (12.0-15.0); Immature Granulocytes Count 0.020 X10^3/uL (0.0-0.0); Mean Corp Hgb Conc 32.1 g/dL (32-36); Mean Corpuscular Volume 92.2 fL (81-99); Mean Platelet Vol. 9.8 fl (6.2-12.0); NRBC Flagged by Analyzer 0 % (0-5); Platelet Count 215 K/mm3 (150-450); RBC Distribution Width CV 13.6 % (11.6-14.6); RBC Distribution Width SD 46.4 fl (35.1-43.9); Red Blood Count 3.95 M/mm3 (4.2-5.4); White Blood Count 5.6 K/mm3 (4.4-11.0)
[2025-01-19 13:58] LABS: AST(SGOT) 25 U/L (<=31); Alanine Aminotransfer ALT/SGPT 12 U/L (<=34); Albumin, Serum 4.1 g/dL (3.4-4.8); Alkaline Phosphatase 104 U/L (35-104); Anion Gap 10 (5-15); BUN 20 mg/dL (4-19); BUN/Creat Ratio 18.5 RATIO (10-20); Calcium,Total 9.9 mg/dL (7.6-11.0); Carbon Dioxide 24.9 mmol/L (21.0-32.0); Chloride 107 mmol/L (98-108); Globulin 2.6 g/dL (2.2-4.2); Glucose 155 mg/dL (70-99); Potassium 5.2 mmol/L (3.3-5.1); Vitamin D,25 Hydroxy 55.0 ng/mL (30-100)
== END | disposition home or self-care (01) ==
LOC: LAB 12:19
PROVIDERS: PCP Family Medicine Geriatric Medicine; Referring Provider Family Medicine Geriatric Medicine; Visit Provider Family Medicine Geriatric Medicine
DX: E11.69 Type 2 diabetes mellitus with other specified complication (principal); I10 Essential (primary) hypertension; E55.9 Vitamin D deficiency, unspecified
CPT/HCPCS: 36415; 80053; 82306; 84443; 85025

== ENCOUNTER → 2025-01-25 | Outpatient (CLI) | payer MEDICARE, OTHER, SELFPAY ==
[2025-01-25 13:34] LABS: Anion Gap 13 (5-15); BUN 23 mg/dL (4-19); BUN/Creat Ratio 22.5 RATIO (10-20); Calcium,Total 8.9 mg/dL (7.6-11.0); Carbon Dioxide 20.2 mmol/L (21.0-32.0); Chloride 109 mmol/L (98-108); Glucose 172 mg/dL (70-99); Potassium 4.2 mmol/L (3.3-5.1)
== END | disposition home or self-care (01) ==
PROVIDERS: PCP Family Medicine Geriatric Medicine; Visit Provider Family Medicine Geriatric Medicine
DX: I10 Essential (primary) hypertension (principal); M51.369 Other intervertebral disc degeneration, lumbar region without mention of lumbar back pain or lower extremity pain
CPT/HCPCS: 36415; 72110; 72114; 80048

== ENCOUNTER → 2025-01-27 | Outpatient (CLI) | payer MEDICARE, OTHER, SELFPAY ==
--- NOTE | 2025-01-27 10:03 | ADUUE_ITS ---
Reason For Study Reason For Study: Atherosclerosis LEFT Left Subclavian velocity = 84.5 cm/sec. Left Axillary velocity = 47.2 cm/sec. Left Brachial velocity = 80.1 cm/sec. Left Radial velocity = 57 cm/sec. Left Ulnar velocity = 26.2 cm/sec. /US Art Duplex Unilat UP Extrem Interpretation Summary This is a normal bilateral upper extremity arterial duplex exam. Ordering Physician: Je Cardoso Referring Physician: Jim Calabrese Chi Performed By: Sandra Wells RVT
--- NOTE | 2025-01-27 10:03 | ART_ITS ---
Reason For Study Reason For Study: Atherosclerosis Procedure A bilateral upper extremity continuous wave Doppler with analog waveform analysis and segmental pressures. Left Segmental Pressures Left brachial= 128mmHg. Left ulnar= 132mmHg. Left radial= 150mmHg. Left digit = 124 mmHg. The left radial waveforms are biphasic. The left ulnar waveforms are monophasic. Right Segmental Pressures Right brachial= 169mmHg. Right ulnar= 185mmHg. Right radial= 198mmHg. Right digit = 162 mmHg. The right radial waveforms are triphasic. The right ulnar waveforms are triphasic. Indices The right wrist-brachial index by the ulnar artery is 1.09. The right wrist- brachial index by the radial artery is 1.17. The right digital-brachial index is 0.96. The left wrist-brachial index by the ulnar artery is 0.78. The left wrist- brachial index by the radial artery is 0.89. The left digital-brachial index is 0.73. VL/Ankle Brachial Index Interpretation Summary Right WBI normal and left mild decrease. Ordering Physician: Je Cardoso Referring Physician: Jim Calabrese Chi Performed By: Sandra Wells RVT
== END | disposition home or self-care (01) ==
LOC: CVS 10:01
PROVIDERS: PCP Family Medicine Geriatric Medicine; Referring Provider Surgery Vascular Surgery; Visit Provider Surgery Vascular Surgery
DX: Z48.812 Encounter for surgical aftercare following surgery on the circulatory system (principal); G45.8 Other transient cerebral ischemic attacks and related syndromes; I77.1 Stricture of artery
CPT/HCPCS: 93922; 93931

== ENCOUNTER → 2025-02-03 | Outpatient (CLI) | payer MEDICARE, OTHER, SELFPAY ==
--- NOTE | 2025-02-03 10:04 | BI_ITS ---
EXAM: SCRN MAMM (CAD)W/MEHRAN BILAT DATE: 02/03/2025 CLINICAL HISTORY: F, Age 74 y/o , SCREENING TECHNIQUE: SCRN MAMM (CAD)W/MEHRAN BILAT COMPARISON: Prior exam(s) dated 02/03/2024, 01/30/2024, 01/28/2023. FINDINGS: TISSUE DENSITY: There are scattered areas of fibroglandular density. Bilateral Breast Mammographic Findings: No significant masses, calcifications or other abnormalities are identified. BI/SCRN MAMM (CAD)W/MEHRAN BILAT IMPRESSION: There is no mammographic evidence of malignancy. OVERALL FINAL ASSESSMENT BI-RADS 1: NEGATIVE. RECOMMENDATION: Routine annual follow-up in 1 Year A letter with findings and recommendations will be mailed to the patient. Reading Location: [id number]
== END | disposition home or self-care (01) ==
LOC: OPBI 10:03
PROVIDERS: PCP Family Medicine Geriatric Medicine; Referring Provider Family Medicine Geriatric Medicine; Visit Provider Family Medicine Geriatric Medicine
DX: Z12.31 Encounter for screening mammogram for malignant neoplasm of breast (principal)
CPT/HCPCS: 77063; 77067

== ENCOUNTER → 2025-04-29 | Outpatient (CLI) | payer MEDICARE, OTHER, SELFPAY ==
--- NOTE | 2025-04-29 09:36 | MRI_ITS ---
PROCEDURE: SPINE LUMBAR (ROUTINE) 04/29/2025 REASON FOR EXAM: SPINAL STENOSIS TECHNIQUE: Procedure Code: MRISPL Modality: MR Procedure: SPINE LUMBAR (ROUTINE) COMPARISON: Lumbar spine x-ray 01/25/2025. FINDINGS: Vertebrae: Preserved in height and signal. Alignment: Normal. Conus Medullaris: Unremarkable. T12-L1: Disc desiccation. Disc bulge. Facet arthropathy. No significant foraminal or canal stenosis. L1-2: Disc desiccation. Disc bulge. Mild inferior bilateral foramina stenosis. No canal stenosis. L2-3: Disc desiccation. Disc bulge. Facet joint arthropathy. Mild bilateral foramina stenosis. No significant canal stenosis. L3-4: Smalldisc bulge. Disc desiccation facet joint arthropathy. Facet joint arthropathy. Mild bilateral foramina stenosis. No canal stenosis. L4-5: Disc bulge. Disc desiccation. Facet joint arthropathy. Mild bilateral foramina stenosis. Mild canal stenosis. L5-S1: Disc bulge. Central disc protrusion and annular fissure measures 4 mm. Facet joint arthropathy. Severe left foramina stenosis and abutment upon the exiting left L5 nerve. Moderate right foramina stenosis. No significant canal stenosis. Sacrum: Unremarkable. 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 Severe right foramina stenosis . No significant canal stenosis. Reading Location: [id number]
== END | disposition home or self-care (01) ==
LOC: MRI 09:34
PROVIDERS: PCP Family Medicine Geriatric Medicine; Referring Provider Clinical Nurse Specialist Adult Health; Visit Provider Clinical Nurse Specialist Adult Health
DX: M48.07 Spinal stenosis, lumbosacral region (principal)
CPT/HCPCS: 72148

== ENCOUNTER → 2025-07-13 | Outpatient (CLI) | payer MEDICARE, OTHER, SELFPAY ==
[2025-07-13 11:50] LABS: Hematocrit 38.7 % (37-47); Hemoglobin 12.6 g/dL (12.0-15.0); Immature Granulocytes Count 0.020 X10^3/uL (0.0-0.0); Mean Corp Hgb Conc 32.6 g/dL (32-36); Mean Corpuscular Volume 91.9 fL (81-99); Mean Platelet Vol. 9.7 fl (6.2-12.0); NRBC Flagged by Analyzer 0 % (0-5); Platelet Count 236 K/mm3 (150-450); RBC Distribution Width CV 13.4 % (11.6-14.6); RBC Distribution Width SD 45.6 fl (35.1-43.9); Red Blood Count 4.21 M/mm3 (4.2-5.4); White Blood Count 6.4 K/mm3 (4.4-11.0)
[2025-07-13 12:10] LABS: AST(SGOT) 21 U/L (<=31); Alanine Aminotransfer ALT/SGPT 11 U/L (<=34); Albumin, Serum 4.4 g/dL (3.4-4.8); Alkaline Phosphatase 101 U/L (35-104); Anion Gap 11 (7-18); BUN 24 mg/dL (4-19); BUN/Creat Ratio 20.6 RATIO (10-20); Calcium,Total 9.9 mg/dL (7.6-11.0); Carbon Dioxide 23.9 mmol/L (20.0-29.0); Chloride 107 mmol/L (96-106); Globulin 2.8 g/dL (2.2-4.2); Glucose 190 mg/dL (70-99); Potassium 4.5 mmol/L (3.5-5.1); Vitamin D,25 Hydroxy 76.9 ng/mL (30-100)
[2025-07-13 13:43] LABS: Syphilis Antibodies Nonreactive (Nonreactive); Vitamin B12 253 pg/mL (180-914)
[2025-07-13 13:45] LABS: FOLATES,SERUM (FOLIC ACID) 7.96 ng/mL (4.60-34.80)
[2025-07-13 19:11] LABS: Xtra Tube Kwok EXTRA TUBE
== END | disposition home or self-care (01) ==
PROVIDERS: PCP Family Medicine Geriatric Medicine; Visit Provider Family Medicine Geriatric Medicine
DX: E03.9 Hypothyroidism, unspecified (principal); E55.9 Vitamin D deficiency, unspecified; I10 Essential (primary) hypertension; G31.84 Mild cognitive impairment of uncertain or unknown etiology; R33.9 Retention of urine, unspecified
CPT/HCPCS: 36415; 80053; 81401; 82306; 82607; 82746; 84443; 85025; 86780; 87086; 87088